=== PATIENT | female | born 1940 ===

== ENCOUNTER 2017-02-10 15:04 | Observation (INO) | payer OTHER ==
[2017-02-10 15:04] VITALS: BMI 32.3
[2017-02-10 17:43] LABS: CHLORIDE 97 mmol/L (98-107)
[2017-02-10 17:44] LABS: SODIUM 137 mmol/L (132-148)
[2017-02-10 17:46] LABS: ALKALINE PHOSPHATASE 107 U/L (38-126); AST/SGOT 45 U/L (14-36); BILIRUBIN,TOTAL 0.5 mg/dL (0.2-1.3); CARBON DIOXIDE 26 mmol/L (22-30); GFR AFRICAN-AMERICAN > 60; TOTAL PROTEIN 7.6 g/dL (6.3-8.3)
[2017-02-10 17:47] LABS: ALT/SGPT 19 U/L (9-52); BLOOD UREA NITROGEN 15 mg/dL (7-17); GLUCOSE,RANDOM 83 mg/dL (65-105); RBC URINE < 1 /hpf (0-3); URINE BACTERIA RARE (<OCC); URINE BILIRUBIN NEGATIVE (NEGATIVE); URINE BLOOD NEGATIVE (NEGATIVE); URINE COLOR Yellow (YELLOW); URINE GLUCOSE (UA) NORMAL (Normal); URINE KETONE NEGATIVE (NEGATIVE); URINE LEUKOCYTE ESTERASE NEG Leu/uL (Negative); URINE PROTEIN 1+ mg/dL (NEGATIVE); URINE UROBILINOGEN NORMAL mg/dL (0.2-1.0); WBC URINE 1 /hpf (0-5)
--- NOTE | 2017-02-10 17:47 | CT ---
PROCEDURE: CT HEAD WITHOUT CONTRAST. HISTORY: r/o ICH COMPARISON: Comparison is made to the previous study dated 10/11/2016 TECHNIQUE: Axial computed tomography images were obtained through the head/brain without intravenous contrast. This CT exam was performed using one or more of the following dose reduction techniques: Automated exposure control, adjustment of the mA and/or kv according to patient size, and/or use of iterative reconstruction technique. Radiation dose: Total exam DLP = 883.96 mGy-cm. FINDINGS: HEMORRHAGE: No intracranial hemorrhage. BRAIN: Again seen is focal low attenuation at the medial aspect of the right temporal lobe measures 8.9 millimeter likely representing dilated perivascular space. The differential diagnosis includes old lacunar infarct. Mild atrophy and moderate chronic microvascular white matter ischemic disease are again seen. VENTRICLES: Unremarkable. No hydrocephalus. CALVARIUM: Unremarkable. PARANASAL SINUSES: Rklh-cp-maovqhsp sinuses mucosal disease is again noted. MASTOID AIR CELLS: Partial opacification of the posterior aspect of the right mastoid is noted. OTHER FINDINGS: None. IMPRESSION: No evidence of acute intracranial hemorrhage mass effect or midline shift. No significant interval change in the brain since the previous exam. Right occipital parietal scalp soft tissue swelling. Soul-ba-tnihtpka sinuses mucosal disease.
--- NOTE | 2017-02-10 17:51 | RAD ---
PROCEDURE: CHEST RADIOGRAPH, 1 VIEW HISTORY: dizziness COMPARISON: None available. FINDINGS: LUNGS: Bibasilar opacities are again seen may represent atelectasis. Mild pulmonary vascular congestion. PLEURA: No pneumothorax or pleural fluid seen. CARDIOVASCULAR: The cardiac silhouette is mildly enlarged. OSSEOUS STRUCTURES: No significant abnormalities. VISUALIZED UPPER ABDOMEN: Normal. OTHER FINDINGS: None. IMPRESSION: No evidence of significant interval change compared to the previous exam.
[2017-02-10 17:52] LABS: POTASSIUM 4.2 mmol/L (3.6-5.2)
--- NOTE | 2017-02-10 17:55 | C.PDOC ---
History Of Present Illness The patient, a 76 y/o female whose PMHx includes Bipolar Disorder and Schizophrenia, presents to the ED via BLS for evaluation after patient reports experiencing multiple falls in her apartment over the past few days. Patient is a poor historian and often changes her story. Patient denies current pain at this time. - HPI Chief Complaint (Nursing): Trauma History Per: EMS History/Exam Limitations: no limitations Onset/Duration Of Symptoms: Hrs Injury Occurred (Timing): Just Before Arrival Additional History Per: Patient Past Medical History Reviewed: Historical Data, Nursing Documentation, Vital Signs Vital Signs: Last Vital Signs Temp Pulse 83 02/10/17 15:45 Resp 22 02/10/17 15:45 BP 162/84 H 02/10/17 15:45 Pulse Ox 98 02/10/17 18:57 - Medical History PMH: Anxiety, Bipolar Disorder, Depression, Gastritis, HTN, Paranoia, Schizophrenia, Seizures Surgical History: Cholecystectomy - [facility] Procedures CLOSURE SKIN & SUBCUTANEOUS NEC (09/15/13) DX ULTRASOUND-HEART (09/11/14) ESOPHAGOGASTRODUODENOSCOPY [EGD] W/CLOSED BIOPSY (10/11/14) OTHER ESOPHAGOSCOPY (09/11/14) TETANUS TOXOID ADMINIST (09/15/13) VACCINATION NEC (10/11/14) VENOUS CATHETERIZATION NEC (09/11/14) Family History: States: Unknown Family Hx - Social History Hx Tobacco Use: No Hx Alcohol Use: No Hx Substance Use: No - Immunization History Hx Tetanus Toxoid Vaccination: No Hx Influenza Vaccination: Yes Hx Pneumococcal Vaccination: No Review Of Systems Except As Marked, All Systems Reviewed And Found Negative. Skin: Positive for: Other (+multiple falls ) Physical Exam - Physical Exam Appears: Non-toxic, No Acute Distress Skin: Normal Color, Warm, Dry, Other (dry blood noted ) Head: Laceration (approx. 1.5cm to right parietal area with signs of granulation ) Eye(s): bilateral: Normal Inspection, PERRL, EOMI Oral Mucosa: Moist Neck: Normal ROM, Supple Chest: Symmetrical, No Deformity, No Tenderness Cardiovascular: Rhythm Regular, No Murmur Respiratory: Normal Breath Sounds, No Rales, No Rhonchi, No Wheezing Gastrointestinal/Abdominal: Soft, No Tenderness, No Guarding, No Rebound Back: Normal Inspection, No Vertebral Tenderness, No Paraspinal Tenderness Extremity: Normal ROM, Capillary Refill (less than 2 seconds), No Swelling Pulses: Left Dorsalis Pedis: Normal, Right Dorsalis Pedis: Normal Neurological/Psych: Oriented x3, Normal Speech, Normal Cognition Gait: Steady ED Course And Treatment - Laboratory Results Result Diagrams: 02/10/17 18:36 02/10/17 17:28 ECG: Interpreted By Me, Viewed By Me ECG Rhythm: Sinus Rhythm Interpretation Of ECG: Sinus Rhythm at rate 74 BPM with LVH. Rate From EC O2 Sat by Pulse Oximetry: 98 (on RA) Pulse Ox Interpretation: Normal - Other Rad CXR X-Ray: Interpreted by Me, Viewed By Me, Read By Radiologist Interpretation: Accession No. : [id number]. Patient Name / ID : KM VANEGAS / [id number]. Exam Date : 02/10/2017 16:34:54 ( Approved ). Study Comment : Sex / Age : F / 76Y. Creator : Leslie Alcantar. Dictator : Leslie Alcantar. Tombstone Erector Helper : Software Packaging Engineer : Leslie Alcantar. Approver2 : Report Date : 02/10/2017 17:49:32. My Comment : . PROCEDURE: CHEST RADIOGRAPH, 1 VIEW. HISTORY: dizziness. COMPARISON: None available. FINDINGS: LUNGS: Bibasilar opacities are again seen may represent atelectasis. Mild pulmonary vascular congestion. PLEURA: No pneumothorax or pleural fluid seen. CARDIOVASCULAR: The cardiac silhouette is mildly enlarged. OSSEOUS STRUCTURES : No significant abnormalities. VISUALIZED UPPER ABDOMEN: Normal. OTHER FINDINGS: None. IMPRESSION: No evidence of significant interval change compared to the previous exam. - CT Scan/US CT Head Other Rad Studies (CT/US): Interpreted By Me, Read By Radiologist, Radiology Report Reviewed CT/US Interpretation: Accession No. : [id number]. Patient Name / ID : KM VANEGAS / [id number]. Exam Date : 02/10/2017 17:09:49 ( Approved ). Study Comment : Sex / Age : F / 76Y. Creator : Leslie Alcantar. Dictator : Leslie Alcantar. Tombstone Erector Helper : Software Packaging Engineer : Leslie Alcantar. Approver2 : Report Date : 02/10/2017 17:46:23. My Comment : . PROCEDURE: CT HEAD WITHOUT CONTRAST. HISTORY: r/o ICH. COMPARISON: Comparison is made to the previous study dated 10/11/2016. TECHNIQUE: Axial computed tomography images were obtained through the head/brain without intravenous contrast. This CT exam was performed using one or more of the following dose reduction techniques : Automated exposure control, adjustment of the mA and/or kv according to patient size, and/or use of iterative reconstruction technique. Radiation dose : Total exam DLP = 883.96 mGy-cm. FINDINGS: HEMORRHAGE: No intracranial hemorrhage. BRAIN: Again seen is focal low attenuation at the medial aspect of the right temporal lobe measures 8.9 millimeter likely representing dilated perivascular space. The differential diagnosis includes old lacunar infarct. Mild atrophy and moderate chronic microvascular white matter ischemic disease are again seen. VENTRICLES: Unremarkable. No hydrocephalus. CALVARIUM: Unremarkable. PARANASAL SINUSES: Mrfg-im-xyufcjue sinuses mucosal disease is again noted. MASTOID AIR CELLS: Partial opacification of the posterior aspect of the right mastoid is noted. OTHER FINDINGS: None. IMPRESSION: No evidence of acute intracranial hemorrhage mass effect or midline shift. No significant interval change in the brain since the previous exam. Right occipital parietal scalp soft tissue swelling. Qlex-fe-rbcvmrel sinuses mucosal disease. Progress Note: labs, CT Head, CXR, and EKG ordered and reviewed. 18:[address] Parra, who recommends TELE OBS. Disposition - Disposition Disposition Time: 19:00 Condition: FAIR - Clinical Impression Clinical Impression: Non-ST elevation (NSTEMI) myocardial infarction - Scribe Statement The provider has reviewed the documentation as recorded by the Scribe (Angie Khan) Provider Attestation: All medical record entries made by the Scribe were at my direction and personally dictated by me. I have reviewed the chart and agree that the record accurately reflects my personal performance of the history, physical exam, medical decision making, and the department course for this patient. I have also personally directed, reviewed, and agree with the discharge instructions and disposition.
[2017-02-10 18:39] LABS: BASO # 0.1 K/uL (0.0-0.2); BASO % 1.1 % (0.0-2.0); EOS # 0.6 K/uL (0.0-0.7); EOS % 11.5 % (0.0-4.0); HEMATOCRIT 34.7 % (34.0-47.0); LYMPH # 1.8 K/uL (1.0-4.3); LYMPH % 35.6 % (20.0-40.0); MEAN CELL VOLUME 97.3 fL (81.0-99.0); MEAN CORPUSCULAR HEMOGLOBIN 32.8 pg (27.0-31.0); MEAN CORPUSCULAR HGB CONC 33.7 g/dL (33.0-37.0); MEAN PLATELET VOLUME 6.9 fL (7.2-11.7); MONO # 0.5 K/uL (0.0-0.8); MONO % 9.6 % (0.0-10.0); NRBC % 0.1 % (0.0-2.0); RED CELL DISTRIBUTION WIDTH 13.6 % (11.5-14.5)
[2017-02-11 06:54] LABS: HEMATOCRIT 34.8 % (34.0-47.0); MEAN CELL VOLUME 97.9 fL (81.0-99.0); MEAN CORPUSCULAR HEMOGLOBIN 32.4 pg (27.0-31.0); MEAN CORPUSCULAR HGB CONC 33.1 g/dL (33.0-37.0); MEAN PLATELET VOLUME 7.5 fL (7.2-11.7); RED CELL DISTRIBUTION WIDTH 13.8 % (11.5-14.5); WHITE BLOOD COUNT 4.6 K/uL (4.8-10.8)
[2017-02-11 07:11] LABS: CHLORIDE 100 mmol/L (98-107); POTASSIUM 3.5 mmol/L (3.6-5.2); SODIUM 137 mmol/L (132-148)
[2017-02-11 07:13] LABS: GFR AFRICAN-AMERICAN > 60
[2017-02-11 07:14] LABS: BLOOD UREA NITROGEN 10 mg/dL (7-17); CALCIUM 8.2 mg/dl (8.6-10.4); CARBON DIOXIDE 27 mmol/L (22-30); GLUCOSE,RANDOM 89 mg/dL (65-105)
[2017-02-11] MEDS: Pantoprazole 40 mg EC Tab PO SCH ×2 (08:49→10:01)
[2017-02-11 16:08] VITALS: RESP 20
--- NOTE | 2017-02-11 17:23 | CON ---
DATE: 02/11/2017 REASON FOR CONSULTATION: Elevated troponin. HISTORY OF PRESENT ILLNESS: The patient is a 76-year-old female who has a history of schizo phrenia and bipolar disorder, was admitted because of multiple falls. The patient sustained a acid operator ior scalp laceration. The patient does complain of pain at the site of the laceration, but denies an y frontal headache. The patient denies any chest pain or history of heart attack in the past. The p atient reports loss of hearing in the left ear as well as inability to lower extremities, althou gh according to the nurse in ICU, the patient was able to stand up from bed and sit on a chair at the bedside. No reported ventricular arrhythmia. MEDICATIONS: Phenobarbital 32.4 mg twice a day, Protonix 40 mg p.o. once a day, Trileptal 150 mg twi ce a day, Tylenol 650 mg q. 6 hours p.r.n. for pain. REVIEW OF SYSTEMS: No abdominal pain, no nausea or vomiting. No chest pain. No abdominal pain. PHYSICAL EXAMINATION: GENERAL: The patient is an elderly female who does not appear to be in acute distress. VITAL SIGNS: Blood pressure /65, heart rate 74, temperature 98.6, respirations 20. HEENT: A bruise in the right posterior aspect of the cortex. No pallor or icterus. NECK: No JVD. CHEST: Clear. HEART: S1, S2 regular. ABDOMEN: Soft. EXTREMITIES: No edema. LABORATORY DATA: SMA-7 is within normal limits except for potassium 3.5 and creatinine 0.5. Troponi ns were 0.184, 0.189 and 0.126. The three are borderline elevated. CBC of , hemoglobin 11.5, h ematocrit 34.3, platelet count 174,000. Dilantin level is 24.2. Initially, on admission Dilantin le brad was 32.5. Head CT scan without contrast: No evidence of acute intracranial hemorrhage, mass eff ect or midline shift. Right occipital parietal scalp soft tissue swelling. Mild to moderate sinus m ucosal disease. Chest x-ray revealed mild cardiomegaly, questionable right lower lobe infiltrate. E KG revealed sinus rhythm at 72 per minute. Minimal voltage criteria for LVH and nonspecific ST segme nt changes which in my opinion are mainly artifact. ASSESSMENT: 1. History of multiple falls with right posterior scalp contusion, most likely related to underlying seizure activity. 2. Borderline troponin elevation. Rule out underlying cerebral contusion. 3. Borderline hypokalemia. 4. Bipolar disorder. RECOMMENDATIONS: Continue current phenobarbital and Trileptal. The patient is not a suitable candid ate for antiplatelet or anticoagulation therapy for now. Consider repeating head CT scan without con trast or obtaining brain MRI. I also will order a cervical spine x-ray and an echocardiogram. Seizu re as well as fall precautions are strongly recommended. Reymundo Chávez MD cc: [id number] TT: 02/11/2017 17:22:51 Confirmation # [id number] Dictation # [id number] mn
[2017-02-11] MEDS: Albuterol 0.042% Inhal Sol (1.25 mg/3 mL) UD INH SCH (21:03)
[2017-02-11] MEDS: Rosuvastatin Calcium 2.5 mg Tab PO SCH (21:11)
[2017-02-11 21:14] LABS: ABG ALLEN TEST POS; ARTERIAL BLOOD HGB O2 SAT 96.2 % (95.0-98.0); DRAW SITE LRA; METHEMOGLOBIN 1.8 % (0.0-3.0)
--- NOTE | 2017-02-11 22:27 | CARD ---
APPROVED REPORT EKG Measurement Heart [id number] <Conclusion> Normal sinus rhythm Minimal voltage criteria for LVH, may be normal variant Nonspecific ST and T wave abnormality Abnormal ECG
--- NOTE | 2017-02-11 23:05 | CP.PCM.HP ---
History of Present Illness - History of Present Illness History of Present Illness: Cheif complain: Fall HPI: The patient,is an elderly 76 y/o female well known to me with PMH of seizure disorder, Bipolar Disorder and Schizophrenia,non complaint with diet, medication and follow up, with h/o recurrent falls, presents to the ED via BLS for evaluation after patient reports experiencing multiple falls in her apartment over the past few days. Patient is a poor historian and often changes her story. Patient denies current pain at this time, found to have elevated tropnins, pt complains of weakness dizziness. [place] toxicity was ruled out. Present on Admission - Present on Admission Any Indicators Present on Admission: No Review of Systems - Review of Systems Systems not reviewed;Unavailable: Acuity of Condition, Uncooperative, Psychotic - Constitutional Constitutional: Fatigue, Lethargy, Weakness - Cardiovascular Cardiovascular: Dyspnea on Exertion - Gastrointestinal Gastrointestinal: Dyspepsia - Genitourinary Genitourinary: absent: As Per HPI, Change in Urinary Stream, Difficulty Urinating, Dysuria, Flank Pain, Hematuria, Pyuria, Nocturia, Urinary Incontinence, Urinary Frequency, Urinary Hesitance, Urinary Urgency, Voiding Freq/Small Amts, Freq UTI, Hx Renal/Bladder Calculi, Hx /Renal Surgery, Bladder Distension, Other - Musculoskeletal Musculoskeletal: Arthralgias, Muscle Weakness, Myalgias - Integumentary Integumentary: absent: As Per HPI, Acne, Alopecia, Bleeding Lesions, Change in Hair, Change in Nails, Change in Pigmentation, Changing Lesions, Dry Skin, Erythema, Furuncle, Hirsutism, Lesions, New Lesions, Non-Healing Lesions, Photosensitivity, Pruritus, Rash, Skin Pain, Skin Ulcer, Sores, Striae, Swelling , Unusual Bruising, Wounds, Jaundice, Other - Neurological Neurological: Confusion, Dizziness, Frequent Falls, Weakness - Psychiatric Psychiatric: Anxiety, Depression - Endocrine Endocrine: absent: As Per HPI, Change in Body Appearance, Change in Libido, Cold Intolorance, Deepening of Voice, Excessive Sweating, Fatigue, Flushing, Heat Intolorance, Increase in Ring/Shoe/Hat Size, Palpitations, Polydipsia, Polyphagia, Polyuria, Other Past Patient History - Infectious Disease Hx of Infectious Diseases: None - Past Medical History & Family History Past Medical History?: Yes - Past Social History Smoking Status: Never Smoked - CARDIAC Hx Hypertension: Yes - PULMONARY Hx Respiratory Disorders: Yes Hx Pneumonia: Yes - NEUROLOGICAL Hx Neurological Disorder: Yes Hx Seizures: Yes - HEENT Hx HEENT Problems: Yes Hx Cataracts: Yes - RENAL Hx Chronic Kidney Disease: No - ENDOCRINE/METABOLIC Hx Endocrine Disorders: No - HEMATOLOGICAL/ONCOLOGICAL Hx Blood Disorders: No - INTEGUMENTARY Hx Dermatological Problems: No - MUSCULOSKELETAL/RHEUMATOLOGICAL Hx Musculoskeletal Disorders: Yes Hx Falls: Yes - GASTROINTESTINAL Hx Gastrointestinal Disorders: Yes Hx Gastritis: Yes - GENITOURINARY/GYNECOLOGICAL Hx Genitourinary Disorders: No - PSYCHIATRIC Hx Psychophysiologic Disorder: Yes Hx Bipolar Disorder: Yes Hx Paranoia: Yes Hx Schizophrenia: Yes Hx Substance Use: No - SURGICAL HISTORY Hx Surgeries: Yes Hx Cholecystectomy: Yes - ANESTHESIA Hx Anesthesia: Yes Hx Anesthesia Reactions: No Hx Malignant Hyperthermia: No Meds Home Medications: Home Medication List Medication Instructions Recorded Confirmed Type OXcarbazepine [Trileptal] 150 mg PO BID #60 tab 02/15/17 Rx Phenytoin [Dilantin] 100 mg PO TID #90 udc 02/15/17 Rx Allergies/Adverse Reactions: Allergies Allergy/AdvReac Type Severity Reaction Status Date / Time Penicillins Allergy Severe ANAPHYLAXIS Verified 02/10/17 22:41 cigarette smoke Allergy Verified 03/22/17 17:53 AMONIA Allergy Mild RASH Uncoded 02/10/17 22:41 Physical Exam - Constitutional Appears: No Acute Distress - Head Exam Head Exam: ATRAUMATIC, NORMAL INSPECTION, NORMOCEPHALIC - Eye Exam Eye Exam: EOMI, Normal appearance, PERRL Pupil Exam: NORMAL ACCOMODATION, PERRL - Respiratory Exam Respiratory Exam: Decreased Breath Sounds - Cardiovascular Exam Cardiovascular Exam: REGULAR RHYTHM - GI/Abdominal Exam GI & Abdominal Exam: Normal Bowel Sounds, Soft. absent: Tenderness - Rectal Exam Rectal Exam: Deferred - Neurological Exam Neurological exam: Abnormal Gait, Alert, CN II-XII Intact - Psychiatric Exam Psychiatric exam: Agitated, Normal Affect Results - Vital Signs Recent Vital Signs: Last Vital Signs Temp 98.6 F 02/11/17 16:06 Pulse 93 H 02/11/17 18:06 Resp 20 02/11/17 16:06 BP 117/65 02/11/17 16:06 Pulse Ox 96 02/11/17 16:06 - Labs Result Diagrams: 02/12/17 06:04 02/12/17 06:04 Labs: Laboratory Results - last 24 hr 02/11/17 21:05 Puncture Site Lra pCO2 42 HCO3 26.2 ABG pH 7.41 ABG Total CO2 27.9 ABG O2 Saturation 100.0 H ABG Base Excess 1.7 ABG Hemoglobin 10.6 L ABG Carboxyhemoglobin 2.0 H POC ABG HHb (Measured) 0.0 ABG Methemoglobin 1.8 Edgar Test Pos Hgb O2 Saturation 96.2 Assessment & Plan (1) Dehydration Status: Acute (2) NSTEMI (non-ST elevated myocardial infarction) Status: Acute (3) Psychosis Status: Acute (4) Dilaudid use disorder, mild, abuse Status: Acute (5) Seizure disorder Status: Acute (6) Recurrent falls Status: Acute
--- NOTE | 2017-02-11 23:13 | CARD ---
APPROVED REPORT EKG Measurement Heart [id number] <Conclusion> Normal sinus rhythm Minimal voltage criteria for LVH, may be normal variant Abnormal QRS-T angle, consider primary T wave abnormality Abnormal ECG
[2017-02-12 06:14] LABS: HEMATOCRIT 33.7 % (34.0-47.0); MEAN CELL VOLUME 96.1 fL (81.0-99.0); MEAN CORPUSCULAR HEMOGLOBIN 32.2 pg (27.0-31.0); MEAN CORPUSCULAR HGB CONC 33.5 g/dL (33.0-37.0); MEAN PLATELET VOLUME 7.3 fL (7.2-11.7); RED CELL DISTRIBUTION WIDTH 13.6 % (11.5-14.5)
[2017-02-12 06:38] LABS: CHLORIDE 97 mmol/L (98-107); POTASSIUM 4.2 mmol/L (3.6-5.2); SODIUM 137 mmol/L (132-148)
[2017-02-12 06:40] LABS: GFR AFRICAN-AMERICAN > 60
[2017-02-12 06:41] LABS: BLOOD UREA NITROGEN 16 mg/dL (7-17); CALCIUM 7.8 mg/dl (8.6-10.4); CARBON DIOXIDE 28 mmol/L (22-30); GLUCOSE,RANDOM 87 mg/dL (65-105)
[2017-02-12] MEDS: Albuterol 0.042% Inhal Sol (1.25 mg/3 mL) UD INH SCH ×3 (08:22→20:00)
[2017-02-12] MEDS: Pantoprazole 40 mg EC Tab PO SCH (10:56)
--- NOTE | 2017-02-12 14:00 | CP.PCM.CON ---
History of Present Illness - History of Present Illness History of Present Illness: Palliative consult requested by Homa RAMIREZ Reason: Goals of care Patient is a 76 yo female admitted from home after self reported multiple falls at home. The head CT was negative for intracranial bleeding and suggested right occipital parietal soft tissue swelling. Patient is currently on 1: 1 safety watch. Frther MRI was suggested. PMH: Bipolar disorder, schizophrenia, anxiety, HTN, paranoa, seizures Soc. Hx: , lives at [facility]. hx: unknown Review of Systems - Constitutional Constitutional: Frequent Falls - EENT Eyes: absent: As Per HPI, Blind Spots, Blurred Vision, Change in Vision, Decreased Night Vision, Diplopia, Discharge, Dry Eye, Exophthalmos, Floaters, Irritation, Itchy Eyes, Loss of Peripheral Vision, Pain, Photophobia, Requires Corrective Lenses, Sees Flashes, Spots in Vision, Tunnel Vision, Other Visual Disturbances, Loss of Vision, Other Ears: Decreased Hearing, Disequilibrium Nose/Mouth/Throat: absent: As Per HPI, Epistaxis, Nasal Congestion, Nasal Discharge, Nasal Obstruction, Nasal Trauma, Nose Pain, Post Nasal Drip, Sinus Pain, Sinus Pressure, Bleeding Gums, Change in Voice, Dental Pain, Dry Mouth, Dysphagia, Halitosis, Hoarsness, Lip Swelling, Mouth Lesions, Mouth Pain, Odynophagia, Sore Throat, Throat Swelling, Tongue Swelling, Facial Pain, Neck Pain, Neck Mass, Other - Breasts Breasts: absent: As Per HPI, Change in Shape, Mass, Pain, Nipple Discharge, Nipple Inversion, Skin Changes, Swelling, Other - Cardiovascular Cardiovascular: absent: As Per HPI, Acrocyanosis, Chest Pain, Chest Pain at Rest , Chest Pain with Activity, Claudication, Diaphoresis, Dyspnea, Dyspnea on Exertion, Edema, Irregular Heart Rhythm, Pain Radiating to Arm/Neck/Jaw, Leg Edema, Leg Ulcers, Lightheadedness, Orthopnea, Palpitations, Paroxysmal Nocturnal Dyspnea, Pedal Edema, Radiating Pain, Rapid Heart Rate, Slow Heart Rate, Syncope, Other - Respiratory Respiratory: absent: As Per HPI, Cough, Dyspnea, Hemoptysis, Dyspnea on Exertion , Wheezing, Snoring, Stridor, Pain on Inspiration, Chest Congestion, Excessive Mucous Production, Change in Mucous Color, Pain with Coughing, Other - Gastrointestinal Gastrointestinal: absent: As Per HPI, Abdominal Pain, Belching, Bloating, Change in Bowel Habits, Change in Stool Character, Coffee Ground Emesis, Constipation, Cramping, Diarrhea, Dyspepsia, Dysphagia, Early Satiety, Excessive Flatus, Fecal Incontinence, Heartburn, Hematemesis, Hematochezia, Loose Stools, Melena, Nausea, Odynophagia, Temesmus, Vomiting, Other - Genitourinary Genitourinary: absent: As Per HPI, Change in Urinary Stream, Difficulty Urinating, Dysuria, Flank Pain, Hematuria, Pyuria, Nocturia, Urinary Incontinence, Urinary Frequency, Urinary Hesitance, Urinary Urgency, Voiding Freq/Small Amts, Freq UTI, Hx Renal/Bladder Calculi, Hx /Renal Surgery, Bladder Distension, Other - Reproductive: Female Reproductive:Female: Post Menopausal - Menstruation Menstruation: Post Menopausal - Musculoskeletal Musculoskeletal: absent: As Per HPI, Abnormal Gait, Arthralgias, Atrophy, Back Pain, Deformity, Joint Swelling, Limited Range of Motion, Loss of Height, Muscle Cramps, Muscle Weakness, Myalgias, Neck Pain, Numbness, Radiating Pain into Limb, Stiffness, Tingling, Other - Integumentary Integumentary: absent: As Per HPI, Acne, Alopecia, Bleeding Lesions, Change in Hair, Change in Nails, Change in Pigmentation, Changing Lesions, Dry Skin, Erythema, Furuncle, Hirsutism, Lesions, New Lesions, Non-Healing Lesions, Photosensitivity, Pruritus, Rash, Skin Pain, Skin Ulcer, Sores, Striae, Swelling , Unusual Bruising, Wounds, Jaundice, Other - Neurological Neurological: Abnormal Hearing, Disequilibrium, Dizziness, Lack of Coordination - Psychiatric Psychiatric: Anxiety, Paranoia - Endocrine Endocrine: absent: As Per HPI, Change in Body Appearance, Change in Libido, Cold Intolorance, Deepening of Voice, Excessive Sweating, Fatigue, Flushing, Heat Intolorance, Increase in Ring/Shoe/Hat Size, Palpitations, Polydipsia, Polyphagia, Polyuria, Other - Hematologic/Lymphatic Hematologic: absent: As Per HPI, Easy Bleeding, Easy Bruising, Lymphadenopathy, Other Past Patient History - Infectious Disease Hx of Infectious Diseases: None - Past Medical History & Family History Past Medical History?: Yes - Past Social History Smoking Status: Never Smoked - CARDIAC Hx Hypertension: Yes - PULMONARY Hx Respiratory Disorders: Yes Hx Pneumonia: Yes - NEUROLOGICAL Hx Neurological Disorder: Yes Hx Seizures: Yes - HEENT Hx HEENT Problems: Yes Hx Cataracts: Yes - RENAL Hx Chronic Kidney Disease: No - ENDOCRINE/METABOLIC Hx Endocrine Disorders: No - HEMATOLOGICAL/ONCOLOGICAL Hx Blood Disorders: No - INTEGUMENTARY Hx Dermatological Problems: No - MUSCULOSKELETAL/RHEUMATOLOGICAL Hx Musculoskeletal Disorders: Yes Hx Falls: Yes - GASTROINTESTINAL Hx Gastrointestinal Disorders: Yes Hx Gastritis: Yes - GENITOURINARY/GYNECOLOGICAL Hx Genitourinary Disorders: No - PSYCHIATRIC Hx Psychophysiologic Disorder: Yes Hx Bipolar Disorder: Yes Hx Paranoia: Yes Hx Schizophrenia: Yes Hx Substance Use: No - SURGICAL HISTORY Hx Surgeries: Yes Hx Cholecystectomy: Yes - ANESTHESIA Hx Anesthesia: Yes Hx Anesthesia Reactions: No Hx Malignant Hyperthermia: No Meds Allergies/Adverse Reactions: Allergies Allergy/AdvReac Type Severity Reaction Status Date / Time Penicillins Allergy Severe ANAPHYLAXIS Verified 02/10/17 22:41 AMONIA Allergy Mild RASH Uncoded 02/10/17 22:41 - Medications Medications: Current Medications Acetaminophen (Tylenol 325mg Tab) 650 mg PO Q6 PRN PRN Reason: Pain, moderate (4-7) Last Admin: 02/12/17 10:59 Dose: 650 mg Albuterol Sulfate (Albuterol 0.042% Inhal Lynn (1.25mg/3ml) Ud) 1.25 mg INH RTID [facility] Last Admin: 02/12/17 13:31 Dose: 1.25 mg Oxcarbazepine (Trileptal) 150 mg PO BID [facility] Last Admin: 02/12/17 10:56 Dose: 150 mg Pantoprazole Sodium (Protonix Ec Tab) 40 mg PO DAILY [facility] Last Admin: 02/12/17 10:56 Dose: 40 mg Phenobarbital (Phenobarbital Tab) 32.4 mg PO BID [facility] Last Admin: 02/12/17 10:56 Dose: 32.4 mg Rosuvastatin Calcium (Crestor) 2.5 mg PO HS [facility] Last Admin: 02/11/17 21:11 Dose: 2.5 mg Physical Exam - Constitutional Appears: No Acute Distress - Head Exam Additional comments: righ occipital soft tissue swelling - Eye Exam Eye Exam: Normal appearance Pupil Exam: NORMAL ACCOMODATION - ENT Exam ENT Exam: Mucous Membranes Moist, Normal Exam - Neck Exam Neck exam: Positive for: Normal Inspection - Respiratory Exam Respiratory Exam: NORMAL BREATHING PATTERN - Cardiovascular Exam Cardiovascular Exam: REGULAR RHYTHM - GI/Abdominal Exam GI & Abdominal Exam: Normal Bowel Sounds - Rectal Exam Rectal Exam: Deferred - Extremities Exam Extremities exam: Positive for: normal inspection - Back Exam Back exam: NORMAL INSPECTION - Neurological Exam Neurological exam: Alert - Psychiatric Exam Psychiatric exam: Agitated - Skin Skin Exam: Normal Color Results - Vital Signs Recent Vital Signs: Last Vital Signs Temp 97.0 F L 02/12/17 08:48 Pulse 93 H 02/12/17 08:48 Resp 20 02/12/17 08:48 BP 118/62 02/12/17 08:48 Pulse Ox 96 02/12/17 08:48 - Labs Result Diagrams: 02/12/17 06:04 02/12/17 06:04 Labs: Laboratory Results - last 24 hr 02/11/17 02/12/17 21:05 06:04 WBC 4.0 L RBC 3.51 L Hgb 11.3 Hct 33.7 L MCV 96.1 MCH 32.2 H MCHC 33.5 RDW 13.6 Plt Count 250 MPV 7.3 Puncture Site Lra pCO2 42 HCO3 26.2 ABG pH 7.41 ABG Total CO2 27.9 ABG O2 Saturation 100.0 H ABG Base Excess 1.7 ABG Hemoglobin 10.6 L ABG Carboxyhemoglobin 2.0 H POC ABG HHb (Measured) 0.0 ABG Methemoglobin 1.8 Edgar Test Pos Hgb O2 Saturation 96.2 Sodium 137 Potassium 4.2 Chloride 97 L Carbon Dioxide 28 Anion Gap 16 BUN 16 Creatinine 0.6 L Est GFR ( Amer) > 60 Est GFR (Non-Af Amer) > 60 Random Glucose 87 Calcium 7.8 L Phenytoin 10.5 Assessment & Plan - Assessment and Plan (Free Text) Assessment: Code stats Full Code. No advance directive on chart. PS 30% I reviewed medical records, all diagnostic studies, examined and interviewed patient in the bed. Patient is poor historian. Goals of care discussed over the phone with patient's son Mr Katy Blackwell. Patient is alert, agitated in bed. Eyes closed. Patient was able to properly answer questions regarding her head bump and other symptoms. 1;1 safety watch. The righ occipital ,lobe soft tissue swelling palpated, with out discharge. Area tender , withdraws from touch. Patient was tring to explain some ear bleeding. Physical exam did not reveal signs of bleeding. Breath sounds are diminished, neb. Tx on board. Abdomen soft, active bowel sounds, skin intact. BP 143/62, HR 93, O2Sat 96 % NC. Troponin level remains elevated at 0.126 but is coming down. Phenytoin level was high at 32.5. Patient takes Phenobarb 32.4 BID at present. In phone conversation with patient's son, I learned, that patient was recently complaining of hearing loss to one year and some bloody discharge. The son was also concerned with patient's [facility] sate. He offers he [employer] driver license being suspended and is not able to visit the patient. I elicited more information about patient base line behaviour prior to admission. Mr. Baldwin offered that patient lives at [facility] and was fully functional except mentioned above. He would want his mother to be checked out for factors causing her frequent falls prior returning home. He suggests that patient would be safe to return home to same place. Impression * Patient is alert but very restless in bed putting her self at risk for fall * Self reported ear pain and lost of balance * Decreased breath sounds * Needs moderate assistance with ADls Suggestion * Safety should be a paramount in this situation * ENT eval * Psych eval * SS and case management for safe discharge plan. I am not sure patient would be safe to return to [facility] alone Thank you for consulting palliative care
--- NOTE | 2017-02-12 15:02 | CON ---
DATE: 02/12/2017 Thank you for asking me to see this patient on consultation. I interviewed the patient and the relat javan of the patient. I examined the patient in detail. I reviewed the chart and the lab data. All the details have been dictated and placed in the patient's chart. Orders have been placed in the com puter. Please see the details on the consult sheet. Irving Beckham MD cc: [id number] TT: 02/12/2017 15:01:53 Confirmation # [id number] Dictation # [id number] mn
--- NOTE | 2017-02-12 15:53 | PN ---
DATE: 02/12/2017 No reports of arrhythmia. The patient is currently is sleepy and does not appear to be in any respir atory distress. PHYSICAL EXAMINATION: VITAL SIGNS: Blood pressure 118/62, heart rate 93, temperature 97, respirations 20. HEENT: Posterior right-sided scalp laceration. NECK: No JVD. CHEST: Clear. HEART: S1, S2 regular. EXTREMITIES: No edema. LABORATORIES: Hemoglobin and hematocrit 11.3 and 33.7, white count 4.0, platelet count 250,000. Dil antin level today is 10.5. Calcium is below normal at 7.8. SMA-7 is within normal limits except for chloride of 97 and creatinine 0.6. Cervical spine x-ray was performed, but the report is still pend ing. ASSESSMENT: 1. Multiple falls with scalp trauma. 2. Seizure disorder. 3. Status post Dilantin overdose. 4. Bipolar disorder. 5. Borderline troponin elevation. RECOMMENDATIONS: Continue current Crestor at 2.5 mg once a day, phenobarbital 32.4 mg twice a day, P rotonix 40 mg once daily, Trileptal 150 mg twice a day. I will follow up x-ray of the C-spine and re view the echocardiograph study performed yesterday. Reymundo Chávez MD cc: [id number] TT: 02/12/2017 15:52:37 Confirmation # [id number] Dictation # [id number] an
--- NOTE | 2017-02-12 16:00 | RAD ---
PROCEDURE: Cervical spine HISTORY: FALL COMPARISON: None. TECHNIQUE: AP, lateral, open-mouth views for assessment of the C1-C2 relationship FINDINGS: Cervical spondylotic changes C4-5 and C5-6. No visualize vertebral body fractures. IMPRESSION: Degenerative changes in is mid cervical spine, lower cervical spine. No acute findings.
[2017-02-12] MEDS ORDERED: Aluminum Hydroxide/Magnesium Hydroxide Susp (30 mL) PO PRN (19:04)
[2017-02-12] MEDS: Rosuvastatin Calcium 2.5 mg Tab PO SCH (21:31)
--- NOTE | 2017-02-13 01:29 | CP.PCM.PN ---
Subjective - Date & Time of Evaluation Date of Evaluation: 02/12/17 Time of Evaluation: 10:12 - Subjective Subjective: Pt seen & examined c/o headcahe, dyspepsia, is for neurology eval Objective - Vital Signs/Intake and Output Vital Signs (last 24 hours): Temp Pulse Resp BP Pulse Ox 98.9 F 86 20 126/70 96 02/12/17 23:05 02/12/17 23:05 02/12/17 23:05 02/12/17 23:05 02/12/17 23:05 Intake and Output: 02/12/17 02/13/17 18:59 06:59 Intake Total 780 780 Output Total 780 Balance 780 0 - Medications Medications: Current Medications Acetaminophen (Tylenol 325mg Tab) 650 mg PO Q6 PRN PRN Reason: Pain, moderate (4-7) Last Admin: 02/12/17 18:25 Dose: 650 mg Al Hydrox/Mg Hydrox/Simethicone (Maalox 30 Ml) 30 ml PO TID PRN PRN Reason: Indigestion / Heartburn Last Admin: 02/12/17 20:35 Dose: 30 ml Albuterol Sulfate (Albuterol 0.042% Inhal Lynn (1.25mg/3ml) Ud) 1.25 mg INH RTID [facility] Last Admin: 02/12/17 20:00 Dose: 1.25 mg Oxcarbazepine (Trileptal) 150 mg PO BID [facility] Last Admin: 02/12/17 17:06 Dose: 150 mg Pantoprazole Sodium (Protonix Ec Tab) 40 mg PO DAILY [facility] Last Admin: 02/12/17 10:56 Dose: 40 mg Phenobarbital (Phenobarbital Tab) 32.4 mg PO BID [facility] Last Admin: 02/12/17 17:06 Dose: 32.4 mg Rosuvastatin Calcium (Crestor) 2.5 mg PO HS [facility] Last Admin: 02/12/17 21:31 Dose: 2.5 mg - Labs Labs: 02/12/17 06:04 02/12/17 06:04 - Constitutional Appears: No Acute Distress - Head Exam Head Exam: ATRAUMATIC, NORMAL INSPECTION, NORMOCEPHALIC - Eye Exam Eye Exam: EOMI, Normal appearance, PERRL Pupil Exam: NORMAL ACCOMODATION, PERRL - Respiratory Exam Respiratory Exam: Clear to Ausculation Bilateral, NORMAL BREATHING PATTERN - Cardiovascular Exam Cardiovascular Exam: REGULAR RHYTHM, +S1, +S2. absent: Murmur - GI/Abdominal Exam GI & Abdominal Exam: Soft, Normal Bowel Sounds. absent: Tenderness Assessment and Plan (1) Dehydration Status: Acute (2) NSTEMI (non-ST elevated myocardial infarction) Status: Acute (3) Psychosis Status: Acute (4) Dilaudid use disorder, mild, abuse Status: Acute (5) Seizure disorder Status: Acute (6) Recurrent falls Status: Acute
--- NOTE | 2017-02-13 02:03 | CP.PCM.CON ---
History of Present Illness - History of Present Illness History of Present Illness: The patient, a 76 y/o female whose PMHx includes Bipolar Disorder and Schizophrenia, presents to the ED via BLS for evaluation after patient reports experiencing multiple falls in her apartment over the past few days. Patient is a poor historian and often changes her story. Patient denies current pain at this time. HPI Chief Complaint: Trauma History Per: EMS History/Exam Limitations: no limitations Onset/Duration Of Symptoms: Hrs Injury Occurred (Timing): Just Before Arrival Additional History Per: Patient Past Medical History Reviewed: Historical Data, Nursing Documentation, Vital Signs Vital Signs: Last Vital Signs Temp Pulse 83 02/10/17 15:45 Resp 22 02/10/17 15:45 BP 162/84 H 02/10/17 15:45 Pulse Ox 98 02/10/17 18:57 - Medical History PMH: Anxiety, Bipolar Disorder, Depression, Gastritis, HTN, Paranoia, Schizophrenia, Seizures Surgical History: Cholecystectomy [facility] Procedures CLOSURE SKIN & SUBCUTANEOUS NEC (09/15/13) DX ULTRASOUND-HEART (09/11/14) ESOPHAGOGASTRODUODENOSCOPY [EGD] W/CLOSED BIOPSY (10/11/14) OTHER ESOPHAGOSCOPY (09/11/14) TETANUS TOXOID ADMINIST (09/15/13) VACCINATION NEC (10/11/14) VENOUS CATHETERIZATION NEC (09/11/14) Family History: States: Unknown Family Hx - Social History Hx Tobacco Use: No Hx Alcohol Use: No Hx Substance Use: No - Immunization History Hx Tetanus Toxoid Vaccination: No Hx Influenza Vaccination: Yes Hx Pneumococcal Vaccination: No Review Of Systems Except As Marked, All Systems Reviewed And Found Negative. Skin: Positive for: Other (+multiple falls ) ECG Rhythm: Sinus Rhythm Interpretation Of ECG: Sinus Rhythm at rate 74 BPM with LVH. Rate From EC O2 Sat by Pulse Oximetry: 98 (on RA) Pulse Ox Interpretation: Normal FINDINGS of CXR: LUNGS: Bibasilar opacities are again seen may represent atelectasis. Mild pulmonary vascular congestion. PLEURA: No pneumothorax or pleural fluid seen. CARDIOVASCULAR: The cardiac silhouette is mildly enlarged. OSSEOUS STRUCTURES: No significant abnormalities. VISUALIZED UPPER ABDOMEN: Normal. OTHER FINDINGS: None. IMPRESSION: No evidence of significant interval change compared to the previous exam. IMPRESSION of CT BRAIN: No evidence of acute intracranial hemorrhage mass effect or midline shift. No significant interval change in the brain since the previous exam. Right occipital parietal scalp soft tissue swelling. Mild-to- moderate sinuses mucosal disease. Progress Note: labs, CT Head, CXR, and EKG ordered and reviewed. 18:[address] Parra, who recommends TELE OBS. IMPRESSION OF X RAY C SPINE: Degenerative changes in is mid cervical spine, lower cervical spine. No acute findings. Past Patient History - Infectious Disease Hx of Infectious Diseases: None - Past Medical History & Family History Past Medical History?: Yes - Past Social History Smoking Status: Never Smoked - CARDIAC Hx Hypertension: Yes - PULMONARY Hx Respiratory Disorders: Yes Hx Pneumonia: Yes - NEUROLOGICAL Hx Neurological Disorder: Yes Hx Seizures: Yes - HEENT Hx HEENT Problems: Yes Hx Cataracts: Yes - RENAL Hx Chronic Kidney Disease: No - ENDOCRINE/METABOLIC Hx Endocrine Disorders: No - HEMATOLOGICAL/ONCOLOGICAL Hx Blood Disorders: No - INTEGUMENTARY Hx Dermatological Problems: No - MUSCULOSKELETAL/RHEUMATOLOGICAL Hx Musculoskeletal Disorders: Yes Hx Falls: Yes - GASTROINTESTINAL Hx Gastrointestinal Disorders: Yes Hx Gastritis: Yes - GENITOURINARY/GYNECOLOGICAL Hx Genitourinary Disorders: No - PSYCHIATRIC Hx Psychophysiologic Disorder: Yes Hx Bipolar Disorder: Yes Hx Paranoia: Yes Hx Schizophrenia: Yes Hx Substance Use: No - SURGICAL HISTORY Hx Surgeries: Yes Hx Cholecystectomy: Yes - ANESTHESIA Hx Anesthesia: Yes Hx Anesthesia Reactions: No Hx Malignant Hyperthermia: No Meds Allergies/Adverse Reactions: Allergies Allergy/AdvReac Type Severity Reaction Status Date / Time Penicillins Allergy Severe ANAPHYLAXIS Verified 02/10/17 22:41 AMONIA Allergy Mild RASH Uncoded 02/10/17 22:41 - Medications Medications: Current Medications Acetaminophen (Tylenol 325mg Tab) 650 mg PO Q6 PRN PRN Reason: Pain, moderate (4-7) Last Admin: 02/12/17 18:25 Dose: 650 mg Al Hydrox/Mg Hydrox/Simethicone (Maalox 30 Ml) 30 ml PO TID PRN PRN Reason: Indigestion / Heartburn Last Admin: 02/12/17 20:35 Dose: 30 ml Albuterol Sulfate (Albuterol 0.042% Inhal Lynn (1.25mg/3ml) Ud) 1.25 mg INH RTID [facility] Last Admin: 02/12/17 20:00 Dose: 1.25 mg Oxcarbazepine (Trileptal) 150 mg PO BID [facility] Last Admin: 02/12/17 17:06 Dose: 150 mg Pantoprazole Sodium (Protonix Ec Tab) 40 mg PO DAILY [facility] Last Admin: 02/12/17 10:56 Dose: 40 mg Phenobarbital (Phenobarbital Tab) 32.4 mg PO BID [facility] Last Admin: 02/12/17 17:06 Dose: 32.4 mg Rosuvastatin Calcium (Crestor) 2.5 mg PO HS [facility] Last Admin: 02/12/17 21:31 Dose: 2.5 mg Results - Vital Signs Recent Vital Signs: Last Vital Signs Temp 98.9 F 02/12/17 23:05 Pulse 86 02/12/17 23:05 Resp 20 02/12/17 23:05 BP 126/70 02/12/17 23:05 Pulse Ox 96 02/12/17 23:05 - Labs Result Diagrams: 02/12/17 06:04 02/12/17 06:04 Labs: Laboratory Results - last 24 hr 02/12/17 06:04 WBC 4.0 L RBC 3.51 L Hgb 11.3 Hct 33.7 L MCV 96.1 MCH 32.2 H MCHC 33.5 RDW 13.6 Plt Count 250 MPV 7.3 Sodium 137 Potassium 4.2 Chloride 97 L Carbon Dioxide 28 Anion Gap 16 BUN 16 Creatinine 0.6 L Est GFR ( Amer) > 60 Est GFR (Non-Af Amer) > 60 Random Glucose 87 Calcium 7.8 L Phenytoin 10.5 Assessment & Plan (1) Dehydration Status: Acute (2) Psychosis Status: Acute (3) Recurrent falls Status: Acute (4) Seizure disorder Assessment and Plan: d/c PHENOBARB, INCREASE TRILEPTAL FROM 150 MG bid TO 300 MG bid, give Ativan IV PRN Seizures, 2mg Q 6 hrs Trileptal might help Psychosis and control her seizures and can be increased next week to 450 mg BID. It is a good treatment in the elderly for Psychosis, Bipolar, Seizures, but we have to keep an eye on the Na and Chloride to avoid SIADH. Status: Acute (5) Myocardial infarct Assessment and Plan: is to be ruled out due to high serum Troponin. Also CVA is to be ruled out for the same reason of high serum Troponin. Status: Acute
[2017-02-13] MEDS: Albuterol 0.042% Inhal Sol (1.25 mg/3 mL) UD INH SCH ×3 (08:06→19:56)
[2017-02-13] MEDS: Pantoprazole 40 mg EC Tab PO SCH (10:13)
[2017-02-13] MEDS: Phenytoin 100 mg/4 ml Oral Susp UD PO SCH ×3 (10:13→17:10)
[2017-02-13 10:27] LABS: ABG ALLEN TEST PO; ARTERIAL BLOOD HGB O2 SAT 93.8 % (95.0-98.0); DRAW SITE RRA; METHEMOGLOBIN 1.1 % (0.0-3.0)
--- NOTE | 2017-02-13 11:59 | MRI ---
PROCEDURE: MRI BRAIN WITHOUT CONTRAST HISTORY: h/O CVA COMPARISON: Comparison is made to the previous MRI dated 09/12/[address] dated 02/10/2017 TECHNIQUE: Multiplanar, multisequence MR images of the brain were obtained without intravenous contrast enhancement. FINDINGS: HEMORRHAGE: None DWI: No evidence of an acute or early subacute infarction. BRAIN PARENCHYMA: Re- demonstration of well defined hyperintense T2 and hypointense T1 lesion at the medial aspect of the right temporal lobe inferior to the basal ganglia may represent dilated perivascular space. The possibility of old infarct is less likely. Mild atrophy and mild chronic microvascular ischemic disease are again seen. VENTRICLES: Unremarkable. No hydrocephalus. CRANIUM: Unremarkable. ORBITS: Grossly unremarkable. PARANASAL SINUSES/MASTOIDS: [id number] sinuses mucosal thickening again noted. VASCULAR SYSTEM: Skull base flow voids intact. OTHER FINDINGS: None. IMPRESSION: No evidence of acute infarct or acute pathology in the brain. Re- demonstration of fluid signal lesion at the medial aspect of the right temporal lobe likely represent dilated perivascular space. Mild atrophy and mild chronic microvascular ischemic disease. [id number] sinuses mucosal thickening.
--- NOTE | 2017-02-13 14:35 | VASCLAB ---
PROCEDURE: HISTORY: H/O CVA COMPARISON: None available. TECHNIQUE: Grayscale and duplex Doppler evaluation of the cervical carotid and vertebral arteries were performed. The common carotid, carotid bifurcations and cervical Internal Carotid Artery (ICA) and proximal External Carotid Artery (ECA) were evaluated. The vertebral arteries were evaluated for gross patency and flow direction. Report prepared by Tomas Atkinson, BS, RVT FINDINGS: RIGHT CAROTID ARTERIES: 1. Common Carotid Artery: No significant focal plaque formation of the right common carotid artery. Maximum Peak Systolic velocity: 94 cm/sec: End-diastolic velocity 17 cm/sec. 2. Carotid Bifurcation: Calcific plaque formation. Maximum Peak Systolic velocity: 86 cm/sec: End-diastolic velocity 15 cm/sec. 3. Internal Carotid Artery: Minimal plaque formation of the right proximal ICA which does not result in hemodynamically significant stenosis. Plaque description: Calcific 3.1. Proximal Segment: Peak systolic velocity 97 cm/sec: End-diastolic velocity 21 cm/sec - % stenosis 0-15% 3.2. Middle Segment: Peak systolic velocity 114 cm/sec: End-diastolic velocity 28 cm/sec - % stenosis 0-15% 3.3. Distal Segment: Peak systolic velocity 75 cm/sec: End-diastolic velocity 16 cm/sec - % stenosis 0-15% 4. External Carotid Artery: No significant focal plaque formation. Peak systolic velocity 107 cm/sec 5. ICA/CCA Ratio: 1.2 LEFT CAROTID ARTERIES: 1. Common Carotid Artery: No significant focal plaque formation of the left common carotid artery. Maximum Peak Systolic velocity: 92 cm/sec: End-diastolic velocity 17 cm/sec. 2. Carotid Bifurcation: plaque formation. Maximum Peak Systolic velocity: 61 cm/sec: End-diastolic velocity 13 cm/sec. 3. Internal Carotid Artery: Plaque description: 3.1. Proximal Segment: Peak systolic velocity 89 cm/sec: End-diastolic velocity 22 cm/sec - % stenosis 0-15% 3.2. Middle Segment: Peak systolic velocity 137 cm/sec: End-diastolic velocity 35 cm/sec - % stenosis 0-15% 3.3. Distal Segment: Peak systolic velocity 79 cm/sec: End-diastolic velocity 18 cm/sec - % stenosis 0-15% 4. External Carotid Artery: No significant focal plaque formation. Peak systolic velocity 98 cm/sec 5. ICA/CCA Ratio: 1.5 VERTEBRAL ARTERIES: 1. Right Vertebral Artery: The right vertebral artery flow direction is antegrade. 2. Left Vertebral Artery: The left vertebral artery flow direction is antegrade. OTHER FINDINGS: 1. Right Brachial Blood pressure: 158 mmHg. 2. Left Brachial Blood pressure: 146 mmHg. IMPRESSION: RIGHT: Duplex scan does not suggest hemodynamically significant stenosis of the right extracranial carotid arteries. LEFT: Duplex scan does not suggest hemodynamically significant stenosis of the left extracranial carotid arteries.
--- NOTE | 2017-02-13 14:48 | PN ---
DATE: 02/13/2017 The patient denies any dizziness. She is experiencing pain at the contusion site on the posterior pa rt of the scalp. PHYSICAL EXAMINATION: VITAL SIGNS: Blood pressure 163/74, heart rate 88, temperature 97.5, respirations 20. HEENT: Posterior scalp edema. NECK: No JVD. CHEST: Clear. HEART: S1, S2 regular. EXTREMITIES: No edema. LABORATORIES: Brain MRI report revealed no evidence of acute infarct or acute pathology. Redemonstr ation of fluid signal lesion at the medial aspect of the right temporal lobe likely represents dilate d periventricular space. Mild atrophy and mild chronic microvascular ischemic changes. Mild to mode rate sinus mucosal thickening. ASSESSMENT: 1. Multiple falls, consider seizure activity. 2. Status post Dilantin overdose. 3. Borderline troponin elevation. 4. Bipolar disorder. RECOMMENDATIONS: Continue current albuterol, Ativan, Crestor, Trileptal and Dilantin. I did review the echocardiograph study, which was consistent with mild concentric LVH with normal ejection fractio n and decreased diastolic compliance. Reymundo Chávez MD cc: [id number] TT: 02/13/2017 14:48:33 Confirmation # [id number] Dictation # [id number]
--- NOTE | 2017-02-13 14:56 | CARD ---
APPROVED REPORT EXAM: Two-dimensional and M-mode echocardiogram with Doppler and color Doppler. INDICATION Dyspnea Chest Pain Syncope NSTEMI, FALLS M-Mode DIMENSIONS RVDd1.25 (2.1-3.2cm)Left Atrium (MM)3.23 (2.5-4.0cm) IVSd1.15 (0.7-1.1cm)Aortic Root2.81 (2.2-3.7cm) LVDd4.65 (4.0-5.6cm)Aortic Cusp Exc.1.49 (1.5-2.0cm) PWd1.09 (0.7-1.1cm)FS (%) 38 % LVDs2.89 (2.0-3.8cm)LVEF (%)68 (>50%) Mitral Valve MV E Iequaeqh85.9cm/sMV A Bmzjwvot63.3cm/sE/A ratio0.6 TDI E/Lateral E'0.0E/Medial E'0.0 Tricuspid Valve TR Peak Kpudzmcm502st/sTR Peak Gr.25syUpYQHH80oqOx LEFT VENTRICLE The left ventricle is normal size. There is normal left ventricular wall thickness. Left ventricle systolic function is normal. The Ejection Fraction is 65-70%. There is normal LV segmental wall motion. Tissue Doppler imaging reveals abnormal left ventricular diastolic dysfunction. RIGHT VENTRICLE The right ventricle is normal size. There is normal right ventricular wall thickness. The right ventricular systolic function is normal. ATRIA The left atrium size is normal. The right atrium size is normal. The interatrial septum is intact with no evidence for an atrial septal defect. AORTIC VALVE The aortic valve is normal in structure. No aortic regurgitation is present. There is no aortic valvular stenosis. There is no aortic valvular vegetation. MITRAL VALVE The mitral valve is normal in structure. There is no evidence of mitral valve prolapse. There is no mitral valve stenosis. There is no mitral valve regurgitation noted. TRICUSPID VALVE The tricuspid valve is normal in structure. There is mild tricuspid regurgitation. Right ventricular systolic pressure is estimated at 40-50 mmHg. There is mild pulmonary hypertension. PULMONIC VALVE The pulmonic valve is not well visualized. There is no pulmonic valvular regurgitation. GREAT VESSELS The aortic root is normal in size. PERICARDIAL EFFUSION There is no significant pericardial effusion. <Conclusion> Left ventricle systolic function is normal. The Ejection Fraction is 65-70%. Diastolic dysfunction. No aortic regurgitation is present. There is no mitral valve regurgitation noted. There is mild tricuspid regurgitation. There is mild pulmonary hypertension. There is no pulmonic valvular regurgitation.
--- NOTE | 2017-02-13 15:33 | CON ---
DATE: 02/13/2017 CHIEF COMPLAINT AND REASON FOR CONSULTATION: The patient referred by Dr. Parra for comanagement evaluation. The patient with bipolar disorder with psychosis and also history of recent falls and change of mental status, on psych meds in the past. HISTORY OF PRESENT ILLNESS: This is the case of a 76-year-old female who lives alone, history of bipolar disorder versus schizophrenia. The patient was brought in after the patient has been having multiple falls at home the last few days and having increasing confusion. The patient had a CAT scan of the head done, MRI in the Emergency Room that showed no acute bleed. The patient has history of bipolar disorder with multiple psych admissions in [facility] and was taking Risperdal before. The patient is also on seizure medication at home. The patient was taking at home Dilantin as well as Trileptal for seizures. Her Dilantin level initially was markedly elevated. Level on admission was 32.5. Now, it is 10.5. The patient seems to be doing much better. She states that she had 1 medication that was given by her doctor , Dr. Parra, that she cannot tolerate. According to the daughter, patient seems to get more weak and has been falling since was given Risperdal for psych medication and was eventually taken off. Today, she is calm. She stated that she wants to go home and she gave me permission to contact her daughter by phone to discuss her medication as the patient was not sure what medication she was taking. According to the daughter, patient has history of taking medications at home other than was prescribed. PAST PSYCHIATRIC HISTORY: History of schizoaffective disorder, bipolar type or versus schizophrenia, multiple psych admissions at [facility] and [facility]. Last dose she was taking was Risperdal. ALLERGIES: ALLERGIC TO PENICILLIN, AMMONIA. DRUG AND ALCOHOL HISTORY: Denies any. PSYCHOSOCIAL HISTORY: The patient lives alone. She has a daughter following her up. VITAL SIGNS: Temperature is 97.5, pulse rate is 88, blood pressure is 163/74, respirations 20, oxygen sat is 96%. LIST OF CURRENT MEDICATIONS: The patient is only taking Ativan 2 mg IV q. 6 hours for seizure, Dilantin 100 mg 3 times a day and Trileptal 150 mg b.i.d. The patient is not taking any Risperdal at this time. The patient also is on 1:1 watch. The patient has been seen by Dr. Dominguez, neurologist, for neuro consult because of patient's history of seizures. Today , she is not agitated. She is calm, cooperative and less confused, but unable to recall the names of her meds. She states that she has been taking her meds faithfully at home. REVIEW OF SYSTEMS: CONSTITUTIONAL: The patient is alert, verbal, seen in her room. SKIN: No diaphoresis. HEENT: No headache, no dizziness. NECK: Supple. RESPIRATORY: No dyspnea. CARDIOVASCULAR: No chest pain. GASTROINTESTINAL: No nausea, no vomiting. EXTREMITIES: The patient moving extremities. NEUROLOGIC: No recurrence of seizure. MUSCULOSKELETAL: Feels weak. PSYCHIATRIC: Alert and oriented x 3. MENTAL STATUS EXAMINATION: Elderly female, looks stated age, about 5 feet and weighs 170 pounds. The patient is calm, oriented x 3. Speech spontaneous. Affect is reactive. Thought process coherent. Thought content: The patient no overt psychosis. No suicidal or homicidal ideation. She seems to be comfortable. Attention and memory seem to be limited at times. Insight and judgment limited. Impulse control is fair at this time. IMPRESSION: History of bipolar disorder with psychosis versus schizoaffective disorder, history of falls, history of seizures. PLAN AND RECOMMENDATION: The patient seen, meds reviewed. For now, we will keep the 1:1 for monitoring. Psych maddox, we will keep patient off any neuroleptic for now. The patient diagnosed to have PR on this admission and patient because of her cardiac status cannot be given any Risperdal at this time. We will also keep the Risperdal as the Risperdal, according to the daughter, is making her mother worse. I reviewed the drug-drug interaction of the patient's medication. The patient is on 1 anticonvulsants at this time. Both medications can cause increased level of neuroleptics when given together , especially Risperdal causing more side effects, especially in the elderly. The patient is manageable at the time despite her long history of bipolar disorder and also the patient is taking Trileptal at this time. This can be used as a mood stabilizer. The patient cannot have neuroleptic at this time, especially the patient had history of recent PR which is part of the black box warning of a typical neuroleptic not to be given because it causes increased mortality in elderly. Thank you for the consult. We will follow the patient accordingly. Yao Sánchez MD cc: [phone] TT: 02/13/2017 15:32:53 Confirmation # [id number] Dictation # [id number] tn MTDD
--- NOTE | 2017-02-13 23:38 | CP.PCM.PN ---
Subjective - Date & Time of Evaluation Date of Evaluation: 02/13/17 Time of Evaluation: 21:00 - Subjective Subjective: No seizures, confused, on 1 to 1 IMPRESSION of MRI Brain: No evidence of acute infarct or acute pathology in the brain. Re- demonstration of fluid signal lesion at the medial aspect of the right temporal lobe likely represent dilated perivascular space. Mild atrophy and mild chronic microvascular ischemic disease. [id number]-[id number] sinuses mucosal thickening. She has NM, seen by Cardiology Dr Gruber negative carotid Doppler Seen by Psychiatry, Dr Gibbons who approves Trileptal for Psychosis Objective - Vital Signs/Intake and Output Vital Signs (last 24 hours): Temp Pulse Resp BP Pulse Ox 98.1 F 90 20 149/93 H 95 02/13/17 15:30 02/13/17 15:30 02/13/17 15:30 02/13/17 15:30 02/13/17 15:30 Intake and Output: 02/13/17 02/14/17 18:59 06:59 Intake Total 400 Balance 400 - Medications Medications: Current Medications Acetaminophen (Tylenol 325mg Tab) 650 mg PO Q6 PRN PRN Reason: Pain, moderate (4-7) Last Admin: 02/13/17 17:11 Dose: 650 mg Al Hydrox/Mg Hydrox/Simethicone (Maalox 30 Ml) 30 ml PO TID PRN PRN Reason: Indigestion / Heartburn Last Admin: 02/12/17 20:35 Dose: 30 ml Albuterol Sulfate (Albuterol 0.042% Inhal Lynn (1.25mg/3ml) Ud) 1.25 mg INH RTID [facility] Last Admin: 02/13/17 19:56 Dose: 1.25 mg Lorazepam (Ativan) 2 mg IV Q6H PRN Oxcarbazepine (Trileptal) 150 mg PO BID [facility] Last Admin: 02/13/17 17:10 Dose: 150 mg Pantoprazole Sodium (Protonix Ec Tab) 40 mg PO DAILY [facility] Last Admin: 02/13/17 10:13 Dose: 40 mg Phenytoin (Dilantin) 100 mg PO TID [facility] Last Admin: 02/13/17 17:10 Dose: 100 mg Rosuvastatin Calcium (Crestor) 2.5 mg PO HS [facility] Last Admin: 02/12/17 21:31 Dose: 2.5 mg - Labs Labs: 02/12/17 06:04 02/12/17 06:04 - Neurological Exam Additional comments: Mental Status: awake, alert, oriented X3 , Confused, memory is hard to be assessed due to confusion. Speech non fluent, slow, coherent Cranial nerves II to XII: No deficits Motor: Normal tone, general weakness 5-to 5/5 DTR 0/4 Toes are down going Sensory: Intact, reduced sensation peripherally in both UEs and LEs Cerebellar: Non cooperative Assessment and Plan (1) Dehydration Status: Acute (2) Psychosis Status: Acute (3) Recurrent falls Status: Acute (4) Seizure disorder Status: Acute (5) Myocardial infarct Status: Acute
--- NOTE | 2017-02-14 00:17 | CP.PCM.PN ---
Subjective - Date & Time of Evaluation Date of Evaluation: 02/13/17 Time of Evaluation: 10:21 - Subjective Subjective: Pt seen and evaluated at bedside, is less agitated and calm. is also seen by neurology, is for MRI of brain Objective - Vital Signs/Intake and Output Vital Signs (last 24 hours): Temp Pulse Resp BP Pulse Ox 98.1 F 90 20 149/93 H 95 02/13/17 15:30 02/13/17 15:30 02/13/17 15:30 02/13/17 15:30 02/13/17 15:30 Intake and Output: 02/13/17 02/14/17 18:59 06:59 Intake Total 400 Balance 400 - Medications Medications: Current Medications Acetaminophen (Tylenol 325mg Tab) 650 mg PO Q6 PRN PRN Reason: Pain, moderate (4-7) Last Admin: 02/13/17 17:11 Dose: 650 mg Al Hydrox/Mg Hydrox/Simethicone (Maalox 30 Ml) 30 ml PO TID PRN PRN Reason: Indigestion / Heartburn Last Admin: 02/12/17 20:35 Dose: 30 ml Albuterol Sulfate (Albuterol 0.042% Inhal Lynn (1.25mg/3ml) Ud) 1.25 mg INH RTID [facility] Last Admin: 02/13/17 19:56 Dose: 1.25 mg Lorazepam (Ativan) 2 mg IV Q6H PRN Oxcarbazepine (Trileptal) 150 mg PO BID [facility] Last Admin: 02/13/17 17:10 Dose: 150 mg Pantoprazole Sodium (Protonix Ec Tab) 40 mg PO DAILY [facility] Last Admin: 02/13/17 10:13 Dose: 40 mg Phenytoin (Dilantin) 100 mg PO TID [facility] Last Admin: 02/13/17 17:10 Dose: 100 mg Rosuvastatin Calcium (Crestor) 2.5 mg PO HS [facility] Last Admin: 02/12/17 21:31 Dose: 2.5 mg - Labs Labs: 02/12/17 06:04 02/12/17 06:04 - Constitutional Appears: No Acute Distress, Chronically Ill - Head Exam Head Exam: ATRAUMATIC, NORMAL INSPECTION, NORMOCEPHALIC - Eye Exam Eye Exam: EOMI, Normal appearance, PERRL Pupil Exam: NORMAL ACCOMODATION, PERRL - Respiratory Exam Respiratory Exam: Clear to Ausculation Bilateral, NORMAL BREATHING PATTERN - Cardiovascular Exam Cardiovascular Exam: REGULAR RHYTHM, +S1, +S2. absent: Murmur - GI/Abdominal Exam GI & Abdominal Exam: Soft, Normal Bowel Sounds. absent: Tenderness Assessment and Plan (1) Dehydration Status: Acute (2) NSTEMI (non-ST elevated myocardial infarction) Status: Acute (3) Psychosis Status: Acute (4) Dilaudid use disorder, mild, abuse Status: Acute (5) Seizure disorder Status: Acute (6) Recurrent falls Status: Acute
--- NOTE | 2017-02-14 07:02 | PN ---
DATE: 02/13/2017 The patient is alert, in bed. PHYSICAL EXAMINATION: VITAL SIGNS: She is afebrile, blood pressure 162/74, pulse 88, respiration 20, hemoglobin oxygen saturation of 96%. Her dyspnea has decreased and she has aching over the scalp area which she hurt during her fall and has aching discomfort on the bruised area on the nose which she hurt during her fall. HEART: Regular. There is no gallop rhythm. LUNGS: Diminished breath sounds over lung bases. Rhonchi decreased. ABDOMEN: Soft. EXTREMITIES: Legs, no edema. IMAGING: Her chest x-ray shows large heart and basal haze and basal atelectasis. LABORATORY DATA: Her white count is 4000, hemoglobin 11.3 and platelet count 250,000. Her arterial blood gas on room air shows pH of 7.39, pCO2 of 44, pO2 of 68 and bicarbonate of 26. IMPRESSION: Seizure disorder, fall with scalp laceration and bruise over the nose. Abdominal discomfort. Sinusitis, bronchitis, respiratory insufficiency. PLAN: To continue with the current regimen and prior epileptics, bronchodilators and oxygen therapy and incentive spirometry. Irving Beckham MD cc: [id number] TT: 02/13/2017 15:25:09 Confirmation # [id number] Dictation # [id number] dn 02/14/2017 06:01:28 TOMI
[2017-02-14] MEDS: Albuterol 0.042% Inhal Sol (1.25 mg/3 mL) UD INH SCH ×3 (08:44→19:10)
[2017-02-14] MEDS: Pantoprazole 40 mg EC Tab PO SCH (11:35)
[2017-02-14] MEDS: Phenytoin 100 mg/4 ml Oral Susp UD PO SCH ×3 (11:36→18:00)
--- NOTE | 2017-02-14 13:48 | CON ---
DATE: 02/14/2017 REASON FOR CONSULTATION: Hearing loss. HISTORY OF PRESENT ILLNESS: This is a 76-year-old female who has had hearing loss since she fell 4 d ays ago. It is constant, moderate in intensity. No pain. The patient describes some bleeding from the ear. The hearing problem is only on the left. PAST MEDICAL HISTORY: As noted in the chart by me. MEDICATIONS: As noted in the chart by me. PHYSICAL EXAMINATION: HEAD: There is bruising on the right parietal area of the head. FACE: Good facial movements bilaterally. CONSTITUTIONAL: Well-developed, well-nourished. COMMUNICATION: Communicates very appropriately. EXTERNAL NOSE AND EARS: No masses, no lesions, no erythema, no edema. Ears: There is some blood no chichi in the left ear canal. INTERNAL NOSE: Deviated septum, no masses, no lesions, no erythema, no edema. ORAL CAVITY, OROPHARYNX: No masses, no lesions, no erythema, no edema. LIPS, GUMS: No masses, no lesions, no erythema, no edema. NECK: Supple. THYROID: No thyromegaly, no goiter. LYMPH NODES: No lymphadenopathy of the neck. ASSESSMENT: 1. Deviated septum. 2. Hearing loss. PLAN: The patient is to follow up in the office. I can do an ear exam under a microscope and remove the blood and see if the patient's hearing improves. If not, the patient needs a hearing test as an outpatient. Abimael Edwards MD cc: [id number] TT: 02/14/2017 13:48:03 Confirmation # [id number] Dictation # [id number] mn
--- NOTE | 2017-02-14 17:26 | PN ---
DATE: 02/14/2017 SUBJECTIVE: The patient is experiencing scalp pain at the site of the scalp laceration. She denies any chest pain or shortness of breath. PHYSICAL EXAMINATION: VITAL SIGNS: Blood pressure 165/77, heart rate 90, temperature 98.5, respirations 20. HEENT: Posterior scalp edema. NECK: No JVD. CHEST: Clear. HEART: S1, S2 regular. ABDOMEN: Soft. EXTREMITIES: No edema. LABORATORIES: Today's ESR is 35. Rheumatoid arthritis panel is negative. NAM is pending. ASSESSMENT: 1. Recurrent falls, most likely related to seizure disorder. 2. Borderline troponin elevation. 3. Status post Dilantin overdose. RECOMMENDATIONS: Continue current Dilantin 100 mg t.i.d., Crestor at 2.5 mg once a day, Ativan 2 mg intravenous q. 6 hours p.r.n., Trileptal 150 mg twice a day. Conservative cardiac approach in view o f normal EKG and absence of symptoms of chest pain. Reymundo Chávez MD cc: [id number] TT: 02/14/2017 17:26:01 Confirmation # [id number] Dictation # [id number] renetta
--- NOTE | 2017-02-14 18:23 | CP.PCM.PN ---
Subjective - Date & Time of Evaluation Date of Evaluation: 02/14/17 Time of Evaluation: 15:20 - Subjective Subjective: No seizures are documented, she is doing better, not agitated. Trileptal is helping her seizures and her behavioral problems. She is on Trileptal 300 mg Q 12 hrs, approved by Psychiatry. Objective - Vital Signs/Intake and Output Vital Signs (last 24 hours): Temp Pulse Resp BP Pulse Ox 98.5 F 90 20 165/77 H 97 02/14/17 09:02 02/14/17 09:02 02/14/17 09:02 02/14/17 09:02 02/14/17 09:02 Intake and Output: 02/14/17 02/14/17 06:59 18:59 Intake Total 100 720 Balance 100 720 - Medications Medications: Current Medications Acetaminophen (Tylenol 325mg Tab) 650 mg PO Q6 PRN PRN Reason: Pain, moderate (4-7) Last Admin: 02/14/17 14:05 Dose: 650 mg Al Hydrox/Mg Hydrox/Simethicone (Maalox 30 Ml) 30 ml PO TID PRN PRN Reason: Indigestion / Heartburn Last Admin: 02/12/17 20:35 Dose: 30 ml Albuterol Sulfate (Albuterol 0.042% Inhal Lynn (1.25mg/3ml) Ud) 1.25 mg INH RTID [facility] Last Admin: 02/14/17 13:34 Dose: 1.25 mg Lorazepam (Ativan) 2 mg IV Q6H PRN Oxcarbazepine (Trileptal) 150 mg PO BID [facility] Last Admin: 02/14/17 18:00 Dose: 150 mg Pantoprazole Sodium (Protonix Ec Tab) 40 mg PO DAILY [facility] Last Admin: 02/14/17 11:35 Dose: 40 mg Phenytoin (Dilantin) 100 mg PO TID [facility] Last Admin: 02/14/17 18:00 Dose: 100 mg Rosuvastatin Calcium (Crestor) 2.5 mg PO HS [facility] Last Admin: 02/12/17 21:31 Dose: 2.5 mg - Labs Labs: 02/12/17 06:04 02/12/17 06:04 Assessment and Plan (1) Dehydration Status: Acute (2) Psychosis Status: Acute (3) Recurrent falls Status: Acute (4) Seizure disorder Status: Acute (5) Myocardial infarct Status: Acute
--- NOTE | 2017-02-14 20:01 | PN ---
DATE: 02/14/2017 SUBJECTIVE: The patient seen. The patient is feeling much better today. No recurrence of dizziness, sedation. The patient has no recurrence of seizure. The patient seems to be feeling much better off Risperdal and wants to go home in the morning. Less confused, no behavioral problems noted. VITAL SIGNS: Temperature is 98.5, pulse rate 90, blood pressure is 165/77, respirations 20, oxygen sat is 97%. REVIEW OF SYSTEMS: The patient is alert, verbal. Seen in her room. The patient states she wants to go home. The patient is feeling much better. SKIN: No diaphoresis. HENT: No headache, no dizziness. NECK: Supple. RESPIRATORY: No dyspnea. CARDIOVASCULAR: No chest pain. GASTROINTESTINAL: No nausea, vomiting. EXTREMITIES: The patient ambulatory. MUSCULOSKELETAL: Weakness improving. NEUROLOGIC: Alert, oriented x 3. GENITOURINARY: No urinary problems. MENTAL STATUS EXAMINATION: Elderly female looks stated age, calm, oriented x 2. Speech spontaneous, conversing in Czech. Affect is reactive. Thought Process: Coherent. Thought Content: No overt psychosis. No suicidal or homicidal ideation. The patient seems to wants to go home in the morning. Attention and memory seems to be limited. Insight and judgment limited. Impulse control is fair at this time. IMPRESSION: History of bipolar disorder with psychosis versus schizoaffective disorder, history of seizure, falls. PLAN AND RECOMMENDATIONS: The patient seen, meds reviewed. The patient is just currently taking Trileptal 150 mg p.o. b.i.d., and Ativan p.r.n., and Dilantin 100 mg p.o. t.i.d. There is no need for the patient to take atypical neuroleptic at this time as the patient has history of seizures and no need for more meds.and to limit unnecessary drug drug interactions. Psych-maddox, the patient is stable for discharge to home once medically cleared. The patient can be maintained only on mood stabilizer at this time, and there is no need for adjunctive therapy for atypical neuroleptics. Yao Sánchez MD cc: [phone] TT: 02/14/2017 20:00:44 Confirmation # [id number] Dictation # [id number] [id number] MTDD
[2017-02-14] MEDS: Rosuvastatin Calcium 2.5 mg Tab PO SCH (21:49)
--- NOTE | 2017-02-14 22:59 | CP.PCM.PN ---
Subjective - Date & Time of Evaluation Date of Evaluation: 02/14/17 Time of Evaluation: 10:27 - Subjective Subjective: Pt seen and evaluated at bedside, is less agitated and calm. is also seen by neurology, MRI negative for any acute cahnges, is started on trilepta by neurologist Objective - Vital Signs/Intake and Output Vital Signs (last 24 hours): Temp Pulse Resp BP Pulse Ox 98.5 F 90 20 165/77 H 97 02/14/17 09:02 02/14/17 09:02 02/14/17 09:02 02/14/17 09:02 02/14/17 09:02 Intake and Output: 02/14/17 02/15/17 18:59 06:59 Intake Total 720 Balance 720 - Medications Medications: Current Medications Acetaminophen (Tylenol 325mg Tab) 650 mg PO Q6 PRN PRN Reason: Pain, moderate (4-7) Last Admin: 02/14/17 14:05 Dose: 650 mg Al Hydrox/Mg Hydrox/Simethicone (Maalox 30 Ml) 30 ml PO TID PRN PRN Reason: Indigestion / Heartburn Last Admin: 02/12/17 20:35 Dose: 30 ml Albuterol Sulfate (Albuterol 0.042% Inhal Lynn (1.25mg/3ml) Ud) 1.25 mg INH RTID [facility] Last Admin: 02/14/17 19:10 Dose: 1.25 mg Lorazepam (Ativan) 2 mg IV Q6H PRN Oxcarbazepine (Trileptal) 150 mg PO BID [facility] Last Admin: 02/14/17 18:00 Dose: 150 mg Pantoprazole Sodium (Protonix Ec Tab) 40 mg PO DAILY [facility] Last Admin: 02/14/17 11:35 Dose: 40 mg Phenytoin (Dilantin) 100 mg PO TID [facility] Last Admin: 02/14/17 18:00 Dose: 100 mg Rosuvastatin Calcium (Crestor) 2.5 mg PO HS [facility] Last Admin: 02/14/17 21:49 Dose: 2.5 mg - Labs Labs: 02/12/17 06:04 02/12/17 06:04 - Constitutional Appears: No Acute Distress, Chronically Ill - Head Exam Head Exam: ATRAUMATIC, NORMAL INSPECTION, NORMOCEPHALIC - Eye Exam Eye Exam: EOMI, Normal appearance, PERRL Pupil Exam: NORMAL ACCOMODATION, PERRL - Respiratory Exam Respiratory Exam: Clear to Ausculation Bilateral, NORMAL BREATHING PATTERN - Cardiovascular Exam Cardiovascular Exam: REGULAR RHYTHM, +S1, +S2. absent: Murmur - Neurological Exam Neurological Exam: Alert, Awake, CN II-XII Intact, Normal Gait, Oriented x3 - Psychiatric Exam Psychiatric exam: Anxious Assessment and Plan (1) Dehydration Status: Acute (2) NSTEMI (non-ST elevated myocardial infarction) Status: Acute (3) Psychosis Status: Acute (4) Dilaudid use disorder, mild, abuse Status: Acute (5) Seizure disorder Status: Acute (6) Recurrent falls Status: Acute
[2017-02-15] MEDS: Albuterol 0.042% Inhal Sol (1.25 mg/3 mL) UD INH SCH (07:38)
[2017-02-15 08:18] VITALS: BP 144/60; PULSE 88; TEMP 98; O2SAT 94
[2017-02-15] MEDS: Pantoprazole 40 mg EC Tab PO SCH (09:38)
[2017-02-15] MEDS: Phenytoin 100 mg/4 ml Oral Susp UD PO SCH (09:38)
--- NOTE | 2017-02-15 11:26 | CP.PCM.PN ---
Subjective - Date & Time of Evaluation Date of Evaluation: 02/15/17 Time of Evaluation: 10:30 - Subjective Subjective: Pt seen an d examined today , alert, oriented , calm, denies any chest pain, sob , dizziness No overnight events reported by Nurse Objective - Vital Signs/Intake and Output Vital Signs (last 24 hours): Temp Pulse Resp BP Pulse Ox 98.0 F 88 20 144/60 94 L 02/15/17 08:17 02/15/17 08:17 02/15/17 08:17 02/15/17 08:17 02/15/17 08:17 Intake and Output: 02/15/17 02/15/17 06:59 18:59 Intake Total 100 Balance 100 - Medications Medications: Current Medications Acetaminophen (Tylenol 325mg Tab) 650 mg PO Q6 PRN PRN Reason: Pain, moderate (4-7) Last Admin: 02/15/17 09:44 Dose: 650 mg Al Hydrox/Mg Hydrox/Simethicone (Maalox 30 Ml) 30 ml PO TID PRN PRN Reason: Indigestion / Heartburn Last Admin: 02/12/17 20:35 Dose: 30 ml Albuterol Sulfate (Albuterol 0.042% Inhal Lynn (1.25mg/3ml) Ud) 1.25 mg INH RTID [facility] Last Admin: 02/15/17 07:38 Dose: 1.25 mg Lorazepam (Ativan) 2 mg IV Q6H PRN Oxcarbazepine (Trileptal) 150 mg PO BID [facility] Last Admin: 02/15/17 09:38 Dose: 150 mg Pantoprazole Sodium (Protonix Ec Tab) 40 mg PO DAILY [facility] Last Admin: 02/15/17 09:38 Dose: 40 mg Phenytoin (Dilantin) 100 mg PO TID [facility] Last Admin: 02/15/17 09:38 Dose: 100 mg Rosuvastatin Calcium (Crestor) 2.5 mg PO HS [facility] Last Admin: 02/14/17 21:49 Dose: 2.5 mg - Labs Labs: 02/12/17 06:04 02/12/17 06:04 Assessment and Plan - Assessment and Plan (Free Text) Assessment: A/P 76 yr old female admitted for s/p multiple fall s at home / NSTEMI, vss- stable Mri _ negative ( seen by Jerry Hamilton yesterday, recommends to f/u out pt seen by Dr. Chávez, no EKG changes , recommends medical therapy d/w Dr. Parra, cleared for discharge home today and f/u with his office in 1 week CM arranged VNA service for Home PT and home care
--- NOTE | 2017-02-15 13:35 | PN ---
DATE: 02/15/2017 The patient is alert, oriented. Her family member is by her side. VITAL SIGNS: The patient is afebrile, blood pressure 144/60, pulse 88, respiration 20, hemoglobin ox ygen saturation of 94%. The patient's dyspnea has subsided. Cough has improved. There is no chest pain. PHYSICAL EXAMINATION: HEART: Regular. LUNGS: Diminished breath sounds over lung bases. Rhonchi improved. ABDOMEN: Soft. EXTREMITIES: Legs no edema. Her symptoms have improved and she has improved in general. IMPRESSION: Respiratory insufficiency, bronchitis, sinusitis, hypertensive cardiovascular disease, s eizure disorder, history of fall when the patient sustained scalp laceration and bruising of the nose . The patient was seen by neurologist and psychiatrist. PLAN: To continue with current measures and treatment and follow with PMD. Irivng Beckham MD cc: [id number] TT: 02/15/2017 13:35:19 Confirmation # [id number] Dictation # [id number] en
--- NOTE | 2017-02-15 14:06 | PN ---
DATE: 02/15/2017 The patient denies any chest pain, shortness of breath or dizziness. PHYSICAL EXAMINATION: VITAL SIGNS: Blood pressure 144/60, heart rate 88, temperature 98, respirations 20. HEENT: Residual posterior scalp edema. CHEST: Clear. HEART: S1, S2 regular. ABDOMEN: Soft. EXTREMITIES: No edema. LABORATORIES: NAM profile is negative. ASSESSMENT: 1. Recurrent falls. 2. History of seizure disorder. 3. Borderline troponin elevation. The patient is chest pain free and there were no ischemic EKG delonte nges. RECOMMENDATIONS: The patient can be discharged on medical management including aspirin, phenobarbita l, phenytoin and Crestor. The case was discussed with the patient's friend at the bedside. The jim ent will be receiving a homemaker. I recommended carpeted floors to avoid future head injuries or tolu ne fractures. Reymundo Chávez MD cc: [id number] TT: 02/15/2017 14:05:36 Confirmation # [id number] Dictation # [id number] en
--- NOTE | 2017-02-15 19:00 | CP.PCM.PN ---
Subjective - Date & Time of Evaluation Date of Evaluation: 02/15/17 Time of Evaluation: 13:25 - Subjective Subjective: No seizures are seen. She is discharged safely. Objective - Vital Signs/Intake and Output Vital Signs (last 24 hours): Temp Pulse Resp BP Pulse Ox 98.0 F 88 20 144/60 94 L 02/15/17 08:17 02/15/17 08:17 02/15/17 08:17 02/15/17 08:17 02/15/17 08:17 Intake and Output: 02/15/17 02/15/17 06:59 18:59 Intake Total 100 Balance 100 - Labs Labs: 02/12/17 06:04 02/12/17 06:04 Assessment and Plan (1) Dehydration Status: Acute (2) Psychosis Status: Acute (3) Recurrent falls Status: Acute (4) Seizure disorder Status: Acute (5) Myocardial infarct Status: Acute
--- NOTE | 2017-02-15 19:30 | CP.PCM.DIS ---
Provider - Provider Date of Admission: 02/11/17 13:02 Attending physician: Mor Parra MD Time Spent in preparation of Discharge (in minutes): 30 Diagnosis - Discharge Diagnosis (1) Dehydration Status: Acute (2) NSTEMI (non-ST elevated myocardial infarction) Status: Acute (3) Psychosis Status: Acute (4) Dilaudid use disorder, mild, abuse Status: Acute (5) Seizure disorder Status: Acute (6) Recurrent falls Status: Acute Hospital Course - Lab Results Lab Results: Micro Results 02/11/17 15:47 Naris MRSA Culture - Final MRSA NOT DETECTED Most Recent Lab Values WBC 4.0 K/uL (4.8-10.8) L 02/12/17 06:04 RBC 3.51 Mil/uL (3.80-5.20) L 02/12/17 06:04 Hgb 11.3 g/dL (11.0-16.0) 02/12/17 06:04 Hct 33.7 % (34.0-47.0) L 02/12/17 06:04 MCV 96.1 fL (81.0-99.0) 02/12/17 06:04 MCH 32.2 pg (27.0-31.0) H 02/12/17 06:04 MCHC 33.5 g/dL (33.0-37.0) 02/12/17 06:04 RDW 13.6 % (11.5-14.5) 02/12/17 06:04 Plt Count 250 K/uL (130-400) 02/12/17 06:04 MPV 7.3 fL (7.2-11.7) 02/12/17 06:04 Neut % (Auto) 42.2 % (50.0-75.0) L 02/10/17 18:36 Lymph % (Auto) 35.6 % (20.0-40.0) 02/10/17 18:36 [place] % (Auto) 9.6 % (0.0-10.0) 02/10/17 18:36 Eos % (Auto) 11.5 % (0.0-4.0) H 02/10/17 18:36 Baso % (Auto) 1.1 % (0.0-2.0) 02/10/17 18:36 Neut # 2.1 K/uL (1.8-7.0) 02/10/17 18:36 Lymph # 1.8 K/uL (1.0-4.3) 02/10/17 18:36 [place] # 0.5 K/uL (0.0-0.8) 02/10/17 18:36 Eos # 0.6 K/uL (0.0-0.7) 02/10/17 18:36 Baso # 0.1 K/uL (0.0-0.2) 02/10/17 18:36 ESR 35 mm/hr (0-20) H 02/14/17 08:06 Puncture Site Rra 02/13/17 10:20 pCO2 44 mm/Hg (35-45) 02/13/17 10:20 pO2 68 mm/Hg (80-100) L 02/13/17 10:20 HCO3 25.9 mmol/L (21-28) 02/13/17 10:20 ABG pH 7.39 (7.35-7.45) 02/13/17 10:20 ABG Total CO2 28.0 mmol/L (22-28) 02/13/17 10:20 ABG O2 Saturation 96.9 % (95-98) 02/13/17 10:20 ABG Base Excess 1.3 mmol/L (-2.0-3.0) 02/13/17 10:20 ABG Hemoglobin 10.7 g/dL (11.7-17.4) L 02/13/17 10:20 ABG Carboxyhemoglobin 2.0 % (0.5-1.5) H 02/13/17 10:20 POC ABG HHb (Measured) 3.0 % (0.0-5.0) 02/13/17 10:20 ABG Methemoglobin 1.1 % (0.0-3.0) 02/13/17 10:20 Edgar Test Po 02/13/17 10:20 A-a O2 Difference 27.0 mm/Hg 02/13/17 10:20 Respiratory Index 0.4 02/13/17 10:20 Hgb O2 Saturation 93.8 % (95.0-98.0) L 02/13/17 10:20 FiO2 21.0 % 02/13/17 10:20 Sodium 137 mmol/L (132-148) 02/12/17 06:04 Potassium 4.2 mmol/L (3.6-5.2) 02/12/17 06:04 Chloride 97 mmol/L (98-107) L 02/12/17 06:04 Carbon Dioxide 28 mmol/L (22-30) 02/12/17 06:04 Anion Gap 16 (10-20) 02/12/17 06:04 BUN 16 mg/dL (7-17) 02/12/17 06:04 Creatinine 0.6 MG/DL (0.7-1.2) L 02/12/17 06:04 Est GFR ( Amer) > 60 02/12/17 06:04 Est GFR (Non-Af Amer) > 60 02/12/17 06:04 POC Glucose (mg/dL) 90 mg/dL (65-110) 02/10/17 16:17 Random Glucose 87 mg/dL (65-105) 02/12/17 06:04 Calcium 7.8 mg/dl (8.6-10.4) L 02/12/17 06:04 Total Bilirubin 0.5 mg/dL (0.2-1.3) 02/10/17 17:28 AST 45 U/L (14-36) H D 02/10/17 17:28 ALT 19 U/L (9-52) 02/10/17 17:28 Alkaline Phosphatase 107 U/L (38-126) 02/10/17 17:28 Total Creatine Kinase 58 U/L (30-135) 02/11/17 06:45 CK-MB (Mass) 1.90 ng/mL (0.0-3.38) 02/11/17 06:45 Troponin I 0.1840 ng/mL (0.00-0.120) H* 02/10/17 17:28 Troponin I, Quant 0.1260 ng/mL (0.00-0.120) H* 02/11/17 06:45 C-React Prot High Sens > 15.00 mg/L (1.00-3.00) H 02/14/17 08:06 Total Protein 7.6 g/dL (6.3-8.3) 02/10/17 17:28 Albumin 3.9 g/dL (3.5-5.0) 02/10/17 17:28 Globulin 3.7 gm/dL (2.2-3.9) 02/10/17 17:28 Albumin/Globulin Ratio 1.0 (1.0-2.1) 02/10/17 17:28 25-OH Vitamin D Total 43.0 NG/ML (30.0-100.0) 02/14/17 08:06 TSH 3rd Generation 1.60 mIU/L (0.46-4.68) 02/14/17 08:06 Urine Color Yellow (YELLOW) 02/10/17 17:28 Urine Clarity Hazy (Clear) 02/10/17 17:28 Urine pH 7.0 (5.0-8.0) 02/10/17 17:28 Ur Specific [place] 1.009 (1.003-1.030) 02/10/17 17:28 Urine Protein 1+ mg/dL (NEGATIVE) H 02/10/17 17:28 Urine Glucose (UA) Normal mg/dL (Normal) 02/10/17 17:28 Urine Ketones Negative mg/dL (NEGATIVE) 02/10/17 17:28 Urine Blood Negative (NEGATIVE) 02/10/17 17:28 Urine Nitrate Negative (NEGATIVE) 02/10/17 17:28 Urine Bilirubin Negative (NEGATIVE) 02/10/17 17:28 Urine Urobilinogen Normal mg/dL (0.2-1.0) 02/10/17 17:28 Ur Leukocyte Esterase Neg Jerod/uL (Negative) 02/10/17 17:28 Urine WBC (Auto) 1 /hpf (0-5) 02/10/17 17:28 Urine RBC (Auto) < 1 /hpf (0-3) 02/10/17 17:28 Ur Squamous Epith Cells 8 /hpf (0-5) H 02/10/17 17:28 Urine Bacteria Rare (<OCC) 02/10/17 17:28 Phenytoin 10.5 ug/mL (10-20) 02/12/17 06:04 Rheum Arthritis Panel Negative (NEGATIVE) 02/14/17 08:06 NAM 6 Profile Negative (NEGATIVE) 02/14/17 08:06 - Hospital Course Hospital Course: Pt seen an d examined today , alert, oriented , calm, denies any chest pain, sob , dizziness No overnight events reported by Nurse no seizure like activity, pt is discharge home Discharge Exam - Head Exam Head Exam: ATRAUMATIC, NORMAL INSPECTION, NORMOCEPHALIC - Eye Exam Eye Exam: EOMI, Normal appearance, PERRL Pupil Exam: NORMAL ACCOMODATION, PERRL - ENT Exam ENT Exam: Mucous Membranes Moist - Respiratory Exam Respiratory Exam: Clear to PA & Lateral, NORMAL BREATHING PATTERN - Cardiovascular Exam Cardiovascular Exam: REGULAR RHYTHM, +S1, +S2 Discharge Plan - Discharge Medications Prescriptions: Phenytoin [Dilantin] 100 mg PO TID #90 udc OXcarbazepine [Trileptal] 150 mg PO BID #60 tab - Follow Up Plan Condition: FAIR Disposition: DISCHARGED TO HOME CARE Instructions: Phenytoin (By mouth), Oxcarbazepine (By mouth), Heart Healthy Diet (DC), Recurrent Seizures in Adults (DC) Additional Instructions: Please f/u with Dr. Parra office in 1 week Continue medication as per Med. REc. VNA service for Home PT AND HOME CARE SERVICES F/U with Jerry Hamilton office on february 13 Referrals: Abimael Edwards MD [Staff Provider] - Mor Parra MD [Staff Provider] -
--- NOTE | 2017-02-18 07:08 | PN ---
DATE: 02/14/2017 PHYSICAL EXAMINATION: GENERAL: The patient is alert, oriented. VITAL SIGNS: Afebrile with blood pressure 164/76, pulse 76, respirations 20 and hemoglobin oxygen saturation of 97%. Her dyspnea has decreased. HEART: Regular. There is no gallop rhythm. LUNGS: Diminished breath sounds over lung bases. Rhonchi improved and have diminished. ABDOMEN: Soft. EXTREMITIES: Edema legs. IMPRESSION: Respiratory insufficiency, bronchitis, sinusitis, seizure disorder and history of falling. . 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 Continue with bronchodilators and antiseizure medications and oxygen therapy. Irving Beckham MD cc: [id number] TT: 02/14/2017 14:51:18 Confirmation # [id number] Dictation # [id number] dn 02/14/2017 19:37:22 TOMI
--- NOTE | 2017-02-23 07:14 | EEG ---
DATE: 02/15/2017 The record is obtained for a history of seizures and NSTEMI. The record was obtained while the patie nt was awake, drowsy, and asleep. The record was symmetrically equal on both sides with velocity of 6-7 cycles per second. The waves a re fairly formed, fairly organized, with a posterior distribution, moderate in amplitude, fairly reac tive to eye opening. There were no abnormal discharges. No spike and polyspike, no sharp waves, no focal slowing, paroxysmal discharge. There are periods of drowsiness during which attenuation and sl owing of the record were seen, and theta waves were seen. There are periods of sleep during which de lta waves were seen. There were eye movement artifact, electrode artifact, and muscle movement artif acts. In sum, this is an abnormal record significant for generalized slowing. This might be consistent wit h encephalopathy or seizures. Clinical correlation is recommended. Olesya Dominguez MD cc: [phone] TT: 02/23/2017 07:13:32 Confirmation # [id number] Dictation # [id number] ralf
== END 2017-02-15 13:04 | disposition home health service (06) ==
LOC: C.ER 15:04 → C.9E 18:59 → C.9I 21:16 → C.6T 02-11 12:17 → OBSVTOIN 02-11 13:02 → INTOOBSV 02-11 13:02
PROVIDERS: ADMIT Internal Medicine; ATTEND Internal Medicine
DX: I21.4 Non-ST elevation (NSTEMI) myocardial infarction (principal); E86.0 Dehydration; G40.909 Epilepsy, unspecified, not intractable, without status epilepticus; W18.30XA Fall on same level, unspecified, initial encounter; F22 Delusional disorders; E87.6 Hypokalemia; R29.6 Repeated falls; Z87.01 Personal history of pneumonia (recurrent); Z91.81 History of falling; J34.2 Deviated nasal septum; S01.01XA Laceration without foreign body of scalp, initial encounter; F25.0 Schizoaffective disorder, bipolar type; H91.90 Unspecified hearing loss, unspecified ear; F11.10 Opioid abuse, uncomplicated
CPT/HCPCS: 36415; 70450; 70551; 71010; 72040; 80048; 80053; 80185; 81001; 82306; 82803; 82948; 84443; 84484; 85025; 85027; 85651; 86038; 86140; 86430; 87070; 87086; 93005; 93306; 93880; 94640; 94760; 95812; 97116; 97162; 99285; G0378; G8978; G8979

== ENCOUNTER 2017-03-22 17:08 | Inpatient (IN) | payer OTHER ==
[2017-03-22 17:08] VITALS: BMI 32.3
[2017-03-22] MEDS ORDERED: Sodium Chloride 0.9% 1,000 ML IV ONE (19:26)
--- NOTE | 2017-03-22 19:26 | C.PDOC ---
History Of Present Illness Patient presents to ER with a complaint of a sharp, stabbing, right flank pain. Patient denies fever, chills, nausea, or vomiting. Time Seen by Provider: 03/22/17 19:26 Chief Complaint (Nursing): Abdominal Pain History Per: Patient History/Exam Limitations: no limitations Onset/Duration Of Symptoms: Hrs Current Symptoms Are (Timing): Still Present Context: Other (Not known) Severity: Moderate Pain Scale Rating Of: 4 Location Of Pain/Discomfort: Other (Right flank) Radiation Of Pain To:: None Quality Of Discomfort: Sharp, Stabbing Associated Symptoms: denies: Fever, Chills, Nausea, Vomiting Exacerbating Factors: None Alleviating Factors: None Recent travel outside of the [place]: No Past Medical History Reviewed: Historical Data, Nursing Documentation, Vital Signs Vital Signs: Last Vital Signs Temp 98 F 03/22/17 21:50 Pulse 87 03/22/17 21:50 Resp 18 03/22/17 21:50 BP 150/86 03/22/17 21:50 Pulse Ox 97 03/23/17 00:15 - Medical History PMH: Anxiety, Bipolar Disorder, Depression, Gastritis, HTN, Paranoia, Pneumonia , Schizophrenia, Seizures Surgical History: Cholecystectomy - [facility] Procedures CLOSURE SKIN & SUBCUTANEOUS NEC (09/15/13) DX ULTRASOUND-HEART (09/11/14) ESOPHAGOGASTRODUODENOSCOPY [EGD] W/CLOSED BIOPSY (10/11/14) OTHER ESOPHAGOSCOPY (09/11/14) TETANUS TOXOID ADMINIST (09/15/13) VACCINATION NEC (10/11/14) VENOUS CATHETERIZATION NEC (09/11/14) Family History: States: No Known Family Hx - Social History Hx Tobacco Use: No Hx Alcohol Use: No Hx Substance Use: No - Immunization History Hx Tetanus Toxoid Vaccination: Yes Hx Influenza Vaccination: Yes Hx Pneumococcal Vaccination: Yes Review Of Systems Constitutional: Negative for: Fever, Chills Gastrointestinal: Positive for: Other (Right flank pain). Negative for: Nausea , Vomiting Physical Exam - Physical Exam Appears: Non-toxic Skin: Warm, Dry Oral Mucosa: Moist Chest: Symmetrical, No Tenderness Cardiovascular: Rhythm Regular, No Murmur Respiratory: No Rales, No Rhonchi, No Wheezing Gastrointestinal/Abdominal: Soft, No Tenderness, Distention, No Guarding, No Rebound, Other (Tympanic to percussion) Neurological/Psych: Oriented x3 ED Course And Treatment - Laboratory Results Result Diagrams: 03/22/17 19:49 03/22/17 19:49 ECG: Interpreted By Me, Viewed By Me ECG Rhythm: Sinus Rhythm (87), Nonspecific Changes O2 Sat by Pulse Oximetry: 97 (Room air) Pulse Ox Interpretation: Normal Progress Note: EKG, blood work and urinalysis ordered. IV fluids. pepcid IVP, and zofran IVP administered. Disposition Discussed With Dr.: Mor Parra Comment: accepted the pt on his service and took over the care at 12:13 AM Doctor Will See Patient In The: Hospital Counseled Patient/Family Regarding: Studies Performed, Diagnosis - Disposition Disposition: HOSPITALIZED Disposition Time: 19:26 Condition: FAIR - Clinical Impression Clinical Impression: Abdominal pain, Common bile duct dilatation - Scribe Statement The provider has reviewed the documentation as recorded by the Scribe Tomas Bullock All medical record entries made by the Scribe were at my direction and personally dictated by me. I have reviewed the chart and agree that the record accurately reflects my personal performance of the history, physical exam, medical decision making, and the department course for this patient. I have also personally directed, reviewed, and agree with the discharge instructions and disposition. Decision To Admit - Pt Status Changed To: Hospital Disposition Of: Inpatient - Admit Certification Admit to Inpatient:: After my assessment, the patient will require hospitalization for at least two midnights. This is because of the severity of symptoms shown, intensity of services needed, and/or the medical risk in this patient being treated as an outpatient. - InPatient: Physician Admission Certification:: After my assessment, the patient will require hospitalization for at least two midnights. This is because of the severity of symptoms shown, intensity of services needed, and/or the medical risk in this patient being treated as an outpatient. - . Bed Request Type: Regular Admitting Physician: Mor Parra Patient Diagnosis: Abdominal pain, Common bile duct dilatation
[2017-03-22 19:54] LABS: BASO # 0.1 K/uL (0.0-0.2); EOS # 0.4 K/uL (0.0-0.7); EOS % 6.8 % (0.0-4.0); HEMATOCRIT 33.8 % (34.0-47.0); LYMPH # 1.2 K/uL (1.0-4.3); LYMPH % 20.8 % (20.0-40.0); MEAN CELL VOLUME 95.8 fL (81.0-99.0); MEAN CORPUSCULAR HEMOGLOBIN 32.2 pg (27.0-31.0); MEAN CORPUSCULAR HGB CONC 33.6 g/dL (33.0-37.0); MEAN PLATELET VOLUME 7.3 fL (7.2-11.7); MONO # 0.6 K/uL (0.0-0.8); MONO % 10.3 % (0.0-10.0); RED CELL DISTRIBUTION WIDTH 12.9 % (11.5-14.5); WHITE BLOOD COUNT 5.8 K/uL (4.8-10.8)
[2017-03-22 20:03] LABS: INR 1.1
[2017-03-22 20:04] LABS: CHLORIDE 96 mmol/L (98-107); SODIUM 135 mmol/L (132-148)
[2017-03-22 20:06] LABS: GFR AFRICAN-AMERICAN > 60
[2017-03-22 20:07] LABS: ALKALINE PHOSPHATASE 111 U/L (38-126); ALT/SGPT 18 U/L (9-52); AST/SGOT 21 U/L (14-36); BILIRUBIN,TOTAL 0.4 mg/dL (0.2-1.3); BLOOD UREA NITROGEN 11 mg/dL (7-17); CALCIUM 8.6 mg/dl (8.6-10.4); CARBON DIOXIDE 28 mmol/L (22-30); GLUCOSE,RANDOM 83 mg/dL (65-105); TOTAL PROTEIN 7.8 g/dL (6.3-8.3)
[2017-03-22] MEDS ORDERED: Sodium Chloride 0.9% 1,000 ML ONE (20:11)
[2017-03-22 20:14] LABS: URINE BILIRUBIN NEGATIVE (NEGATIVE); URINE BLOOD NEGATIVE (NEGATIVE); URINE COLOR Straw (YELLOW); URINE GLUCOSE (UA) NORMAL (Normal); URINE KETONE NEGATIVE (NEGATIVE); URINE LEUKOCYTE ESTERASE NEG Leu/uL (Negative); URINE PROTEIN NEGATIVE (NEGATIVE); URINE UROBILINOGEN NORMAL mg/dL (0.2-1.0)
[2017-03-22] MEDS ORDERED: Iodixanol 320 mg/ml 150 ml Bottle IV ONE (22:43)
--- NOTE | 2017-03-22 23:43 | CT ---
EXAM: CT Abdomen and Pelvis With Intravenous Contrast CLINICAL HISTORY: 76 years old, female; Pain and condition or disease; Cancer; Other: Lung; Abdominal pain; Generalized; Additional info: Ruq, flank pain, neg ua TECHNIQUE: Axial computed tomography images of the abdomen and pelvis with intravenous contrast. This CT exam was performed using one or more of the following dose reduction techniques: automated exposure control, adjustment of the mA and/or kV according to patient size, and/or use of iterative reconstruction technique. Coronal and sagittal reformatted images were created and reviewed. CONTRAST: 100 mL of visipaque 320 administered intravenously. COMPARISON: No relevant prior studies available. FINDINGS: Lower thorax: There is minimal bibasilar atelectasis. The heart as visualized appears mildly enlarged. ABDOMEN: Liver: There are no focal liver lesions present. Gallbladder and bile ducts: There is prominent intrahepatic and especially extrahepatic biliary ductal dilatation. The proximal common bile duct measures up to 2.1 CM in diameter. The common bile duct does taper somewhat distally. This may be normal for this postcholecystectomy patient however it is difficult to exclude underlying abnormality. Please correlate clinically and if indicated this could be further evaluated with MRCP or ERCP. There has been a cholecystectomy. Pancreas: The pancreas is normal. No ductal dilation. Spleen: The spleen is normal. Adrenals: The adrenal glands are normal. Kidneys and ureters: There is no evidence of hydronephrosis. Small areas of high density in the renal calyces bilaterally probably reflects contrast material, less likely small calculi. Stomach and bowel: Stomach is decompressed. Colonic constipation is present. There is no evidence of intestinal obstruction. No mucosal thickening. Appendix: No findings to suggest acute appendicitis. PELVIS: Bladder: The bladder is normal. Reproductive: The uterus is normal. ABDOMEN and PELVIS: Intraperitoneal space: There is no evidence of free intraperitoneal fluid. There is no free intraperitoneal air. Bones/joints: There is mild to moderate compression deformity of L5 and mild compression deformity of L2. These are age-indeterminate. There is evidence for old fracture of the left superior pubic ramus. There are moderate to severe degenerative spine changes. There is marked diffuse osteopenia. Soft tissues: Unremarkable. Vasculature: The aorta demonstrates mild atherosclerotic calcification. No abdominal aortic aneurysm. Lymph nodes: There is no evidence of lymphadenopathy. IMPRESSION: 1. There is prominent intrahepatic and especially extrahepatic biliary ductal dilatation. The proximal common bile duct measures up to 2.1 CM in diameter. The common bile duct does taper somewhat distally. This may be normal for this postcholecystectomy patient however it is difficult to exclude underlying abnormality. Please correlate clinically and if indicated this could be further evaluated with MRCP or ERCP. 2. There is mild to moderate compression deformity of L5 and mild compression deformity of L2. These are age-indeterminate. 3. No convincing evidence for obstructive uropathy.
[2017-03-23] MEDS ORDERED: Enoxaparin 40 mg Syringe SC ONE (00:39)
[2017-03-23 00:57] VITALS: RESP 20
[2017-03-23] MEDS ORDERED: Morphine 4 MG/ML VIAL ONE (01:03)
[2017-03-23] MEDS ORDERED: Morphine 4 MG/ML VIAL IV ONE (01:19)
[2017-03-23] MEDS: Phenytoin 100 mg/4 ml Oral Susp UD PO SCH ×3 (09:57→17:17)
[2017-03-23] MEDS ORDERED: Fluticasone Nasal 50 mcg/Spray NS SCH (10:00)
[2017-03-23] MEDS ORDERED: MOMETASONE FUROATE 17 GM NS SCH (10:00)
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
[2017-03-23] MEDS: Pantoprazole 40 mg EC Tab PO SCH (10:25)
--- NOTE | 2017-03-23 18:14 | CP.PCM.HP ---
History of Present Illness - History of Present Illness History of Present Illness: CC : RUQ abdominal pain HPI: 76 year old female came in with c/o sharp right upper quadrant abdominal pain, she denies any nausea, vomitting, fvere, and chills, no diarrhea, constipation, pt looks lethargic and dehydrated, pt has a h/o CBD dilatation. no pronounced tenderness in RUQ area on exam, pt is for further evaluation of GI Present on Admission - Present on Admission Any Indicators Present on Admission: No Review of Systems - Review of Systems Systems not reviewed;Unavailable: Acuity of Condition - Constitutional Constitutional: Fatigue, Lethargy. absent: As Per HPI, Anorexia, Chills, Daytime Sleepiness, Excessive Sweating, Fever, Frequent Falls, Headache, Increased Appetite, Malaise, Night Sweats, Snoring, Sleep Apnea, Weight Gain, Weight Loss, Weakness, Other - EENT Nose/Mouth/Throat: absent: As Per HPI, Epistaxis, Nasal Congestion, Nasal Discharge, Nasal Obstruction, Nasal Trauma, Nose Pain, Post Nasal Drip, Sinus Pain, Sinus Pressure, Bleeding Gums, Change in Voice, Dental Pain, Dry Mouth, Dysphagia, Halitosis, Hoarsness, Lip Swelling, Mouth Lesions, Mouth Pain, Odynophagia, Sore Throat, Throat Swelling, Tongue Swelling, Facial Pain, Neck Pain, Neck Mass, Other - Cardiovascular Cardiovascular: Dyspnea - Respiratory Respiratory: Dyspnea - Gastrointestinal Gastrointestinal: Abdominal Pain. absent: As Per HPI, Belching, Bloating, Change in Bowel Habits, Change in Stool Character, Coffee Ground Emesis, Constipation, Cramping, Diarrhea, Dyspepsia, Dysphagia, Early Satiety, Excessive Flatus, Fecal Incontinence, Heartburn, Hematemesis, Hematochezia, Loose Stools, Melena, Nausea, Odynophagia, Temesmus, Vomiting, Other - Genitourinary Genitourinary: Urinary Frequency. absent: As Per HPI, Change in Urinary Stream , Difficulty Urinating, Dysuria, Flank Pain, Hematuria, Pyuria, Nocturia, Urinary Incontinence, Urinary Hesitance, Urinary Urgency, Voiding Freq/Small Amts, Freq UTI, Hx Renal/Bladder Calculi, Hx /Renal Surgery, Bladder Distension, Other - Musculoskeletal Musculoskeletal: absent: As Per HPI, Abnormal Gait, Arthralgias, Atrophy, Back Pain, Deformity, Joint Swelling, Limited Range of Motion, Loss of Height, Muscle Cramps, Muscle Weakness, Myalgias, Neck Pain, Numbness, Radiating Pain into Limb, Stiffness, Tingling, Other - Integumentary Integumentary: absent: As Per HPI, Acne, Alopecia, Bleeding Lesions, Change in Hair, Change in Nails, Change in Pigmentation, Changing Lesions, Dry Skin, Erythema, Furuncle, Hirsutism, Lesions, New Lesions, Non-Healing Lesions, Photosensitivity, Pruritus, Rash, Skin Pain, Skin Ulcer, Sores, Striae, Swelling , Unusual Bruising, Wounds, Jaundice, Other - Neurological Neurological: Dizziness Past Patient History - Infectious Disease Hx of Infectious Diseases: None - Past Medical History & Family History Past Medical History?: Yes - Past Social History Smoking Status: Never Smoked - CARDIAC Hx Hypertension: Yes - PULMONARY Hx Pneumonia: Yes - NEUROLOGICAL Hx Seizures: Yes - HEENT Hx HEENT Problems: Yes Hx Cataracts: Yes - RENAL Hx Chronic Kidney Disease: No - ENDOCRINE/METABOLIC Hx Endocrine Disorders: No - HEMATOLOGICAL/ONCOLOGICAL Hx Blood Disorders: No - INTEGUMENTARY Hx Dermatological Problems: No - MUSCULOSKELETAL/RHEUMATOLOGICAL Hx Falls: Yes - GASTROINTESTINAL Hx Gastritis: Yes - GENITOURINARY/GYNECOLOGICAL Hx Genitourinary Disorders: No - PSYCHIATRIC Hx Substance Use: No - SURGICAL HISTORY Hx Cholecystectomy: Yes - ANESTHESIA Hx Anesthesia: Yes Hx Anesthesia Reactions: No Hx Malignant Hyperthermia: No Meds Allergies/Adverse Reactions: Allergies Allergy/AdvReac Type Severity Reaction Status Date / Time Penicillins Allergy Severe ANAPHYLAXIS Verified 02/10/17 22:41 cigarette smoke Allergy Verified 03/22/17 17:53 AMONIA Allergy Mild RASH Uncoded 02/10/17 22:41 Physical Exam - Constitutional Appears: No Acute Distress - Head Exam Head Exam: ATRAUMATIC, NORMAL INSPECTION, NORMOCEPHALIC - Eye Exam Eye Exam: EOMI, Normal appearance, PERRL Pupil Exam: NORMAL ACCOMODATION, PERRL - ENT Exam ENT Exam: Mucous Membranes Moist, Normal Exam - Respiratory Exam Respiratory Exam: Clear to Auscultation Bilateral, NORMAL BREATHING PATTERN - Cardiovascular Exam Cardiovascular Exam: REGULAR RHYTHM - GI/Abdominal Exam GI & Abdominal Exam: Normal Bowel Sounds, Soft. absent: Bruit, Diminished Bowel Sounds, Distended, Firm, Guarding, Hernia, Hyperactive Bowel Sounds, Hypoactive Bowel Sounds, Mass, Organomegaly, Pulsatile Mass, Rebound, Rigid, Tenderness - Neurological Exam Neurological exam: Alert, CN II-XII Intact, Normal Gait, Oriented x3, Reflexes Normal - Psychiatric Exam Psychiatric exam: Anxious Results - Vital Signs Recent Vital Signs: Last Vital Signs Temp 98.7 F 03/23/17 16:00 Pulse 92 H 03/23/17 16:00 Resp 20 03/23/17 16:00 BP 151/76 H 03/23/17 16:00 Pulse Ox 95 03/23/17 16:00 - Labs Result Diagrams: 03/22/17 19:49 03/22/17 19:49 Labs: Laboratory Results - last 24 hr 03/23/17 03/23/17 03/23/17 11:08 12:03 12:03 POC Glucose (mg/dL) 102 Amylase 157 H D Lipase 177 Assessment & Plan (1) Abdominal pain Status: Acute (2) Common bile duct dilatation Status: Acute (3) Dehydration Status: Acute
[2017-03-23] MEDS ORDERED: Aluminum Hydroxide/Magnesium Hydroxide Susp (30 mL) PO PRN (20:21)
[2017-03-24] MEDS: Pantoprazole 40 mg EC Tab PO SCH (09:25)
[2017-03-24] MEDS: Phenytoin 100 mg/4 ml Oral Susp UD PO SCH ×3 (09:26→17:44)
--- NOTE | 2017-03-24 09:30 | CP.PCM.PN ---
Subjective - Date & Time of Evaluation Date of Evaluation: 03/24/17 Time of Evaluation: 10:51 - Subjective Subjective: PT SEEN AND EXAMINED, ABDOMINAL PAIN IMPROVED Objective - Vital Signs/Intake and Output Vital Signs (last 24 hours): Temp Pulse Resp BP Pulse Ox 98.5 F 89 20 163/85 H 97 03/24/17 07:31 03/24/17 07:31 03/24/17 07:31 03/24/17 07:31 03/24/17 07:31 Intake and Output: 03/24/17 03/24/17 06:59 18:59 Intake Total 240 Balance 240 - Medications Medications: Current Medications Al Hydrox/Mg Hydrox/Simethicone (Maalox 30 Ml) 30 ml PO BID PRN PRN Reason: Indigestion / Heartburn Last Admin: 03/23/17 20:33 Dose: 30 ml Aripiprazole (Abilify) 5 mg PO QPM [facility] Last Admin: 03/23/17 17:18 Dose: 5 mg Dicyclomine HCl (Bentyl) 10 mg PO TID PRN PRN Reason: Pain, moderate (4-7) Last Admin: 03/23/17 20:30 Dose: 10 mg Fluticasone Propionate (Flonase) 2 spr NS DAILY [facility] Last Admin: 03/24/17 09:27 Dose: 2 spr Oxcarbazepine (Trileptal) 150 mg PO BID [facility] Last Admin: 03/24/17 09:26 Dose: 150 mg Pantoprazole Sodium (Protonix Ec Tab) 40 mg PO DAILY [facility] Last Admin: 03/24/17 09:25 Dose: 40 mg Phenytoin (Dilantin) 100 mg PO TID [facility] Last Admin: 03/24/17 09:26 Dose: 100 mg - Labs Labs: PT 11.8 SECONDS (9.7-12.2) 03/22/17 19:49 INR 1.1 03/22/17 19:49 APTT 25 SECONDS (21-34) 03/22/17 19:49 - Constitutional Appears: Well - Head Exam Head Exam: ATRAUMATIC, NORMAL INSPECTION, NORMOCEPHALIC - Eye Exam Eye Exam: EOMI, Normal appearance, PERRL Pupil Exam: NORMAL ACCOMODATION, PERRL - Respiratory Exam Respiratory Exam: Clear to Ausculation Bilateral, NORMAL BREATHING PATTERN - Cardiovascular Exam Cardiovascular Exam: REGULAR RHYTHM, +S1, +S2. absent: Murmur - GI/Abdominal Exam GI & Abdominal Exam: Soft, Tenderness - Rectal Exam Rectal Exam: NORMAL INSPECTION Assessment and Plan (1) Abdominal pain Status: Acute (2) Common bile duct dilatation Status: Acute (3) Dehydration Status: Acute
[2017-03-24 16:36] VITALS: BP 135/68; PULSE 91; TEMP 98.7; O2SAT 95
--- NOTE | 2017-03-24 18:27 | CP.PCM.PN ---
Subjective - Date & Time of Evaluation Date of Evaluation: 03/24/17 Time of Evaluation: 18:25 - Subjective Subjective: Pt signed out AMA. Risks and benefits explained. Attending doctor made aware. Pt was competent to sign. Objective - Vital Signs/Intake and Output Vital Signs (last 24 hours): Temp Pulse Resp BP Pulse Ox 98.7 F 91 H 20 135/68 95 03/24/17 16:00 03/24/17 16:00 03/24/17 16:00 03/24/17 16:00 03/24/17 16:00 Intake and Output: 03/24/17 03/24/17 06:59 18:59 Intake Total 240 240 Balance 240 240 - Medications Medications: Current Medications Al Hydrox/Mg Hydrox/Simethicone (Maalox 30 Ml) 30 ml PO BID PRN PRN Reason: Indigestion / Heartburn Last Admin: 03/23/17 20:33 Dose: 30 ml Aripiprazole (Abilify) 5 mg PO QPM [facility] Last Admin: 03/24/17 17:44 Dose: 5 mg Dicyclomine HCl (Bentyl) 10 mg PO TID PRN PRN Reason: Pain, moderate (4-7) Last Admin: 03/23/17 20:30 Dose: 10 mg Fluticasone Propionate (Flonase) 2 spr NS DAILY [facility] Last Admin: 03/24/17 09:27 Dose: 2 spr Oxcarbazepine (Trileptal) 150 mg PO BID [facility] Last Admin: 03/24/17 17:44 Dose: 150 mg Pantoprazole Sodium (Protonix Ec Tab) 40 mg PO DAILY [facility] Last Admin: 03/24/17 09:25 Dose: 40 mg Phenytoin (Dilantin) 100 mg PO TID [facility] Last Admin: 03/24/17 17:44 Dose: 100 mg - Labs Labs: PT 11.8 SECONDS (9.7-12.2) 03/22/17 19:49 INR 1.1 03/22/17 19:49 APTT 25 SECONDS (21-34) 03/22/17 19:49 - Constitutional Appears: Non-toxic, No Acute Distress - Head Exam Head Exam: ATRAUMATIC, NORMAL INSPECTION, NORMOCEPHALIC - Eye Exam Eye Exam: EOMI - ENT Exam ENT Exam: Mucous Membranes Moist - Neck Exam Neck Exam: Full ROM, Normal Inspection - Respiratory Exam Respiratory Exam: NORMAL BREATHING PATTERN. absent: Respiratory Distress - Cardiovascular Exam Cardiovascular Exam: +S1, +S2 - GI/Abdominal Exam GI & Abdominal Exam: Soft, Normal Bowel Sounds. absent: Tenderness - Extremities Exam Extremities Exam: Full ROM, Normal Inspection - Neurological Exam Neurological Exam: Alert, Awake, Oriented x3 - Psychiatric Exam Psychiatric exam: Agitated - Skin Skin Exam: Dry, Intact, Normal Color, Warm Assessment and Plan - Assessment and Plan (Free Text) Assessment: 1. Pt signed out ama 2. 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
--- NOTE | 2017-03-26 18:51 | CARD ---
APPROVED REPORT EKG Measurement Heart [id number] <Conclusion> Normal sinus rhythm Possible Left atrial enlargement Left ventricular hypertrophy Abnormal ECG
== END 2017-03-24 20:25 | disposition left against medical advice (07) | DRG 392 ==
LOC: C.ER 17:08 → C.3T 03-23 00:31
PROVIDERS: ADMIT Internal Medicine; ATTEND Internal Medicine
DX: R10.11 Right upper quadrant pain (principal); E86.0 Dehydration; F20.9 Schizophrenia, unspecified; R06.00 Dyspnea, unspecified; K83.8 Other specified diseases of biliary tract; G40.909 Epilepsy, unspecified, not intractable, without status epilepticus; F22 Delusional disorders; I10 Essential (primary) hypertension; K91.5 Postcholecystectomy syndrome; E66.9 Obesity, unspecified; Z90.49 Acquired absence of other specified parts of digestive tract; Z87.01 Personal history of pneumonia (recurrent)

== ENCOUNTER 2017-05-29 15:54 | Emergency (ER) | payer OTHER ==
[2017-05-29 15:54] VITALS: BMI 32.3
--- NOTE | 2017-05-29 16:45 | C.PDOC ---
History Of Present Illness Patient is a 76 y/o female, whose past medical history includes HTN, and epilepsy, that presents to the emergency department for evaluation of shortness of breath that occurred several times intermittently over the last 2 days. Patient also reports associated cough with white sputum since this morning. she has had nasal congestion and stuffiness and is having trouble breathing through her nose. She used a nasal spray but does not know the name. Also, notes occasional dizziness, and bilateral knee pain. States she had bronchitis 4 months ago. Otherwise, denies any chest pain, palpitations, headache, dizziness , fever, or chills. Time Seen by Provider: 05/29/17 16:25 Chief Complaint (Nursing): Shortness Of Breath History Per: Patient History/Exam Limitations: no limitations Onset/Duration Of Symptoms: Days (2) Current Symptoms Are (Timing): Still Present Associated Symptoms: Dizziness. denies: Fever, Chills, Sweating, Chest Pain, Bloody Cough, Heart Racing, Leg/Calf Pain, Ankle/Leg Swelling, Light-headedness , Anxiety, Tingling In Hands Or Face, Musle Spasms In Hands Or Feet Recent travel outside of the [place]: No Additional History Per: Patient Past Medical History Reviewed: Historical Data, Nursing Documentation, Vital Signs Vital Signs: Last Vital Signs Temp 98.4 F 05/29/17 19:00 Pulse 70 05/29/17 18:13 Resp 20 05/29/17 18:13 BP 159/51 H 05/29/17 18:13 Pulse Ox 98 05/29/17 18:58 - Medical History PMH: Anxiety, Bipolar Disorder, Bronchitis, Depression, Gastritis, HTN, Paranoia , Pneumonia, Schizophrenia, Seizures Denies: Chronic Kidney Disease Surgical History: Cholecystectomy - [facility] Procedures CLOSURE SKIN & SUBCUTANEOUS NEC (09/15/13) DX ULTRASOUND-HEART (09/11/14) ESOPHAGOGASTRODUODENOSCOPY [EGD] W/CLOSED BIOPSY (10/11/14) OTHER ESOPHAGOSCOPY (09/11/14) TETANUS TOXOID ADMINIST (09/15/13) VACCINATION NEC (10/11/14) VENOUS CATHETERIZATION NEC (09/11/14) Family History: States: Unknown Family Hx - Social History Hx Tobacco Use: No Hx Alcohol Use: No Hx Substance Use: No - Immunization History Hx Tetanus Toxoid Vaccination: Yes Hx Influenza Vaccination: Yes Hx Pneumococcal Vaccination: Yes Review Of Systems Except As Marked, All Systems Reviewed And Found Negative. Constitutional: Negative for: Fever, Chills Cardiovascular: Negative for: Chest Pain, Palpitations, Edema, Light Headedness Respiratory: Positive for: Cough, Shortness of Breath, Sputum. Negative for: Hemoptysis Gastrointestinal: Negative for: Nausea, Vomiting, Abdominal Pain Musculoskeletal: Positive for: Leg Pain (BL knee pain) Skin: Negative for: Rash, Bruising Neurological: Positive for: Dizziness. Negative for: Weakness, Numbness, Headache Physical Exam - Physical Exam Appears: Non-toxic, No Acute Distress (No apparent respiratory distress) Skin: Normal Color, Warm, Dry Head: Atraumatic, Normacephalic Eye(s): bilateral: Normal Inspection Neck: Normal ROM, Supple Chest: Symmetrical, No Tenderness Cardiovascular: Rhythm Regular, No Murmur Respiratory: Decreased Breath Sounds (slight), No Rales, No Rhonchi, No Wheezing Gastrointestinal/Abdominal: Soft, No Tenderness Extremity: Normal ROM, No Tenderness, Capillary Refill (< 2 sec.), No Deformity , Swelling (mild swelling to BL ankle) Extremity: Bilateral: Atraumatic, Normal Color And Temperature, Normal ROM Pulses: Left Dorsalis Pedis: Normal, Right Dorsalis Pedis: Normal Neurological/Psych: Oriented x3, Normal Speech, Normal Cognition, Normal Motor, Normal Sensation ED Course And Treatment - Laboratory Results Result Diagrams: 05/29/17 17:04 05/29/17 17:04 Lab Interpretation: No Acute Changes ECG: Interpreted By Me ECG Rhythm: Sinus Rhythm (with LVH) ECG Interpretation: No Acute Changes O2 Sat by Pulse Oximetry: 98 Pulse Ox Interpretation: Normal - Radiology CXR: Viewed By Me, Read By Radiologist CXR Interpretation: Yes: Cardiomegaly Progress Note: Blood work, CXR, EKG ordered and reviewed. Reevaluation Time: 19:30 Reassessment Condition: Improved (Patient remains comfortable in ED. No sign of respiratory distress.) Disposition - Disposition Referrals: Mor Parra MD [Staff Provider] - Disposition: HOME/ ROUTINE Disposition Time: 19:30 Condition: IMPROVED Instructions: Upper Respiratory Infection (ED) Print Language: CZECH - Clinical Impression Clinical Impression: URI (upper respiratory infection) - Scribe Statement The provider has reviewed the documentation as recorded by the [employer] Khan All medical record entries made by the Mariaa were at my direction and personally dictated by me. I have reviewed the chart and agree that the record accurately reflects my personal performance of the history, physical exam, medical decision making, and the department course for this patient. I have also personally directed, reviewed, and agree with the discharge instructions and disposition.
--- NOTE | 2017-05-29 17:03 | RAD ---
HISTORY: SOB COMPARISON: Chest x-ray performed 02/10/17 TECHNIQUE: Chest, one view. FINDINGS: LUNGS: Biapical pleural thickening. No focal consolidation. Please note that chest x-ray has limited sensitivity for the detection of pulmonary masses. PLEURA: No significant pleural effusion identified. No definite pneumothorax . CARDIOVASCULAR: Borderline cardiomegaly. Ectatic aorta containing atherosclerotic calcifications. OSSEOUS STRUCTURES: Diffuse osseous demineralization limits evaluation for acute fracture lines. Extensive degenerative changes. Curvature of the thoracic spine convex to the right. VISUALIZED UPPER ABDOMEN: Unremarkable. OTHER FINDINGS: None. IMPRESSION: Borderline cardiomegaly. Ectatic aorta containing atherosclerotic calcifications. Biapical pleural thickening.
[2017-05-29 17:08] LABS: BASO # 0.1 K/uL (0.0-0.2); BASO % 1.8 % (0.0-2.0); EOS # 0.7 K/uL (0.0-0.7); EOS % 15.3 % (0.0-4.0); HEMOGLOBIN 11.5 g/dL (11.0-16.0); LYMPH # 1.6 K/uL (1.0-4.3); LYMPH % 35.2 % (20.0-40.0); MEAN CELL VOLUME 94.4 fL (81.0-99.0); MEAN CORPUSCULAR HEMOGLOBIN 32.5 pg (27.0-31.0); MEAN CORPUSCULAR HGB CONC 34.4 g/dL (33.0-37.0); MEAN PLATELET VOLUME 7.1 fL (7.2-11.7); MONO # 0.5 K/uL (0.0-0.8); MONO % 10.1 % (0.0-10.0); NEUT # 1.7 K/uL (1.8-7.0); NEUT % 37.6 % (50.0-75.0); NRBC % 0.1 % (0.0-2.0); RBC 3.53 Mil/uL (3.80-5.20); RED CELL DISTRIBUTION WIDTH 13.5 % (11.5-14.5); WHITE BLOOD COUNT 4.5 K/uL (4.8-10.8)
[2017-05-29 17:18] LABS: ALBUMIN 3.8 g/dL (3.5-5.0)
[2017-05-29 17:20] LABS: GFR AFRICAN-AMERICAN > 60; GFR NON-AFRICAN AMERICAN > 60
[2017-05-29 17:21] LABS: ALT/SGPT 17 U/L (9-52); AST/SGOT 52 U/L (14-36); BLOOD UREA NITROGEN 16 mg/dL (7-17); CALCIUM 8.4 mg/dl (8.6-10.4)
[2017-05-29 17:31] LABS: B-TYPE NATRIURETIC PEPTIDE 325 pg/mL (0-900)
[2017-05-29 19:01] VITALS: TEMP 98.4
[2017-05-29 19:56] VITALS: BP 158/86; PULSE 86; RESP 18; O2SAT 96
--- NOTE | 2017-05-30 14:38 | CARD ---
APPROVED REPORT EKG Measurement Heart [id number] <Conclusion> Normal sinus rhythm Possible Left atrial enlargement Left ventricular hypertrophy Prolonged QT Abnormal ECG
== END 2017-05-29 19:45 | disposition home or self-care (01) ==
LOC: C.ER 15:54
DX: J06.9 Acute upper respiratory infection, unspecified (principal)

== ENCOUNTER 2017-06-30 07:23 | Observation (INO) | payer OTHER ==
[2017-06-30 07:27] VITALS: BMI 32.3
--- NOTE | 2017-06-30 09:02 | RAD ---
HISTORY: Pain COMPARISON: Chest x-ray performed 05/29/17 TECHNIQUE: Chest, one view. FINDINGS: Examination limited by habitus. LUNGS: Biapical pleural thickening. Mild bibasilar atelectasis. Please note that chest x-ray has limited sensitivity for the detection of pulmonary masses. PLEURA: No significant pleural effusion identified. No definite pneumothorax . CARDIOVASCULAR: Cardiomegaly. Atherosclerotic calcification of the aortic knob. OSSEOUS STRUCTURES: Degenerative changes of the spine and shoulders. Scoliosis convex to the right. Right 6th rib fracture deformity appears chronic. VISUALIZED UPPER ABDOMEN: Unremarkable. OTHER FINDINGS: None. IMPRESSION: Biapical pleural thickening. Mild bibasilar atelectasis. Cardiomegaly.
[2017-06-30 09:03] LABS: BASO % 0.4 % (0.0-2.0); EOS # 0.3 K/uL (0.0-0.7); EOS % 9.1 % (0.0-4.0); HEMATOCRIT 31.9 % (34.0-47.0); LYMPH # 0.9 K/uL (1.0-4.3); LYMPH % 23.5 % (20.0-40.0); MEAN CELL VOLUME 95.2 fL (81.0-99.0); MEAN CORPUSCULAR HEMOGLOBIN 32.6 pg (27.0-31.0); MEAN CORPUSCULAR HGB CONC 34.3 g/dL (33.0-37.0); MEAN PLATELET VOLUME 7.2 fL (7.2-11.7); MONO # 0.4 K/uL (0.0-0.8); MONO % 11.5 % (0.0-10.0); NRBC % 0.1 % (0.0-2.0); WHITE BLOOD COUNT 3.7 K/uL (4.8-10.8)
[2017-06-30 09:39] LABS: ALKALINE PHOSPHATASE 112 U/L (38-126); ALT/SGPT 14 U/L (9-52); AST/SGOT 75 U/L (14-36); BILIRUBIN,TOTAL 1.2 mg/dL (0.2-1.3); BLOOD UREA NITROGEN 9 mg/dL (7-17); CALCIUM 9.4 mg/dl (8.6-10.4); CARBON DIOXIDE 26 mmol/L (22-30); CHLORIDE 92 mmol/L (98-107); GFR AFRICAN-AMERICAN > 60; GLUCOSE,RANDOM 102 mg/dL (65-105); POTASSIUM 5.2 mmol/L (3.6-5.2); SODIUM 128 mmol/L (132-148); TOTAL PROTEIN 8.1 g/dL (6.3-8.3)
[2017-06-30] MEDS ORDERED: Sodium Chloride 0.9% 1,000 ML IV ONE (09:47)
--- NOTE | 2017-06-30 10:10 | C.PDOC ---
Time Seen by Provider: 06/30/17 07:54 Chief Complaint (Nursing): Chest Pain History Per: Patient Onset/Duration Of Symptoms: Hrs (since last night) Current Symptoms Are (Timing): Gone Severity: Moderate Associated Symptoms: denies: Nausea, Dyspnea, Diaphoresis, Syncope Exacerbating Factors: None Alleviating Factors: None Additional History Per: Prior Records Past Medical History Reviewed: Historical Data, Nursing Documentation, Vital Signs Vital Signs: Last Vital Signs Temp 98.2 F 06/30/17 07:45 Pulse 82 06/30/17 07:45 Resp 19 06/30/17 07:45 BP 148/78 06/30/17 07:45 Pulse Ox 98 06/30/17 07:45 - Medical History PMH: Anxiety, Bipolar Disorder, Bronchitis, Depression, Gastritis, HTN, Paranoia , Pneumonia, Schizophrenia, Seizures Surgical History: Cholecystectomy - [facility] Procedures CLOSURE SKIN & SUBCUTANEOUS NEC (09/15/13) DX ULTRASOUND-HEART (09/11/14) ESOPHAGOGASTRODUODENOSCOPY [EGD] W/CLOSED BIOPSY (10/11/14) OTHER ESOPHAGOSCOPY (09/11/14) TETANUS TOXOID ADMINIST (09/15/13) VACCINATION NEC (10/11/14) VENOUS CATHETERIZATION NEC (09/11/14) Family History: States: Unknown Family Hx - Social History Hx Tobacco Use: No Hx Alcohol Use: No Hx Substance Use: No - Immunization History Hx Tetanus Toxoid Vaccination: Yes Hx Influenza Vaccination: Yes Hx Pneumococcal Vaccination: Yes Review Of Systems Except As Marked, All Systems Reviewed And Found Negative. Constitutional: Negative for: Fever Cardiovascular: Positive for: Chest Pain Respiratory: Negative for: Shortness of Breath, Hemoptysis Gastrointestinal: Negative for: Nausea, Vomiting, Abdominal Pain Musculoskeletal: Negative for: Neck Pain, Back Pain, Leg Pain Skin: Negative for: Rash Neurological: Positive for: Headache. Negative for: Weakness, Numbness, Seizures, Altered Mental Status Physical Exam - Physical Exam Appears: Non-toxic, No Acute Distress Skin: Normal Color, Warm, Dry Head: Atraumatic, Normacephalic Eye(s): bilateral: PERRL, EOMI Neck: Normal ROM, Supple Cardiovascular: Rhythm Regular Respiratory: Normal Breath Sounds, No Accessory Muscle Use Gastrointestinal/Abdominal: Soft, No Tenderness Back: No CVA Tenderness Extremity: Normal ROM, No Calf Tenderness Neurological/Psych: Oriented x3, Normal Motor, Normal Sensation ED Course And Treatment - Laboratory Results Result Diagrams: 06/30/17 08:50 06/30/17 08:50 Lab Interpretation: Abnormal Interpretation Of Abnormal: Supratherapeutic Dilantin level ECG: Interpreted By Me, Viewed By Me ECG Rhythm: Sinus Rhythm, Nonspecific Changes ECG Interpretation: Abnormal Interpretation Of ECG: LVH Rate From EC O2 Sat by Pulse Oximetry: 98 Pulse Ox Interpretation: Normal - Radiology CXR: Viewed By Me, Read By Radiologist CXR Interpretation: Yes: No Acute Disease, Cardiomegaly Progress - Interventions Interventions:: Observation - Medications Administered Oral: Aspirin, H-2 clau - Data Reviewed Data Reviewed: Lab, Diagnostic imaging, EKG, Old records - Patient Status Patient status: Partially improved - Continuity of Care Discussed patient case with:: Patient, ED Nurse, PMD Disposition Discussed With : Mor Parra Comment: He accepted pt on his service. Doctor Will See Patient In The: Hospital Counseled Patient/Family Regarding: Studies Performed, Diagnosis - Disposition Disposition: HOSPITALIZED Disposition Time: 10:10 Condition: FAIR - Clinical Impression Clinical Impression: Chest pain, Elevated Dilantin level
[2017-06-30] MEDS: Multiple Vitamins Tab PO SCH (12:26)
[2017-06-30] MEDS: Pantoprazole 40 mg EC Tab PO SCH (12:27)
[2017-06-30 23:59] VITALS: RESP 20
[2017-07-01] MEDS: Pantoprazole 40 mg EC Tab PO SCH (10:45)
[2017-07-01] MEDS: Multiple Vitamins Tab PO SCH (10:45)
[2017-07-01] MEDS: Enoxaparin 40 mg Syringe SC SCH (10:46)
--- NOTE | 2017-07-02 08:56 | HP ---
CHIEF COMPLAINT: Chest pain. RELIABILITY: Poor. HISTORY OF PRESENT ILLNESS: This is a 76-year-old female well known to me with history of extensive seizure problems, with history of multiple hospitalizations. She is compliant with her diet, medication, and followup. The patient has psychosis and she gets confused at times and she has history of multiple falls. On the day prior to the admission, she started having chest pain, dull, non-radiating, not associated with diaphoresis or dizziness. No cough. No sore throat. No runny nose. The patient denies any polyuria, polydipsia, or polyphagia. She denies any abdominal pain, nausea, vomiting, or diarrhea. She denies any history of rectal bleed. She denies any history of joint pain or leg pain. She has some cough, sneezing, itchy eyes and itchy nose. The patient denied any history of skin rash or bruises. PAST MEDICAL HISTORY: Bipolar disorder, hypertension, seizure disorder, gastritis, and cholecystectomy. CURRENT MEDICATIONS: Oxcarbazepine, Dilantin, omeprazole, and multivitamin. SOCIAL HISTORY: Nonsmoker and non-EtOH user and lives alone. PHYSICAL EXAMINATION: GENERAL: An elderly female, currently not in distress. VITAL SIGNS: Blood pressure 148/78, pulse 82, respiratory rate 19, and temperature 98.2. SKIN: Senile turgor. No bruising. No purpura. No petechiae. No ecchymosis. HEENT: Atraumatic, normocephalic. Negative pallor. Negative jaundice. Extraocular movements are intact. NECK: Supple. No JVD. No lymph node. No thyromegaly. No carotid bruits. CHEST: Chest wall bilateral symmetrical expansion. LUNGS: Bilaterally clear. No rales. No rhonchi. CARDIOVASCULAR: S1 and S2. Regular. No heaves. No thrills. ABDOMEN: Soft and nontender. Bowel sounds positive. RECTAL: No masses. No bleeding. EXTREMITIES: No clubbing, cyanosis, or edema. BIRD CAGE ASSEMBLER: Awake, alert, and oriented x3. Moving all extremities. Power 5/5 x4. Plantar downgoing. ASSESSMENT: 1. Chest pain, rule out, myocardial infarction. 2. Hypertension. 3. Seizure disorder. 4. Anemia. PLAN: Admit, cardiac enzymes x3, EKG, echocardiogram, if cardiac enzymes are negative, we will discharge the patient and if chest pain persists outpatient workup. Mor Parra MD
[2017-07-02] MEDS: Phenytoin 100 mg/4 ml Oral Susp UD PO SCH ×3 (10:15→17:27)
[2017-07-02] MEDS: Pantoprazole 40 mg EC Tab PO SCH (10:15)
[2017-07-02] MEDS: Multiple Vitamins Tab PO SCH (10:15)
[2017-07-02] MEDS: Enoxaparin 40 mg Syringe SC SCH (10:15)
--- NOTE | 2017-07-02 12:56 | CP.PCM.PN ---
Subjective - Date & Time of Evaluation Date of Evaluation: 07/02/17 Time of Evaluation: 12:55 - Subjective Subjective: PT CLEARED FOR D/C HOME TODAY PER Herminio SPANGLER. SLITTER SERVICE AND SETTER DISCUSSED AT LENGTH D/C PLAN WITH PT; SHE ALSO HAS AN APPT TO F/U WITH DR. SPANGLER ON 07/08/17. HOME VISITING RN SERVICES RX GIVEN TO CM TO ARRANGE FOR MANAGEMENT OF SEIZURE/MEDS AND HIGH CHOLESTEROL. PT HAS OWN CANE FOR AMBULATION. NO FURTHER ORDERS. Objective - Vital Signs/Intake and Output Vital Signs (last 24 hours): Temp Pulse Resp BP Pulse Ox 98.1 F 90 20 166/88 H 96 07/02/17 08:00 07/02/17 10:00 07/02/17 08:00 07/02/17 08:00 07/02/17 08:00 Intake and Output: 07/02/17 07/02/17 06:59 18:59 Intake Total 750 Balance 750 - Medications Medications: Current Medications Aspirin (Ecotrin) 81 mg PO DAILY [facility] Last Admin: 07/02/17 10:19 Dose: 81 mg Enoxaparin Sodium (Lovenox) 40 mg SC DAILY [facility] Last Admin: 07/02/17 10:15 Dose: 40 mg Multivitamins (Hexavitamin) 1 tab PO DAILY [facility] Last Admin: 07/02/17 10:15 Dose: 1 tab Oxcarbazepine (Trileptal) 150 mg PO BID [facility] Last Admin: 07/02/17 10:15 Dose: 150 mg Pantoprazole Sodium (Protonix Ec Tab) 40 mg PO DAILY [facility] Last Admin: 07/02/17 10:15 Dose: 40 mg Phenytoin (Dilantin) 100 mg PO TID [facility] Last Admin: 07/02/17 10:15 Dose: 100 mg Risperidone (Risperdal Tab) 0.5 mg PO DAILY [facility] Last Admin: 07/02/17 10:15 Dose: 0.5 mg Rosuvastatin Calcium (Crestor) 20 mg PO HS [facility] Last Admin: 07/01/17 21:33 Dose: 20 mg
[2017-07-02 15:40] VITALS: BP 143/67; PULSE 88; TEMP 97.8; O2SAT 95
--- NOTE | 2017-07-02 18:51 | CARD ---
APPROVED REPORT EKG Measurement Heart [id number] <Conclusion> Normal sinus rhythm Voltage criteria for left ventricular hypertrophy Abnormal ECG
--- NOTE | 2017-07-03 22:40 | CP.PCM.DIS ---
Provider - Provider Date of Admission: 06/30/17 10:11 Attending physician: Mor Parra MD Diagnosis - Discharge Diagnosis (1) Chest pain Status: Acute Priority: High (2) Epilepsy Status: Chronic Priority: Medium (3) Seizure disorder Status: Chronic Priority: Medium Hospital Course - Lab Results Lab Results: Most Recent Lab Values WBC 3.7 K/uL (4.8-10.8) L 06/30/17 08:50 RBC 3.35 Mil/uL (3.80-5.20) L 06/30/17 08:50 Hgb 10.9 g/dL (11.0-16.0) L 06/30/17 08:50 Hct 31.9 % (34.0-47.0) L 06/30/17 08:50 MCV 95.2 fL (81.0-99.0) 06/30/17 08:50 MCH 32.6 pg (27.0-31.0) H 06/30/17 08:50 MCHC 34.3 g/dL (33.0-37.0) 06/30/17 08:50 RDW 13.0 % (11.5-14.5) 06/30/17 08:50 Plt Count 312 K/uL (130-400) 06/30/17 08:50 MPV 7.2 fL (7.2-11.7) 06/30/17 08:50 Neut % (Auto) 55.5 % (50.0-75.0) 06/30/17 08:50 Lymph % (Auto) 23.5 % (20.0-40.0) 06/30/17 08:50 [place] % (Auto) 11.5 % (0.0-10.0) H 06/30/17 08:50 Eos % (Auto) 9.1 % (0.0-4.0) H 06/30/17 08:50 Baso % (Auto) 0.4 % (0.0-2.0) 06/30/17 08:50 Neut # 2.0 K/uL (1.8-7.0) 06/30/17 08:50 Lymph # 0.9 K/uL (1.0-4.3) L 06/30/17 08:50 [place]anner # 0.4 K/uL (0.0-0.8) 06/30/17 08:50 Eos # 0.3 K/uL (0.0-0.7) 06/30/17 08:50 Baso # 0.0 K/uL (0.0-0.2) 06/30/17 08:50 Sodium 128 mmol/L (132-148) L 06/30/17 08:50 Potassium 5.2 mmol/L (3.6-5.2) 06/30/17 08:50 Chloride 92 mmol/L (98-107) L 06/30/17 08:50 Carbon Dioxide 26 mmol/L (22-30) 06/30/17 08:50 Anion Gap 15 (10-20) 06/30/17 08:50 BUN 9 mg/dL (7-17) 06/30/17 08:50 Creatinine 0.5 MG/DL (0.7-1.2) L 06/30/17 08:50 Est GFR ( Amer) > 60 06/30/17 08:50 Est GFR (Non-Af Amer) > 60 06/30/17 08:50 Random Glucose 102 mg/dL (65-105) 06/30/17 08:50 Calcium 9.4 mg/dl (8.6-10.4) 06/30/17 08:50 Total Bilirubin 1.2 mg/dL (0.2-1.3) 06/30/17 08:50 AST 75 U/L (14-36) H D 06/30/17 08:50 ALT 14 U/L (9-52) 06/30/17 08:50 Alkaline Phosphatase 112 U/L (38-126) 06/30/17 08:50 Total Creatine Kinase 54 U/L (30-135) 06/30/17 22:37 CK-MB (Mass) 1.69 ng/mL (0.0-3.38) 06/30/17 22:37 Troponin I 0.0130 ng/mL (0.00-0.120) 06/30/17 08:50 Troponin I, Quant < 0.0120 ng/mL (0.00-0.120) 06/30/17 22:37 Total Protein 8.1 g/dL (6.3-8.3) 06/30/17 08:50 Albumin 4.0 g/dL (3.5-5.0) 06/30/17 08:50 Globulin 4.0 gm/dL (2.2-3.9) H 06/30/17 08:50 Albumin/Globulin Ratio 1.0 (1.0-2.1) 06/30/17 08:50 Phenytoin 15.3 ug/mL (10-20) 07/01/17 07:07 - Hospital Course Hospital Course: 76 Y/O WITH SEIZURE DISORDER AND CHEST PAIN, WEAKNESS, NO FEVER, NO COUGH , NO DIZZINESS, NO TRAUMA Discharge Exam - Head Exam Head Exam: ATRAUMATIC, NORMAL INSPECTION, NORMOCEPHALIC - Eye Exam Eye Exam: EOMI, Normal appearance, PERRL Pupil Exam: NORMAL ACCOMODATION - ENT Exam ENT Exam: Mucous Membranes Moist, Normal Exam, Normal Oropharynx, TM's Normal Bilaterally - Neck Exam Neck exam: Normal Inspection - Respiratory Exam Respiratory Exam: NORMAL BREATHING PATTERN - Cardiovascular Exam Cardiovascular Exam: REGULAR RHYTHM, +S1, +S2 - GI/Abdominal Exam GI & Abdominal Exam: Normal Bowel Sounds, Unremarkable - Rectal Exam Rectal Exam: NORMAL INSPECTION - Neurological Exam Neurological exam: Alert, CN II-XII Intact, Normal Gait, Oriented x3, Reflexes Normal - Psychiatric Exam Psychiatric exam: Anxious, Depressed, Flat Affect - Skin Skin Exam: Intact Discharge Plan - Discharge Medications Prescriptions: Phenytoin [Dilantin Oral Susp] 100 mg PO TID #90 udc Aspirin [Ecotrin] 81 mg PO DAILY #30 tabec Atorvastatin [Lipitor] 40 mg PO HS #30 tab Multivitamin [Multi-Vitamin Daily] 1 each PO DAILY #30 tablet Mometasone Furoate [Nasonex] 1 spr NS DAILY #1 spray.pump Omeprazole 40 mg PO DAILY #30 capsule. risperiDONE [RisperDAL Tab] 0.5 mg PO DAILY #30 tab OXcarbazepine [Trileptal] 150 mg PO BID #60 tab - Follow Up Plan Condition: FAIR Disposition: HOME/ ROUTINE Instructions: Phenytoin (By mouth), Chest Pain (GEN), Dilantin Toxicity (GEN) Additional Instructions: [place] [employer] LOG[employer] CON EL DR. PARRA PARA LA SEMANA QUE VIENE. AP DIALLO MEDICAMENTOS TODOS LOS FAGAN RAULITO RECETADAS. SI USTED TIENES MAS PREGUNTAS PUEDES LLAMAR A DIALLO MEDICO. Referrals: Mor Parra MD [Staff Provider] -
== END 2017-07-02 18:50 | disposition home or self-care (01) ==
LOC: C.ER 07:23 → C.9E 10:11 → C.5T 20:33
PROVIDERS: ADMIT Internal Medicine; ATTEND Internal Medicine
DX: R07.89 Other chest pain (principal); D64.9 Anemia, unspecified; F31.9 Bipolar disorder, unspecified; G40.909 Epilepsy, unspecified, not intractable, without status epilepticus; I10 Essential (primary) hypertension; Z91.81 History of falling
CPT/HCPCS: 36415; 71010; 80053; 80185; 84484; 85025; 93005; 96360; 97116; 97162; 99285; G0378; G8978; G8979; J1650; J7040

== ENCOUNTER 2017-07-03 18:53 | Inpatient (IN) | payer OTHER ==
[2017-07-03 18:54] VITALS: BMI 32.3
--- NOTE | 2017-07-03 19:20 | C.PDOC ---
History Of Present Illness 76 y/o female comes in stating "someone is trying to kill me" for the past few days, but more so tonight. Patient is also c/o chest pain for the past few days. Patient was discharge here yesterday for chest pain at medical services by Dr. Parra with her CXR and work ups being negative. Denies suicidal ideation, nausea, vomiting, abdominal pain, fever, chills, palpitations, diaphoresis, or SOB. Time Seen by Provider: 07/03/17 19:10 Chief Complaint (Nursing): Psychiatric Evaluation History Per: Patient History/Exam Limitations: no limitations Onset/Duration Of Symptoms: Days Current Symptoms Are (Timing): Still Present Suicide/Self Injury Attempted (Context): None Modifying Factor(s): None Severity: Mild Associated Symptoms: denies: Suicidal Thoughts, Suicidal Plan Involuntary Hold By: None Recent travel outside of the [place]: No Additional History Per: Patient Past Medical History Reviewed: Historical Data, Nursing Documentation, Vital Signs Vital Signs: Last Vital Signs Temp 98.3 F 07/07/17 15:17 Pulse 96 H 07/07/17 15:17 Resp 20 07/07/17 15:17 BP 151/76 H 07/07/17 15:17 Pulse Ox 97 07/07/17 15:17 - Medical History PMH: Anxiety, Bipolar Disorder, Bronchitis, Depression, Gastritis, HTN, Paranoia , Pneumonia, Schizophrenia, Seizures Surgical History: Cholecystectomy - [facility] Procedures CLOSURE SKIN & SUBCUTANEOUS NEC (09/15/13) DX ULTRASOUND-HEART (09/11/14) ESOPHAGOGASTRODUODENOSCOPY [EGD] W/CLOSED BIOPSY (10/11/14) OTHER ESOPHAGOSCOPY (09/11/14) TETANUS TOXOID ADMINIST (09/15/13) VACCINATION NEC (10/11/14) VENOUS CATHETERIZATION NEC (09/11/14) Family History: States: Unknown Family Hx - Social History Hx Tobacco Use: No Hx Alcohol Use: No Hx Substance Use: No - Immunization History Hx Tetanus Toxoid Vaccination: Yes Hx Influenza Vaccination: Yes Hx Pneumococcal Vaccination: Yes Review Of Systems Except As Marked, All Systems Reviewed And Found Negative. Constitutional: Negative for: Fever, Chills, Sweats Cardiovascular: Positive for: Chest Pain. Negative for: Palpitations Respiratory: Negative for: Shortness of Breath Gastrointestinal: Negative for: Nausea, Vomiting, Abdominal Pain Psych: Positive for: Psychosis (Paranoia). Negative for: Suicidal ideation Physical Exam - Physical Exam Appears: Non-toxic, No Acute Distress, Other (Paranoid ideation) Skin: Warm, Dry Head: Atraumatic, Normacephalic Oral Mucosa: Moist Neck: Supple Chest: Symmetrical, No Tenderness Cardiovascular: Rhythm Regular Respiratory: Normal Breath Sounds, No Rales, No Rhonchi, No Wheezing Gastrointestinal/Abdominal: Soft, No Tenderness Neurological/Psych: Oriented x3, Normal Speech, Normal Cognition ED Course And Treatment - Laboratory Results Result Diagrams: 07/04/17 11:18 07/05/17 07:10 O2 Sat by Pulse Oximetry: 96 (RA) Pulse Ox Interpretation: Normal Medical Decision Making Medical Decision Making: Impression: 76 y/o female comes in stating "someone is trying to kill me" for the past few days and chest pain for the past few days. Plans: * Blood work up * UA * Crisis eval Patient was discharge yesterday for chest pain at medical services seen by Dr. Parra. CXR and work ups was shown to be negative. 20:[address] Parra and will admit patient with psych consult. Disposition Discussed With : Mor Parra Doctor Will See Patient In The: Hospital Counseled Patient/Family Regarding: Diagnosis - Disposition Disposition: HOSPITALIZED Disposition Time: 20:20 Condition: STABLE - Clinical Impression Clinical Impression: Electrolyte abnormality, Hyponatremia, Diabetes mellitus, Paranoia - Scribe Statement The provider has reviewed the documentation as recorded by the Freddyibsav fontana All medical record entries made by the Freddyibsav were at my direction and personally dictated by me. I have reviewed the chart and agree that the record accurately reflects my personal performance of the history, physical exam, medical decision making, and the department course for this patient. I have also personally directed, reviewed, and agree with the discharge instructions and disposition.
[2017-07-03 19:38] LABS: BASO # 0.1 K/uL (0.0-0.2); BASO % 2.3 % (0.0-2.0); EOS # 0.4 K/uL (0.0-0.7); EOS % 8.8 % (0.0-4.0); LYMPH # 1.4 K/uL (1.0-4.3); LYMPH % 31.9 % (20.0-40.0); MEAN CELL VOLUME 94.6 fL (81.0-99.0); MEAN CORPUSCULAR HEMOGLOBIN 32.7 pg (27.0-31.0); MEAN CORPUSCULAR HGB CONC 34.6 g/dL (33.0-37.0); MEAN PLATELET VOLUME 6.4 fL (7.2-11.7); MONO # 0.5 K/uL (0.0-0.8); MONO % 12.1 % (0.0-10.0); RED CELL DISTRIBUTION WIDTH 12.8 % (11.5-14.5); WHITE BLOOD COUNT 4.4 K/uL (4.8-10.8)
[2017-07-03 19:47] LABS: CHLORIDE 89 mmol/L (98-107); POTASSIUM 3.9 mmol/L (3.6-5.2); SODIUM 125 mmol/L (132-148)
[2017-07-03 19:49] LABS: BILIRUBIN,TOTAL 0.4 mg/dL (0.2-1.3); GFR AFRICAN-AMERICAN > 60
[2017-07-03 19:50] LABS: ALB/GLOB RATIO 0.9 (1.0-2.1); ALCOHOL SERUM < 10 mg/dl (0-10); ALKALINE PHOSPHATASE 96 U/L (38-126); ALT/SGPT 24 U/L (9-52); AST/SGOT 22 U/L (14-36); BLOOD UREA NITROGEN 18 mg/dL (7-17); CALCIUM 8.5 mg/dl (8.6-10.4); CARBON DIOXIDE 25 mmol/L (22-30); GLUCOSE,RANDOM 157 mg/dL (65-105); TOTAL PROTEIN 6.9 g/dL (6.3-8.3)
[2017-07-03] MEDS ORDERED: Sodium Chloride 0.9% 1,000 ML IV ONE (20:07)
[2017-07-03] MEDS ORDERED: Sodium Chloride 0.9% 500 ML IV ONE ×2 (20:12→21:50)
[2017-07-03 20:33] LABS: RBC URINE < 1 /hpf (0-3); URINE BACTERIA RARE (<OCC); URINE BILIRUBIN NEGATIVE (NEGATIVE); URINE BLOOD NEGATIVE (NEGATIVE); URINE COLOR Yellow (YELLOW); URINE GLUCOSE (UA) NORMAL (Normal); URINE KETONE NEGATIVE (NEGATIVE); URINE LEUKOCYTE ESTERASE NEG Leu/uL (Negative); URINE PROTEIN NEGATIVE (NEGATIVE); URINE UROBILINOGEN NORMAL mg/dL (0.2-1.0); WBC URINE < 1 /hpf (0-5)
[2017-07-03] MEDS: Sodium Chloride 0.9% 1,000 ML IV SCH (23:50)
[2017-07-04] MEDS: Sodium Chloride 0.9% 1,000 ML IV SCH (10:15)
[2017-07-04] MEDS: Pantoprazole 40 mg EC Tab PO SCH (10:17)
[2017-07-04] MEDS: Multiple Vitamins Tab PO SCH (10:17)
[2017-07-04] MEDS: Phenytoin 100 mg/4 ml Oral Susp UD PO SCH ×3 (10:17→18:08)
[2017-07-04 11:34] LABS: BASO # 0.1 K/uL (0.0-0.2); BASO % 2.1 % (0.0-2.0); EOS # 0.4 K/uL (0.0-0.7); EOS % 13.7 % (0.0-4.0); HEMATOCRIT 30.4 % (34.0-47.0); LYMPH # 0.8 K/uL (1.0-4.3); LYMPH % 25.2 % (20.0-40.0); MEAN CELL VOLUME 95.3 fL (81.0-99.0); MEAN CORPUSCULAR HEMOGLOBIN 32.3 pg (27.0-31.0); MEAN CORPUSCULAR HGB CONC 33.9 g/dL (33.0-37.0); MEAN PLATELET VOLUME 6.9 fL (7.2-11.7); MONO # 0.5 K/uL (0.0-0.8); MONO % 14.9 % (0.0-10.0); NRBC % 0.1 % (0.0-2.0); RED CELL DISTRIBUTION WIDTH 12.9 % (11.5-14.5); WHITE BLOOD COUNT 3.1 K/uL (4.8-10.8)
[2017-07-04 11:45] LABS: CHLORIDE 96 mmol/L (98-107); POTASSIUM 4.1 mmol/L (3.6-5.2); SODIUM 133 mmol/L (132-148)
[2017-07-04 11:48] LABS: BLOOD UREA NITROGEN 14 mg/dL (7-17); CARBON DIOXIDE 27 mmol/L (22-30); GFR AFRICAN-AMERICAN > 60; GLUCOSE,RANDOM 101 mg/dL (65-105)
[2017-07-04 11:49] LABS: CALCIUM 8.7 mg/dl (8.6-10.4)
--- NOTE | 2017-07-04 21:16 | CP.PCM.HP ---
Past Patient History - Infectious Disease Hx of Infectious Diseases: None - Past Medical History & Family History Past Medical History?: Yes - Past Social History Smoking Status: Former Smoker - CARDIAC Hx Cardiac Disorders: Yes Hx Hypertension: Yes - PULMONARY Hx Respiratory Disorders: Yes Hx Bronchitis: Yes Hx Pneumonia: Yes - NEUROLOGICAL Hx Neurological Disorder: Yes Hx Seizures: Yes - HEENT Hx HEENT Problems: Yes Hx Cataracts: Yes - RENAL Hx Chronic Kidney Disease: No - ENDOCRINE/METABOLIC Hx Endocrine Disorders: No - HEMATOLOGICAL/ONCOLOGICAL Hx Blood Disorders: No - INTEGUMENTARY Hx Dermatological Problems: No - MUSCULOSKELETAL/RHEUMATOLOGICAL Hx Musculoskeletal Disorders: Yes Hx Falls: Yes - GASTROINTESTINAL Hx Gastrointestinal Disorders: Yes Hx Gastritis: Yes - GENITOURINARY/GYNECOLOGICAL Hx Genitourinary Disorders: No - PSYCHIATRIC Hx Psychophysiologic Disorder: Yes Hx Anxiety: Yes Hx Bipolar Disorder: Yes Hx Depression: Yes Hx Paranoia: Yes Hx Schizophrenia: Yes Hx Substance Use: No - SURGICAL HISTORY Hx Surgeries: Yes Hx Cholecystectomy: Yes - ANESTHESIA Hx Anesthesia: Yes Hx Anesthesia Reactions: No Hx Malignant Hyperthermia: No Meds Allergies/Adverse Reactions: Allergies Allergy/AdvReac Type Severity Reaction Status Date / Time Penicillins Allergy Severe ANAPHYLAXIS Verified 06/30/17 07:50 cigarette smoke Allergy Verified 06/30/17 07:50 Results - Vital Signs Recent Vital Signs: Last Vital Signs Temp 97.9 F 07/04/17 16:00 Pulse 74 07/04/17 16:00 Resp 20 07/04/17 16:00 BP 135/77 07/04/17 16:00 Pulse Ox 97 07/04/17 16:00 - Labs Result Diagrams: 07/04/17 11:18 07/04/17 11:18 Labs: Laboratory Results - last 24 hr 07/04/17 07/04/17 11:18 11:18 WBC 3.1 L RBC 3.19 L Hgb 10.3 L Hct 30.4 L MCV 95.3 MCH 32.3 H MCHC 33.9 RDW 12.9 Plt Count 258 MPV 6.9 L Neut % (Auto) 44.1 L Lymph % (Auto) 25.2 [place] % (Auto) 14.9 H Eos % (Auto) 13.7 H Baso % (Auto) 2.1 H Neut # 1.4 L Lymph # 0.8 L [place] # 0.5 Eos # 0.4 Baso # 0.1 Sodium 133 Potassium 4.1 Chloride 96 L Carbon Dioxide 27 Anion Gap 14 BUN 14 Creatinine 0.6 L Est GFR ( Amer) > 60 Est GFR (Non-Af Amer) > 60 Random Glucose 101 Calcium 8.7
--- NOTE | 2017-07-05 04:13 | HP ---
CHIEF COMPLAINT: Agitation and delusion, someone is trying to kill me. HISTORY OF PRESENT ILLNESS: This is a 76-year-old female well known to me, who has history of psychosis, seizure disorder, hypertension. Compliant with her diet, medication, and followup. She was discharged from [facility] where she was treated for chest pain. Workup was negative. NE was ruled out by 3 sets of negative cardiac enzymes. The patient went home, she was doing fine till today. On the day of the admission, she developed this feeling that someone is trying to kill her and it got worse on the night of the admission and the patient came to emergency room and she was hospitalized. The patient gets agitated at time. She gets restless. She denies any cough, sore throat, runny nose. She denies any polyuria, polydipsia, polyphagia. She denies any hematuria or pyuria. There is no history of trauma, fall and no recent seizure. She is compliant on her seizure medications. PAST MEDICAL HISTORY: Seizure disorder, psychosis. SOCIAL HISTORY: Nonsmoker, non-ETOH user. CURRENT MEDICATIONS: Oxcarbazepine and Dilantin. PHYSICAL EXAMINATION GENERAL: An elderly female in no distress. VITAL SIGNS: Blood pressure 110/70, pulse 73, respiratory rate 18 and temperature 98. SKIN: Senile turgor. No bruises. No purpura, no petechiae. HEENT: Atraumatic and normocephalic. Negative pallor. Negative jaundice. Extraocular movements are intact. NECK: Supple. LUNGS: Clear. No rales or rhonchi. CARDIOVASCULAR: S1 and S2 regular. ABDOMEN: Soft and nontender. Bowel sounds positive. RECTAL AND PELVIC: No masses, no bleeding. EXTREMITIES: No clubbing, cyanosis, or edema. CENTRAL NERVOUS SYSTEM: The patient is awake and alert. The patient is talkative and she does answer questions appropriately. ASSESSMENT: 1. Psychosis with acute agitation. 2. Anemia. 3. Seizure disorder. PLAN: Admit, neuro check, psych evaluation, possible psych floor. Mor Parra MD
[2017-07-05] MEDS: Sodium Chloride 0.9% 1,000 ML IV SCH ×2 (05:58→16:15)
[2017-07-05 07:57] LABS: CHLORIDE 102 mmol/L (98-107); SODIUM 138 mmol/L (132-148)
[2017-07-05 07:58] LABS: POTASSIUM 4.1 mmol/L (3.6-5.2)
[2017-07-05 08:00] LABS: CARBON DIOXIDE 26 mmol/L (22-30); GFR AFRICAN-AMERICAN > 60
[2017-07-05 08:01] LABS: BLOOD UREA NITROGEN 15 mg/dL (7-17); GLUCOSE,RANDOM 99 mg/dL (65-105)
[2017-07-05] MEDS: Multiple Vitamins Tab PO SCH (09:35)
[2017-07-05] MEDS: Pantoprazole 40 mg EC Tab PO SCH (09:35)
[2017-07-05] MEDS: Phenytoin 100 mg/4 ml Oral Susp UD PO SCH ×3 (09:35→17:24)
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
--- NOTE | 2017-07-05 12:32 | CARD ---
APPROVED REPORT EKG Measurement Heart [id number] <Conclusion> Normal sinus rhythm Possible Left atrial enlargement Left ventricular hypertrophy Abnormal ECG
[2017-07-05] MEDS: traZODone 25 mg Tab PO SCH (22:12)
--- NOTE | 2017-07-06 00:30 | CP.PCM.PN ---
Subjective - Date & Time of Evaluation Date of Evaluation: 07/05/17 - Subjective Subjective: feels better, less agitated, no cough, no chest pain Objective - Vital Signs/Intake and Output Vital Signs (last 24 hours): Temp Pulse Resp BP Pulse Ox 98.6 F 82 20 150/83 97 07/05/17 22:10 07/05/17 22:10 07/05/17 22:10 07/05/17 22:10 07/05/17 22:10 Intake and Output: 07/05/17 07/06/17 18:59 06:59 Intake Total 1100 1050 Balance 1100 1050 - Medications Medications: Current Medications Aspirin (Ecotrin) 81 mg PO DAILY [facility] Last Admin: 07/05/17 09:35 Dose: 81 mg Heparin Sodium (Porcine) (Heparin) 5,000 units SC Q12 [facility] Last Admin: 07/05/17 22:12 Dose: 5,000 units Hydroxyzine HCl (Atarax) 25 mg PO Q6 PRN PRN Reason: Agitation Sodium Chloride (Sodium Chloride 0.9%) 1,000 mls @ 100 mls/hr IV .Q10H [facility] Last Admin: 07/05/17 16:15 Dose: Not Given Multivitamins (Hexavitamin) 1 tab PO DAILY [facility] Last Admin: 07/05/17 09:35 Dose: 1 tab Oxcarbazepine (Trileptal) 150 mg PO BID [facility] Last Admin: 07/05/17 17:24 Dose: 150 mg Pantoprazole Sodium (Protonix Ec Tab) 40 mg PO DAILY [facility] Last Admin: 07/05/17 09:35 Dose: 40 mg Phenytoin (Dilantin) 100 mg PO TID [facility] Last Admin: 07/05/17 17:24 Dose: 100 mg Risperidone (Risperdal Tab) 0.5 mg PO BID [facility] Last Admin: 07/05/17 17:24 Dose: 0.5 mg Rosuvastatin Calcium (Crestor) 20 mg PO HS [facility] Last Admin: 07/05/17 22:11 Dose: 20 mg Trazodone HCl (Desyrel) 25 mg PO HS [facility] Last Admin: 07/05/17 22:12 Dose: 25 mg - Labs Labs: 07/04/17 11:18 07/05/17 07:10 - Constitutional Appears: Non-toxic, No Acute Distress, Chronically Ill - Head Exam Head Exam: ATRAUMATIC, NORMAL INSPECTION, NORMOCEPHALIC - Eye Exam Eye Exam: EOMI, Normal appearance Pupil Exam: NORMAL ACCOMODATION - ENT Exam ENT Exam: Mucous Membranes Moist, Normal Exam - Neck Exam Neck Exam: Normal Inspection - Respiratory Exam Respiratory Exam: Clear to Ausculation Bilateral, NORMAL BREATHING PATTERN - Cardiovascular Exam Cardiovascular Exam: REGULAR RHYTHM, +S1, +S2 - GI/Abdominal Exam GI & Abdominal Exam: Soft, Normal Bowel Sounds - Rectal Exam Rectal Exam: NORMAL INSPECTION - Extremities Exam Extremities Exam: Full ROM, Normal Capillary Refill, Normal Inspection - Neurological Exam Neurological Exam: Alert, Awake, CN II-XII Intact, Normal Gait, Oriented x3 Neuro motor strength exam: Left Upper Extremity: 5, Right Upper Extremity: 5, Left Lower Extremity: 5, Right Lower Extremity: 5 Assessment and Plan (1) Hyponatremia Status: Acute (2) Dehydration Status: Acute (3) Psychosis Status: Acute (4) Seizure Status: Chronic
[2017-07-06] MEDS: Sodium Chloride 0.9% 1,000 ML IV SCH ×2 (01:15→11:15)
[2017-07-06] MEDS: Pantoprazole 40 mg EC Tab PO SCH (10:30)
[2017-07-06] MEDS: Phenytoin 100 mg/4 ml Oral Susp UD PO SCH ×3 (10:30→17:15)
[2017-07-06] MEDS: Multiple Vitamins Tab PO SCH (10:30)
--- NOTE | 2017-07-06 12:06 | CP.PCM.PN ---
Subjective - Date & Time of Evaluation Date of Evaluation: 07/06/17 Time of Evaluation: 12:00 - Subjective Subjective: PT SEEN AND EXAMINED BY DR SPANGLER. Objective - Vital Signs/Intake and Output Vital Signs (last 24 hours): Temp Pulse Resp BP Pulse Ox 98.7 F 80 20 125/57 L 97 07/06/17 10:28 07/06/17 10:28 07/06/17 10:28 07/06/17 10:28 07/06/17 10:28 Intake and Output: 07/06/17 07/06/17 06:59 18:59 Intake Total 2089 Balance 2089 - Medications Medications: Current Medications Aspirin (Ecotrin) 81 mg PO DAILY [facility] Last Admin: 07/06/17 10:30 Dose: 81 mg Heparin Sodium (Porcine) (Heparin) 5,000 units SC Q12 [facility] Last Admin: 07/06/17 10:29 Dose: 5,000 units Hydroxyzine HCl (Atarax) 25 mg PO Q6 PRN PRN Reason: Agitation Last Admin: 07/06/17 07:54 Dose: 25 mg Sodium Chloride (Sodium Chloride 0.9%) 1,000 mls @ 100 mls/hr IV .Q10H [facility] Last Admin: 07/06/17 01:15 Dose: Not Given Multivitamins (Hexavitamin) 1 tab PO DAILY [facility] Last Admin: 07/06/17 10:30 Dose: 1 tab Oxcarbazepine (Trileptal) 150 mg PO BID [facility] Last Admin: 07/06/17 10:31 Dose: 150 mg Pantoprazole Sodium (Protonix Ec Tab) 40 mg PO DAILY [facility] Last Admin: 07/06/17 10:30 Dose: 40 mg Phenytoin (Dilantin) 100 mg PO TID [facility] Last Admin: 07/06/17 10:30 Dose: 100 mg Risperidone (Risperdal Tab) 0.5 mg PO BID [facility] Last Admin: 07/06/17 10:30 Dose: 0.5 mg Rosuvastatin Calcium (Crestor) 20 mg PO HS [facility] Last Admin: 07/05/17 22:11 Dose: 20 mg Trazodone HCl (Desyrel) 25 mg PO HS [facility] Last Admin: 07/05/17 22:12 Dose: 25 mg - Labs Labs: 07/04/17 11:18 07/05/17 07:10 Assessment and Plan - Assessment and Plan (Free Text) Plan: 76 Y/O FEMALE WITH PMHX SEIZURE DISORDERS, BIPOLAR DISORDER, SCHIZOPHRENIA PT MEDICALLY CLEARED PER DR SPANGLER PT SEEN BY DR BRADLEY, REFER TO GERIATRIC PSYCHAITRIC UNIT, DO NOT ACCEPT PT TO 5E OVER AGE OF 70 PT WILL BE EVALUATED BY CRISIS FOR POSSIBLE TRANSFER [facility] CASE D/W DR SPANGLER, AGREE W/POC
--- NOTE | 2017-07-06 15:06 | CP.PCM.DIS ---
Provider - Provider Date of Admission: 07/03/17 20:21 Attending physician: Mor Parra MD Diagnosis - Discharge Diagnosis (1) Hyponatremia Status: Acute (2) Dehydration Status: Acute (3) Psychosis Status: Acute (4) Seizure Status: Chronic Hospital Course - Lab Results Lab Results: Most Recent Lab Values WBC 3.1 K/uL (4.8-10.8) L 07/04/17 11:18 RBC 3.19 Mil/uL (3.80-5.20) L 07/04/17 11:18 Hgb 10.3 g/dL (11.0-16.0) L 07/04/17 11:18 Hct 30.4 % (34.0-47.0) L 07/04/17 11:18 MCV 95.3 fL (81.0-99.0) 07/04/17 11:18 MCH 32.3 pg (27.0-31.0) H 07/04/17 11:18 MCHC 33.9 g/dL (33.0-37.0) 07/04/17 11:18 RDW 12.9 % (11.5-14.5) 07/04/17 11:18 Plt Count 258 K/uL (130-400) 07/04/17 11:18 MPV 6.9 fL (7.2-11.7) L 07/04/17 11:18 Neut % (Auto) 44.1 % (50.0-75.0) L 07/04/17 11:18 Lymph % (Auto) 25.2 % (20.0-40.0) 07/04/17 11:18 [place] % (Auto) 14.9 % (0.0-10.0) H 07/04/17 11:18 Eos % (Auto) 13.7 % (0.0-4.0) H 07/04/17 11:18 Baso % (Auto) 2.1 % (0.0-2.0) H 07/04/17 11:18 Neut # 1.4 K/uL (1.8-7.0) L 07/04/17 11:18 Lymph # 0.8 K/uL (1.0-4.3) L 07/04/17 11:18 [place] # 0.5 K/uL (0.0-0.8) 07/04/17 11:18 Eos # 0.4 K/uL (0.0-0.7) 07/04/17 11:18 Baso # 0.1 K/uL (0.0-0.2) 07/04/17 11:18 Sodium 138 mmol/L (132-148) 07/05/17 07:10 Potassium 4.1 mmol/L (3.6-5.2) 07/05/17 07:10 Chloride 102 mmol/L (98-107) 07/05/17 07:10 Carbon Dioxide 26 mmol/L (22-30) 07/05/17 07:10 Anion Gap 14 (10-20) 07/05/17 07:10 BUN 15 mg/dL (7-17) 07/05/17 07:10 Creatinine 0.5 MG/DL (0.7-1.2) L 07/05/17 07:10 Est GFR ( Amer) > 60 07/05/17 07:10 Est GFR (Non-Af Amer) > 60 07/05/17 07:10 Random Glucose 99 mg/dL (65-105) 07/05/17 07:10 Calcium 9.0 mg/dl (8.6-10.4) 07/05/17 07:10 Total Bilirubin 0.4 mg/dL (0.2-1.3) 07/03/17 19:34 AST 22 U/L (14-36) 07/03/17 19:34 ALT 24 U/L (9-52) 07/03/17 19:34 Alkaline Phosphatase 96 U/L (38-126) 07/03/17 19:34 Troponin I < 0.0120 ng/mL (0.00-0.120) 07/03/17 19:34 Total Protein 6.9 g/dL (6.3-8.3) 07/03/17 19:34 Albumin 3.2 g/dL (3.5-5.0) L 07/03/17 19:34 Globulin 3.7 gm/dL (2.2-3.9) 07/03/17 19:34 Albumin/Globulin Ratio 0.9 (1.0-2.1) L 07/03/17 19:34 Urine Color Yellow (YELLOW) 07/03/17 20:26 Urine Clarity Clear (Clear) 07/03/17 20:26 Urine pH 5.0 (5.0-8.0) 07/03/17 20:26 Ur Specific [place] 1.015 (1.003-1.030) 07/03/17 20:26 Urine Protein Negative mg/dL (NEGATIVE) 07/03/17 20:26 Urine Glucose (UA) Normal mg/dL (Normal) 07/03/17 20:26 Urine Ketones Negative mg/dL (NEGATIVE) 07/03/17 20:26 Urine Blood Negative (NEGATIVE) 07/03/17 20:26 Urine Nitrate Negative (NEGATIVE) 07/03/17 20:26 Urine Bilirubin Negative (NEGATIVE) 07/03/17 20:26 Urine Urobilinogen Normal mg/dL (0.2-1.0) 07/03/17 20:26 Ur Leukocyte Esterase Neg Jerod/uL (Negative) 07/03/17 20:26 Urine WBC (Auto) < 1 /hpf (0-5) 07/03/17 20:26 Urine RBC (Auto) < 1 /hpf (0-3) 07/03/17 20:26 Ur Squamous Epith Cells 4 /hpf (0-5) 07/03/17 20:26 Urine Bacteria Rare (<OCC) 07/03/17 20:26 Urine Opiates Screen Negative (NEGATIVE) 07/03/17 20:26 Urine Methadone Screen Negative (NEGATIVE) 07/03/17 20:26 Ur Barbiturates Screen Positive (NEGATIVE) 07/03/17 20:26 Phenytoin 12.4 ug/mL (10-20) 07/03/17 19:34 Ur Phencyclidine Scrn Negative (NEGATIVE) 07/03/17 20:26 Ur Amphetamines Screen Negative (NEGATIVE) 07/03/17 20:26 U Benzodiazepines Scrn Negative (NEGATIVE) 07/03/17 20:26 U Oth Cocaine Metabols Negative (NEGATIVE) 07/03/17 20:26 U Cannabinoids Screen Negative (NEGATIVE) 07/03/17 20:26 Alcohol, Quantitative < 10 mg/dl (0-10) 07/03/17 19:34 Discharge Exam - Head Exam Head Exam: ATRAUMATIC, NORMAL INSPECTION, NORMOCEPHALIC Discharge Plan - Follow Up Plan Condition: STABLE Disposition: HOME/ ROUTINE
[2017-07-06] MEDS: traZODone 25 mg Tab PO SCH (22:56)
[2017-07-07] MEDS: Multiple Vitamins Tab PO SCH (10:04)
[2017-07-07] MEDS: Phenytoin 100 mg/4 ml Oral Susp UD PO SCH ×3 (10:04→17:44)
[2017-07-07] MEDS: Pantoprazole 40 mg EC Tab PO SCH (10:04)
--- NOTE | 2017-07-07 13:33 | PCM.PYCHPN ---
Psychiatric Progress Note - Psychiatric Progress Note Patient seen today, length of contact: 15 min Patient Chief Complaint: I am feeling better.' Problems Identified/Issues Discussed: Patient seen and evaluated, chart reviewed and discussed with the nurse. Patient reports improvement in her mood and reports improvement in the irritability and agitation. She denies any feelings of hopelessness and helplessness. She is taking medication and denies any side effects. She needs more tome for stabilization. Supportive therapy and psychoeducation were given. Medication Change: No Medical Record Reviewed: Yes Mental Status Examination - Cognitive Function Orientation: Person, Place, Situation, Time Memory: Intact Attention: WNL Concentration: Poor Association: WNL Fund of Knowledge: Poor - Mood Mood: Anxious - Affect Affect: Constricted - Speech Speech: Soft - Formal Thought Process Formal Thought Process: Paranoia - Suicidal Ideation Suicidal Ideation: No - Homicidal Ideation Homicidal Ideation: No Goal/Treatment Plan - Goal/Treatment Plan Need for Continued Stay: Discharge may exacerbated symptoms, Severe functional impairment Progress Toward Problem(s) and Goals/Treatment Plan: Schizoaffective Disorder Risperidone .5mg PO BID Atarax 25 mg PO PRN Trazodone 25mg PO HS refer to geriatric psychiatric unit Seizure disorder continue Oxcarbazepine 150 mg PO BID continue Phenytoin 100 mg PO TID - Smoking Cessation Smoking Cessation Initiated: No
[2017-07-07] MEDS: traZODone 25 mg Tab PO SCH (22:12)
--- NOTE | 2017-07-07 23:43 | CP.PCM.PN ---
Subjective - Date & Time of Evaluation Date of Evaluation: 07/07/17 - Subjective Subjective: NO AGITATION, NO FEVER, NO SOB Objective - Vital Signs/Intake and Output Vital Signs (last 24 hours): Temp Pulse Resp BP Pulse Ox 98.3 F 96 H 20 151/76 H 97 07/07/17 15:17 07/07/17 15:17 07/07/17 15:17 07/07/17 15:17 07/07/17 15:17 - Medications Medications: Current Medications Acetaminophen (Tylenol 325mg Tab) 650 mg PO Q6 PRN PRN Reason: Pain Last Admin: 07/07/17 13:53 Dose: 650 mg Aspirin (Ecotrin) 81 mg PO DAILY [facility] Last Admin: 07/07/17 10:05 Dose: 81 mg Hydroxyzine HCl (Atarax) 25 mg PO Q6 PRN PRN Reason: Agitation Last Admin: 07/07/17 02:39 Dose: 25 mg Multivitamins (Hexavitamin) 1 tab PO DAILY [facility] Last Admin: 07/07/17 10:04 Dose: 1 tab Oxcarbazepine (Trileptal) 150 mg PO BID [facility] Last Admin: 07/07/17 17:45 Dose: 150 mg Pantoprazole Sodium (Protonix Ec Tab) 40 mg PO DAILY [facility] Last Admin: 07/07/17 10:04 Dose: 40 mg Phenytoin (Dilantin) 100 mg PO TID [facility] Last Admin: 07/07/17 17:44 Dose: 100 mg Risperidone (Risperdal Tab) 0.5 mg PO BID [facility] Last Admin: 07/07/17 17:44 Dose: 0.5 mg Rosuvastatin Calcium (Crestor) 20 mg PO [facility] Last Admin: 07/07/17 22:12 Dose: 20 mg Trazodone HCl (Desyrel) 25 mg PO [facility] Last Admin: 07/07/17 22:12 Dose: 25 mg - Labs Labs: 07/04/17 11:18 07/05/17 07:10 - Constitutional Appears: Non-toxic, No Acute Distress - Head Exam Head Exam: ATRAUMATIC, NORMAL INSPECTION, NORMOCEPHALIC - Eye Exam Eye Exam: EOMI, Normal appearance, PERRL Pupil Exam: NORMAL ACCOMODATION - ENT Exam ENT Exam: Mucous Membranes Moist, Normal Exam, Normal Oropharynx, TM's Normal Bilaterally - Neck Exam Neck Exam: Normal Inspection - Respiratory Exam Respiratory Exam: Clear to Ausculation Bilateral, NORMAL BREATHING PATTERN - Cardiovascular Exam Cardiovascular Exam: REGULAR RHYTHM, +S1, +S2 - GI/Abdominal Exam GI & Abdominal Exam: Soft, Normal Bowel Sounds - Rectal Exam Rectal Exam: NORMAL INSPECTION - Extremities Exam Extremities Exam: Full ROM, Normal Capillary Refill, Normal Inspection - Neurological Exam Neurological Exam: Alert, Awake, CN II-XII Intact Neuro motor strength exam: Left Upper Extremity: 5, Right Upper Extremity: 5, Left Lower Extremity: 5, Right Lower Extremity: 5 - Psychiatric Exam Psychiatric exam: Flat Affect - Skin Skin Exam: Intact Assessment and Plan (1) Hyponatremia Status: Resolved (2) Dehydration Status: Resolved (3) Psychosis Status: Chronic (4) Seizure Status: Chronic
[2017-07-08] MEDS: Phenytoin 100 mg/4 ml Oral Susp UD PO SCH ×3 (09:25→17:12)
[2017-07-08] MEDS: Multiple Vitamins Tab PO SCH (09:25)
[2017-07-08] MEDS: Pantoprazole 40 mg EC Tab PO SCH (09:25)
[2017-07-08 13:26] VITALS: RESP 20; O2SAT 98
[2017-07-08 16:25] VITALS: BP 139/69; PULSE 84; TEMP 98.1
--- NOTE | 2017-07-08 19:32 | CP.PCM.DIS ---
Provider - Provider Date of Admission: 07/03/17 20:21 Attending physician: Mor Parra MD Diagnosis - Discharge Diagnosis (1) Hyponatremia Status: Resolved (2) Dehydration Status: Resolved (3) Psychosis Status: Chronic (4) Seizure Status: Chronic Hospital Course - Lab Results Lab Results: Most Recent Lab Values WBC 3.1 K/uL (4.8-10.8) L 07/04/17 11:18 RBC 3.19 Mil/uL (3.80-5.20) L 07/04/17 11:18 Hgb 10.3 g/dL (11.0-16.0) L 07/04/17 11:18 Hct 30.4 % (34.0-47.0) L 07/04/17 11:18 MCV 95.3 fL (81.0-99.0) 07/04/17 11:18 MCH 32.3 pg (27.0-31.0) H 07/04/17 11:18 MCHC 33.9 g/dL (33.0-37.0) 07/04/17 11:18 RDW 12.9 % (11.5-14.5) 07/04/17 11:18 Plt Count 258 K/uL (130-400) 07/04/17 11:18 MPV 6.9 fL (7.2-11.7) L 07/04/17 11:18 Neut % (Auto) 44.1 % (50.0-75.0) L 07/04/17 11:18 Lymph % (Auto) 25.2 % (20.0-40.0) 07/04/17 11:18 [place] % (Auto) 14.9 % (0.0-10.0) H 07/04/17 11:18 Eos % (Auto) 13.7 % (0.0-4.0) H 07/04/17 11:18 Baso % (Auto) 2.1 % (0.0-2.0) H 07/04/17 11:18 Neut # 1.4 K/uL (1.8-7.0) L 07/04/17 11:18 Lymph # 0.8 K/uL (1.0-4.3) L 07/04/17 11:18 [place] # 0.5 K/uL (0.0-0.8) 07/04/17 11:18 Eos # 0.4 K/uL (0.0-0.7) 07/04/17 11:18 Baso # 0.1 K/uL (0.0-0.2) 07/04/17 11:18 Sodium 138 mmol/L (132-148) 07/05/17 07:10 Potassium 4.1 mmol/L (3.6-5.2) 07/05/17 07:10 Chloride 102 mmol/L (98-107) 07/05/17 07:10 Carbon Dioxide 26 mmol/L (22-30) 07/05/17 07:10 Anion Gap 14 (10-20) 07/05/17 07:10 BUN 15 mg/dL (7-17) 07/05/17 07:10 Creatinine 0.5 MG/DL (0.7-1.2) L 07/05/17 07:10 Est GFR ( Amer) > 60 07/05/17 07:10 Est GFR (Non-Af Amer) > 60 07/05/17 07:10 Random Glucose 99 mg/dL (65-105) 07/05/17 07:10 Calcium 9.0 mg/dl (8.6-10.4) 07/05/17 07:10 Total Bilirubin 0.4 mg/dL (0.2-1.3) 07/03/17 19:34 AST 22 U/L (14-36) 07/03/17 19:34 ALT 24 U/L (9-52) 07/03/17 19:34 Alkaline Phosphatase 96 U/L (38-126) 07/03/17 19:34 Troponin I < 0.0120 ng/mL (0.00-0.120) 07/03/17 19:34 Total Protein 6.9 g/dL (6.3-8.3) 07/03/17 19:34 Albumin 3.2 g/dL (3.5-5.0) L 07/03/17 19:34 Globulin 3.7 gm/dL (2.2-3.9) 07/03/17 19:34 Albumin/Globulin Ratio 0.9 (1.0-2.1) L 07/03/17 19:34 Urine Color Yellow (YELLOW) 07/03/17 20:26 Urine Clarity Clear (Clear) 07/03/17 20:26 Urine pH 5.0 (5.0-8.0) 07/03/17 20:26 Ur Specific [place] 1.015 (1.003-1.030) 07/03/17 20:26 Urine Protein Negative mg/dL (NEGATIVE) 07/03/17 20:26 Urine Glucose (UA) Normal mg/dL (Normal) 07/03/17 20:26 Urine Ketones Negative mg/dL (NEGATIVE) 07/03/17 20:26 Urine Blood Negative (NEGATIVE) 07/03/17 20:26 Urine Nitrate Negative (NEGATIVE) 07/03/17 20:26 Urine Bilirubin Negative (NEGATIVE) 07/03/17 20:26 Urine Urobilinogen Normal mg/dL (0.2-1.0) 07/03/17 20:26 Ur Leukocyte Esterase Neg Jerod/uL (Negative) 07/03/17 20:26 Urine WBC (Auto) < 1 /hpf (0-5) 07/03/17 20:26 Urine RBC (Auto) < 1 /hpf (0-3) 07/03/17 20:26 Ur Squamous Epith Cells 4 /hpf (0-5) 07/03/17 20:26 Urine Bacteria Rare (<OCC) 07/03/17 20:26 Urine Opiates Screen Negative (NEGATIVE) 07/03/17 20:26 Urine Methadone Screen Negative (NEGATIVE) 07/03/17 20:26 Ur Barbiturates Screen Positive (NEGATIVE) 07/03/17 20:26 Phenytoin 12.4 ug/mL (10-20) 07/03/17 19:34 Ur Phencyclidine Scrn Negative (NEGATIVE) 07/03/17 20:26 Ur Amphetamines Screen Negative (NEGATIVE) 07/03/17 20:26 U Benzodiazepines Scrn Negative (NEGATIVE) 07/03/17 20:26 U Oth Cocaine Metabols Negative (NEGATIVE) 07/03/17 20:26 U Cannabinoids Screen Negative (NEGATIVE) 07/03/17 20:26 Alcohol, Quantitative < 10 mg/dl (0-10) 07/03/17 19:34 - Hospital Course Hospital Course: 76 Y/O WITH ACUTE AGITATION AND SHE WAS TREATED WITH RIPSERDAL AND SHE DID WELL WITH INCREASING RISPERDAL A, AND SHE IS FOR DISCHARGE Discharge Exam - Head Exam Head Exam: ATRAUMATIC, NORMAL INSPECTION, NORMOCEPHALIC - Eye Exam Eye Exam: EOMI, Normal appearance, PERRL Pupil Exam: NORMAL ACCOMODATION - ENT Exam ENT Exam: Mucous Membranes Moist, Normal Exam, Normal Oropharynx, TM's Normal Bilaterally - Neck Exam Neck exam: Normal Inspection - Respiratory Exam Respiratory Exam: NORMAL BREATHING PATTERN - Cardiovascular Exam Cardiovascular Exam: REGULAR RHYTHM, +S1, +S2 - GI/Abdominal Exam GI & Abdominal Exam: Normal Bowel Sounds, Unremarkable - Rectal Exam Rectal Exam: NORMAL INSPECTION - Neurological Exam Neurological exam: Alert, CN II-XII Intact, Normal Gait, Oriented x3, Reflexes Normal - Psychiatric Exam Psychiatric exam: Normal Mood - Skin Skin Exam: Intact Discharge Plan - Follow Up Plan Condition: STABLE Disposition: HOME/ ROUTINE Instructions: Heart Healthy Diet (DC), Hyponatremia (DC), Diabetic Foot Care ( DC), Basic Carbohydrate Counting (DC), Meal Planning with the Plate Method (DC) , Meal Planning with Diabetes Exchanges (DC) Additional Instructions: Follow up in the office in one week Referrals: Mor Parra MD [Staff Provider] -
== END 2017-07-08 19:00 | disposition home or self-care (01) | DRG 885 ==
LOC: C.ER 18:53 → C.9E 20:21 → C.6T 22:26
PROVIDERS: ADMIT Internal Medicine; ATTEND Internal Medicine
DX: F22 Delusional disorders (principal); D64.9 Anemia, unspecified; E87.1 Hypo-osmolality and hyponatremia; E86.0 Dehydration; G40.909 Epilepsy, unspecified, not intractable, without status epilepticus; F25.9 Schizoaffective disorder, unspecified

== ENCOUNTER 2017-11-25 19:45 | Emergency (ER) | payer OTHER ==
[2017-11-25 19:46] VITALS: BMI 32.3
[2017-11-25 19:50] VITALS: TEMP 97.9
--- NOTE | 2017-11-25 20:38 | C.PDOC ---
History Of Present Illness Patient presents to the ER with a complaint of cough, congestion, and generalized weakness for the last week. Patient states she feels so weak she cannot walk. Denies chest pain, palpitations, or change in vision. Time Seen by Provider: 11/25/17 20:37 Chief Complaint (Nursing): Cough, Cold, Congestion History Per: Patient History/Exam Limitations: no limitations Onset/Duration Of Symptoms: Days Current Symptoms Are (Timing): Still Present Severity: Moderate Pain Scale Rating Of: 4 Recent travel outside of the [place]: No Past Medical History Reviewed: Historical Data, Nursing Documentation, Vital Signs Vital Signs: Last Vital Signs Temp 97.9 F 11/25/17 19:48 Pulse 52 L 11/25/17 22:00 Resp 18 11/25/17 22:00 BP 152/68 H 11/25/17 22:00 Pulse Ox 96 11/25/17 22:00 - Medical History PMH: Anxiety, Bipolar Disorder, Bronchitis, Depression, Gastritis, HTN, Paranoia , Pneumonia, Schizophrenia, Seizures Surgical History: Cholecystectomy - [facility] Procedures CLOSURE SKIN & SUBCUTANEOUS NEC (09/15/13) DX ULTRASOUND-HEART (09/11/14) ESOPHAGOGASTRODUODENOSCOPY [EGD] W/CLOSED BIOPSY (10/11/14) OTHER ESOPHAGOSCOPY (09/11/14) TETANUS TOXOID ADMINIST (09/15/13) VACCINATION NEC (10/11/14) VENOUS CATHETERIZATION NEC (09/11/14) Family History: States: No Known Family Hx - Social History Hx Tobacco Use: No Hx Alcohol Use: No Hx Substance Use: No - Immunization History Hx Tetanus Toxoid Vaccination: Yes Hx Influenza Vaccination: Yes Hx Pneumococcal Vaccination: Yes Review Of Systems Constitutional: Positive for: Weakness Eyes: Negative for: Vision Change ENT: Positive for: Nose Congestion Cardiovascular: Negative for: Chest Pain, Palpitations Respiratory: Positive for: Cough Physical Exam - Physical Exam Appears: Non-toxic Skin: Warm, Dry Head: Normacephalic Nose: Other (Mild nasal erythema) Oral Mucosa: Moist Tongue: Normal Appearing Throat: No Erythema, No Exudate Neck: Supple Chest: Symmetrical, No Tenderness Cardiovascular: Rhythm Regular Respiratory: No Rales, No Rhonchi, No Wheezing Gastrointestinal/Abdominal: Soft, No Tenderness Back: Normal Inspection Neurological/Psych: Oriented x3 Gait: Steady ED Course And Treatment - Laboratory Results Result Diagrams: 11/25/17 21:11 11/25/17 21:11 O2 Sat by Pulse Oximetry: 94 (Room air) Pulse Ox Interpretation: Normal Progress Note: Blood work, flu swab, and urinalysis ordered. Disposition Counseled Patient/Family Regarding: Studies Performed, Diagnosis, Need For Followup - Disposition Referrals: Mor Parra MD [Staff Provider] - Disposition: HOME/ ROUTINE Disposition Time: 20:37 Condition: FAIR Prescriptions: Azithromycin [Zithromax Tri-Levon] 500 mg PO DAILY #3 tablet Instructions: Upper Respiratory Infection (ED) Forms: [employer] (Tanzanian) Print Language: UKRAINIAN - Clinical Impression Clinical Impression: URI (upper respiratory infection) - Scribe Statement The provider has reviewed the documentation as recorded by the Scribe Tomas Bullock All medical record entries made by the Scribe were at my direction and personally dictated by me. I have reviewed the chart and agree that the record accurately reflects my personal performance of the history, physical exam, medical decision making, and the department course for this patient. I have also personally directed, reviewed, and agree with the discharge instructions and disposition.
[2017-11-25 21:19] LABS: BASO % 0.6 % (0.0-2.0); EOS # 0.5 K/uL (0.0-0.7); EOS % 15.9 % (0.0-4.0); HEMOGLOBIN 11.4 g/dL (11.0-16.0); LYMPH # 1.4 K/uL (1.0-4.3); LYMPH % 42.7 % (20.0-40.0); MEAN CELL VOLUME 95.3 fL (81.0-99.0); MEAN CORPUSCULAR HEMOGLOBIN 32.8 pg (27.0-31.0); MEAN CORPUSCULAR HGB CONC 34.4 g/dL (33.0-37.0); MEAN PLATELET VOLUME 6.7 fL (7.2-11.7); MONO # 0.5 K/uL (0.0-0.8); MONO % 13.9 % (0.0-10.0); NEUT # 0.9 K/uL (1.8-7.0); NEUT % 26.9 % (50.0-75.0); NRBC % 0.2 % (0.0-2.0); RBC 3.47 Mil/uL (3.80-5.20); RED CELL DISTRIBUTION WIDTH 13.1 % (11.5-14.5); WHITE BLOOD COUNT 3.4 K/uL (4.8-10.8)
[2017-11-25 21:24] LABS: VENOUS BLOOD GAS BASE EXCESS 3.7 mmol/L (0.0-2.0); VENOUS BLOOD GAS PCO2 54 mmHg (40-60); VENOUS BLOOD GAS PO2 27 mm/Hg (30-55); VENOUS BLOOD PH 7.36 (7.32-7.43)
[2017-11-25 21:28] LABS: ALB/GLOB RATIO 1.1 (1.0-2.1); ALBUMIN 3.7 g/dL (3.5-5.0); ALT/SGPT 23 U/L (9-52); AST/SGOT 27 U/L (14-36); BLOOD UREA NITROGEN 16 mg/dL (7-17); CALCIUM 7.7 mg/dl (8.6-10.4); GFR AFRICAN-AMERICAN > 60; GFR NON-AFRICAN AMERICAN > 60
[2017-11-25 22:01] VITALS: BP 152/68; PULSE 52; RESP 18
[2017-11-25 23:03] VITALS: O2SAT 94
== END 2017-11-25 23:12 | disposition home or self-care (01) ==
LOC: C.ER 19:45
DX: J06.9 Acute upper respiratory infection, unspecified (principal)

== ENCOUNTER 2017-11-28 22:21 | Inpatient (IN) | payer OTHER ==
[2017-11-28 22:23] VITALS: BMI 32.3
--- NOTE | 2017-11-28 23:20 | C.PDOC ---
History Of Present Illness 77 year old female with history of dementia and multiple fall presents to the ED from her home after a reported fall she sustained. Patient is c.o generalized weakness but denies any pain at this time. Patient denies any other physical complaints at this time. Time Seen by Provider: 11/28/17 22:44 Chief Complaint (Nursing): Medical Clearance History Per: Patient History/Exam Limitations: no limitations Onset/Duration Of Symptoms: Hrs Current Symptoms Are (Timing): Gone Recent travel outside of the [place]: No Additional History Per: Patient Past Medical History Reviewed: Historical Data, Nursing Documentation, Vital Signs Vital Signs: Last Vital Signs Temp 97.9 F 12/01/17 08:21 Pulse 85 12/01/17 08:21 Resp 20 12/01/17 08:21 BP 148/79 12/01/17 08:21 Pulse Ox 94 L 12/01/17 08:21 - Medical History PMH: Anxiety, Bipolar Disorder, Bronchitis, Depression, Gastritis, HTN, Paranoia , Pneumonia, Schizophrenia, Seizures Denies: Chronic Kidney Disease Surgical History: Cholecystectomy - [facility] Procedures CLOSURE SKIN & SUBCUTANEOUS NEC (09/15/13) DX ULTRASOUND-HEART (09/11/14) ESOPHAGOGASTRODUODENOSCOPY [EGD] W/CLOSED BIOPSY (10/11/14) OTHER ESOPHAGOSCOPY (09/11/14) TETANUS TOXOID ADMINIST (09/15/13) VACCINATION NEC (10/11/14) VENOUS CATHETERIZATION NEC (09/11/14) Family History: States: Unknown Family Hx - Social History Hx Tobacco Use: No Hx Alcohol Use: No Hx Substance Use: No - Immunization History Hx Tetanus Toxoid Vaccination: Yes Hx Influenza Vaccination: Yes Hx Pneumococcal Vaccination: Yes Review Of Systems Except As Marked, All Systems Reviewed And Found Negative. Constitutional: Positive for: Weakness Psych: Positive for: Other (dementia) Physical Exam - Physical Exam Appears: Non-toxic, No Acute Distress Skin: Normal Color, Warm, Dry Head: Atraumatic, Normacephalic Eye(s): bilateral: Normal Inspection Nose: No Discharge, No Deformity Oral Mucosa: Moist Neck: Normal ROM, Supple Chest: Symmetrical Cardiovascular: Rhythm Regular, No Murmur Respiratory: Normal Breath Sounds, No Rales, No Rhonchi, No Wheezing Gastrointestinal/Abdominal: Soft, No Tenderness, No Guarding, No Rebound Back: Normal Inspection Extremity: Normal ROM, No Pedal Edema, No Calf Tenderness, No Deformity, No Swelling Neurological/Psych: Oriented x3, Normal Speech, Normal Cognition ED Course And Treatment - Laboratory Results Result Diagrams: 11/30/17 08:26 11/30/17 08:26 ECG: Interpreted By Me, Viewed By Me ECG Rhythm: Sinus Rhythm ECG Interpretation: Normal Interpretation Of ECG: no ST or T wave changes Rate From EC O2 Sat by Pulse Oximetry: 97 (On RA) Pulse Ox Interpretation: Normal Medical Decision Making Medical Decision Making: Impression : generalized weakness SP falling at home Plan: * Head CT * EKG * Labs * CXR Disposition - Disposition Disposition: HOSPITALIZED Disposition Time: 09:00 Condition: STABLE - Clinical Impression Clinical Impression: Hyponatremia, Fall - Scribe Statement The provider has reviewed the documentation as recorded by the Scribe Edward Jain All medical record entries made by the Scribe were at my direction and personally dictated by me. I have reviewed the chart and agree that the record accurately reflects my personal performance of the history, physical exam, medical decision making, and the department course for this patient. I have also personally directed, reviewed, and agree with the discharge instructions and disposition. Decision To Admit - Pt Status Changed To: Hospital Disposition Of: Inpatient - Admit Certification Admit to Inpatient:: After my assessment, the patient will require hospitalization for at least two midnights. This is because of the severity of symptoms shown, intensity of services needed, and/or the medical risk in this patient being treated as an outpatient. - InPatient: Physician Admission Certification: I certify that this patient requires 2 or more midnights of care for the following reason:: need ivf for hyponatremia - . Bed Request Type: Regular Admitting Physician: Mor Parra Patient Diagnosis: Hyponatremia, Fall
[2017-11-28 23:29] LABS: BASO % 0.9 % (0.0-2.0); EOS # 0.6 K/uL (0.0-0.7); EOS % 16.9 % (0.0-4.0); HEMOGLOBIN 10.9 g/dL (11.0-16.0); LYMPH # 1.9 K/uL (1.0-4.3); LYMPH % 51.5 % (20.0-40.0); MEAN CELL VOLUME 95.4 fL (81.0-99.0); MEAN CORPUSCULAR HEMOGLOBIN 33.2 pg (27.0-31.0); MEAN CORPUSCULAR HGB CONC 34.8 g/dL (33.0-37.0); MEAN PLATELET VOLUME 6.7 fL (7.2-11.7); MONO # 0.4 K/uL (0.0-0.8); MONO % 11.9 % (0.0-10.0); NEUT # 0.7 K/uL (1.8-7.0); NEUT % 18.8 % (50.0-75.0); NRBC % 0.1 % (0.0-2.0); RBC 3.28 Mil/uL (3.80-5.20); RED CELL DISTRIBUTION WIDTH 13.4 % (11.5-14.5); WHITE BLOOD COUNT 3.6 K/uL (4.8-10.8)
[2017-11-28 23:36] LABS: PROTHROMBIN TIME 11.7 SECONDS (9.7-12.2)
[2017-11-29 00:09] LABS: ALBUMIN 3.4 g/dL (3.5-5.0); CALCIUM 8.3 mg/dl (8.6-10.4); GFR AFRICAN-AMERICAN > 60; GFR NON-AFRICAN AMERICAN > 60
[2017-11-29 00:25] LABS: ALT/SGPT 20 U/L (9-52); AST/SGOT 31 U/L (14-36); BLOOD UREA NITROGEN 16 mg/dL (7-17)
--- NOTE | 2017-11-29 01:42 | CT ---
EXAM: CT Head Without Intravenous Contrast CLINICAL HISTORY: 77 years old, female; Pain; Headache and other: Fall4-; Patient HX: 03-01-17; Additional info: Fall TECHNIQUE: Axial computed tomography images of the head/brain without intravenous contrast. All CT scans at this facility use one or more dose reduction techniques, viz.: automated exposure control; ma/kV adjustment per patient size (including targeted exams where dose is matched to indication; i.e. head); or iterative reconstruction technique. Coronal and sagittal reformatted images were created and reviewed. COMPARISON: No relevant prior studies available. FINDINGS: Brain: Mild atrophy. No intracranial hemorrhage. No mass. Few scattered foci of decreased attenuation within periventricular/subcortical white matter. Probable chronic lacunar infarct within RIGHT basal ganglia. No edema. Ventricles: No hydrocephalus. Bones/joints: No acute fracture. Soft tissues: Mild scalp swelling. Vasculature: Mild atherosclerotic disease of intracranial arteries. Sinuses: Scattered mild mucosal thickening. Mastoid air cells: Minimal partial opacification of RIGHT mastoid. Orbits: Unremarkable as visualized. IMPRESSION: 1. No intracranial hemorrhage. 2. Nonspecific white matter changes. 3. Incidental/non-acute findings are described above.
[2017-11-29] MEDS ORDERED: Sodium Chloride 0.9% 1,000 ML IV SCH (02:00)
[2017-11-29] MEDS: Sodium Chloride 0.9% 1,000 ML IV SCH ×2 (02:05→17:34)
[2017-11-29] MEDS ORDERED: Sodium Chloride 0.9% 1,000 ML ONE (02:09)
[2017-11-29 07:42] LABS: OSMOLALITY,URINE 363 mosm/kg (300-1000)
[2017-11-29] MEDS: Phenytoin 100 mg/4 ml Oral Susp UD PO SCH ×3 (09:18→17:35)
[2017-11-29] MEDS: Pantoprazole 40 mg EC Tab PO SCH (09:18)
[2017-11-29] MEDS: Enoxaparin 40 mg Syringe SC SCH (09:19)
[2017-11-29] MEDS: Multiple Vitamins Tab PO SCH (09:19)
[2017-11-29 10:09] VITALS: RESP 20
--- NOTE | 2017-11-29 11:06 | CARD ---
APPROVED REPORT EKG Measurement Heart [id number] <Conclusion> Normal sinus rhythm Possible Left atrial enlargement Left ventricular hypertrophy Abnormal ECG
--- NOTE | 2017-11-29 11:32 | RAD ---
PROCEDURE: CHEST RADIOGRAPH, 1 VIEW HISTORY: chest pain COMPARISON: 06/30/2017. FINDINGS: LUNGS: Clear. PLEURA: No pneumothorax or pleural fluid seen. CARDIOVASCULAR: Cardiomegaly. No evidence of acute, significant cardiovascular disease. OSSEOUS STRUCTURES: No significant abnormalities. VISUALIZED UPPER ABDOMEN: Normal. OTHER FINDINGS: None. IMPRESSION: No active disease. No acute/significant interval changes.
--- NOTE | 2017-11-29 22:59 | CP.PCM.HP ---
History of Present Illness - History of Present Illness History of Present Illness: CC: Fall HPI: this is a case of elderly female well known to me with h/o seizure disorder, gastritis, psychosis and multiple falls in past presents to the ED from her home after a reported fall she sustained. Patient is c.o generalized weakness but denies any pain at this time. She has poor oral intake , feels weak brittany any fever, chills, abdominal pain, seizure, ppt is well aware when she gets seizure and she denies any episode she is on anti seizure medication and complaint with it Present on Admission - Present on Admission Any Indicators Present on Admission: Yes Review of Systems - Review of Systems Systems not reviewed;Unavailable: Acuity of Condition - Constitutional Constitutional: Fatigue, Lethargy, Malaise. absent: As Per HPI, Anorexia, Chills, Daytime Sleepiness, Excessive Sweating, Fever, Frequent Falls, Headache , Increased Appetite, Night Sweats, Snoring, Sleep Apnea, Weight Gain, Weight Loss, Weakness, Other - EENT Eyes: absent: As Per HPI, Blind Spots, Blurred Vision, Change in Vision, Decreased Night Vision, Diplopia, Discharge, Dry Eye, Exophthalmos, Floaters, Irritation, Itchy Eyes, Loss of Peripheral Vision, Pain, Photophobia, Requires Corrective Lenses, Sees Flashes, Spots in Vision, Tunnel Vision, Other Visual Disturbances, Loss of Vision, Other - Cardiovascular Cardiovascular: absent: As Per HPI, Acrocyanosis, Chest Pain, Chest Pain at Rest , Chest Pain with Activity, Claudication, Diaphoresis, Dyspnea, Dyspnea on Exertion, Edema, Irregular Heart Rhythm, Pain Radiating to Arm/Neck/Jaw, Leg Edema, Leg Ulcers, Lightheadedness, Orthopnea, Palpitations, Paroxysmal Nocturnal Dyspnea, Pedal Edema, Radiating Pain, Rapid Heart Rate, Slow Heart Rate, Syncope, Other - Respiratory Respiratory: absent: As Per HPI, Cough, Dyspnea, Hemoptysis, Dyspnea on Exertion , Wheezing, Snoring, Stridor, Pain on Inspiration, Chest Congestion, Excessive Mucous Production, Change in Mucous Color, Pain with Coughing, Other - Gastrointestinal Gastrointestinal: absent: As Per HPI, Abdominal Pain, Belching, Bloating, Change in Bowel Habits, Change in Stool Character, Coffee Ground Emesis, Constipation, Cramping, Diarrhea, Dyspepsia, Dysphagia, Early Satiety, Excessive Flatus, Fecal Incontinence, Heartburn, Hematemesis, Hematochezia, Loose Stools, Melena, Nausea, Odynophagia, Temesmus, Vomiting, Other - Genitourinary Genitourinary: absent: As Per HPI, Change in Urinary Stream, Difficulty Urinating, Dysuria, Flank Pain, Hematuria, Pyuria, Nocturia, Urinary Incontinence, Urinary Frequency, Urinary Hesitance, Urinary Urgency, Voiding Freq/Small Amts, Freq UTI, Hx Renal/Bladder Calculi, Hx /Renal Surgery, Bladder Distension, Other - Integumentary Integumentary: absent: As Per HPI, Acne, Alopecia, Bleeding Lesions, Change in Hair, Change in Nails, Change in Pigmentation, Changing Lesions, Dry Skin, Erythema, Furuncle, Hirsutism, Lesions, New Lesions, Non-Healing Lesions, Photosensitivity, Pruritus, Rash, Skin Pain, Skin Ulcer, Sores, Striae, Swelling , Unusual Bruising, Wounds, Jaundice, Other - Neurological Neurological: Frequent Falls. absent: As Per HPI, Abnormal Gait, Abnormal Hearing, Abnormal Movements, Abnormal Speech, Behavioral Changes, Burning Sensations, Confusion, Convulsions, Disequilibrium, Dizziness, Numbness, Focal Weakness, Headaches, Lack of Coordination, Loss of Vision, Memory Loss, Paresthesias, Radicular Pain, Restless Legs, Sensory Deficit, Syncope, Tingling , Tremor, Vertigo, Weakness, Other Visual Disturbances, Other Past Patient History - Infectious Disease Hx of Infectious Diseases: None - Past Medical History & Family History Past Medical History?: Yes - Past Social History Smoking Status: Never Smoked - CARDIAC Hx Hypertension: Yes - PULMONARY Hx Bronchitis: Yes Hx Pneumonia: Yes - NEUROLOGICAL Hx Seizures: Yes - HEENT Hx HEENT Problems: Yes Hx Cataracts: Yes - RENAL Hx Chronic Kidney Disease: No - ENDOCRINE/METABOLIC Hx Endocrine Disorders: No - HEMATOLOGICAL/ONCOLOGICAL Hx Blood Disorders: No - INTEGUMENTARY Hx Dermatological Problems: No - MUSCULOSKELETAL/RHEUMATOLOGICAL Hx Musculoskeletal Disorders: Yes Hx Falls: Yes - GASTROINTESTINAL Hx Gastritis: Yes - GENITOURINARY/GYNECOLOGICAL Hx Genitourinary Disorders: No - PSYCHIATRIC Hx Anxiety: Yes Hx Bipolar Disorder: Yes Hx Depression: Yes Hx Paranoia: Yes Hx Schizophrenia: Yes Hx Substance Use: No - SURGICAL HISTORY Hx Cholecystectomy: Yes - ANESTHESIA Hx Anesthesia: Yes Hx Anesthesia Reactions: No Hx Malignant Hyperthermia: No Meds Allergies/Adverse Reactions: Allergies Allergy/AdvReac Type Severity Reaction Status Date / Time Penicillins Allergy Severe ANAPHYLAXIS Verified 11/28/17 22:38 cigarette smoke Allergy COUGH Verified 11/28/17 22:38 Physical Exam - Constitutional Appears: No Acute Distress - Head Exam Head Exam: ATRAUMATIC, NORMAL INSPECTION, NORMOCEPHALIC - Eye Exam Eye Exam: EOMI, Normal appearance, PERRL Pupil Exam: NORMAL ACCOMODATION, PERRL - ENT Exam ENT Exam: Mucous Membranes Moist, Normal Exam - Neck Exam Neck exam: Positive for: Normal Inspection - Respiratory Exam Respiratory Exam: Clear to Auscultation Bilateral, NORMAL BREATHING PATTERN - Cardiovascular Exam Cardiovascular Exam: REGULAR RHYTHM - GI/Abdominal Exam GI & Abdominal Exam: Normal Bowel Sounds, Soft. absent: Tenderness - Rectal Exam Rectal Exam: Deferred - Extremities Exam Extremities exam: Positive for: normal inspection - Back Exam Back exam: NORMAL INSPECTION Results - Vital Signs Recent Vital Signs: Last Vital Signs Temp 99.0 F 11/29/17 17:03 Pulse 82 11/29/17 17:03 Resp 20 11/29/17 17:03 BP 126/64 11/29/17 17:03 Pulse Ox 95 11/29/17 17:03 - Labs Result Diagrams: 11/28/17 23:26 11/28/17 23:55 Labs: Laboratory Results - last 24 hr 11/28/17 11/28/17 11/28/17 23:26 23:26 23:55 WBC 3.6 L RBC 3.28 L Hgb 10.9 L Hct 31.3 L MCV 95.4 MCH 33.2 H MCHC 34.8 RDW 13.4 Plt Count 254 MPV 6.7 L Neut % (Auto) 18.8 L Lymph % (Auto) 51.5 H Gulf % (Auto) 11.9 H Eos % (Auto) 16.9 H Baso % (Auto) 0.9 Neut # 0.7 L Lymph # 1.9 Gulf # 0.4 Eos # 0.6 Baso # 0.0 PT 11.7 INR 1.0 APTT 30 Sodium 127 L Potassium 4.6 Chloride 94 L Carbon Dioxide 29 Anion Gap 10 BUN 16 Creatinine 0.6 L Est GFR ( Amer) > 60 Est GFR (Non-Af Amer) > 60 Random Glucose 92 Serum Osmolality Calcium 8.3 L Total Bilirubin 0.4 AST 31 ALT 20 Alkaline Phosphatase 79 Total Creatine Kinase 45 Troponin I < 0.0120 Total Protein 7.0 Albumin 3.4 L Globulin 3.5 Albumin/Globulin Ratio 1.0 Urine Osmolality Ur Random Sodium 11/29/17 11/29/17 02:19 06:37 WBC RBC Hgb Hct MCV MCH MCHC RDW Plt Count MPV Neut % (Auto) Lymph % (Auto) Gulf % (Auto) Eos % (Auto) Baso % (Auto) Neut # Lymph # Gulf # Eos # Baso # PT INR APTT Sodium Potassium Chloride Carbon Dioxide Anion Gap BUN Creatinine Est GFR ( Amer) Est GFR (Non-Af Amer) Random Glucose Serum Osmolality 283 Calcium Total Bilirubin AST ALT Alkaline Phosphatase Total Creatine Kinase Troponin I Total Protein Albumin Globulin Albumin/Globulin Ratio Urine Osmolality 363 Ur Random Sodium 54 Assessment & Plan (1) Fall Assessment and Plan: etiology unknown less likely due to seizure medical management Status: Acute (2) Psychosis Status: Chronic (3) Seizure disorder Status: Chronic Priority: Medium (4) Dehydration Status: Resolved
[2017-11-30] MEDS: Sodium Chloride 0.9% 1,000 ML IV SCH (02:29)
[2017-11-30 08:47] LABS: BASO % 0.4 % (0.0-2.0); EOS # 0.6 K/uL (0.0-0.7); EOS % 16.1 % (0.0-4.0); HEMOGLOBIN 10.7 g/dL (11.0-16.0); LYMPH # 1.6 K/uL (1.0-4.3); LYMPH % 42.3 % (20.0-40.0); MEAN CELL VOLUME 95.7 fL (81.0-99.0); MEAN CORPUSCULAR HEMOGLOBIN 33.4 pg (27.0-31.0); MEAN CORPUSCULAR HGB CONC 34.9 g/dL (33.0-37.0); MEAN PLATELET VOLUME 7.3 fL (7.2-11.7); MONO # 0.4 K/uL (0.0-0.8); MONO % 11.5 % (0.0-10.0); NEUT # 1.1 K/uL (1.8-7.0); NEUT % 29.7 % (50.0-75.0); NRBC % 0.1 % (0.0-2.0); RBC 3.22 Mil/uL (3.80-5.20); RED CELL DISTRIBUTION WIDTH 13.3 % (11.5-14.5); WHITE BLOOD COUNT 3.8 K/uL (4.8-10.8)
[2017-11-30 08:54] LABS: CARBAMAZEPINE < 3.0 ug/mL (4.0-12.0); DILANTIN (PHENYTOIN) 21.6 ug/mL (10-20)
[2017-11-30 08:59] LABS: ALBUMIN 3.2 g/dL (3.5-5.0); ALT/SGPT 20 U/L (9-52); AST/SGOT 27 U/L (14-36); BLOOD UREA NITROGEN 17 mg/dL (7-17); CALCIUM 8.2 mg/dl (8.6-10.4); GFR AFRICAN-AMERICAN > 60; GFR NON-AFRICAN AMERICAN > 60; MAGNESIUM 1.7 mg/dL (1.6-2.3)
[2017-11-30] MEDS: Pantoprazole 40 mg EC Tab PO SCH (10:24)
[2017-11-30] MEDS: Multiple Vitamins Tab PO SCH (10:25)
[2017-11-30] MEDS: Enoxaparin 40 mg Syringe SC SCH (10:25)
[2017-11-30] MEDS: Phenytoin 100 mg/4 ml Oral Susp UD PO SCH ×2 (10:25→13:16)
[2017-11-30] MEDS: Aluminum Hydroxide/Magnesium Hydroxide Susp (30 mL) PO PRN (19:05)
--- NOTE | 2017-11-30 23:44 | CP.PCM.PN ---
Subjective - Date & Time of Evaluation Date of Evaluation: 11/30/17 Time of Evaluation: 18:00 - Subjective Subjective: Pt seen and evaluated, dilantin level is high, we will hold dilantin. pt is afebrile, hyponatremia Objective - Vital Signs/Intake and Output Vital Signs (last 24 hours): Temp Pulse Resp BP Pulse Ox 98.0 F 88 20 145/81 95 11/30/17 16:07 11/30/17 16:07 11/30/17 16:07 11/30/17 16:07 11/30/17 16:07 Intake and Output: 11/30/17 12/01/17 18:59 06:59 Intake Total 640 Balance 640 - Medications Medications: Current Medications Acetaminophen (Tylenol 325mg Tab) 650 mg PO Q6 PRN PRN Reason: Headache Last Admin: 11/30/17 16:10 Dose: 650 mg Al Hydrox/Mg Hydrox/Simethicone (Maalox 30 Ml) 30 ml PO Q6 PRN PRN Reason: Indigestion / Heartburn Last Admin: 11/30/17 19:05 Dose: 30 ml Aspirin (Ecotrin) 81 mg PO DAILY [facility] Last Admin: 11/30/17 10:24 Dose: 81 mg Donepezil HCl (Aricept) 5 mg PO HS [facility] Last Admin: 11/30/17 21:38 Dose: 5 mg Enoxaparin Sodium (Lovenox) 40 mg SC DAILY [facility] Last Admin: 11/30/17 10:25 Dose: 40 mg Multivitamins (Hexavitamin) 1 tab PO DAILY [facility] Last Admin: 11/30/17 10:25 Dose: 1 tab Oxcarbazepine (Trileptal) 300 mg PO BID [facility] Last Admin: 11/30/17 17:47 Dose: 300 mg Pantoprazole Sodium (Protonix Ec Tab) 40 mg PO DAILY [facility] Last Admin: 11/30/17 10:24 Dose: 40 mg Phenobarbital (Phenobarbital Tab) 32.4 mg PO TID [facility] Last Admin: 11/30/17 17:47 Dose: 32.4 mg Phenytoin (Dilantin) 100 mg PO TID [facility] Last Admin: 11/30/17 13:16 Dose: 100 mg Risperidone (Risperdal Tab) 0.5 mg PO BID [facility] Last Admin: 11/30/17 17:47 Dose: 0.5 mg - Labs Labs: 11/30/17 08:26 11/30/17 08:26 PT 11.7 SECONDS (9.7-12.2) 11/28/17 23:26 INR 1.0 11/28/17 23:26 APTT 30 SECONDS (21-34) 11/28/17 23:26 - Constitutional Appears: No Acute Distress - Head Exam Head Exam: ATRAUMATIC, NORMAL INSPECTION, NORMOCEPHALIC - Eye Exam Eye Exam: EOMI, Normal appearance, PERRL Pupil Exam: NORMAL ACCOMODATION, PERRL - Respiratory Exam Respiratory Exam: Clear to Ausculation Bilateral, NORMAL BREATHING PATTERN - Cardiovascular Exam Cardiovascular Exam: REGULAR RHYTHM, +S1, +S2. absent: Murmur - GI/Abdominal Exam GI & Abdominal Exam: Soft, Normal Bowel Sounds. absent: Tenderness - Rectal Exam Rectal Exam: Deferred Assessment and Plan (1) Fall Status: Acute (2) Psychosis Status: Chronic (3) Seizure disorder Status: Chronic (4) Dehydration Status: Resolved
[2017-12-01] MEDS: Enoxaparin 40 mg Syringe SC SCH (11:23)
[2017-12-01] MEDS: Pantoprazole 40 mg EC Tab PO SCH (11:23)
[2017-12-01] MEDS: Multiple Vitamins Tab PO SCH (11:23)
--- NOTE | 2017-12-01 22:17 | CP.PCM.PN ---
Subjective - Date & Time of Evaluation Date of Evaluation: 12/01/17 Time of Evaluation: 19:40 - Subjective Subjective: Pt seen and examined Objective - Vital Signs/Intake and Output Vital Signs (last 24 hours): Temp Pulse Resp BP Pulse Ox 97.9 F 87 20 134/65 95 12/01/17 15:00 12/01/17 15:00 12/01/17 15:00 12/01/17 15:00 12/01/17 15:00 Intake and Output: 12/01/17 12/02/17 18:59 06:59 Intake Total 710 Balance 710 - Medications Medications: Current Medications Acetaminophen (Tylenol 325mg Tab) 650 mg PO Q6 PRN PRN Reason: Headache Last Admin: 11/30/17 16:10 Dose: 650 mg Al Hydrox/Mg Hydrox/Simethicone (Maalox 30 Ml) 30 ml PO Q6 PRN PRN Reason: Indigestion / Heartburn Last Admin: 11/30/17 19:05 Dose: 30 ml Aspirin (Ecotrin) 81 mg PO DAILY [facility] Last Admin: 12/01/17 11:23 Dose: 81 mg Donepezil HCl (Aricept) 5 mg PO HS [facility] Last Admin: 11/30/17 21:38 Dose: 5 mg Enoxaparin Sodium (Lovenox) 40 mg SC DAILY [facility] Last Admin: 12/01/17 11:23 Dose: 40 mg Multivitamins (Hexavitamin) 1 tab PO DAILY [facility] Last Admin: 12/01/17 11:23 Dose: 1 tab Oxcarbazepine (Trileptal) 300 mg PO BID [facility] Last Admin: 12/01/17 17:24 Dose: 300 mg Pantoprazole Sodium (Protonix Ec Tab) 40 mg PO DAILY [facility] Last Admin: 12/01/17 11:23 Dose: 40 mg Phenobarbital (Phenobarbital Tab) 32.4 mg PO TID [facility] Last Admin: 12/01/17 17:24 Dose: 32.4 mg Phenytoin (Dilantin) 100 mg PO TID [facility] Last Admin: 11/30/17 13:16 Dose: 100 mg Risperidone (Risperdal Tab) 0.5 mg PO BID [facility] Last Admin: 12/01/17 17:24 Dose: 0.5 mg - Labs Labs: 11/30/17 08:26 11/30/17 08:26 PT 11.7 SECONDS (9.7-12.2) 11/28/17 23:26 INR 1.0 11/28/17 23:26 APTT 30 SECONDS (21-34) 11/28/17 23:26 Assessment and Plan (1) Fall Status: Acute (2) Psychosis Status: Chronic (3) Seizure disorder Status: Chronic (4) Dehydration Status: Resolved
[2017-12-02] MEDS ORDERED: guaiFENesin 200 mg/10 ml Syrup UD PO ONE (05:38)
[2017-12-02] MEDS: Pantoprazole 40 mg EC Tab PO SCH (10:53)
[2017-12-02] MEDS: Multiple Vitamins Tab PO SCH (10:53)
[2017-12-02] MEDS: Phenytoin 100 mg/4 ml Oral Susp UD PO SCH ×3 (10:53→18:26)
[2017-12-02] MEDS: Enoxaparin 40 mg Syringe SC SCH (10:54)
[2017-12-02] MEDS: guaiFENesin 100 mg/5 ml Syrup UD PO PRN (13:34)
[2017-12-02 14:29] LABS: BASO # 0.1 K/uL (0.0-0.2); BASO % 1.8 % (0.0-2.0); EOS # 0.5 K/uL (0.0-0.7); EOS % 14.6 % (0.0-4.0); HEMOGLOBIN 10.8 g/dL (11.0-16.0); LYMPH # 1.2 K/uL (1.0-4.3); LYMPH % 33.9 % (20.0-40.0); MEAN CELL VOLUME 95.9 fL (81.0-99.0); MEAN CORPUSCULAR HEMOGLOBIN 32.8 pg (27.0-31.0); MEAN CORPUSCULAR HGB CONC 34.2 g/dL (33.0-37.0); MEAN PLATELET VOLUME 7.3 fL (7.2-11.7); MONO # 0.4 K/uL (0.0-0.8); MONO % 11.1 % (0.0-10.0); NEUT # 1.4 K/uL (1.8-7.0); NEUT % 38.6 % (50.0-75.0); NRBC % 0.2 % (0.0-2.0); RBC 3.29 Mil/uL (3.80-5.20); RED CELL DISTRIBUTION WIDTH 13.3 % (11.5-14.5); WHITE BLOOD COUNT 3.5 K/uL (4.8-10.8)
[2017-12-02 14:56] LABS: ALB/GLOB RATIO 1.1 (1.0-2.1); ALBUMIN 3.4 g/dL (3.5-5.0); ALT/SGPT 20 U/L (9-52); AST/SGOT 27 U/L (14-36); BLOOD UREA NITROGEN 22 mg/dL (7-17); GFR AFRICAN-AMERICAN > 60; GFR NON-AFRICAN AMERICAN > 60
[2017-12-02] MEDS: Sodium Chloride 0.9% 1,000 ML IV SCH (19:50)
--- NOTE | 2017-12-02 23:12 | CP.PCM.PN ---
Subjective - Date & Time of Evaluation Date of Evaluation: 12/02/17 Time of Evaluation: 19:00 - Subjective Subjective: Pt is seen and examined Objective - Vital Signs/Intake and Output Vital Signs (last 24 hours): Temp Pulse Resp BP Pulse Ox 98.1 F 81 20 143/82 95 12/02/17 15:53 12/02/17 15:53 12/02/17 15:53 12/02/17 15:53 12/02/17 15:53 Intake and Output: 12/02/17 12/03/17 18:59 06:59 Intake Total 650 Balance 650 - Medications Medications: Current Medications Acetaminophen (Tylenol 325mg Tab) 650 mg PO Q6 PRN PRN Reason: Headache Last Admin: 12/02/17 22:05 Dose: 650 mg Al Hydrox/Mg Hydrox/Simethicone (Maalox 30 Ml) 30 ml PO Q6 PRN PRN Reason: Indigestion / Heartburn Last Admin: 11/30/17 19:05 Dose: 30 ml Aspirin (Ecotrin) 81 mg PO DAILY [facility] Last Admin: 12/02/17 10:59 Dose: 81 mg Donepezil HCl (Aricept) 5 mg PO HS [facility] Last Admin: 12/02/17 22:05 Dose: 5 mg Enoxaparin Sodium (Lovenox) 40 mg SC DAILY [facility] Last Admin: 12/02/17 10:54 Dose: 40 mg Guaifenesin (Robitussin) 100 mg PO Q6H PRN PRN Reason: Cough Last Admin: 12/02/17 13:34 Dose: 100 mg Sodium Chloride (Sodium Chloride 0.9%) 1,000 mls @ 100 mls/hr IV .Q10H [facility] Last Admin: 12/02/17 19:50 Dose: 100 mls/hr Multivitamins (Hexavitamin) 1 tab PO DAILY [facility] Last Admin: 12/02/17 10:53 Dose: 1 tab Oxcarbazepine (Trileptal) 300 mg PO BID [facility] Last Admin: 12/02/17 18:26 Dose: 300 mg Pantoprazole Sodium (Protonix Ec Tab) 40 mg PO DAILY [facility] Last Admin: 12/02/17 10:53 Dose: 40 mg Phenobarbital (Phenobarbital Tab) 32.4 mg PO TID [facility] Last Admin: 12/02/17 18:26 Dose: 32.4 mg Phenytoin (Dilantin) 100 mg PO TID [facility] Last Admin: 12/02/17 18:26 Dose: 100 mg Risperidone (Risperdal Tab) 0.5 mg PO BID [facility] Last Admin: 12/02/17 18:26 Dose: 0.5 mg - Labs Labs: 12/02/17 14:22 12/02/17 14:22 PT 11.7 SECONDS (9.7-12.2) 11/28/17 23:26 INR 1.0 11/28/17 23:26 APTT 30 SECONDS (21-34) 11/28/17 23:26 Assessment and Plan (1) Fall Status: Acute (2) Psychosis Status: Chronic (3) Seizure disorder Status: Chronic (4) Dehydration Status: Resolved
[2017-12-03] MEDS: Sodium Chloride 0.9% 1,000 ML IV SCH (03:20)
[2017-12-03 08:20] LABS: BLOOD UREA NITROGEN 20 mg/dL (7-17); CALCIUM 8.3 mg/dl (8.6-10.4); GFR AFRICAN-AMERICAN > 60; GFR NON-AFRICAN AMERICAN > 60
[2017-12-03 08:39] LABS: CARBAMAZEPINE < 3.0 ug/mL (4.0-12.0); DILANTIN (PHENYTOIN) 15.2 ug/mL (10-20)
[2017-12-03] MEDS: Phenytoin 100 mg/4 ml Oral Susp UD PO SCH ×3 (09:14→17:57)
[2017-12-03] MEDS: Multiple Vitamins Tab PO SCH (09:15)
[2017-12-03] MEDS: Enoxaparin 40 mg Syringe SC SCH (09:15)
[2017-12-03] MEDS: Pantoprazole 40 mg EC Tab PO SCH (09:15)
[2017-12-03 10:11] LABS: BASO # 0.1 K/uL (0.0-0.2); BASO % 2.3 % (0.0-2.0); EOS # 0.6 K/uL (0.0-0.7); HEMOGLOBIN 11.1 g/dL (11.0-16.0); LYMPH # 1.4 K/uL (1.0-4.3); LYMPH % 39.5 % (20.0-40.0); MEAN CELL VOLUME 95.8 fL (81.0-99.0); MEAN CORPUSCULAR HEMOGLOBIN 33.7 pg (27.0-31.0); MEAN CORPUSCULAR HGB CONC 35.2 g/dL (33.0-37.0); MEAN PLATELET VOLUME 7.4 fL (7.2-11.7); MONO # 0.5 K/uL (0.0-0.8); MONO % 15.5 % (0.0-10.0); NEUT # 0.9 K/uL (1.8-7.0); NEUT % 24.7 % (50.0-75.0); NRBC % 0.2 % (0.0-2.0); RBC 3.28 Mil/uL (3.80-5.20); RED CELL DISTRIBUTION WIDTH 13.1 % (11.5-14.5); WHITE BLOOD COUNT 3.5 K/uL (4.8-10.8)
[2017-12-03 10:37] LABS: ALBUMIN 3.4 g/dL (3.5-5.0); ALT/SGPT 33 U/L (9-52); AST/SGOT 44 U/L (14-36); BILIRUBIN,DIRECT 0.3 mg/dL (0.0-0.4)
[2017-12-03 15:55] LABS: URIC ACID 3.3 mg/dL (2.2-7.5)
--- NOTE | 2017-12-03 23:29 | CP.PCM.PN ---
Subjective - Date & Time of Evaluation Date of Evaluation: 12/03/17 Time of Evaluation: 18:00 - Subjective Subjective: Pt seen and evaluated today Objective - Vital Signs/Intake and Output Vital Signs (last 24 hours): Temp Pulse Resp BP Pulse Ox 97.8 F 84 20 154/71 H 95 12/03/17 16:22 12/03/17 16:22 12/03/17 16:22 12/03/17 16:22 12/03/17 16:22 Intake and Output: 12/03/17 12/04/17 18:59 06:59 Intake Total 880 Balance 880 - Medications Medications: Current Medications Acetaminophen (Tylenol 325mg Tab) 650 mg PO Q6 PRN PRN Reason: Headache Last Admin: 12/02/17 22:05 Dose: 650 mg Al Hydrox/Mg Hydrox/Simethicone (Maalox 30 Ml) 30 ml PO Q6 PRN PRN Reason: Indigestion / Heartburn Last Admin: 11/30/17 19:05 Dose: 30 ml Aspirin (Ecotrin) 81 mg PO DAILY [facility] Last Admin: 12/03/17 09:15 Dose: 81 mg Donepezil HCl (Aricept) 5 mg PO HS [facility] Last Admin: 12/03/17 21:52 Dose: 5 mg Enoxaparin Sodium (Lovenox) 40 mg SC DAILY [facility] Last Admin: 12/03/17 09:15 Dose: 40 mg Guaifenesin (Robitussin) 100 mg PO Q6H PRN PRN Reason: Cough Last Admin: 12/02/17 13:34 Dose: 100 mg Sodium Chloride (Sodium Chloride 0.9%) 1,000 mls @ 100 mls/hr IV .Q10H [facility] Last Admin: 12/03/17 03:20 Dose: 100 mls/hr Multivitamins (Hexavitamin) 1 tab PO DAILY [facility] Last Admin: 12/03/17 09:15 Dose: 1 tab Oxcarbazepine (Trileptal) 300 mg PO BID [facility] Last Admin: 12/03/17 17:57 Dose: 300 mg Pantoprazole Sodium (Protonix Ec Tab) 40 mg PO DAILY [facility] Last Admin: 12/03/17 09:15 Dose: 40 mg Phenobarbital (Phenobarbital Tab) 32.4 mg PO TID [facility] Last Admin: 12/03/17 17:57 Dose: 32.4 mg Phenytoin (Dilantin) 100 mg PO TID [facility] Last Admin: 12/03/17 17:57 Dose: 100 mg Risperidone (Risperdal Tab) 0.5 mg PO BID [facility] Last Admin: 12/03/17 17:57 Dose: 0.5 mg Sodium Chloride (Sodium Chloride Tab) 1 gm PO Q8 [facility] - Labs Labs: 12/03/17 08:00 12/03/17 07:54 PT 11.7 SECONDS (9.7-12.2) 11/28/17 23:26 INR 1.0 11/28/17 23:26 APTT 30 SECONDS (21-34) 11/28/17 23:26 Assessment and Plan (1) Fall Status: Acute (2) Psychosis Status: Chronic (3) Seizure disorder Status: Chronic (4) Dehydration Status: Resolved
[2017-12-04] MEDS: guaiFENesin 100 mg/5 ml Syrup UD PO PRN (08:59)
[2017-12-04 09:01] LABS: BASO % 0.3 % (0.0-2.0); EOS # 0.7 K/uL (0.0-0.7); EOS % 16.7 % (0.0-4.0); HEMOGLOBIN 11.9 g/dL (11.0-16.0); LYMPH # 1.5 K/uL (1.0-4.3); LYMPH % 37.4 % (20.0-40.0); MEAN CELL VOLUME 95.4 fL (81.0-99.0); MEAN CORPUSCULAR HEMOGLOBIN 33.6 pg (27.0-31.0); MEAN CORPUSCULAR HGB CONC 35.2 g/dL (33.0-37.0); MEAN PLATELET VOLUME 7.1 fL (7.2-11.7); MONO # 0.5 K/uL (0.0-0.8); MONO % 11.8 % (0.0-10.0); NEUT # 1.4 K/uL (1.8-7.0); NEUT % 33.8 % (50.0-75.0); NRBC % 0.1 % (0.0-2.0); RBC 3.54 Mil/uL (3.80-5.20); RED CELL DISTRIBUTION WIDTH 13.6 % (11.5-14.5); WHITE BLOOD COUNT 4.1 K/uL (4.8-10.8)
[2017-12-04 09:12] LABS: ALBUMIN 3.6 g/dL (3.5-5.0); ALT/SGPT 26 U/L (9-52); AST/SGOT 44 U/L (14-36); BLOOD UREA NITROGEN 20 mg/dL (7-17); CALCIUM 8.8 mg/dl (8.6-10.4); GFR AFRICAN-AMERICAN > 60; GFR NON-AFRICAN AMERICAN > 60
[2017-12-04] MEDS: Aluminum Hydroxide/Magnesium Hydroxide Susp (30 mL) PO PRN (09:34)
[2017-12-04] MEDS: Pantoprazole 40 mg EC Tab PO SCH (09:34)
[2017-12-04] MEDS: Enoxaparin 40 mg Syringe SC SCH (09:34)
[2017-12-04] MEDS: Multiple Vitamins Tab PO SCH (09:34)
[2017-12-04] MEDS: Phenytoin 100 mg/4 ml Oral Susp UD PO SCH ×3 (09:34→18:32)
--- NOTE | 2017-12-04 13:23 | CP.PCM.CON ---
History of Present Illness - History of Present Illness History of Present Illness: pt is seen and examined, full consult is dictated #[id number] 1. Hyponatremia r/o Siadh sec to meds 2. Seizer disorder 3.htn 4. dementia check urine lytes, osm, serum uric acid, tsh, cortisol- done c/w nacl 1 gm tab po tid restrict fluids to 1 lit/day high protein diet Past Patient History - Infectious Disease Hx of Infectious Diseases: None - Past Medical History & Family History Past Medical History?: Yes - Past Social History Smoking Status: Never Smoked - CARDIAC Hx Hypertension: Yes - PULMONARY Hx Bronchitis: Yes Hx Pneumonia: Yes - NEUROLOGICAL Hx Seizures: Yes - HEENT Hx HEENT Problems: Yes Hx Cataracts: Yes - RENAL Hx Chronic Kidney Disease: No - ENDOCRINE/METABOLIC Hx Endocrine Disorders: No - INTEGUMENTARY Hx Dermatological Problems: No - MUSCULOSKELETAL/RHEUMATOLOGICAL Hx Musculoskeletal Disorders: Yes Hx Falls: Yes - GASTROINTESTINAL Hx Gastritis: Yes - PSYCHIATRIC Hx Anxiety: Yes Hx Bipolar Disorder: Yes Hx Depression: Yes Hx Paranoia: Yes Hx Schizophrenia: Yes Hx Substance Use: No - SURGICAL HISTORY Hx Cholecystectomy: Yes - ANESTHESIA Hx Anesthesia: Yes Hx Anesthesia Reactions: No Hx Malignant Hyperthermia: No Meds Allergies/Adverse Reactions: Allergies Allergy/AdvReac Type Severity Reaction Status Date / Time Penicillins Allergy Severe ANAPHYLAXIS Verified 11/28/17 22:38 cigarette smoke Allergy COUGH Verified 11/28/17 22:38 - Medications Medications: Current Medications Acetaminophen (Tylenol 325mg Tab) 650 mg PO Q6 PRN PRN Reason: Headache Last Admin: 12/04/17 04:10 Dose: 650 mg Al Hydrox/Mg Hydrox/Simethicone (Maalox 30 Ml) 30 ml PO Q6 PRN PRN Reason: Indigestion / Heartburn Last Admin: 12/04/17 09:34 Dose: 30 ml Aspirin (Ecotrin) 81 mg PO DAILY [facility] Last Admin: 12/04/17 09:34 Dose: 81 mg Donepezil HCl (Aricept) 5 mg PO HS [facility] Last Admin: 12/03/17 21:52 Dose: 5 mg Enoxaparin Sodium (Lovenox) 40 mg SC DAILY [facility] Last Admin: 12/04/17 09:34 Dose: 40 mg Guaifenesin (Robitussin) 100 mg PO Q6H PRN PRN Reason: Cough Last Admin: 12/04/17 08:59 Dose: 100 mg Sodium Chloride (Sodium Chloride 0.9%) 1,000 mls @ 100 mls/hr IV .Q10H [facility] Last Admin: 12/03/17 03:20 Dose: 100 mls/hr Multivitamins (Hexavitamin) 1 tab PO DAILY [facility] Last Admin: 12/04/17 09:34 Dose: 1 tab Oxcarbazepine (Trileptal) 300 mg PO BID [facility] Last Admin: 12/04/17 09:35 Dose: 300 mg Pantoprazole Sodium (Protonix Ec Tab) 40 mg PO DAILY [facility] Last Admin: 12/04/17 09:34 Dose: 40 mg Phenobarbital (Phenobarbital Tab) 32.4 mg PO TID [facility] Last Admin: 12/04/17 09:34 Dose: 32.4 mg Phenytoin (Dilantin) 100 mg PO TID [facility] Last Admin: 12/04/17 09:34 Dose: 100 mg Risperidone (Risperdal Tab) 0.5 mg PO BID [facility] Last Admin: 12/04/17 09:34 Dose: 0.5 mg Sodium Chloride (Sodium Chloride Tab) 1 gm PO Q8 [facility] Last Admin: 12/04/17 07:37 Dose: 1 gm Results - Vital Signs Recent Vital Signs: Last Vital Signs Temp 98.2 F 12/04/17 08:00 Pulse 74 12/04/17 08:00 Resp 20 12/04/17 08:00 BP 161/82 H 12/04/17 08:00 Pulse Ox 94 L 12/04/17 08:00 - Labs Result Diagrams: 12/04/17 08:52 12/04/17 08:52 Labs: Laboratory Results - last 24 hr 12/03/17 12/03/17 12/03/17 13:56 13:56 14:19 WBC RBC Hgb Hct MCV MCH MCHC RDW Plt Count MPV Neut % (Auto) Lymph % (Auto) [place] % (Auto) Eos % (Auto) Baso % (Auto) Neut # Lymph # [place] # Eos # Baso # Sodium Potassium Chloride Carbon Dioxide Anion Gap BUN Creatinine Est GFR ( Amer) Est GFR (Non-Af Amer) Random Glucose Serum Osmolality 272 Uric Acid 3.3 Calcium Total Bilirubin AST ALT Alkaline Phosphatase Total Protein Albumin Globulin Albumin/Globulin Ratio TSH 3rd Generation 1.57 Cortisol AM Sample Urine Osmolality 305 Ur Random Sodium Ur Random Potassium Ur Random Calcium 12/03/17 12/04/17 12/04/17 14:19 08:52 08:52 WBC 4.1 L RBC 3.54 L Hgb 11.9 Hct 33.8 L MCV 95.4 MCH 33.6 H MCHC 35.2 RDW 13.6 Plt Count 283 MPV 7.1 L Neut % (Auto) 33.8 L Lymph % (Auto) 37.4 [place] % (Auto) 11.8 H Eos % (Auto) 16.7 H Baso % (Auto) 0.3 Neut # 1.4 L Lymph # 1.5 [place] # 0.5 Eos # 0.7 Baso # 0.0 Sodium Potassium Chloride Carbon Dioxide Anion Gap BUN Creatinine Est GFR ( Amer) Est GFR (Non-Af Amer) Random Glucose Serum Osmolality Uric Acid Calcium Total Bilirubin AST ALT Alkaline Phosphatase Total Protein Albumin Globulin Albumin/Globulin Ratio TSH 3rd Generation Cortisol AM Sample 13.6 Urine Osmolality Ur Random Sodium 33 Ur Random Potassium 24.6 Ur Random Calcium 2.8 12/04/17 08:52 WBC RBC Hgb Hct MCV MCH MCHC RDW Plt Count MPV Neut % (Auto) Lymph % (Auto) [place] % (Auto) Eos % (Auto) Baso % (Auto) Neut # Lymph # [place] # Eos # Baso # Sodium 130 L Potassium 4.2 Chloride 97 L Carbon Dioxide 27 Anion Gap 10 BUN 20 H Creatinine 0.6 L Est GFR ( Amer) > 60 Est GFR (Non-Af Amer) > 60 Random Glucose 90 Serum Osmolality Uric Acid Calcium 8.8 Total Bilirubin 0.4 AST 44 H ALT 26 Alkaline Phosphatase 80 Total Protein 7.2 Albumin 3.6 Globulin 3.5 Albumin/Globulin Ratio 1.0 TSH 3rd Generation Cortisol AM Sample Urine Osmolality Ur Random Sodium Ur Random Potassium Ur Random Calcium
--- NOTE | 2017-12-04 16:14 | CP.PCM.PN ---
Subjective - Date & Time of Evaluation Date of Evaluation: 12/04/17 Time of Evaluation: 16:12 - Subjective Subjective: PT'S SON CALLED THIS AFTERNOON DEMANDING THE NURSE TO D/C THE PT. HE STATED THAT HE WAS NOT SURE WHY WE ARE "HOLDING HER HOSTAGE." I CALLED SON KARLI YUAN AT [phone] BACK, HOWEVER, HE DID NOT [employer] SERVICES COORDINATOR. LEFT MY NAME AND NUMBER SO THAT HE COULD CALL ME BACK WITH QUESTIONS AND TO DISCUSS HIS MOTHER'S SITUATION. PER DR. SPANGLER THE SON CAN SIGN PT AMA IF HE WANTS HER TO LEAVE TODAY. FOR NOW, CONTINUE TO MONITOR; AM LABS ORDERED. NO FURTHER ORDERS. Objective - Vital Signs/Intake and Output Vital Signs (last 24 hours): Temp Pulse Resp BP Pulse Ox 98.2 F 74 20 161/82 H 94 L 12/04/17 08:00 12/04/17 08:00 12/04/17 08:00 12/04/17 08:00 12/04/17 08:00 - Medications Medications: Current Medications Acetaminophen (Tylenol 325mg Tab) 650 mg PO Q6 PRN PRN Reason: Headache Last Admin: 12/04/17 04:10 Dose: 650 mg Al Hydrox/Mg Hydrox/Simethicone (Maalox 30 Ml) 30 ml PO Q6 PRN PRN Reason: Indigestion / Heartburn Last Admin: 12/04/17 09:34 Dose: 30 ml Aspirin (Ecotrin) 81 mg PO DAILY [facility] Last Admin: 12/04/17 09:34 Dose: 81 mg Donepezil HCl (Aricept) 5 mg PO HS [facility] Last Admin: 12/03/17 21:52 Dose: 5 mg Enoxaparin Sodium (Lovenox) 40 mg SC DAILY [facility] Last Admin: 12/04/17 09:34 Dose: 40 mg Guaifenesin (Robitussin) 100 mg PO Q6H PRN PRN Reason: Cough Last Admin: 12/04/17 08:59 Dose: 100 mg Sodium Chloride (Sodium Chloride 0.9%) 1,000 mls @ 100 mls/hr IV .Q10H [facility] Last Admin: 12/03/17 03:20 Dose: 100 mls/hr Multivitamins (Hexavitamin) 1 tab PO DAILY [facility] Last Admin: 12/04/17 09:34 Dose: 1 tab Oxcarbazepine (Trileptal) 300 mg PO BID [facility] Last Admin: 12/04/17 09:35 Dose: 300 mg Pantoprazole Sodium (Protonix Ec Tab) 40 mg PO DAILY [facility] Last Admin: 12/04/17 09:34 Dose: 40 mg Phenobarbital (Phenobarbital Tab) 32.4 mg PO TID [facility] Last Admin: 12/04/17 14:03 Dose: 32.4 mg Phenytoin (Dilantin) 100 mg PO TID [facility] Last Admin: 12/04/17 14:03 Dose: 100 mg Risperidone (Risperdal Tab) 0.5 mg PO BID [facility] Last Admin: 12/04/17 09:34 Dose: 0.5 mg Sodium Chloride (Sodium Chloride Tab) 1 gm PO Q8 [facility] Last Admin: 12/04/17 14:03 Dose: 1 gm - Labs Labs: 12/04/17 08:52 12/04/17 08:52 PT 11.7 SECONDS (9.7-12.2) 11/28/17 23:26 INR 1.0 11/28/17 23:26 APTT 30 SECONDS (21-34) 11/28/17 23:26
--- NOTE | 2017-12-04 23:10 | CP.PCM.PN ---
Subjective - Date & Time of Evaluation Date of Evaluation: 12/04/17 Time of Evaluation: 18:00 - Subjective Subjective: Pt is seen and evaluated today, pt is less agitated,less headache, less dizziness, on NaCl Iv and oral Objective - Vital Signs/Intake and Output Vital Signs (last 24 hours): Temp Pulse Resp BP Pulse Ox 97.2 F L 87 20 150/81 95 12/04/17 16:20 12/04/17 16:20 12/04/17 16:20 12/04/17 16:20 12/04/17 16:20 - Medications Medications: Current Medications Acetaminophen (Tylenol 325mg Tab) 650 mg PO Q6 PRN PRN Reason: Headache Last Admin: 12/04/17 04:10 Dose: 650 mg Al Hydrox/Mg Hydrox/Simethicone (Maalox 30 Ml) 30 ml PO Q6 PRN PRN Reason: Indigestion / Heartburn Last Admin: 12/04/17 09:34 Dose: 30 ml Aspirin (Ecotrin) 81 mg PO DAILY [facility] Last Admin: 12/04/17 09:34 Dose: 81 mg Donepezil HCl (Aricept) 5 mg PO HS [facility] Last Admin: 12/04/17 22:30 Dose: 5 mg Enoxaparin Sodium (Lovenox) 40 mg SC DAILY [facility] Last Admin: 12/04/17 09:34 Dose: 40 mg Guaifenesin (Robitussin) 100 mg PO Q6H PRN PRN Reason: Cough Last Admin: 12/04/17 08:59 Dose: 100 mg Sodium Chloride (Sodium Chloride 0.9%) 1,000 mls @ 100 mls/hr IV .Q10H [facility] Last Admin: 12/03/17 03:20 Dose: 100 mls/hr Multivitamins (Hexavitamin) 1 tab PO DAILY [facility] Last Admin: 12/04/17 09:34 Dose: 1 tab Oxcarbazepine (Trileptal) 300 mg PO BID [facility] Last Admin: 12/04/17 18:32 Dose: 300 mg Pantoprazole Sodium (Protonix Ec Tab) 40 mg PO DAILY [facility] Last Admin: 12/04/17 09:34 Dose: 40 mg Phenobarbital (Phenobarbital Tab) 32.4 mg PO TID [facility] Last Admin: 12/04/17 18:32 Dose: 32.4 mg Phenytoin (Dilantin) 100 mg PO TID [facility] Last Admin: 12/04/17 18:32 Dose: 100 mg Risperidone (Risperdal Tab) 0.5 mg PO BID [facility] Last Admin: 12/04/17 18:32 Dose: 0.5 mg Sodium Chloride (Sodium Chloride Tab) 1 gm PO Q8 [facility] Last Admin: 12/04/17 22:30 Dose: 1 gm - Labs Labs: 12/04/17 08:52 12/04/17 08:52 PT 11.7 SECONDS (9.7-12.2) 11/28/17 23:26 INR 1.0 11/28/17 23:26 APTT 30 SECONDS (21-34) 11/28/17 23:26 - Constitutional Appears: No Acute Distress - Head Exam Head Exam: ATRAUMATIC, NORMAL INSPECTION, NORMOCEPHALIC - Eye Exam Eye Exam: EOMI, Normal appearance, PERRL Pupil Exam: NORMAL ACCOMODATION, PERRL - Respiratory Exam Respiratory Exam: Clear to Ausculation Bilateral, NORMAL BREATHING PATTERN - Cardiovascular Exam Cardiovascular Exam: REGULAR RHYTHM, +S1, +S2. absent: Murmur - GI/Abdominal Exam GI & Abdominal Exam: Soft, Normal Bowel Sounds. absent: Tenderness - Neurological Exam Neurological Exam: Alert, Awake, CN II-XII Intact, Normal Gait, Oriented x3 Assessment and Plan (1) Fall Status: Acute (2) Psychosis Status: Chronic (3) Seizure disorder Status: Chronic (4) Dehydration Status: Resolved
--- NOTE | 2017-12-05 04:34 | CON ---
DATE: RENAL CONSULTATION LOCATION: Patient is located in room 562, bed A. REQUESTED BY: Mor Parra MD REASON FOR CONSULTATION: Hyponatremia, rule out SIADH. HISTORY OF PRESENT ILLNESS: Mrs. Mayes is a 77-year-old elderly female with a past medical history significant for anxiety, bipolar disorder, bronchitis, depression, gastritis, hypertension and seizure disorder, was admitted with chief complaints of multiple falls at home and also complains of generalized weakness. Patient was found to have hyponatremia on admission, initially responded to IV fluids, subsequently, her serum sodium continued to drop and Renal consult for further evaluation and for management of hyponatremia. Patient is not in acute distress. Denies any chest pain or palpitation. Denies any fever or cough. No abdominal pain. No nausea, no vomiting. No diarrhea. No fever. No cough. PAST MEDICAL HISTORY: Significant for anxiety, bipolar disorder, bronchitis, depression, gastritis, hypertension, seizure disorder. PAST SURGICAL HISTORY: Status post cholecystectomy long time ago. ALLERGIES: ALLERGY TO PENICILLIN. SOCIAL HISTORY: No smoking. No alcohol. No drugs. FAMILY HISTORY: Unknown. CURRENT MEDICATIONS: Include as follows: Aricept 5 mg p.o. at bedtime, Dilantin 100 mg p.o. t.i.d., aspirin 81 mg p.o. daily, multivitamin 1 tablet daily, Lovenox 40 mg subcu daily, phenobarbital 32.4 mg p.o. t.i.d., Risperdal 0.5 mg p.o. b.i.d., Robitussin 100 mg p.o. q. 6 hours, sodium chloride tablet 1 g p.o. q. 8 hours, started yesterday evening and Trileptal 300 mg p.o. b.i.d. and Tylenol 650 mg p.o. q. 6 hours. REVIEW OF SYSTEMS: Significant for multiple falls, hyponatremia and generalized weakness. All other review of systems are reviewed and are negative. PHYSICAL EXAMINATION: GENERAL: As follows: Mrs. Mayes is a 77 years elderly female, moderately-built, moderately-nourished, not in acute distress. HEENT: Pupils are normal and reactive to light and accommodation. Conjunctivae pink. Sclerae are anicteric. Patient has a scar on the right parietal area. LUNGS: Symmetric on both sides. Bilateral breath sounds present. Clear on auscultation. CARDIOVASCULAR SYSTEM: [place] at the fifth intercostal space of intermediate midclavicular line. S1 and S2 audible. No murmur, no gallop. ABDOMEN: Normal in appearance, soft, tympanic. No guarding. No rigidity. No hepatosplenomegaly. CENTRAL NERVOUS SYSTEM: Patient is alert, awake and oriented times two to three. Cranial nerves II through grossly intact. Sensory and motor system is within normal limits. EXTREMITIES: No cyanosis, no clubbing, no edema. LABORATORY DATA: Include as follows: As of 12/02/2017, WBC 3.5, hemoglobin 10.8, hematocrit 31.5 and platelets 258. Sodium 122, potassium 4.2, chloride 91, CO2 25, BUN 22, creatinine 0.6, glucose 150, calcium 8. Total bili 0.3, AST 27, ALT 20, alkaline phosphatase 76, total protein 6.5, albumin is 3.4. As of 12/03/2017, sodium is 124, potassium 4.1, chloride 92, CO2 27, BUN 20, creatinine 0.6, glucose 89, calcium 8.3. Total bili 0.3, AST 44, ALT 33, alkaline phosphatase 77, total protein 6.7, albumin is 3.4. The other laboratory data, serum osmolality is 273, serum uric acid is 3.3 and TSH is 1.57 and urine osmolality 305. Urine sodium is 33, urine potassium is 24.6 and urine calcium is 2.6 and serum cortisol level as of 12/04/2017, is 13.6 and Dilantin level as of 12/03/2017, is 15.0, and carbamazepine level is less than 3. Other laboratory data as of 12/04/2017, WBC 4.1, hemoglobin 11.9, hematocrit is 33.8, platelets 283. Sodium 130, potassium 4.2 today and chloride 97, CO2 27 and BUN is 20 and creatinine 0.6, glucose is 90, calcium 8.8. Chest x-ray as of 11/28/2017, no active disease. No acute or significant interval change. CT of the head as of 11/28/2017, no intracranial hemorrhage, nonspecific white matter changes. ASSESSMENT: In summary, Mrs. Gerber Randhawa is a 77-year-old elderly female with a history of hypertension, dementia, seizure disorder and multiple falls, anxiety, bipolar disorder, depression. who was admitted with multiple falls, weakness, history of head injury and scarring on the right parietal area long time ago and hyponatremia with an initial serum sodium of 133 and on 11/28, serum sodium was 127 and on 12/02/2017, serum sodium increased to 133 and on 12/02, serum sodium dropped to 122. 1. Hyponatremia. Picture consistent with syndrome of inappropriate antidiuretic hormone secretion cannot be ruled out. 2. Seizure disorder. 3. Hypertension. 4. Dementia. PLAN: Recommended to discontinue IV fluids yesterday afternoon and also we have started on sodium chloride tablet 1 g p.o. t.i.d. 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 We will follow up with you. Thank you for allowing me to participate in your patient's care. Case discussed with the nurse practitioner, Andrew, on 12/03/2017. Anderson Baron MD
--- NOTE | 2017-12-05 08:41 | CP.PCM.PN ---
Subjective - Date & Time of Evaluation Date of Evaluation: 12/05/17 Time of Evaluation: 09:00 Objective - Vital Signs/Intake and Output Vital Signs (last 24 hours): Temp Pulse Resp BP Pulse Ox 98.0 F 81 20 153/78 H 96 12/05/17 07:35 12/05/17 07:35 12/05/17 07:35 12/05/17 07:35 12/05/17 07:35 - Medications Medications: Current Medications Acetaminophen (Tylenol 325mg Tab) 650 mg PO Q6 PRN PRN Reason: Headache Last Admin: 12/04/17 04:10 Dose: 650 mg Al Hydrox/Mg Hydrox/Simethicone (Maalox 30 Ml) 30 ml PO Q6 PRN PRN Reason: Indigestion / Heartburn Last Admin: 12/04/17 09:34 Dose: 30 ml Aspirin (Ecotrin) 81 mg PO DAILY [facility] Last Admin: 12/04/17 09:34 Dose: 81 mg Donepezil HCl (Aricept) 5 mg PO HS [facility] Last Admin: 12/04/17 22:30 Dose: 5 mg Enoxaparin Sodium (Lovenox) 40 mg SC DAILY [facility] Last Admin: 12/04/17 09:34 Dose: 40 mg Guaifenesin (Robitussin) 100 mg PO Q6H PRN PRN Reason: Cough Last Admin: 12/04/17 08:59 Dose: 100 mg Sodium Chloride (Sodium Chloride 0.9%) 1,000 mls @ 100 mls/hr IV .Q10H [facility] Last Admin: 12/03/17 03:20 Dose: 100 mls/hr Multivitamins (Hexavitamin) 1 tab PO DAILY [facility] Last Admin: 12/04/17 09:34 Dose: 1 tab Oxcarbazepine (Trileptal) 300 mg PO BID [facility] Last Admin: 12/04/17 18:32 Dose: 300 mg Pantoprazole Sodium (Protonix Ec Tab) 40 mg PO DAILY [facility] Last Admin: 12/04/17 09:34 Dose: 40 mg Phenobarbital (Phenobarbital Tab) 32.4 mg PO TID [facility] Last Admin: 12/04/17 18:32 Dose: 32.4 mg Phenytoin (Dilantin) 100 mg PO TID [facility] Last Admin: 12/04/17 18:32 Dose: 100 mg Risperidone (Risperdal Tab) 0.5 mg PO BID [facility] Last Admin: 12/04/17 18:32 Dose: 0.5 mg Sodium Chloride (Sodium Chloride Tab) 1 gm PO Q8 [facility] Last Admin: 12/05/17 06:40 Dose: 1 gm - Labs Labs: 12/04/17 08:52 12/04/17 08:52 PT 11.7 SECONDS (9.7-12.2) 11/28/17 23:26 INR 1.0 11/28/17 23:26 APTT 30 SECONDS (21-34) 11/28/17 23:26 Assessment and Plan (1) Fall Status: Acute (2) Psychosis Status: Chronic (3) Seizure disorder Status: Chronic
[2017-12-05 08:44] LABS: HEMOGLOBIN 10.9 g/dL (11.0-16.0); MEAN CELL VOLUME 95.7 fL (81.0-99.0); MEAN CORPUSCULAR HEMOGLOBIN 34.1 pg (27.0-31.0); MEAN CORPUSCULAR HGB CONC 35.6 g/dL (33.0-37.0); MEAN PLATELET VOLUME 7.3 fL (7.2-11.7); RBC 3.19 Mil/uL (3.80-5.20); RED CELL DISTRIBUTION WIDTH 13.5 % (11.5-14.5); WHITE BLOOD COUNT 4.2 K/uL (4.8-10.8)
[2017-12-05 08:55] LABS: BLOOD UREA NITROGEN 23 mg/dL (7-17); CALCIUM 8.6 mg/dl (8.6-10.4); GFR AFRICAN-AMERICAN > 60; GFR NON-AFRICAN AMERICAN > 60
[2017-12-05] MEDS: Phenytoin 100 mg/4 ml Oral Susp UD PO SCH ×2 (10:20→13:34)
[2017-12-05] MEDS: Multiple Vitamins Tab PO SCH (10:20)
[2017-12-05] MEDS: Pantoprazole 40 mg EC Tab PO SCH (10:20)
[2017-12-05 10:21] VITALS: BP 136/89; PULSE 72; TEMP 98; O2SAT 94
[2017-12-05] MEDS: Enoxaparin 40 mg Syringe SC SCH (10:21)
--- NOTE | 2017-12-05 10:39 | CP.PCM.PN ---
Subjective - Date & Time of Evaluation Date of Evaluation: 12/05/17 Time of Evaluation: 10:38 - Subjective Subjective: t is seen and examined, follow up consult is dictated #[id number] serm na 129, c/w nacl tab 1gm tid high protein diet restrict fluid to 1lit/day Objective - Vital Signs/Intake and Output Vital Signs (last 24 hours): Temp Pulse Resp BP Pulse Ox 98 F 72 20 136/89 94 L 12/05/17 08:00 12/05/17 08:00 12/05/17 08:00 12/05/17 08:00 12/05/17 08:00 - Medications Medications: Current Medications Acetaminophen (Tylenol 325mg Tab) 650 mg PO Q6 PRN PRN Reason: Headache Last Admin: 12/04/17 04:10 Dose: 650 mg Al Hydrox/Mg Hydrox/Simethicone (Maalox 30 Ml) 30 ml PO Q6 PRN PRN Reason: Indigestion / Heartburn Last Admin: 12/04/17 09:34 Dose: 30 ml Aspirin (Ecotrin) 81 mg PO DAILY [facility] Last Admin: 12/05/17 10:20 Dose: 81 mg Donepezil HCl (Aricept) 5 mg PO HS [facility] Last Admin: 12/04/17 22:30 Dose: 5 mg Enoxaparin Sodium (Lovenox) 40 mg SC DAILY [facility] Last Admin: 12/05/17 10:21 Dose: 40 mg Guaifenesin (Robitussin) 100 mg PO Q6H PRN PRN Reason: Cough Last Admin: 12/04/17 08:59 Dose: 100 mg Sodium Chloride (Sodium Chloride 0.9%) 1,000 mls @ 100 mls/hr IV .Q10H [facility] Last Admin: 12/03/17 03:20 Dose: 100 mls/hr Multivitamins (Hexavitamin) 1 tab PO DAILY [facility] Last Admin: 12/05/17 10:20 Dose: 1 tab Oxcarbazepine (Trileptal) 300 mg PO BID [facility] Last Admin: 12/05/17 10:21 Dose: 300 mg Pantoprazole Sodium (Protonix Ec Tab) 40 mg PO DAILY [facility] Last Admin: 12/05/17 10:20 Dose: 40 mg Phenobarbital (Phenobarbital Tab) 32.4 mg PO TID [facility] Last Admin: 12/05/17 10:20 Dose: 32.4 mg Phenytoin (Dilantin) 100 mg PO TID [facility] Last Admin: 12/05/17 10:20 Dose: 100 mg Risperidone (Risperdal Tab) 0.5 mg PO BID [facility] Last Admin: 12/05/17 10:20 Dose: 0.5 mg Sodium Chloride (Sodium Chloride Tab) 1 gm PO Q8 [facility] Last Admin: 12/05/17 06:40 Dose: 1 gm - Labs Labs: 12/05/17 08:30 12/05/17 08:30 PT 11.7 SECONDS (9.7-12.2) 11/28/17 23:26 INR 1.0 11/28/17 23:26 APTT 30 SECONDS (21-34) 11/28/17 23:26
[2017-12-05] MEDS ORDERED: Influenza Vaccine 60 mcg/0.5 mL SYR (4YR UP) IM ONE (14:56)
--- NOTE | 2017-12-05 15:45 | CP.PCM.PN ---
Subjective - Date & Time of Evaluation Date of Evaluation: 12/05/17 Time of Evaluation: 15:44 - Subjective Subjective: PT SEEN AND CLEARED FOR D/C BY DR. ZIMMERMAN. PT TO CONTINUE NA TAB TID PER HIM AND FLUID RESTRICTION 800ML- 1 LITER MAX PER DAY. OK PER DR. SPANGLER TO D/ C HOME. SON AT BEDSIDE; ALL D/C AND F/U INFORMATION DISCUSSED WITH THEM. RX FOR NA TABS SENT TO PT'S PHARMACY AND SON WILL PICK THEM UP TONIGHT. NO FURTHER ORDERS. Objective - Vital Signs/Intake and Output Vital Signs (last 24 hours): Temp Pulse Resp BP Pulse Ox 98 F 72 20 136/89 94 L 12/05/17 08:00 12/05/17 08:00 12/05/17 08:00 12/05/17 08:00 12/05/17 08:00 Intake and Output: 12/05/17 12/05/17 06:59 18:59 Intake Total 590 Balance 590 - Labs Labs: 12/05/17 08:30 12/05/17 08:30 PT 11.7 SECONDS (9.7-12.2) 11/28/17 23:26 INR 1.0 11/28/17 23:26 APTT 30 SECONDS (21-34) 11/28/17 23:26
--- NOTE | 2017-12-06 09:21 | PN ---
DATE: 12/05/2017 LOCATION: Room 562, bed A. REQUESTING PHYSICIAN: Mor Parra MD. REASON FOR FOLLOWUP: Hyponatremia and possible SIADH. SUBJECTIVE: Mrs. Mayes is a 77-year-old elderly female with a history of hypertension, dementia, psych disorder, seizures, was admitted with multiple falls and weakness. The patient was found to have hyponatremia on admission. Initially, started IV fluids, responded to normal saline. Subsequently, her serum sodium starts decreasing and renal consult was requested for evaluation of hyponatremia. The patient is feeling much better, not in acute distress. Denies any headache, dizziness. Denies any chest pain, palpitation. Denies any fever or cough. No abdominal pain. No nausea, vomiting, diarrhea. The patient is eager to go home. PHYSICAL EXAMINATION: VITAL SIGNS: This morning as follows. Blood pressure 136/89, pulse 72, respiration 20, temperature 98, saturation 94%. Height 5 feet 2 inches and weight is 165 pounds. GENERAL: Mrs. Mayes is a 77-year-old elderly female, moderately built, moderately nourished, not in acute distress. HEENT: Pupils normal and reactive to light and accommodation. Conjunctivae pink. Sclerae anicteric. Tongue is moist and midline. The patient has a scar on the right parietal area. LUNGS: Symmetry on both sides. Bilateral breath sounds present. Clear on auscultation. CARDIOVASCULAR: [place] at the fifth intercostal space half inch medial to the midclavicular line. S1, S2 audible. No murmur or gallop. ABDOMEN: Normal in Appearance. Soft, tympanitic, no guarding. No hepatosplenomegaly. CENTRAL NERVOUS SYSTEM: The patient is alert, awake and oriented x3. Nonfocal neuro examination. Cranial nerves II-XII grossly intact. Sensory and motor system is within normal limits. EXTREMITIES: No cyanosis, no clubbing, no edema. CURRENT MEDICATIONS: Include as follows, phenobarbital 1 tablet p.o. t.i.d., Protonix 40 mg p.o. daily, aspirin 81 mg daily, Dilantin 100 mg p.o. t.i.d., multivitamin 1 tablet daily, Aricept 5 mg p.o. at bedtime, Risperdal 0.5 mg p.o. b.i.d., Lipitor 40 mg p.o. at bedtime, sodium chloride tablet 1 g p.o. q. 8 hours. LABORATORY DATA: Include as follows, as of 12/05/2017, WBC 4.3, hemoglobin 10.9, hematocrit is 30.5, platelets 265. Sodium 129, potassium 4.1, chloride 96, CO2 of 29, BUN 23, creatinine 0.6, glucose 90, calcium 8.6. ASSESSMENT: In summary, Mrs. Mayes is 77-year-old elderly female with a history of hypertension, dementia, seizure disorder, depression, multiple falls and history of surgery to the right parietal area for the injury in the past long time ago, now was admitted with multiple falls, weakness and hyponatremia. 1. Hyponatremia, most likely secondary to mild hypotonic euvolemic hyponatremia, cannot rule out syndrome of inappropriate antidiuretic hormone secondary to drugs. 2. Hypertension. 3. Seizure disorder. PLAN: Advised patient to restrict fluids to 1 liter per day and also continue sodium chloride tablet 1 g p.o. t.i.d. and the patient may be discharged and follow up as an outpatient. Discussed with nurse practitioner in rounds this morning. Thank you for allowing me to participate in your patient's care. Anderson Baron MD
== END 2017-12-05 15:20 | disposition home or self-care (01) | DRG 645 ==
LOC: C.ER 22:21 → C.9E 11-29 01:55 → C.5S 11-29 06:51
PROVIDERS: ADMIT Internal Medicine; ATTEND Internal Medicine
DX: E22.2 Syndrome of inappropriate secretion of antidiuretic hormone (principal); E86.0 Dehydration; T50.905A Adverse effect of unspecified drugs, medicaments and biological substances, initial encounter; F03.90 Unspecified dementia, unspecified severity, without behavioral disturbance, psychotic disturbance, mood disturbance, and anxiety; F20.9 Schizophrenia, unspecified; G40.909 Epilepsy, unspecified, not intractable, without status epilepticus; I10 Essential (primary) hypertension; F31.9 Bipolar disorder, unspecified; R29.6 Repeated falls; W19.XXXA Unspecified fall, initial encounter; Y92.009 Unspecified place in unspecified non-institutional (private) residence as the place of occurrence of the external cause; Z87.01 Personal history of pneumonia (recurrent); Z90.49 Acquired absence of other specified parts of digestive tract; Z88.0 Allergy status to penicillin

== ENCOUNTER 2018-01-01 01:17 | Emergency (ER) | payer OTHER ==
[2018-01-01 01:18] VITALS: BMI 32.3
[2018-01-01 01:32] VITALS: RESP 18
[2018-01-01 03:16] LABS: BASO # 0.1 K/uL (0.0-0.2); BASO % 2.9 % (0.0-2.0); EOS # 0.7 K/uL (0.0-0.7); EOS % 15.3 % (0.0-4.0); HEMOGLOBIN 11.4 g/dL (11.0-16.0); LYMPH # 1.3 K/uL (1.0-4.3); LYMPH % 29.4 % (20.0-40.0); MEAN CELL VOLUME 95.7 fL (81.0-99.0); MEAN CORPUSCULAR HEMOGLOBIN 33.6 pg (27.0-31.0); MEAN CORPUSCULAR HGB CONC 35.1 g/dL (33.0-37.0); MEAN PLATELET VOLUME 7.6 fL (7.2-11.7); MONO # 0.5 K/uL (0.0-0.8); MONO % 10.8 % (0.0-10.0); NEUT # 1.9 K/uL (1.8-7.0); NEUT % 41.6 % (50.0-75.0); NRBC % 0.1 % (0.0-2.0); RBC 3.39 Mil/uL (3.80-5.20); RED CELL DISTRIBUTION WIDTH 13.2 % (11.5-14.5); WHITE BLOOD COUNT 4.6 K/uL (4.8-10.8)
[2018-01-01] MEDS ORDERED: Bacitracin 500 Units/gm Oint Foilpak UD ONE (04:03)
[2018-01-01] MEDS ORDERED: Bacitracin 500 Units/gm Oint Foilpak UD TOP ONE (04:30)
[2018-01-01 04:48] LABS: ALBUMIN 3.5 g/dL (3.5-5.0); ALT/SGPT 16 U/L (9-52); AST/SGOT 22 U/L (14-36); BLOOD UREA NITROGEN 16 mg/dL (7-17); CALCIUM 8.7 mg/dl (8.6-10.4); GFR AFRICAN-AMERICAN > 60; GFR NON-AFRICAN AMERICAN > 60
--- NOTE | 2018-01-01 06:24 | C.PDOC ---
History Of Present Illness 77 y/o female presents to the ED for evaluation after she found herself lying on the floor earlier today. Patient reports history of seizures and suspects that she had one prior to the fall. Patient states she has been compliant with her medication, Dilantin, but states " I don't like Dilantin." Patient notes she sustained a laceration to her right scalp. She denies headache, dizziness, vision change, nausea, vomiting, urinary/bowel incontinence, extremity numbness/ weakness. - HPI Time Seen by Provider: 01/01/18 02:05 Chief Complaint (Nursing): Trauma History Per: Patient History/Exam Limitations: no limitations Onset/Duration Of Symptoms: Hrs Injury Occurred (Timing): Just Before Arrival Additional History Per: Patient Past Medical History Reviewed: Historical Data, Nursing Documentation, Vital Signs Vital Signs: Last Vital Signs Temp 98.4 F 01/01/18 04:12 Pulse 72 01/01/18 04:12 Resp 18 01/01/18 04:12 BP 158/70 H 01/01/18 04:12 Pulse Ox 97 01/01/18 06:28 - Medical History PMH: Anxiety, Bipolar Disorder, Bronchitis, Depression, Gastritis, HTN, Hypercholesterolemia, Paranoia, Pneumonia, Schizophrenia, Seizures Denies: Chronic Kidney Disease Surgical History: Cholecystectomy - [facility] Procedures CLOSURE SKIN & SUBCUTANEOUS NEC (09/15/13) DX ULTRASOUND-HEART (09/11/14) ESOPHAGOGASTRODUODENOSCOPY [EGD] W/CLOSED BIOPSY (10/11/14) OTHER ESOPHAGOSCOPY (09/11/14) TETANUS TOXOID ADMINIST (09/15/13) VACCINATION NEC (10/11/14) VENOUS CATHETERIZATION NEC (09/11/14) Family History: States: Unknown Family Hx - Social History Hx Tobacco Use: No Hx Alcohol Use: No Hx Substance Use: No - Immunization History Hx Tetanus Toxoid Vaccination: Yes Hx Influenza Vaccination: Yes Hx Pneumococcal Vaccination: Yes Review Of Systems Eyes: Negative for: Vision Change Gastrointestinal: Negative for: Nausea, Vomiting Genitourinary: Negative for: Incontinence Skin: Positive for: Other (laceration to right scalp ) Neurological: Positive for: Seizures. Negative for: Weakness, Dizziness Physical Exam - Physical Exam Appears: Well, Non-toxic, No Acute Distress Skin: Normal Color, Warm, Dry Head: No Tenderness, Laceration (2.5cm, to right parietal scalp area ) Eye(s): bilateral: Normal Inspection, PERRL, EOMI Oral Mucosa: Moist Neck: Supple Chest: Symmetrical, No Deformity, No Tenderness Cardiovascular: Rhythm Regular, No Murmur Respiratory: Normal Breath Sounds, No Rales, No Rhonchi, No Wheezing Extremity: Normal ROM, Capillary Refill (less than 2 seconds ) Neurological/Psych: Oriented x3, Normal Speech, Normal Cognition Gait: Steady ED Course And Treatment - Laboratory Results Result Diagrams: 01/01/18 03:10 01/01/18 04:16 O2 Sat by Pulse Oximetry: 97 (on RA) Pulse Ox Interpretation: Normal Progress Note: Bloodwork and CT Head ordered and reviewed. Dilantin level was low so loading dose of PO dilantin ordered. Bacitracin TOP applied. Laceration was repaired (see note). Patient tolerated well with no complications. On reassessment, patient is resting comfortably, showing no signs of distress and is stable for discharge. Patient is advised to f/u with her PMD within 1-2 days for further evaluation and/or return to the ED if symptoms persist or worsen. Pt is ambulatory well in ED with cane Laceration - Laceration Repair right parietal scalp Wound Length (In cm): 2.5 Description Of Wound: Linear Wound Examination: Irrigated With Saline, No FB With Wound Exploration, No Tendon Injury With Wound Exploration Wound Closure: Chantel (4) Wound Complexity: Intermediate Disposition - Disposition Referrals: Mor Parra MD [Primary Care Provider] - Disposition: HOME/ ROUTINE Disposition Time: 06:45 Condition: STABLE Additional Instructions: Staple removal in 1 week Continue dilantin tomorrow as prescribed Follow up with PMD Tylenol for pain Return to ER if worse Forms: [employer] (Malay) - Clinical Impression Clinical Impression: Headache due to trauma, Injury of head, Epilepsy, Scalp laceration - PA / PRINTED [employer]AR[employer] STRIPPER ETCHER / Resident Statement MD/DO has reviewed & agrees with the documentation as recorded. - Scribe Statement The provider has reviewed the documentation as recorded by the Scribe (Angie Khan) All medical record entries made by the Scribe were at my direction and personally dictated by me. I have reviewed the chart and agree that the record accurately reflects my personal performance of the history, physical exam, medical decision making, and the department course for this patient. I have also personally directed, reviewed, and agree with the discharge instructions and disposition.
[2018-01-01 07:07] VITALS: BP 154/72; PULSE 20; TEMP 98.8; O2SAT 98
--- NOTE | 2018-01-01 07:55 | CT ---
PROCEDURE: CT HEAD WITHOUT CONTRAST. HISTORY: seizure, head trauma COMPARISON: None available. TECHNIQUE: Axial computed tomography images were obtained through the head/brain without intravenous contrast. Radiation dose: Total exam DLP = 849 mGy-cm. This CT exam was performed using one or more of the following dose reduction techniques: Automated exposure control, adjustment of the mA and/or kV according to patient size, and/or use of iterative reconstruction technique. FINDINGS: HEMORRHAGE: No intracranial hemorrhage. BRAIN: No mass effect or edema. Scattered focal lucencies in the subcortical and periventricular white matter suggestive for chronic microvascular ischemic change. Lacunar infarct versus prominent perivascular space below the right basal ganglia. Lacunar infarcts in the bilateral caudate heads. VENTRICLES: Unremarkable. No hydrocephalus. CALVARIUM: Stable medial orbital wall fracture on the right. PARANASAL SINUSES: Unremarkable as visualized. No significant inflammatory changes. MASTOID AIR CELLS: Unremarkable as visualized. No inflammatory changes. OTHER FINDINGS: Intracranial arterial calcifications. IMPRESSION: Chronic microvascular ischemic changes. Additional findings as above. If focal neurologic deficit persists, consider MRI. These findings were preliminarily reported at 4:35 a.m. on 01/01/[address] Leonel Oakes from [facility].
== END 2018-01-01 09:22 | disposition home or self-care (01) ==
LOC: C.ER 01:17 → SUPCPDRO 01:17 → C.ER 09:22
DX: S01.01XA Laceration without foreign body of scalp, initial encounter (principal); W18.30XA Fall on same level, unspecified, initial encounter; R51 Headache; G40.909 Epilepsy, unspecified, not intractable, without status epilepticus

== ENCOUNTER 2018-02-12 23:32 | Emergency (ER) | payer OTHER ==
[2018-02-12 23:33] VITALS: BMI 32.3
[2018-02-13 00:05] LABS: SQUAMOUS EPITHIAL < 1 /hpf (0-5); URINE BILIRUBIN NEGATIVE (NEGATIVE); URINE BLOOD NEGATIVE (NEGATIVE); URINE CLARITY Clear (Clear); URINE COLOR Straw (YELLOW); URINE GLUCOSE (UA) NORMAL (Normal); URINE LEUKOCYTE ESTERASE NEG Leu/uL (Negative); URINE PROTEIN NEGATIVE (NEGATIVE); URINE UROBILINOGEN NORMAL mg/dL (0.2-1.0)
[2018-02-13] MEDS ORDERED: Sodium Chloride 0.9% 1,000 ML IV ONE (00:15)
[2018-02-13 00:18] LABS: BASO # 0.1 K/uL (0.0-0.2); BASO % 2.3 % (0.0-2.0); EOS # 0.7 K/uL (0.0-0.7); EOS % 12.9 % (0.0-4.0); HEMOGLOBIN 11.4 g/dL (11.0-16.0); LYMPH # 2.2 K/uL (1.0-4.3); LYMPH % 40.6 % (20.0-40.0); MEAN CELL VOLUME 94.9 fL (81.0-99.0); MEAN CORPUSCULAR HEMOGLOBIN 33.1 pg (27.0-31.0); MEAN CORPUSCULAR HGB CONC 34.8 g/dL (33.0-37.0); MEAN PLATELET VOLUME 7.1 fL (7.2-11.7); MONO # 0.6 K/uL (0.0-0.8); MONO % 10.5 % (0.0-10.0); NEUT # 1.8 K/uL (1.8-7.0); NEUT % 33.7 % (50.0-75.0); NRBC % 0.1 % (0.0-2.0); RBC 3.45 Mil/uL (3.80-5.20); RED CELL DISTRIBUTION WIDTH 12.6 % (11.5-14.5); WHITE BLOOD COUNT 5.4 K/uL (4.8-10.8)
[2018-02-13 00:25] LABS: ALB/GLOB RATIO 0.9 (1.0-2.1); ALBUMIN 3.6 g/dL (3.5-5.0); ALT/SGPT 20 U/L (9-52); AST/SGOT 25 U/L (14-36); BLOOD UREA NITROGEN 16 mg/dL (7-17); CALCIUM 8.5 mg/dl (8.6-10.4); GFR AFRICAN-AMERICAN > 60; GFR NON-AFRICAN AMERICAN > 60
--- NOTE | 2018-02-13 01:26 | C.PDOC ---
History Of Present Illness 77 year old female with a past medical history of seizures, bipolar disorder, depression, presents to the emergency room complaining of a headache for the last 3 days. She describes it as pounding, front to back, associated with pain to the left ear. Also states the ear feels clogged, and she has been trying to clean the ears and today noticed some blood. Patient reports being compliant with her medications. Denies any fever, dizziness, visual changes, extremity numbness or weakness. Time Seen by Provider: 02/13/18 00:05 Chief Complaint (Nursing): Headache History Per: Patient History/Exam Limitations: no limitations Onset/Duration Of Symptoms: Days (x3) Current Symptoms Are (Timing): Still Present Past Medical History Reviewed: Historical Data, Nursing Documentation, Vital Signs Vital Signs: Last Vital Signs Temp 98.1 F 02/13/18 01:29 Pulse 84 02/13/18 01:29 Resp 20 02/13/18 01:29 BP 148/61 02/13/18 01:29 Pulse Ox 98 02/13/18 02:24 - Medical History PMH: Anxiety, Bipolar Disorder, Bronchitis, Depression, Gastritis, HTN, Hypercholesterolemia, Paranoia, Pneumonia, Schizophrenia, Seizures Denies: Chronic Kidney Disease Surgical History: Cholecystectomy - [facility] Procedures CLOSURE SKIN & SUBCUTANEOUS NEC (09/15/13) DX ULTRASOUND-HEART (09/11/14) ESOPHAGOGASTRODUODENOSCOPY [EGD] W/CLOSED BIOPSY (10/11/14) OTHER ESOPHAGOSCOPY (09/11/14) TETANUS TOXOID ADMINIST (09/15/13) VACCINATION NEC (10/11/14) VENOUS CATHETERIZATION NEC (09/11/14) Family History: States: Unknown Family Hx - Social History Hx Tobacco Use: No Hx Alcohol Use: No Hx Substance Use: No - Immunization History Hx Tetanus Toxoid Vaccination: Yes Hx Influenza Vaccination: Yes Hx Pneumococcal Vaccination: Yes Review Of Systems Constitutional: Negative for: Fever, Chills Eyes: Negative for: Vision Change ENT: Positive for: Ear Pain (with clogged sensation, left ear). Negative for: Nose Congestion Respiratory: Negative for: Cough, Shortness of Breath Neurological: Positive for: Headache. Negative for: Weakness, Numbness, Dizziness Physical Exam - Physical Exam Appears: Non-toxic, No Acute Distress Skin: Warm, Dry, No Rash Head: Atraumatic, Normacephalic, No Swelling Eye(s): bilateral: Normal Inspection, PERRL, EOMI Ear(s): Left: Loss Of TM Landmarks, Other (left ear canal appears edematous, with dried blood but no exudates), Right: Normal Nose: Normal Oral Mucosa: Moist Throat: Normal, No Erythema, No Exudate Neck: Normal ROM, Supple Chest: Symmetrical Cardiovascular: Rhythm Regular, No Murmur Respiratory: Normal Breath Sounds, No Accessory Muscle Use, No Rales, No Rhonchi , No Wheezing Gastrointestinal/Abdominal: Soft, No Tenderness, No Guarding Extremity: Bilateral: Atraumatic, Normal Color And Temperature, Normal ROM Neurological/Psych: Oriented x3, Normal Speech Gait: Steady ED Course And Treatment - Laboratory Results Result Diagrams: 02/13/18 00:09 02/13/18 00:09 O2 Sat by Pulse Oximetry: 98 (RA) Pulse Ox Interpretation: Normal - CT Scan/US CT Head Other Rad Studies (CT/US): Read By Radiologist, Radiology Report Reviewed CT/US Interpretation: FINDINGS: Brain: Small vessel ischemic/degenerative changes. Bilateral lacunar infarcts which are unchanged. No hemorrhage. Ventricles: Unremarkable. No ventriculomegaly. Bones/joints: Right medial orbital wall fracture which is chronic. Soft tissues: Unremarkable. Vasculature: Intracranial arterial calcifications. Sinuses: Mucosal thickening paranasal sinuses. Mastoid air cells: Unremarkable as visualized. No mastoid effusion. IMPRESSION: Small vessel ischemic/degenerative changes. No acute findings. Thank you for allowing us to participate in the care of your patient. Dictated and Authenticated by: Leonel Oakes MD. 02/13/2018 2:08 AM Eastern Time ([place] & [place]) Medical Decision Making Medical Decision Making: Impression: 77 year old with headache and ear pain Time: 00:05 Initial Plan: * CMP * CBC * Dilantin * Urinalysis * NSS IVF * Reglan 10 mg IV * CT Head Discussed all diagnostic results with patient in detail. Patient will be discharged home with Cipro ear drops. Counseled regarding diagnosis and discharge plan. Advised to follow up with primary doctor for further evaluation. Disposition Counseled Patient/Family Regarding: Studies Performed, Diagnosis, Need For Followup, Rx Given - Disposition Referrals: Mor Parra MD [Staff Provider] - Disposition: HOME/ ROUTINE Disposition Time: 01:24 Condition: GOOD Additional Instructions: Aplicar 4 gotas en la oreja dos veces al da taya 7 gandhi Cornish Tylenol o Motrin para cualquier dolor de maranda Irineo un seguimiento con dye mdico Prescriptions: Ciprofloxacin/Hydrocortisone [Cipro Hc Otic Suspension] 10 ml BID #1 drops.susp Instructions: Outer Ear Infection, Headache, Adult (DC) Forms: [facility] (Slovenian) Print Language: YI - POA Present On Arrival: None - Clinical Impression Clinical Impression: Headache, Otalgia of left ear - PA / 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 - Scribe Statement The provider has reviewed the documentation as recorded by the Scribe (Lucy Zaragoza) All medical record entries made by the Scribe were at my direction and personally dictated by me. I have reviewed the chart and agree that the record accurately reflects my personal performance of the history, physical exam, medical decision making, and the department course for this patient. I have also personally directed, reviewed, and agree with the discharge instructions and disposition.
[2018-02-13 01:49] VITALS: TEMP 98.1
[2018-02-13 03:31] VITALS: BP 140/70; PULSE 80; RESP 14
[2018-02-13 04:15] VITALS: O2SAT 98
--- NOTE | 2018-02-13 08:25 | CT ---
PROCEDURE: CT HEAD WITHOUT CONTRAST. HISTORY: headache COMPARISON: CT head dated 01/01/2018 TECHNIQUE: Axial computed tomography images were obtained through the head/brain without intravenous contrast. Radiation dose: Total exam DLP = 803 mGy-cm. This CT exam was performed using one or more of the following dose reduction techniques: Automated exposure control, adjustment of the mA and/or kV according to patient size, and/or use of iterative reconstruction technique. FINDINGS: HEMORRHAGE: No intracranial hemorrhage. BRAIN: Scattered focal lucencies in the subcortical and periventricular white matter suggestive for chronic microvascular ischemic change. Bilateral lacunar infarcts, not significantly changed. Few small stable areas of probable encephalomalacia in the right frontal periventricular white matter, right basal ganglia, and inferior left frontal lobe. Stable punctate parenchymal calcification in the posterior left temporal lobe. VENTRICLES: Unremarkable. No hydrocephalus. CALVARIUM: Chronic right medial orbital wall fracture. PARANASAL SINUSES: Mucosal thickening of the paranasal sinuses. MASTOID AIR CELLS: Unremarkable as visualized. No inflammatory changes. OTHER FINDINGS: Intracranial arterial calcifications. IMPRESSION: Chronic microvascular ischemic changes. Sinus mucosal disease. Right medial orbital wall chronic fracture. Bilateral lacunar infarcts. If focal neurologic deficit persists, consider MRI. These findings were preliminarily reported at 2:08 a.m. on 02/13/[address] Leonel Oakes from [facility].
== END 2018-02-13 03:32 | disposition home or self-care (01) ==
LOC: C.ER 23:32
DX: R51 Headache (principal); H92.02 Otalgia, left ear; I10 Essential (primary) hypertension; E78.00 Pure hypercholesterolemia, unspecified
CPT/HCPCS: 70450; 80053; 80185; 81001; 82948; 85025; 96361; 96374; 99285; J2765; J7040

== ENCOUNTER 2018-02-23 00:41 | Emergency (ER) | payer OTHER ==
[2018-02-23 00:42] VITALS: BMI 32.3
[2018-02-23 00:57] VITALS: TEMP 97.5
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
[2018-02-23 01:24] LABS: BASO % 0.1 % (0.0-2.0); EOS # 0.8 K/uL (0.0-0.7); EOS % 18.6 % (0.0-4.0); HEMOGLOBIN 12.8 g/dL (11.0-16.0); LYMPH % 46.1 % (20.0-40.0); MEAN CELL VOLUME 95.3 fL (81.0-99.0); MEAN CORPUSCULAR HGB CONC 34.6 g/dL (33.0-37.0); MEAN PLATELET VOLUME 7.2 fL (7.2-11.7); MONO # 0.4 K/uL (0.0-0.8); MONO % 9.7 % (0.0-10.0); NEUT # 1.1 K/uL (1.8-7.0); NEUT % 25.5 % (50.0-75.0); NRBC % 0.2 % (0.0-2.0); RBC 3.87 Mil/uL (3.80-5.20); RED CELL DISTRIBUTION WIDTH 12.9 % (11.5-14.5); WHITE BLOOD COUNT 4.4 K/uL (4.8-10.8)
[2018-02-23 01:40] LABS: ALB/GLOB RATIO 0.9 (1.0-2.1); ALT/SGPT 18 U/L (9-52); AST/SGOT 28 U/L (14-36); BLOOD UREA NITROGEN 15 mg/dL (7-17); CALCIUM 9.3 mg/dl (8.6-10.4); GFR AFRICAN-AMERICAN > 60; GFR NON-AFRICAN AMERICAN > 60
[2018-02-23 02:44] LABS: SQUAMOUS EPITHIAL < 1 /hpf (0-5); URINE BILIRUBIN NEGATIVE (NEGATIVE); URINE BLOOD NEGATIVE (NEGATIVE); URINE CLARITY Clear (Clear); URINE COLOR Yellow (YELLOW); URINE GLUCOSE (UA) NORMAL (Normal); URINE LEUKOCYTE ESTERASE NEG Leu/uL (Negative); URINE PROTEIN NEGATIVE (NEGATIVE); URINE UROBILINOGEN NORMAL mg/dL (0.2-1.0)
[2018-02-23 02:57] LABS: BENZODIAZEPINES, UR NEGATIVE (NEGATIVE); OPIATES, UR NEGATIVE (NEGATIVE); PHENCYCLIDINE, UR NEGATIVE (NEGATIVE)
[2018-02-23 03:00] LABS: BARBITURATES, UR POSITIVE (NEGATIVE)
[2018-02-23 06:37] VITALS: BP 165/83; PULSE 79; RESP 20; O2SAT 100
--- NOTE | 2018-02-23 08:37 | RAD ---
PROCEDURE: CHEST RADIOGRAPH, 1 VIEW HISTORY: Detox/Psy COMPARISON: Comparison is made to 11/28/2017 FINDINGS: LUNGS: Mild pulmonary vascular congestion is noted. PLEURA: There is a small right pleural effusion. CARDIOVASCULAR: The cardiac silhouette is enlarged. OSSEOUS STRUCTURES: No significant abnormalities. VISUALIZED UPPER ABDOMEN: Normal. OTHER FINDINGS: None. IMPRESSION: Findings suggestive of CHF. Pulmonary congestion associated with cardiomegaly and right pleural effusion.
--- NOTE | 2018-02-25 02:05 | CARD ---
APPROVED REPORT EKG Measurement Heart [id number] <Conclusion> Normal sinus rhythm Possible Left atrial enlargement Left ventricular hypertrophy Prolonged QT Abnormal ECG
== END 2018-02-23 06:55 | disposition home or self-care (01) ==
LOC: C.ER 00:41
DX: F31.9 Bipolar disorder, unspecified (principal); M25.512 Pain in left shoulder; I10 Essential (primary) hypertension; E78.00 Pure hypercholesterolemia, unspecified
CPT/HCPCS: 71045; 80053; 81001; 85025; 93005; 99285; G0480

== ENCOUNTER 2018-02-26 09:11 | Emergency (ER) | payer OTHER ==
[2018-02-26 09:12] VITALS: BMI 32.3
--- NOTE | 2018-02-26 09:48 | C.PDOC ---
History Of Present Illness 77YO FEMALE BROUGHT TO ER BY EMS: POOR HISTORIAN "THEY STOLE MY MEDICINE". h/o seizure disorder, gastritis, psychosis and multiple falls [place] [facility] [place]P CVA. DENIES ANY FOCAL SX ROS LIMITED EXAM NAD NONTOXIC HEENT ATRAUM NEURO NO FOCAL DEF PSYCH CALM COOPERATIVE ACTIVE PSYCHOSIS, CHRONIC REMAINDER NEG Time Seen by Provider: 02/26/18 09:23 Chief Complaint (Nursing): Medical Clearance History Per: EMS History/Exam Limitations: clinical condition Past Medical History Reviewed: Historical Data, Nursing Documentation, Vital Signs Vital Signs: Last Vital Signs Temp 97.8 F 02/26/18 13:03 Pulse 88 02/26/18 13:03 Resp 16 02/26/18 13:03 BP 130/70 02/26/18 13:03 Pulse Ox 100 02/26/18 13:03 - Medical History PMH: Anxiety, Bipolar Disorder, Bronchitis, Depression, Gastritis, HTN, Hypercholesterolemia, Paranoia, Pneumonia, Schizophrenia, Seizures Denies: Chronic Kidney Disease Surgical History: Cholecystectomy ( PER PREVIOUS CHART) - [facility] Procedures CLOSURE SKIN & SUBCUTANEOUS NEC (09/15/13) DX ULTRASOUND-HEART (09/11/14) ESOPHAGOGASTRODUODENOSCOPY [EGD] W/CLOSED BIOPSY (10/11/14) OTHER ESOPHAGOSCOPY (09/11/14) TETANUS TOXOID ADMINIST (09/15/13) VACCINATION NEC (10/11/14) VENOUS CATHETERIZATION NEC (09/11/14) Family History: States: Unknown Family Hx - Social History Hx Tobacco Use: No Hx Alcohol Use: No Hx Substance Use: No - Immunization History Hx Tetanus Toxoid Vaccination: Yes Hx Influenza Vaccination: Yes Hx Pneumococcal Vaccination: Yes Review Of Systems Review Of Systems: ROS cannot be obtained secondary to pt's inabilty to answer questions. (patient is a poor historian) Physical Exam - Physical Exam Appears: Non-toxic, No Acute Distress Skin: Normal Color, Warm, Dry Head: Atraumatic, Normacephalic Eye(s): bilateral: Normal Inspection, PERRL, EOMI Neck: Normal ROM, Supple Chest: Symmetrical Cardiovascular: Rhythm Regular Respiratory: Normal Breath Sounds, No Wheezing Gastrointestinal/Abdominal: Normal Exam Back: Normal Inspection Extremity: Normal ROM, No Deformity, No Swelling Neurological/Psych: Normal Motor, Normal Sensation, Other (active psychosis, calm and cooperative.) ED Course And Treatment O2 Sat by Pulse Oximetry: 96 (RA) Pulse Ox Interpretation: Normal Progress - Re-Evaluation Re-evaluation Note: 02/26/18 09:38 D/W DR SPANGLER: STATES PT DC [place] [facility] [place] SP CVA. PT HAD REFUSED REHAB PLACEMENT. WILL CALL IN NECESSARY PRESCRIPTIONS, FU OUTPT. - Data Reviewed Data Reviewed: Old records - Continuity of Care Discussed patient case with:: PMD Disposition Counseled Patient/Family Regarding: Diagnosis, Need For Followup - Disposition Referrals: Mor Spangler MD [Staff Provider] - Disposition: HOME/ ROUTINE Disposition Time: 10:28 Condition: GOOD Instructions: Bipolar Disorder (DC) Forms: [employer] (Sami) - Clinical Impression Clinical Impression: Psychosis, Medical assessment - Scribe Statement The provider has reviewed the documentation as recorded by the Scribe (Kassandra Hall) Provider Attestation: All medical record entries made by the Scribe were at my direction and personally dictated by me. I have reviewed the chart and agree that the record accurately reflects my personal performance of the history, physical exam, medical decision making, and the department course for this patient. I have also personally directed, reviewed, and agree with the discharge instructions and disposition.
[2018-02-26 13:14] VITALS: BP 130/70; PULSE 88; RESP 16; TEMP 97.8
[2018-02-26 16:57] VITALS: O2SAT 96
== END 2018-02-26 13:17 | disposition home or self-care (01) ==
LOC: C.ER 09:11
DX: F29 Unspecified psychosis not due to a substance or known physiological condition (principal)

== ENCOUNTER 2018-02-27 13:22 | Emergency (ER) | payer OTHER ==
[2018-02-27 13:24] VITALS: BMI 32.3
[2018-02-27 13:55] VITALS: RESP 18
--- NOTE | 2018-02-27 15:15 | CT ---
PROCEDURE: CT scan brain dated 02/28/20. HISTORY: Status post head injury. Rule out bleed. COMPARISON: Comparison made with prior CT scan brain dated 02/13/2018. TECHNIQUE: Contiguous helical/transaxial computed tomography images were obtained through the head/brain without intravenous contrast. Radiation dose: Total exam DLP = 814.88 mGy-cm. This CT exam was performed using one or more of the following dose reduction techniques: Automated exposure control, adjustment of the mA and/or kV according to patient size, and/or use of iterative reconstruction technique. FINDINGS: HEMORRHAGE: No acute parenchymal, subarachnoid or extra-axial hemorrhage. BRAIN: Mild -moderate diffuse/ confluent chronic periventricular white matter ischemic changes again seen. Also again noted are scattered deep and subcortical white matter and bilateral basal nuclei chronic infarcts. Additionally, dilated perivascular space right inferior basal ganglia unchanged. Moderate generalized volume loss. Minor vascular calcifications both carotid siphons. VENTRICLES: No obstructive hydrocephalus. CALVARIUM: There are no acute calvarial fractures. Right posterior superior parietal scalp contusion/soft tissue swelling Also re- demonstrated are localized scarring within the posterior superior parietal scalp. The PARANASAL SINUSES: Mild to moderate mucosal thickening within the ethmoid air complex extending superiorly into the frontal sinus. There is also minor mucosal thickening right maxillary antrum. Minimal mucosal thickening right chamber sphenoid sinus and left maxillary antrum. MASTOID AIR CELLS: Unremarkable as visualized. No inflammatory changes. OTHER FINDINGS: Re- demonstrated is an old fracture deformity right lamina papyracea. Changes of bilateral cataract surgery. IMPRESSION: No acute intracranial hemorrhage. Re- demonstrated are moderate chronic white matter ischemic changes with scattered more discrete deep and subcortical white matter as well as bilateral basal nuclei chronic infarcts. Dilated perivascular space right inferior basal ganglia unchanged. Moderate generalized volume loss. Right posterior superior parietal scalp contusion/soft tissue swelling.
[2018-02-27 15:45] LABS: BASO % 0.8 % (0.0-2.0); EOS # 0.1 K/uL (0.0-0.7); EOS % 2.3 % (0.0-4.0); LYMPH # 1.3 K/uL (1.0-4.3); LYMPH % 23.6 % (20.0-40.0); MEAN CELL VOLUME 95.3 fL (81.0-99.0); MEAN CORPUSCULAR HEMOGLOBIN 32.5 pg (27.0-31.0); MEAN CORPUSCULAR HGB CONC 34.1 g/dL (33.0-37.0); MEAN PLATELET VOLUME 7.3 fL (7.2-11.7); MONO # 0.7 K/uL (0.0-0.8); MONO % 12.3 % (0.0-10.0); NEUT # 3.4 K/uL (1.8-7.0); NRBC % 0.1 % (0.0-2.0); RBC 3.7 Mil/uL (3.80-5.20); RED CELL DISTRIBUTION WIDTH 12.9 % (11.5-14.5); WHITE BLOOD COUNT 5.5 K/uL (4.8-10.8)
[2018-02-27 16:05] LABS: ALB/GLOB RATIO 0.9 (1.0-2.1); ALBUMIN 3.6 g/dL (3.5-5.0); ALT/SGPT 12 U/L (9-52); AST/SGOT 28 U/L (14-36); BLOOD UREA NITROGEN 16 mg/dL (7-17); CALCIUM 9.1 mg/dl (8.6-10.4); GFR AFRICAN-AMERICAN > 60; GFR NON-AFRICAN AMERICAN > 60
[2018-02-27] MEDS ORDERED: Tetanus/Diphtheria Toxoids 0.5 ml Syringe IM ONE ×2 (16:23→16:37)
--- NOTE | 2018-02-27 17:16 | C.PDOC ---
History Of Present Illness 77 y/o female presents to ED s/p trip and fall backward while walking with walker on street with c/o headache and bump to back of head. Patient denies sob , dizziness, palpitations, slurred speech, extremity weakness, sensory changes or any other complaints at this time. - HPI Time Seen by Provider: 02/27/18 14:14 Chief Complaint (Nursing): Trauma History Per: Patient History/Exam Limitations: no limitations Onset/Duration Of Symptoms: Hrs Past Medical History Reviewed: Historical Data, Nursing Documentation, Vital Signs Vital Signs: Last Vital Signs Temp 97.8 F 02/27/18 17:25 Pulse 75 02/27/18 17:25 Resp 18 02/27/18 17:25 BP 157/85 H 02/27/18 17:25 Pulse Ox 97 02/27/18 17:25 - Medical History PMH: Anxiety, Bipolar Disorder, Bronchitis, Depression, Gastritis, HTN, Hypercholesterolemia, Paranoia, Pneumonia, Schizophrenia, Seizures Surgical History: Cholecystectomy ( PER PREVIOUS CHART) - [facility] Procedures CLOSURE SKIN & SUBCUTANEOUS NEC (09/15/13) DX ULTRASOUND-HEART (09/11/14) ESOPHAGOGASTRODUODENOSCOPY [EGD] W/CLOSED BIOPSY (10/11/14) OTHER ESOPHAGOSCOPY (09/11/14) TETANUS TOXOID ADMINIST (09/15/13) VACCINATION NEC (10/11/14) VENOUS CATHETERIZATION NEC (09/11/14) Family History: States: No Known Family Hx - Social History Hx Tobacco Use: No Hx Alcohol Use: No Hx Substance Use: No - Immunization History Hx Tetanus Toxoid Vaccination: Yes Hx Influenza Vaccination: Yes Hx Pneumococcal Vaccination: Yes Review Of Systems Except As Marked, All Systems Reviewed And Found Negative. Cardiovascular: Negative for: Chest Pain Neurological: Positive for: Headache. Negative for: Weakness, Numbness, Dizziness Physical Exam - Physical Exam Appears: Non-toxic, Other (Comfortable) Skin: Warm, Dry, No Rash Head: Abrasion (Right occipital area), Other (2cm Hematoma right occipital region) Eye(s): bilateral: PERRL, EOMI Oral Mucosa: Moist Neck: Normal ROM, Supple Cardiovascular: Rhythm Regular Respiratory: Normal Breath Sounds, No Rales, No Rhonchi, No Wheezing Gastrointestinal/Abdominal: Soft, No Tenderness, No Guarding, No Rebound Extremity: Normal ROM, Capillary Refill (<2 seconds) Neurological/Psych: Oriented x3, Normal Speech, Normal Cognition, Normal Cranial Nerves, Normal Motor, Normal Sensation Gait: With Assistance (walker) ED Course And Treatment - Laboratory Results Result Diagrams: 02/27/18 15:41 02/27/18 15:41 O2 Sat by Pulse Oximetry: 96 (RA) Progress Note: Blood work, UA, CT Head ordered. Tetanus Vaccine and Tylenol administered Disposition Counseled Patient/Family Regarding: Studies Performed, Diagnosis, Need For Followup, Rx Given - Disposition Referrals: Mor Parra MD [Staff Provider] - Disposition: HOME/ ROUTINE Disposition Time: 18:35 Condition: STABLE Additional Instructions: FOLLOW UP WITH YOUR DOCTOR IN 1-2 DAYS USE MEDICATION NEEDED RETURN TO EMERGENCY ROOM IF YOU HAVE CONCERNING SYMPTOMS SEGUIMIENTO CON DIALLO MDICO EN 1-2 HANCOCK USE MEDICAMENTOS SEGN SEA NECESARIO REGRESE AL LIZA DE EMERGENCIA SI TIENE ALGUNOS SNTOMAS Prescriptions: Acetaminophen [Tylenol 325mg tab] 650 mg PO Q6 PRN #30 tab PRN Reason: pain/fever Instructions: Head Injury (ED) Forms: [employer] (Armenian) Print Language: SETSWANA - POA Present On Arrival: Falls Or Trauma - Clinical Impression Clinical Impression: Head injury, closed - Scribe Statement The provider has reviewed the documentation as recorded by the Scribsav Crum All medical record entries made by the Scribe were at my direction and personally dictated by me. I have reviewed the chart and agree that the record accurately reflects my personal performance of the history, physical exam, medical decision making, and the department course for this patient. I have also personally directed, reviewed, and agree with the discharge instructions and disposition.
[2018-02-27 18:25] LABS: SQUAMOUS EPITHIAL 5 /hpf (0-5); URINE BILIRUBIN NEGATIVE (NEGATIVE); URINE BLOOD NEGATIVE (NEGATIVE); URINE CLARITY Clear (Clear); URINE COLOR Yellow (YELLOW); URINE GLUCOSE (UA) NORMAL (Normal); URINE LEUKOCYTE ESTERASE NEG Leu/uL (Negative); URINE PROTEIN NEGATIVE (NEGATIVE); URINE UROBILINOGEN NORMAL mg/dL (0.2-1.0)
[2018-02-27 18:55] VITALS: BP 155/83; PULSE 72; TEMP 97.7; O2SAT 97
== END 2018-02-27 19:15 | disposition home or self-care (01) ==
LOC: C.ER 13:22
DX: S09.90XA Unspecified injury of head, initial encounter (principal); W01.0XXA Fall on same level from slipping, tripping and stumbling without subsequent striking against object, initial encounter; Y92.410 Unspecified street and highway as the place of occurrence of the external cause; Z23 Encounter for immunization; I10 Essential (primary) hypertension; E78.00 Pure hypercholesterolemia, unspecified; F20.9 Schizophrenia, unspecified

== ENCOUNTER 2018-02-28 07:51 | Observation (INO) | payer OTHER ==
[2018-02-28 07:51] VITALS: BMI 32.3
--- NOTE | 2018-02-28 08:46 | C.PDOC ---
History Of Present Illness 77 y/o female with psychiatric hx and seizures brought to ED by EMS for evaluation of hearing voices and with c/o right sided headache, itching and feeling like something crawling on head. Pt seen yesterday for fall with right isde head injury. Patient has been seen multiple times at ED for psych evaluations and pain s/p multiple falls. At ED patient states someone wants to kill her, but does not know who it is. Patient denies cp, sob, nausea, vomiting , abdominal pain or any other complaints at this time. Time Seen by Provider: 02/28/18 08:06 Chief Complaint (Nursing): Psychiatric Evaluation History Per: Patient History/Exam Limitations: no limitations Onset/Duration Of Symptoms: Days Current Symptoms Are (Timing): Still Present Suicide/Self Injury Attempted (Context): None Modifying Factor(s): None Past Medical History Reviewed: Historical Data, Nursing Documentation, Vital Signs Vital Signs: Last Vital Signs Temp 98 F 03/01/18 07:00 Pulse 89 03/01/18 12:00 Resp 20 03/01/18 07:00 BP 162/87 H 03/01/18 07:00 Pulse Ox 98 03/01/18 14:17 - Medical History PMH: Anxiety, Bipolar Disorder, Bronchitis, Depression, Gastritis, HTN, Hypercholesterolemia, Paranoia, Pneumonia, Schizophrenia, Seizures Surgical History: Cholecystectomy ( PER PREVIOUS CHART) - [facility] Procedures CLOSURE SKIN & SUBCUTANEOUS NEC (09/15/13) DX ULTRASOUND-HEART (09/11/14) ESOPHAGOGASTRODUODENOSCOPY [EGD] W/CLOSED BIOPSY (10/11/14) OTHER ESOPHAGOSCOPY (09/11/14) TETANUS TOXOID ADMINIST (09/15/13) VACCINATION NEC (10/11/14) VENOUS CATHETERIZATION NEC (09/11/14) Family History: States: No Known Family Hx - Social History Hx Tobacco Use: No Hx Alcohol Use: No Hx Substance Use: No - Immunization History Hx Tetanus Toxoid Vaccination: Yes Hx Influenza Vaccination: Yes Hx Pneumococcal Vaccination: Yes Review Of Systems Constitutional: Negative for: Fever, Chills Cardiovascular: Negative for: Chest Pain Gastrointestinal: Negative for: Nausea, Vomiting Skin: Negative for: Rash Neurological: Positive for: Headache Psych: Positive for: Other (hearing voices) Physical Exam - Physical Exam Appears: Non-toxic, No Acute Distress Skin: Warm, Dry, No Rash Head: Abrasion, Other (Right parietal region hematoma w/ abrasion noted) Eye(s): bilateral: Normal Inspection, PERRL, EOMI Oral Mucosa: Moist Neck: Normal ROM, Supple Cardiovascular: Rhythm Regular Respiratory: Normal Breath Sounds, No Rales, No Rhonchi, No Wheezing Gastrointestinal/Abdominal: Soft, No Tenderness, No Guarding, No Rebound Extremity: Normal ROM, Capillary Refill (<2 seconds) Neurological/Psych: Oriented x3, Normal Speech, Normal Cognition ED Course And Treatment - Laboratory Results Result Diagrams: 02/28/18 08:52 03/01/18 06:30 ECG: Interpreted By Me, Viewed By Me ECG Rhythm: Sinus Rhythm Rate From EC (BPM) O2 Sat by Pulse Oximetry: 98 (RA) Pulse Ox Interpretation: Normal Medical Decision Making Medical Decision Making: Plan: Blood work, UA, Crisis eval ordered pt seen by crisis team. pt found to have elevated dliantin level, will be admitted for dilantin toxicity, discussed with Dr Parra. Disposition Discussed With .: Mor Parra Doctor Will See Patient In The: Hospital - Disposition Disposition: HOSPITALIZED Disposition Time: 10:07 Condition: GOOD - Clinical Impression Clinical Impression: Dilantin toxicity - PA / CERTIFIED PROFESSIONAL CODER / Resident Statement MD/DO has reviewed & agrees with the documentation as recorded. - Scribe Statement The provider has reviewed the documentation as recorded by the Scribsav Crum All medical record entries made by the Scribsav were at my direction and personally dictated by me. I have reviewed the chart and agree that the record accurately reflects my personal performance of the history, physical exam, medical decision making, and the department course for this patient. I have also personally directed, reviewed, and agree with the discharge instructions and disposition.
[2018-02-28 09:00] LABS: BASO # 0.1 K/uL (0.0-0.2); BASO % 1.8 % (0.0-2.0); EOS # 0.6 K/uL (0.0-0.7); EOS % 11.8 % (0.0-4.0); HEMOGLOBIN 11.5 g/dL (11.0-16.0); LYMPH # 1.5 K/uL (1.0-4.3); LYMPH % 30.9 % (20.0-40.0); MEAN CELL VOLUME 94.9 fL (81.0-99.0); MEAN CORPUSCULAR HEMOGLOBIN 33.1 pg (27.0-31.0); MEAN CORPUSCULAR HGB CONC 34.9 g/dL (33.0-37.0); MEAN PLATELET VOLUME 7.8 fL (7.2-11.7); MONO # 0.7 K/uL (0.0-0.8); MONO % 14.3 % (0.0-10.0); NEUT % 41.2 % (50.0-75.0); RBC 3.46 Mil/uL (3.80-5.20); RED CELL DISTRIBUTION WIDTH 12.4 % (11.5-14.5); WHITE BLOOD COUNT 4.7 K/uL (4.8-10.8)
[2018-02-28 09:18] LABS: ALB/GLOB RATIO 0.8 (1.0-2.1); ALBUMIN 3.6 g/dL (3.5-5.0); ALT/SGPT 17 U/L (9-52); AST/SGOT 41 U/L (14-36); BLOOD UREA NITROGEN 15 mg/dL (7-17); CALCIUM 8.9 mg/dl (8.6-10.4); GFR AFRICAN-AMERICAN > 60; GFR NON-AFRICAN AMERICAN > 60
[2018-02-28 09:58] LABS: SQUAMOUS EPITHIAL < 1 /hpf (0-5); URINE BILIRUBIN NEGATIVE (NEGATIVE); URINE BLOOD NEGATIVE (NEGATIVE); URINE CLARITY Clear (Clear); URINE COLOR Yellow (YELLOW); URINE GLUCOSE (UA) NORMAL (Normal); URINE LEUKOCYTE ESTERASE NEG Leu/uL (Negative); URINE PROTEIN NEGATIVE (NEGATIVE); URINE UROBILINOGEN NORMAL mg/dL (0.2-1.0)
[2018-02-28] MEDS: Sodium Chloride 0.9% 1,000 ML IV SCH (16:58)
--- NOTE | 2018-02-28 23:31 | CP.PCM.HP ---
History of Present Illness - History of Present Illness History of Present Illness: 77 y/o female with psych history brought to ED by EMS for evaluation of hearing voices and with c/o right sided headache. Patient has been seen multiple times at ED for psych evaluations and pain s/p multiple falls. At ED patient states someone wants to kill her but does not know who it is. Patient denies cp, sob, nausea, vomiting, abdominal pain or any other complaints at this time. Past Patient History - Infectious Disease Hx of Infectious Diseases: None - Past Medical History & Family History Past Medical History?: Yes - Past Social History Smoking Status: Never Smoked - CARDIAC Hx Hypercholesterolemia: Yes Hx Hypertension: Yes - PULMONARY Hx Bronchitis: Yes Hx Pneumonia: Yes - NEUROLOGICAL Hx Seizures: Yes - HEENT Hx HEENT Problems: Yes Hx Cataracts: Yes - RENAL Hx Chronic Kidney Disease: No - ENDOCRINE/METABOLIC Hx Endocrine Disorders: No - INTEGUMENTARY Hx Dermatological Problems: No - MUSCULOSKELETAL/RHEUMATOLOGICAL Hx Musculoskeletal Disorders: Yes Hx Falls: Yes - GASTROINTESTINAL Hx Gastritis: Yes - PSYCHIATRIC Hx Anxiety: Yes Hx Bipolar Disorder: Yes Hx Depression: Yes Hx Paranoia: Yes Hx Schizophrenia: Yes Hx Substance Use: No - SURGICAL HISTORY Hx Cholecystectomy: Yes ( PER PREVIOUS CHART) - ANESTHESIA Hx Anesthesia: Yes Hx Anesthesia Reactions: No Hx Malignant Hyperthermia: No Meds Allergies/Adverse Reactions: Allergies Allergy/AdvReac Type Severity Reaction Status Date / Time Penicillins Allergy Severe ANAPHYLAXIS Verified 02/27/18 13:55 cigarette smoke Allergy COUGH Verified 02/27/18 13:55 Results - Vital Signs Recent Vital Signs: Last Vital Signs Temp 97.9 F 02/28/18 08:06 Pulse 72 02/28/18 14:31 Resp 18 02/28/18 14:31 BP 146/86 02/28/18 14:31 Pulse Ox 98 02/28/18 14:31 - Labs Result Diagrams: 02/28/18 08:52 02/28/18 08:52 Labs: Laboratory Results - last 24 hr 02/28/18 02/28/18 02/28/18 08:52 08:52 08:52 WBC 4.7 L RBC 3.46 L Hgb 11.5 Hct 32.9 L MCV 94.9 MCH 33.1 H MCHC 34.9 RDW 12.4 Plt Count 269 MPV 7.8 Neut % (Auto) 41.2 L Lymph % (Auto) 30.9 Pitkin % (Auto) 14.3 H Eos % (Auto) 11.8 H Baso % (Auto) 1.8 Neut # (Auto) 2.0 Lymph # (Auto) 1.5 Pitkin # (Auto) 0.7 Eos # (Auto) 0.6 Baso # (Auto) 0.1 Sodium 140 Potassium 3.5 L Chloride 101 Carbon Dioxide 24 Anion Gap 18 BUN 15 Creatinine 0.6 L Est GFR ( Amer) > 60 Est GFR (Non-Af Amer) > 60 Random Glucose 111 H Calcium 8.9 Total Bilirubin 0.6 AST 41 H D ALT 17 Alkaline Phosphatase 100 Total Protein 7.9 Albumin 3.6 Globulin 4.3 H Albumin/Globulin Ratio 0.8 L Urine Color Urine Clarity Urine pH Ur Specific Curlew Urine Protein Urine Glucose (UA) Urine Ketones Urine Blood Urine Nitrate Urine Bilirubin Urine Urobilinogen Ur Leukocyte Esterase Urine WBC (Auto) Urine RBC (Auto) Ur Squamous Epith Cells Acetaminophen Phenytoin 25.3 H 02/28/18 02/28/18 09:48 10:29 WBC RBC Hgb Hct MCV MCH MCHC RDW Plt Count MPV Neut % (Auto) Lymph % (Auto) Pitkin % (Auto) Eos % (Auto) Baso % (Auto) Neut # (Auto) Lymph # (Auto) Pitkin # (Auto) Eos # (Auto) Baso # (Auto) Sodium Potassium Chloride Carbon Dioxide Anion Gap BUN Creatinine Est GFR ( Amer) Est GFR (Non-Af Amer) Random Glucose Calcium Total Bilirubin AST ALT Alkaline Phosphatase Total Protein Albumin Globulin Albumin/Globulin Ratio Urine Color Yellow Urine Clarity Clear Urine pH 5.0 Ur Specific Curlew 1.012 Urine Protein Negative Urine Glucose (UA) Normal Urine Ketones Trace Urine Blood Negative Urine Nitrate Negative Urine Bilirubin Negative Urine Urobilinogen Normal Ur Leukocyte Esterase Neg Urine WBC (Auto) 1 Urine RBC (Auto) 1 Ur Squamous Epith Cells < 1 Acetaminophen < 10.0 L Phenytoin
[2018-03-01 00:52] VITALS: RESP 20
--- NOTE | 2018-03-01 02:09 | CON ---
DATE: CHIEF COMPLAINT/REASON FOR CONSULTATION: Patient referred by Dr. Parra for evaluation and co-management for patient with history of dementia, psychosis, bipolar, and patient has been complaining of hearing voices and also history of multiple falls. HISTORY OF PRESENT ILLNESS: This is a case of a 77-year-old female with long history of psychiatric illness, with history of depression, bipolar, anxiety. The patient was admitted here for Dilantin toxicity. She came to the emergency room complaining of headaches and hearing voices and telling that somebody is trying to kill her. The patient was also having paranoid ideation. the patient had been seen here for multiple psych evaluations. The patient has extensive psych history, she has been taking Risperdal 0.5 mg twice a day. She also states that she has seizure and has been taking Dilantin as well as phenobarbital. According to the patient, she was not feeling well. At home, she took some medicines. The patient notes that she is taking Dilantin and phenobarbital, but she states that she took some extra doses of Dilantin because she was not feeling well. Dilantin level was noted to be elevated at 25.2 and the patient is admitted for Dilantin toxicity. Today, when seen, she is very anxious. She denies hearing voices, but states that she was having problems breathing and was asking for oxygen. PAST MEDICAL HISTORY: She has a long history of psych illness consistent with depression, bipolar, anxiety. The patient has history of admissions in the past, currently taking Risperdal for her psychosis. History of seizures, pneumonia, hypertension, hypercholesterolemia, bronchitis. The patient also has history of dementia. DRUG/ALCOHOL HISTORY: The patient denies any. ALLERGIES: THE PATIENT IS ALLERGIC TO CIGARETTE SMOKE AND PENICILLIN. MEDICATIONS: List of current medications that the patient is taking, is the patient is on Aricept as well as Crestor, Ecotrin, phenobarbital 32.4 mg t.i.d., Risperdal 0.5 mg b.i.d., Tylenol. LABORATORY DATA: Dilantin level was noted to be 25.3. UA is negative. Creatinine is 0.6. Sodium is 140, potassium is 3.5. PHYSICAL EXAMINATION: VITAL SIGNS: Temperature is 97.9, pulse is 72, blood pressure is 146/86, respirations 18, oxygen saturation is 98% on room air. REVIEW OF SYSTEMS: GENERAL: The patient is alert, verbal, but anxious and periods of confusion. She states she wears some oxygen. SKIN: No diaphoresis. HEENT: No headache or dizziness. NECK: Supple. RESPIRATORY: Complaining of shortness of breath. CARDIOVASCULAR: No chest pain. GASTROINTESTINAL: No nausea, no vomiting. EXTREMITIES: The patient is currently moving extremities. She has a steady gait. MUSCULOSKELETAL: Feels weak. NEURO: Alert with periods of confusion. GENITOURINARY: No dysuria. MENTAL STATUS EXAMINATION: An elderly female who looks stated age, oriented x2. The patient is 4 feet 10 inches, weighs 150 pounds. The patient lives alone but her son is helping her. The patient wanted to go to the longterm. Speech, patient is conversing in [place]. Mood is anxious, somatic. Affect is reactive. Thought process, forgetful. Thought content, the patient reports no paranoia, no hallucinations, but is asking for some oxygen. Attention and memory seem to be limited. Insight and judgement limited. Impulse control is guarded at this time. IMPRESSION: History of delirium, metabolic encephalopathy secondary to Dilantin toxicity as well as history of dementia, bipolar, depression and psychosis. PLAN AND RECOMMENDATIONS: Patient seen, meds reviewed. We will monitor her Dilantin level. For now psych maddox, we will keep her in her previous meds. Aricept 5 mg at bedtime, Risperdal 0.5 mg p.o. b.i.d. We will monitor the Dilantin level. The patient needs somebody to monitor her meds at home. From what I understand from patient, patient took an extra med, but the patient needs somebody to monitor her medications, especially history of dementia and also her extensive psych history. She said her son helps her at home, but the patient did benefit from visiting nurse once she is discharged to help her monitor her meds. Yao Sánchez MD MTDD
[2018-03-01 07:08] LABS: BLOOD UREA NITROGEN 19 mg/dL (7-17); CALCIUM 8.6 mg/dl (8.6-10.4); GFR AFRICAN-AMERICAN > 60; GFR NON-AFRICAN AMERICAN > 60
[2018-03-01] MEDS: Enoxaparin 40 mg Syringe SC SCH (10:11)
[2018-03-01] MEDS: Pantoprazole 40 mg EC Tab PO SCH (10:11)
[2018-03-01] MEDS: Multiple Vitamins Tab PO SCH (10:11)
[2018-03-01] MEDS: Sodium Chloride 0.9% 1,000 ML IV SCH ×2 (12:49→22:16)
[2018-03-01 17:33] VITALS: O2SAT 96
--- NOTE | 2018-03-01 18:07 | CP.PCM.PN ---
Subjective - Date & Time of Evaluation Date of Evaluation: 03/01/18 Time of Evaluation: 18:00 - Subjective Subjective: Pt seen and examined, afebrile, is feeling better Objective - Vital Signs/Intake and Output Vital Signs (last 24 hours): Temp Pulse Resp BP Pulse Ox 98.5 F 90 20 131/79 96 03/01/18 15:00 03/01/18 15:00 03/01/18 15:00 03/01/18 15:00 03/01/18 15:00 Intake and Output: 03/01/18 03/01/18 06:59 18:59 Intake Total 500 400 Balance 500 400 - Medications Medications: Current Medications Acetaminophen (Tylenol 325mg Tab) 650 mg PO Q6 PRN PRN Reason: pain/fever Last Admin: 03/01/18 14:18 Dose: 650 mg Aspirin (Ecotrin) 81 mg PO DAILY [facility] Last Admin: 03/01/18 10:11 Dose: 81 mg Donepezil HCl (Aricept) 5 mg PO HS [facility] Last Admin: 02/28/18 21:31 Dose: 5 mg Enoxaparin Sodium (Lovenox) 40 mg SC DAILY [facility] Last Admin: 03/01/18 10:11 Dose: 40 mg Sodium Chloride (Sodium Chloride 0.9%) 1,000 mls @ 50 mls/hr IV .Q20H [facility] Last Admin: 03/01/18 12:49 Dose: Not Given Multivitamins (Hexavitamin) 1 tab PO DAILY [facility] Last Admin: 03/01/18 10:11 Dose: 1 tab Pantoprazole Sodium (Protonix Ec Tab) 40 mg PO DAILY [facility] Last Admin: 03/01/18 10:11 Dose: 40 mg Phenobarbital (Phenobarbital Tab) 32.4 mg PO TID [facility] Last Admin: 03/01/18 17:50 Dose: 32.4 mg Risperidone (Risperdal Tab) 0.5 mg PO BID [facility] Last Admin: 03/01/18 17:50 Dose: 0.5 mg Rosuvastatin Calcium (Crestor) 20 mg PO HS [facility] Last Admin: 02/28/18 21:30 Dose: 20 mg - Labs Labs: 02/28/18 08:52 03/01/18 06:30
--- NOTE | 2018-03-01 21:07 | PN ---
DATE: SUBJECTIVE: The patient is seen. The patient is doing much better, almost close to his baseline, but still feeling drowsy. The patient's Dilantin level now is within normal limits at 19.2. She reports no hallucinations. No paranoia. The patient wants to go home because she is still feeling weak. PHYSICAL EXAMINATION: VITAL SIGNS: Temperature is 98, pulse rate is 89, blood pressure 162/87, respirations 20, oxygen saturation is 94%. REVIEW OF SYSTEMS: GENERAL: The patient is more alert, verbal, but still feeling sleepy in her room, not in acute respiratory distress. She states she wants to go home in the morning. SKIN: No diaphoresis. HEENT: No headache. No dizziness. No nystagmus. NECK: Supple. RESPIRATORY: No dyspnea. CARDIOVASCULAR: No chest pain. GASTROINTESTINAL: The patient is eating well. EXTREMITIES: Moving extremities. No tremors. MUSCULOSKELETAL: Feels weak. NEUROLOGIC: Alert with periods of forgetfulness. GENITOURINARY: No dysuria. MENTAL STATUS EXAMINATION: An elderly female, who looks stated age, more alert and verbal, but still feeling weak. Speech is spontaneous. Conversing in Faroese. Affect is reactive. Mood is dysphoric. Thought process, forgetful. Thought content, the patient wants to go home in the morning. She reports no hallucinations. No suicidal or homicidal ideation. Attention and memory seem to be limited. Insight and judgement limited. Impulse control is fair at this time. IMPRESSION: Delirium, metabolic encephalopathy secondary to Dilantin toxicity as well as history of dementia, bipolar, depression with psychosis much improved. PLAN AND RECOMMENDATIONS: The patient is seen, meds reviewed. Continue present psych meds. The patient is almost back to baseline. The patient can be discharged to home under the care of her family, but needs somebody to monitor her meds once medically discharged. The patient wants to go home in the morning. She can continue her Aricept and Risperdal as ordered. Follow up with Dr. Parra once medically discharged from the hospital. Yao Sánchez MD
[2018-03-02 07:54] VITALS: BP 159/94; PULSE 93; TEMP 98.5
[2018-03-02] MEDS: Pantoprazole 40 mg EC Tab PO SCH (09:30)
[2018-03-02] MEDS: Multiple Vitamins Tab PO SCH (09:30)
[2018-03-02] MEDS: Enoxaparin 40 mg Syringe SC SCH (09:31)
--- NOTE | 2018-03-02 16:02 | PN ---
DATE: SUBJECTIVE: The patient is for discharge today. The patient is back to baseline. Her last Dilantin level is now within normal limits, is 19.2. The patient is not having hallucinations, no paranoia. She said she wants to go home, is waiting for her son to pick her up. OBJECTIVE: VITAL SIGNS: Temperature 98.5, pulse 93, blood pressure 159/94, respirations 20, oxygen saturation 96%. REVIEW OF SYSTEMS: GENERAL: The patient is alert, verbal, forgetful, seen in her room. She said she wants to go home, cooperative, compliant with meds. SKIN: No diaphoresis. HEENT: No headache, no dizziness. NECK: Supple. RESPIRATORY: No dyspnea. CARDIOVASCULAR: No chest pain. GASTROINTESTINAL: No nausea, no vomiting. EXTREMITIES: The patient moves extremities. NEUROLOGIC: Alert with periods of forgetfulness. GENITOURINARY: No dysuria. MENTAL STATUS EXAMINATION: Elderly female, who looks stated age, seen in the room in casual dress. The patient wants to go home. Speech, the patient is conversing in French. Affect is reactive. Mood is calm. Thought process forgetful. Thought content, the patient wants to go home. No psychosis. No suicidal or homicidal ideation. Attention and memory seem to be fair. Insight and judgement are fair. Impulse control is fair. IMPRESSION: History of delirium, metabolic encephalopathy secondary to Dilantin toxicity, last improved. History of dementia, bipolar disorder, depression, and psychosis. PLAN/RECOMMENDATIONS: The patient is seen, meds reviewed. The patient is back to baseline. She can be discharged to continue Aricept and Risperdal as ordered. Follow up with Dr. Parra. The patient is advised to be careful when she is taking her meds, not to take extra. Yao Sánchez MD MTDD
--- NOTE | 2018-03-02 23:12 | CP.PCM.DIS ---
Provider - Provider Date of Admission: 02/28/18 10:05 Attending physician: Mor Parra MD Hospital Course - Lab Results Lab Results: Most Recent Lab Values WBC 4.7 K/uL (4.8-10.8) L 02/28/18 08:52 RBC 3.46 Mil/uL (3.80-5.20) L 02/28/18 08:52 Hgb 11.5 g/dL (11.0-16.0) 02/28/18 08:52 Hct 32.9 % (34.0-47.0) L 02/28/18 08:52 MCV 94.9 fL (81.0-99.0) 02/28/18 08:52 MCH 33.1 pg (27.0-31.0) H 02/28/18 08:52 MCHC 34.9 g/dL (33.0-37.0) 02/28/18 08:52 RDW 12.4 % (11.5-14.5) 02/28/18 08:52 Plt Count 269 K/uL (130-400) 02/28/18 08:52 MPV 7.8 fL (7.2-11.7) 02/28/18 08:52 Neut % (Auto) 41.2 % (50.0-75.0) L 02/28/18 08:52 Lymph % (Auto) 30.9 % (20.0-40.0) 02/28/18 08:52 Powell % (Auto) 14.3 % (0.0-10.0) H 02/28/18 08:52 Eos % (Auto) 11.8 % (0.0-4.0) H 02/28/18 08:52 Baso % (Auto) 1.8 % (0.0-2.0) 02/28/18 08:52 Neut # (Auto) 2.0 K/uL (1.8-7.0) 02/28/18 08:52 Lymph # (Auto) 1.5 K/uL (1.0-4.3) 02/28/18 08:52 Powell # (Auto) 0.7 K/uL (0.0-0.8) 02/28/18 08:52 Eos # (Auto) 0.6 K/uL (0.0-0.7) 02/28/18 08:52 Baso # (Auto) 0.1 K/uL (0.0-0.2) 02/28/18 08:52 Sodium 138 mmol/L (132-148) 03/01/18 06:30 Potassium 3.9 mmol/L (3.6-5.2) 03/01/18 06:30 Chloride 101 mmol/L (98-107) 03/01/18 06:30 Carbon Dioxide 25 mmol/L (22-30) 03/01/18 06:30 Anion Gap 16 (10-20) 03/01/18 06:30 BUN 19 mg/dL (7-17) H 03/01/18 06:30 Creatinine 0.6 mg/dL (0.7-1.2) L 03/01/18 06:30 Est GFR ( Amer) > 60 03/01/18 06:30 Est GFR (Non-Af Amer) > 60 03/01/18 06:30 Random Glucose 101 mg/dL (65-105) 03/01/18 06:30 Calcium 8.6 mg/dl (8.6-10.4) 03/01/18 06:30 Total Bilirubin 0.6 mg/dL (0.2-1.3) 02/28/18 08:52 AST 41 U/L (14-36) H D 02/28/18 08:52 ALT 17 U/L (9-52) 02/28/18 08:52 Alkaline Phosphatase 100 U/L (38-126) 02/28/18 08:52 Total Protein 7.9 g/dL (6.3-8.3) 02/28/18 08:52 Albumin 3.6 g/dL (3.5-5.0) 02/28/18 08:52 Globulin 4.3 gm/dL (2.2-3.9) H 02/28/18 08:52 Albumin/Globulin Ratio 0.8 (1.0-2.1) L 02/28/18 08:52 Urine Color Yellow (YELLOW) 02/28/18 09:48 Urine Clarity Clear (Clear) 02/28/18 09:48 Urine pH 5.0 (5.0-8.0) 02/28/18 09:48 Ur Specific [place] 1.012 (1.003-1.030) 02/28/18 09:48 Urine Protein Negative mg/dL (NEGATIVE) 02/28/18 09:48 Urine Glucose (UA) Normal mg/dL (Normal) 02/28/18 09:48 Urine Ketones Trace mg/dL (NEGATIVE) 02/28/18 09:48 Urine Blood Negative (NEGATIVE) 02/28/18 09:48 Urine Nitrate Negative (NEGATIVE) 02/28/18 09:48 Urine Bilirubin Negative (NEGATIVE) 02/28/18 09:48 Urine Urobilinogen Normal mg/dL (0.2-1.0) 02/28/18 09:48 Ur Leukocyte Esterase Neg Jerod/uL (Negative) 02/28/18 09:48 Urine WBC (Auto) 1 /hpf (0-5) 02/28/18 09:48 Urine RBC (Auto) 1 /hpf (0-3) 02/28/18 09:48 Ur Squamous Epith Cells < 1 /hpf (0-5) 02/28/18 09:48 Acetaminophen < 10.0 ug/mL (10.0-30.0) L 02/28/18 10:29 Phenytoin 19.2 ug/mL (10-20) 03/01/18 06:30 - Hospital Course Hospital Course: Pt is for discharge today Discharge Plan - Follow Up Plan Condition: GOOD Disposition: HOME/ ROUTINE Instructions: Heart Healthy Diet, Seizures, Adult (DC), Phenytoin Additional Instructions: PLEASE CALL FOR APPOINTMENT TO SEE DR. PARRA IN HIS CLINIC OFFICE IN A WEEK AFTER LEAVING THE HOSPITAL. TAKE YOUR MEDICATIONS INSTRUCTED BY YOUR DOCTOR. RESUME DILANTIN TOMORROW. Referrals: Mor Parra MD [Staff Provider] -
--- NOTE | 2018-03-04 22:57 | CARD ---
APPROVED REPORT EKG Measurement Heart [id number] <Conclusion> Normal sinus rhythm Moderate voltage criteria for LVH, may be normal variant Borderline ECG
== END 2018-03-02 13:08 | disposition home or self-care (01) ==
LOC: C.ER 07:51 → C.9E 10:05 → C.6T 14:23
PROVIDERS: ADMIT Internal Medicine; ATTEND Internal Medicine
DX: G92 Toxic encephalopathy (principal); T42.0X5A Adverse effect of hydantoin derivatives, initial encounter; F03.90 Unspecified dementia, unspecified severity, without behavioral disturbance, psychotic disturbance, mood disturbance, and anxiety; F32.3 Major depressive disorder, single episode, severe with psychotic features; F41.9 Anxiety disorder, unspecified; R56.9 Unspecified convulsions; I10 Essential (primary) hypertension; E78.00 Pure hypercholesterolemia, unspecified; H26.9 Unspecified cataract; K29.70 Gastritis, unspecified, without bleeding; S09.90XA Unspecified injury of head, initial encounter; W19.XXXA Unspecified fall, initial encounter; Z87.01 Personal history of pneumonia (recurrent); Z88.0 Allergy status to penicillin
CPT/HCPCS: 36415; 80048; 80053; 80185; 81001; 85025; 97116; 97162; 99284; G0378; G0480; G8978; G8979; J1650; J7040

== ENCOUNTER 2018-10-22 12:03 | Inpatient (IN) | payer OTHER ==
[2018-10-22 12:35] VITALS: BMI 107.6
[2018-10-22] MEDS ORDERED: Sodium Chloride 0.9% 1,000 ML IV STA ×2 (12:35→18:24)
[2018-10-22] MEDS ORDERED: Sodium Chloride 0.9% 1,000 ML ONE (12:47)
--- NOTE | 2018-10-22 14:05 | CT ---
Date of service: 10/22/2018 PROCEDURE: CT HEAD WITHOUT CONTRAST. HISTORY: headache, dizziness COMPARISON: Noncontrast head CT performed 02/27/18 TECHNIQUE: Axial computed tomography images were obtained through the head/brain without intravenous contrast. Radiation dose: Total exam DLP = 1103.6 mGy-cm. This CT exam was performed using one or more of the following dose reduction techniques: Automated exposure control, adjustment of the mA and/or kV according to patient size, and/or use of iterative reconstruction technique. FINDINGS: HEMORRHAGE: No intracranial hemorrhage. BRAIN: Diffuse atrophy with prominence of the ventricles and sulci noted. No mass effect or edema. Dense intracranial atherosclerosis. Scattered periventricular and subcortical white matter hypodensities, which are nonspecific, but often seen with chronic microvascular ischemic disease. Bilateral basal ganglia lacunar type infarcts. Please note that MRI with diffusion imaging is more sensitive in the detection of acute ischemic event. VENTRICLES: No hydrocephalus. CALVARIUM: Unremarkable. PARANASAL SINUSES: Marked mucosal thickening of the ethmoid air cells and frontal sinuses. MASTOID AIR CELLS: Unremarkable as visualized. No inflammatory changes. OTHER FINDINGS: Chronic fracture deformity of the right lamina papyracea. IMPRESSION: Generalized atrophy. Nonspecific white matter changes. Chronic appearing bilateral basal ganglia lacunar type infarcts. Marked mucosal thickening of the ethmoid air cells and frontal sinuses. Correlate clinically for sinusitis.
--- NOTE | 2018-10-22 14:09 | C.PDOC ---
History Of Present Illness 77 y/o female, w/PMhx of HTN and hypercholesterolemia, brought to ER by ambulance, complaining of dizziness which has been present for the past few days. Patient states that she fell because of the dizziness. Patient reports that she had a headache which has resolved now. Currently, patient denies having dizziness, nausea, vomiting, weakness, and numbness. Time Seen by Provider: 10/22/18 12:07 Chief Complaint (Nursing): Dizziness/Lightheaded History Per: Patient History/Exam Limitations: no limitations Onset/Duration Of Symptoms: Days Current Symptoms Are (Timing): Gone Severity: Moderate Past Medical History Reviewed: Historical Data, Nursing Documentation, Vital Signs Vital Signs: Last Vital Signs Temp 97.8 F 10/22/18 12:35 Pulse 79 10/22/18 12:35 Resp 18 10/22/18 12:35 BP 153/80 H 10/22/18 12:35 Pulse Ox 95 10/22/18 12:35 - Medical History PMH: Anxiety, Bipolar Disorder, Bronchitis, Depression, Gastritis, HTN, Hypercholesterolemia, Paranoia, Pneumonia, Schizophrenia, Seizures Denies: Chronic Kidney Disease Surgical History: Cholecystectomy ( PER PREVIOUS CHART) - [facility] Procedures CLOSURE SKIN & SUBCUTANEOUS NEC (09/15/13) DX ULTRASOUND-HEART (09/11/14) ESOPHAGOGASTRODUODENOSCOPY [EGD] W/CLOSED BIOPSY (10/11/14) OTHER ESOPHAGOSCOPY (09/11/14) TETANUS TOXOID ADMINIST (09/15/13) VACCINATION NEC (10/11/14) VENOUS CATHETERIZATION NEC (09/11/14) Family History: States: No Known Family Hx - Social History Hx Tobacco Use: No Hx Alcohol Use: No Hx Substance Use: No - Immunization History Hx Tetanus Toxoid Vaccination: No Hx Influenza Vaccination: No Hx Pneumococcal Vaccination: No Review Of Systems Except As Marked, All Systems Reviewed And Found Negative. Constitutional: Negative for: Fever, Chills Cardiovascular: Negative for: Chest Pain Respiratory: Negative for: Shortness of Breath Gastrointestinal: Negative for: Nausea, Vomiting Neurological: Positive for: Headache, Dizziness. Negative for: Weakness, Numbness Physical Exam - Physical Exam Additional Physical Exam Comments: Constitutional: No acute distress. Head: Normocephalic. Atraumatic. Eyes: PERRL. ENT: Moist mucous membranes. Neck: Supple. Cardiovascular: Regular rate. Radial pulse 2+ bilaterally. Chest: No tenderness. Respiratory: Clear to auscultation bilaterally. GI: Soft. Nontender. Nondistended. Back: No CVA tenderness. Musculoskeletal: No tenderness or swelling of extremities. Skin: No rash. Neurologic: Alert, no focal deficit.Finger to nose, heel to rouse negative. ED Course And Treatment - Laboratory Results Result Diagrams: 10/22/18 15:56 10/22/18 14:59 O2 Sat by Pulse Oximetry: 95 (RA) Pulse Ox Interpretation: Normal Central Line Placement - Central Line Placement Indication: Unable To Obtain Adequate Peripheral Access Central Line Placement: Left: Femoral (under US guidance) The Area Was Thoroughly Prepared With: Betadine, Draped Using Sterile Technique Area Was Locally Anesthetized With: Lidocaine 1% Procedure: Triple Lumen, Placed Using Standard Seldinger Technique, Catheter Was Sewn Into Place, Sterile Dressing Placed Over Line, Procedure Tolerated Well Medical Decision Making Medical Decision Making: Plan: --Labs --CT-Head --CXR --UA --Meclizine PO --IV Fluids CXR Results IMPRESSION: Marked cardiomegaly. Patchy right lower lobe infiltrate suspicious for pneumonia. Mild pulmonary venous congestion. CT-Head Results IMPRESSION: Generalized atrophy. Nonspecific white matter changes. Chronic appearing bilateral basal ganglia lacunar type infarcts. Marked mucosal thickening of the ethmoid air cells and frontal sinuses. Correlate clinically for sinusitis. Patient elderly, asks repetitive questions, PORT Score category III, will need admission for pneumonia. Dr. Parra accepts to his service. Disposition - Disposition Disposition: HOSPITALIZED Disposition Time: 15:30 Condition: GUARDED - POA Core Measure Indicators: Pneumonia - Clinical Impression Clinical Impression: Pneumonia - Scribe Statement The provider has reviewed the documentation as recorded by the Scribe Sima Ayad Provider Attestation: All medical record entries made by the Scribe were at my direction and personally dictated by me. I have reviewed the chart and agree that the record accurately reflects my personal performance of the history, physical exam, medical decision making, and the department course for this patient. I have also personally directed, reviewed, and agree with the discharge instructions and disposition.
--- NOTE | 2018-10-22 15:20 | RAD ---
HISTORY: dizziness COMPARISON: Chest x-ray performed 02/23/18 TECHNIQUE: Chest, one view. FINDINGS: Examination limited by habitus and hypoinflation. LUNGS: Patchy right lower lobe infiltrate suspicious for pneumonia. Mild pulmonary venous congestion. Please note that chest x-ray has limited sensitivity for the detection of pulmonary masses. PLEURA: No significant pleural effusion identified. No definite pneumothorax . CARDIOVASCULAR: Marked cardiomegaly. Dense atherosclerotic calcification present. OSSEOUS STRUCTURES: Degenerative changes. VISUALIZED UPPER ABDOMEN: Unremarkable. OTHER FINDINGS: None. IMPRESSION: Marked cardiomegaly. Patchy right lower lobe infiltrate suspicious for pneumonia. Mild pulmonary venous congestion.
[2018-10-22 15:22] LABS: BLOOD UREA NITROGEN 11 mg/dL (7-17); CALCIUM 8.8 mg/dl (8.6-10.4); GFR NON-AFRICAN AMERICAN > 60
[2018-10-22 15:27] LABS: ALBUMIN 3.9 g/dL (3.5-5.0); ALT/SGPT 9 U/L (9-52); AST/SGOT 59 U/L (14-36)
[2018-10-22 16:18] LABS: BASO # 0.1 K/uL (0.0-0.2); EOS # 0.8 K/uL (0.0-0.7); EOS % 18.1 % (0.0-4.0); HEMOGLOBIN 11.5 g/dL (11.0-16.0); LYMPH # 1.6 K/uL (1.0-4.3); LYMPH % 35.8 % (20.0-40.0); MEAN CELL VOLUME 95.7 fL (81.0-99.0); MEAN CORPUSCULAR HGB CONC 34.5 g/dL (33.0-37.0); MEAN PLATELET VOLUME 7.3 fL (7.2-11.7); MONO # 0.4 K/uL (0.0-0.8); NEUT # 1.5 K/uL (1.8-7.0); NEUT % 34.1 % (50.0-75.0); NRBC % 0.2 % (0.0-2.0); RBC 3.47 Mil/uL (3.80-5.20); RED CELL DISTRIBUTION WIDTH 12.9 % (11.5-14.5); WHITE BLOOD COUNT 4.3 K/uL (4.8-10.8)
[2018-10-22] MEDS ORDERED: Moxifloxacin IV 400mg/250ml NS 400 MG/250 ML BAG IVPB ONE ×2 (18:24→18:33)
[2018-10-22 19:56] VITALS: RESP 20
[2018-10-22] MEDS: Phenytoin 100 mg/4 ml Oral Susp UD PO SCH (22:32)
[2018-10-23] MEDS: Azithromycin 500 MG in Sodium Chloride 0.9% 250 ML IVPB SCH (09:14)
[2018-10-23] MEDS: Multiple Vitamins Tab PO SCH (09:14)
[2018-10-23] MEDS: Enoxaparin 40 mg Syringe SC SCH (09:14)
--- NOTE | 2018-10-23 10:54 | CARD ---
APPROVED REPORT Date of service: 10/22/2018 EKG Measurement Heart [id number] <Conclusion> Normal sinus rhythm Moderate voltage criteria for LVH, may be normal variant Borderline ECG
--- NOTE | 2018-10-23 21:55 | CP.PCM.HP ---
Past Patient History - Infectious Disease Hx of Infectious Diseases: None - Past Medical History & Family History Past Medical History?: Yes - Past Social History Smoking Status: Never Smoked - CARDIAC Hx Hypercholesterolemia: Yes Hx Hypertension: Yes - PULMONARY Hx Bronchitis: Yes Hx Pneumonia: Yes - NEUROLOGICAL Hx Seizures: Yes - HEENT Hx HEENT Problems: Yes Hx Cataracts: Yes - RENAL Hx Chronic Kidney Disease: No - ENDOCRINE/METABOLIC Hx Endocrine Disorders: No - INTEGUMENTARY Hx Dermatological Problems: No - MUSCULOSKELETAL/RHEUMATOLOGICAL Hx Falls: No - GASTROINTESTINAL Hx Gastritis: Yes - PSYCHIATRIC Hx Substance Use: No - SURGICAL HISTORY Hx Cholecystectomy: Yes ( PER PREVIOUS CHART) - ANESTHESIA Hx Anesthesia: Yes Hx Anesthesia Reactions: No Hx Malignant Hyperthermia: No Has any member of the family had a problem w/ anesthesia?: No Meds Allergies/Adverse Reactions: Allergies Allergy/AdvReac Type Severity Reaction Status Date / Time Penicillins Allergy Severe ANAPHYLAXIS Verified 10/22/18 12:37 cigarette smoke Allergy COUGH Verified 10/22/18 12:37 Results - Vital Signs Recent Vital Signs: Last Vital Signs Temp 98.3 F 10/23/18 15:45 Pulse 76 10/23/18 15:45 Resp 20 10/23/18 15:45 BP 129/66 10/23/18 15:45 Pulse Ox 95 10/23/18 15:45 - Labs Result Diagrams: 10/22/18 15:56 10/22/18 14:59
[2018-10-24 09:02] LABS: BLOOD UREA NITROGEN 15 mg/dL (7-17); CALCIUM 8.1 mg/dl (8.6-10.4); GFR NON-AFRICAN AMERICAN > 60
[2018-10-24] MEDS ORDERED: Influenza Vaccine 60 MCG/0.5 ML SYR (3 yr & up) IM ONE (10:00)
[2018-10-24] MEDS: Enoxaparin 40 mg Syringe SC SCH (10:41)
[2018-10-24] MEDS: Multiple Vitamins Tab PO SCH (10:45)
[2018-10-24] MEDS: Azithromycin 500 MG in Sodium Chloride 0.9% 250 ML IVPB SCH (10:47)
[2018-10-24] MEDS: Phenytoin 100 mg/4 ml Oral Susp UD PO SCH (18:20)
--- NOTE | 2018-10-24 23:48 | CP.PCM.PN ---
Subjective - Subjective Subjective: dictated Objective - Vital Signs/Intake and Output Vital Signs (last 24 hours): Temp Pulse Resp BP Pulse Ox 98.6 F 79 20 141/64 95 10/24/18 15:00 10/24/18 15:00 10/24/18 15:00 10/24/18 15:00 10/24/18 15:00 Intake and Output: 10/24/18 10/25/18 18:59 06:59 Intake Total 320 Balance 320 - Medications Medications: Current Medications Acetaminophen (Tylenol 325mg Tab) 650 mg PO Q6 PRN PRN Reason: pain/fever Last Admin: 10/23/18 04:41 Dose: 650 mg Aspirin (Ecotrin) 81 mg PO DAILY [facility] Last Admin: 10/24/18 10:45 Dose: 81 mg Donepezil HCl (Aricept) 5 mg PO HS [facility] Last Admin: 10/24/18 21:46 Dose: 5 mg Enoxaparin Sodium (Lovenox) 40 mg SC DAILY [facility] Last Admin: 10/24/18 10:41 Dose: 40 mg Azithromycin 500 mg/ Sodium (Chloride) 250 mls @ 250 mls/hr IVPB DAILY [facility]; Protocol Last Admin: 10/24/18 10:47 Dose: 250 mls/hr Multivitamins (Hexavitamin) 1 tab PO DAILY [facility] Last Admin: 10/24/18 10:45 Dose: 1 tab Phenobarbital (Phenobarbital Tab) 32.4 mg PO TID [facility] Last Admin: 10/24/18 17:38 Dose: 32.4 mg Phenytoin (Dilantin) 100 mg PO BID [facility] Last Admin: 10/24/18 18:20 Dose: 100 mg Phenytoin (Dilantin) 50 mg PO DAILY [facility] Last Admin: 10/23/18 09:13 Dose: 50 mg Risperidone (Risperdal Tab) 0.5 mg PO BID [facility] Last Admin: 10/24/18 17:38 Dose: 0.5 mg Rosuvastatin Calcium (Crestor) 20 mg PO HS [facility] Last Admin: 10/24/18 21:46 Dose: 20 mg Sodium Chloride (Sodium Chloride Tab) 1 gm PO Q8 [facility] Last Admin: 10/24/18 21:46 Dose: 1 gm - Labs Labs: 10/22/18 15:56 10/24/18 07:51
--- NOTE | 2018-10-25 02:44 | PN ---
DATE: 10/24/2018 SUBJECTIVE: The patient feels better. Her Dilantin was on hold because of elevated level. Dilantin level is down, so we will resume Dilantin. PHYSICAL EXAMINATION: VITAL SIGNS: Blood pressure 141/64, pulse 79, respiratory rate 20, and temperature 98.6. LUNGS: Clear. CARDIOVASCULAR SYSTEM: S1 and S2, regular. ABDOMEN: Soft. ASSESSMENT: 1. Dizziness, syncope. 2. Seizure. 3. Hypertension. 4. Hyponatremia. PLAN: Continue current medications. Monitor the patient. Mor Parra MD
--- NOTE | 2018-10-25 03:02 | HP ---
CHIEF COMPLIANT: Dizziness and syncope. HISTORY OF PRESENT ILLNESS: This is a 77-year-old female, well known to me with history of seizure disorder, on multiple medications, hypertension, hyponatremia, and she has history of multiple ER visits and hospitalizations because of falls. The patient falls, and she gets frequent seizures attacks and in her usual status of health. She is ambulatory and independent in activities of daily living, compliant with her diet medication, and followup. The patient was brought into emergency room because she was having dizziness which lasted for few days. She had a fall as a result of dizziness. She had headache which was in the occipital area, non-radiating, associated with nausea, no vomiting. She denies any history of complete loss of consciousness. She denies any history of tongue bite, loss of consciousness, or incontinence of urine. She denies any abdominal pain, nausea, vomiting, or diarrhea. She denies any history of polyuria, polydipsia, polyphagia. She denies any skin rashes or bruises. There is no history of tingling, numbness, or paresthesias. PAST MEDICAL HISTORY: Seizure disorder, hypertension, hyponatremia, and bipolar disorder. SOCIAL HISTORY: Nonsmoker, non-ETOH user. CURRENT MEDICATIONS: The patient is on Dilantin, Risperdal, sodium chloride tablet, phenobarbital, Protonix, multivitamin, Aricept, Lipitor, aspirin, and Tylenol. PHYSICAL EXAMINATION: GENERAL: An elderly female, not in distress. VITAL SIGNS: Blood pressure 139/72, pulse 93, respiratory rate 20, and temperature 98.4. SKIN: No rashes. No bruises. No purpura. HEENT: Atraumatic. Normocephalic. Negative pallor. Negative jaundice. Extraocular movements are intact. NECK: Supple. No JVD. CHEST: Bilateral symmetrical expansion. LUNGS: Clear. No rales. No rhonchi. CARDIOVASCULAR: S1 and S2 regular. ABDOMEN: Soft, nontender. Bowel sounds are positive. RECTAL: No masses. No bleeding. EXTREMITIES: No clubbing, cyanosis, or edema. CENTRAL NERVOUS SYSTEM: Awake, alert and oriented x3. Cranial nerves II through XII are normal. Power 5/5 x4. ASSESSMENT: 1. Dizziness, fall, rule out cardiac arrhythmia, rule out seizure; rule out hyponatremia, electrolyte imbalance. 2. Hypertension. 3. Bipolar disorder. PLAN: Continue current medication. Neuro check. Fall, seizure precaution. Mor Parra MD
[2018-10-25] MEDS: Azithromycin 500 MG in Sodium Chloride 0.9% 250 ML IVPB SCH (10:16)
[2018-10-25] MEDS: Multiple Vitamins Tab PO SCH (10:17)
[2018-10-25] MEDS: Enoxaparin 40 mg Syringe SC SCH (10:17)
[2018-10-25] MEDS: Phenytoin 100 mg/4 ml Oral Susp UD PO SCH ×2 (10:18→18:22)
--- NOTE | 2018-10-25 16:38 | CP.PCM.PN ---
Subjective - Date & Time of Evaluation Date of Evaluation: 10/25/18 Time of Evaluation: 16:38 - Subjective Subjective: PATIENT SEEN AND EXAMINED AT THE BEDSIDE Objective - Vital Signs/Intake and Output Vital Signs (last 24 hours): Temp Pulse Resp BP Pulse Ox 98.1 F 81 20 166/85 H 96 10/25/18 08:59 10/25/18 13:52 10/25/18 08:59 10/25/18 08:59 10/25/18 13:52 Intake and Output: 10/25/18 10/25/18 06:59 18:59 Intake Total 320 Balance 320 - Medications Medications: Current Medications Acetaminophen (Tylenol 325mg Tab) 650 mg PO Q6 PRN PRN Reason: pain/fever Last Admin: 10/25/18 02:17 Dose: 650 mg Aspirin (Ecotrin) 81 mg PO DAILY [facility] Last Admin: 10/25/18 10:17 Dose: 81 mg Donepezil HCl (Aricept) 5 mg PO HS [facility] Last Admin: 10/24/18 21:46 Dose: 5 mg Enoxaparin Sodium (Lovenox) 40 mg SC DAILY [facility] Last Admin: 10/25/18 10:17 Dose: 40 mg Azithromycin 500 mg/ Sodium (Chloride) 250 mls @ 250 mls/hr IVPB DAILY [facility]; Protocol Last Admin: 10/25/18 10:16 Dose: 250 mls/hr Multivitamins (Hexavitamin) 1 tab PO DAILY [facility] Last Admin: 10/25/18 10:17 Dose: 1 tab Phenobarbital (Phenobarbital Tab) 32.4 mg PO TID [facility] Last Admin: 10/25/18 13:52 Dose: 32.4 mg Phenytoin (Dilantin) 100 mg PO BID [facility] Last Admin: 10/25/18 10:18 Dose: 100 mg Phenytoin (Dilantin) 50 mg PO DAILY [facility] Last Admin: 10/25/18 10:18 Dose: 50 mg Risperidone (Risperdal Tab) 0.5 mg PO BID [facility] Last Admin: 10/25/18 10:17 Dose: 0.5 mg Rosuvastatin Calcium (Crestor) 20 mg PO HS [facility] Last Admin: 10/24/18 21:46 Dose: 20 mg Sodium Chloride (Sodium Chloride Tab) 1 gm PO Q8 [facility] Last Admin: 10/25/18 13:52 Dose: 1 gm - Labs Labs: 10/22/18 15:56 10/24/18 07:51 Assessment and Plan - Assessment and Plan (Free Text) Assessment: FOLLOW UP WITH DR SPANGLER IN HIS OFFICE -----CALL FOR APPOINTMENT CONTINUE HOME MEDICATION NEW PRESCRIPTION GIVEN BACTRIM DS PO ONE TAB BID FOR 5 DAYS DILANTIN 100 MG Q12H PO AND DILANTIN 50 MG PO DAILY [facility] CALL DR SPANGLER OR GO TO THE EMERGENCY ROOM IF SYMPTOM RETURN OR WORSENING
[2018-10-25 17:47] VITALS: BP 150/84; PULSE 77; TEMP 97.9; O2SAT 95
--- NOTE | 2018-10-25 19:12 | CP.PCM.PN ---
Subjective - Subjective Subjective: dictated Objective - Vital Signs/Intake and Output Vital Signs (last 24 hours): Temp Pulse Resp BP Pulse Ox 97.9 F 77 20 150/84 95 10/25/18 15:46 10/25/18 15:46 10/25/18 15:46 10/25/18 15:46 10/25/18 15:46 - Medications Medications: Current Medications Acetaminophen (Tylenol 325mg Tab) 650 mg PO Q6 PRN PRN Reason: pain/fever Last Admin: 10/25/18 02:17 Dose: 650 mg Aspirin (Ecotrin) 81 mg PO DAILY [facility] Last Admin: 10/25/18 10:17 Dose: 81 mg Donepezil HCl (Aricept) 5 mg PO HS [facility] Last Admin: 10/24/18 21:46 Dose: 5 mg Enoxaparin Sodium (Lovenox) 40 mg SC DAILY [facility] Last Admin: 10/25/18 10:17 Dose: 40 mg Azithromycin 500 mg/ Sodium (Chloride) 250 mls @ 250 mls/hr IVPB DAILY [facility]; Protocol Last Admin: 10/25/18 10:16 Dose: 250 mls/hr Multivitamins (Hexavitamin) 1 tab PO DAILY [facility] Last Admin: 10/25/18 10:17 Dose: 1 tab Phenobarbital (Phenobarbital Tab) 32.4 mg PO TID [facility] Last Admin: 10/25/18 18:09 Dose: 32.4 mg Phenytoin (Dilantin) 100 mg PO BID [facility] Last Admin: 10/25/18 18:22 Dose: 100 mg Phenytoin (Dilantin) 50 mg PO DAILY [facility] Last Admin: 10/25/18 10:18 Dose: 50 mg Risperidone (Risperdal Tab) 0.5 mg PO BID [facility] Last Admin: 10/25/18 18:09 Dose: 0.5 mg Rosuvastatin Calcium (Crestor) 20 mg PO HS [facility] Last Admin: 10/24/18 21:46 Dose: 20 mg Sodium Chloride (Sodium Chloride Tab) 1 gm PO Q8 [facility] Last Admin: 10/25/18 13:52 Dose: 1 gm - Labs Labs: 10/22/18 15:56 10/24/18 07:51
--- NOTE | 2018-10-26 00:10 | PN ---
DATE: 10/25/2018 SUBJECTIVE: The patient, Sydnee Mayes, is delusional. She is calm. She is quiet. She has dizziness. No fever. No chills. PHYSICAL EXAMINATION VITAL SIGNS: Blood pressure 150/84, pulse 77, respiratory rate 20, temperature 97.9. LUNGS: Clear. CARDIOVASCULAR SYSTEM: S1 and S2 regular. ABDOMEN: Soft. ASSESSMENT: 1. Dizziness, near-syncope, rule out seizure versus vasovagal. 2. Hypertension. 3. Seizure disorder with Dilantin level fluctuating. PLAN: Monitor the patient. Neuro check. Fall and seizure precaution. Mor Parra MD
--- NOTE | 2018-10-31 12:34 | CP.PCM.DIS ---
Provider - Provider Date of Admission: 10/22/18 17:02 Attending physician: Mor Parra MD Hospital Course - Lab Results Lab Results: Micro Results 10/22/18 18:57 Blood-Venous Blood Culture - Final NO GROWTH AFTER 5 DAYS 10/22/18 18:57 Blood-Venous Gram Stain - Final TEST NOT PERFORMED 10/22/18 18:57 Blood-Venous Blood Culture - Final NO GROWTH AFTER 5 DAYS 10/22/18 18:57 Blood-Venous Gram Stain - Final TEST NOT PERFORMED 10/23/18 08:09 Sputum Gram Stain - Final 10/23/18 08:09 Sputum Sputum Culture - Final NORMAL ORAL STELLA Most Recent Lab Values WBC 4.3 K/uL (4.8-10.8) L 10/22/18 15:56 RBC 3.47 Mil/uL (3.80-5.20) L 10/22/18 15:56 Hgb 11.5 g/dL (11.0-16.0) 10/22/18 15:56 Hct 33.2 % (34.0-47.0) L 10/22/18 15:56 MCV 95.7 fL (81.0-99.0) 10/22/18 15:56 MCH 33.0 pg (27.0-31.0) H 10/22/18 15:56 MCHC 34.5 g/dL (33.0-37.0) 10/22/18 15:56 RDW 12.9 % (11.5-14.5) 10/22/18 15:56 Plt Count 249 K/uL (130-400) 10/22/18 15:56 MPV 7.3 fL (7.2-11.7) 10/22/18 15:56 Neut % (Auto) 34.1 % (50.0-75.0) L 10/22/18 15:56 Lymph % (Auto) 35.8 % (20.0-40.0) 10/22/18 15:56 [place] % (Auto) 9.0 % (0.0-10.0) 10/22/18 15:56 Eos % (Auto) 18.1 % (0.0-4.0) H 10/22/18 15:56 Baso % (Auto) 3.0 % (0.0-2.0) H 10/22/18 15:56 Neut # (Auto) 1.5 K/uL (1.8-7.0) L 10/22/18 15:56 Lymph # (Auto) 1.6 K/uL (1.0-4.3) 10/22/18 15:56 [place] # (Auto) 0.4 K/uL (0.0-0.8) 10/22/18 15:56 Eos # (Auto) 0.8 K/uL (0.0-0.7) H 10/22/18 15:56 Baso # (Auto) 0.1 K/uL (0.0-0.2) 10/22/18 15:56 Sodium 137 mmol/L (132-148) 10/24/18 07:51 Potassium 4.2 mmol/L (3.6-5.2) 10/24/18 07:51 Chloride 103 mmol/L (98-107) 10/24/18 07:51 Carbon Dioxide 26 mmol/L (22-30) 10/24/18 07:51 Anion Gap 12 (10-20) 10/24/18 07:51 BUN 15 mg/dL (7-17) 10/24/18 07:51 Creatinine 0.6 mg/dL (0.7-1.2) L 10/24/18 07:51 Est GFR ( Amer) > 60 10/24/18 07:51 Est GFR (Non-Af Amer) > 60 10/24/18 07:51 POC Glucose (mg/dL) 95 mg/dL (65-110) 10/22/18 12:28 Random Glucose 101 mg/dL (65-105) 10/24/18 07:51 Calcium 8.1 mg/dl (8.6-10.4) L 10/24/18 07:51 Total Bilirubin 0.9 mg/dL (0.2-1.3) 10/22/18 14:59 AST 59 U/L (14-36) H D 10/22/18 14:59 ALT 9 U/L (9-52) D 10/22/18 14:59 Alkaline Phosphatase 126 U/L (38-126) D 10/22/18 14:59 Total Protein 7.8 g/dL (6.3-8.3) 10/22/18 14:59 Albumin 3.9 g/dL (3.5-5.0) 10/22/18 14:59 Globulin 4.0 gm/dL (2.2-3.9) H 10/22/18 14:59 Albumin/Globulin Ratio 1.0 (1.0-2.1) 10/22/18 14:59 Phenytoin 7.7 ug/mL (10-20) L 10/24/18 07:51 Discharge Plan - Discharge Medications Prescriptions: Sulfamethoxazole/Trimethoprim [Bactrim DS 800 mg-160 mg] 1 tab PO BID 5 Days tab Phenytoin [Dilantin] 100 mg PO Q12H 30 Days udc Phenytoin [Dilantin] 50 mg PO DAILY 30 Days ctb - Follow Up Plan Condition: GUARDED Disposition: HOME/ ROUTINE Instructions: Pneumonia, Adult (DC), Sulfamethoxazole and Trimethoprim, Phenytoin Additional Instructions: FOLLOW UP WITH DR PARRA IN HIS OFFICE -----CALL FOR APPOINTMENT CONTINUE HOME MEDICATION NEW PRESCRIPTION GIVEN BACTRIM DS PO ONE TAB BID FOR 5 DAYS DILANTIN 100 MG Q12H PO AND DILANTIN 50 MG PO DAILY [facility] CALL DR PARRA OR GO TO THE EMERGENCY ROOM IF SYMPTOM RETURN OR WORSENING Referrals: Mor Parra MD [Staff Provider] -
--- NOTE | 2018-11-03 07:45 | DS ---
DISCHARGE DIAGNOSES: Pneumonia, seizure disorder, syncope, hypertension, hyponatremia. HISTORY OF PRESENT ILLNESS: This is a 77-year-old female with a history of seizure disorder, on multiple medications who came in because of seizure. The patient was admitted to the floor. The patient was started on neuro watch and seizure precaution. She was found to have an infiltration in the right lower lobe which was treated. The patient felt better. She was treated, stabilized and discharged with outpatient followup. Condition upon discharge is stable. LABORATORY DATA: WBC 4.3, hemoglobin 11.5, hematocrit 33.2, platelets are normal 249. Sodium 137, potassium 4.2, chloride 103, bicarb 26, BUN 12, creatinine 0.6. CONDITION UPON DISCHARGE: Stable. Mor Parra MD
== END 2018-10-25 19:57 | disposition home or self-care (01) | DRG 194 ==
LOC: C.ER 12:03 → C.9E 17:02 → C.6T 18:02
PROVIDERS: ADMIT Internal Medicine; ATTEND Internal Medicine
DX: J18.9 Pneumonia, unspecified organism (principal); E87.1 Hypo-osmolality and hyponatremia; F20.9 Schizophrenia, unspecified; F31.9 Bipolar disorder, unspecified; F41.9 Anxiety disorder, unspecified; E78.00 Pure hypercholesterolemia, unspecified; I10 Essential (primary) hypertension; G40.909 Epilepsy, unspecified, not intractable, without status epilepticus; E87.8 Other disorders of electrolyte and fluid balance, not elsewhere classified; R55 Syncope and collapse; Z88.0 Allergy status to penicillin

== ENCOUNTER 2018-12-08 06:22 | Emergency (ER) | payer OTHER ==
[2018-12-08 06:22] VITALS: BMI 107.6
[2018-12-08 06:37] VITALS: TEMP 97.8
[2018-12-08] MEDS ORDERED: Sodium Chloride 0.9% 500 ML IV ONE ×2 (07:35→08:06)
[2018-12-08] MEDS ORDERED: Albuterol 0.083% Inhal Sol (2.5 mg/3 mL) UD IH STA (07:35)
--- NOTE | 2018-12-08 08:07 | C.PDOC ---
History Of Present Illness 78 y/o female presents to the ER for evaluation after she began feeling that her tongue was heavy when she woke up around 3 am. Patient states that she she has choking sensation which is worse with swallowing. Patient reports that she has mild sore throat. Denies having fever, runny nose, cough, CP, SOB, and palpitations. Time Seen by Provider: 12/08/18 07:03 Chief Complaint (Nursing): ENT Problem History Per: Patient History/Exam Limitations: no limitations Onset/Duration Of Symptoms: Hrs Current Symptoms Are (Timing): Still Present Severity: Moderate Past Medical History Reviewed: Historical Data, Nursing Documentation, Vital Signs Vital Signs: Last Vital Signs Temp 97.8 F 12/08/18 06:30 Pulse 85 12/08/18 06:30 Resp 22 12/08/18 06:30 BP 158/78 H 12/08/18 06:30 Pulse Ox 95 12/08/18 06:30 - Medical History PMH: Anxiety, Bipolar Disorder, Bronchitis, Depression, Gastritis, HTN, Hyperch olesterolemia, Paranoia, Pneumonia, Schizophrenia, Seizures Denies: Chronic Kidney Disease Surgical History: Cholecystectomy ( PER PREVIOUS CHART) - [facility] Procedures CLOSURE SKIN & SUBCUTANEOUS NEC (09/15/13) DX ULTRASOUND-HEART (09/11/14) ESOPHAGOGASTRODUODENOSCOPY [EGD] W/CLOSED BIOPSY (10/11/14) OTHER ESOPHAGOSCOPY (09/11/14) TETANUS TOXOID ADMINIST (09/15/13) VACCINATION NEC (10/11/14) VENOUS CATHETERIZATION NEC (09/11/14) Family History: States: No Known Family Hx - Social History Hx Tobacco Use: No Hx Alcohol Use: No Hx Substance Use: No - Immunization History Hx Tetanus Toxoid Vaccination: No Hx Influenza Vaccination: No Hx Pneumococcal Vaccination: No Review Of Systems Except As Marked, All Systems Reviewed And Found Negative. Constitutional: Negative for: Fever, Chills ENT: Positive for: Throat Pain. Negative for: Nose Discharge Cardiovascular: Negative for: Chest Pain, Palpitations Respiratory: Negative for: Cough, Shortness of Breath Physical Exam - Physical Exam Appears: Non-toxic, No Acute Distress, Other (speaking in full sentences) Skin: Normal Color, Warm, Dry Head: Atraumatic, Normacephalic Eye(s): bilateral: Normal Inspection Nose: Normal Oral Mucosa: Moist, No Drooling Tongue: Normal Appearing, No Swelling, No Lesions Lips: Normal Appearing, No Swelling, No Lesions Throat: Erythema (mildly erythematous tonsils), No Exudate, No Drooling, Other (uvula midline) Neck: Supple Lymphatic: No Adenopathy (lymphadenopathy) Chest: Symmetrical Cardiovascular: Rhythm Regular Respiratory: Normal Breath Sounds, No Rales, No Rhonchi, No Wheezing Neurological/Psych: Oriented x3, Normal Speech ED Course And Treatment - Laboratory Results Result Diagrams: 12/08/18 08:01 12/08/18 08:01 O2 Sat by Pulse Oximetry: 95 (RA) Pulse Ox Interpretation: Normal Progress Note: Labs ordered. Patient treated with Solu-Medrol IV, IV Fluids, and Albuterol. Disposition Counseled Patient/Family Regarding: Studies Performed, Diagnosis, Need For Followup, Rx Given - Disposition Referrals: Mor Parra MD [Staff Provider] - Disposition: HOME/ ROUTINE Disposition Time: 09:20 Condition: STABLE Additional Instructions: FOLLOW UP WITH YOUR DOCTOR IN 1-2 DAYS USE MEDICATIONS DIRECTED RETURN TO EMERGENCY ROOM IF YOUR SYMPTOMS BECOME WORSE SEGUIR CON DIALLO MDICO EN 1-2 [facility] RAULITO SE DIRIGE VUELVA A LA LIZA DE EMER[facility] SI DINESH SNTOMAS SE HACEN PEOR Prescriptions: Benzonatate [Tessalon Perles] 100 mg PO BID PRN #15 sgl PRN Reason: Cough predniSONE [predniSONE Tab] 40 mg PO DAILY #6 tab Instructions: Viral Upper Respiratory Infection, Adult (DC) Forms: [facility] (Welsh) Print Language: HUNGARIAN - Clinical Impression Clinical Impression: Viral upper respiratory illness - Scribe Statement The provider has reviewed the documentation as recorded by the Scribe Sima Lion Provider Attestation: All medical record entries made by the Scribe were at my direction and personally dictated by me. I have reviewed the chart and agree that the record accurately reflects my personal performance of the history, physical exam, medical decision making, and the department course for this patient. I have also personally directed, reviewed, and agree with the discharge instructions and disposition.
[2018-12-08 08:13] LABS: BASO # 0.1 K/uL (0.0-0.2); BASO % 2.5 % (0.0-2.0); EOS # 0.8 K/uL (0.0-0.7); EOS % 21.6 % (0.0-4.0); HEMOGLOBIN 11.7 g/dL (11.0-16.0); LYMPH # 1.3 K/uL (1.0-4.3); LYMPH % 34.9 % (20.0-40.0); MEAN CORPUSCULAR HEMOGLOBIN 33.3 pg (27.0-31.0); MEAN CORPUSCULAR HGB CONC 33.8 g/dL (33.0-37.0); MONO # 0.6 K/uL (0.0-0.8); MONO % 14.5 % (0.0-10.0); NEUT % 26.5 % (50.0-75.0); PLATELET COUNT 277 K/uL (130-400); RED CELL DISTRIBUTION WIDTH 12.8 % (11.5-14.5); WHITE BLOOD COUNT 3.8 K/uL (4.8-10.8)
[2018-12-08 08:14] LABS: MEAN CELL VOLUME 98.6 fL (81.0-99.0)
[2018-12-08] MEDS ORDERED: Albuterol 0.083% Inhal Sol (2.5 mg/3 mL) UD ONE (08:17)
[2018-12-08 08:36] LABS: ALB/GLOB RATIO 1.2 (1.0-2.1); ALT/SGPT 25 U/L (9-52); AST/SGOT 33 U/L (14-36); BLOOD UREA NITROGEN 16 mg/dL (7-17); CALCIUM 8.7 mg/dl (8.6-10.4); GFR NON-AFRICAN AMERICAN > 60
[2018-12-08 09:03] LABS: BASOPHIL 2 % (0-2); EOSINOPHIL 26 % (0-4); LYMPHOCYTE 38 % (20-40); MONOCYTE 14 % (0-10); NEUTROPHIL 20 % (50-75); PLATELET ESTIMATE NORMAL (NORMAL); TOTAL CELLS COUNTED 100
[2018-12-08 09:04] LABS: ANISOCYTOSIS SLIGHT; HYPOCHROMIC SLIGHT; POIKILOCYTOSIS SLIGHT
[2018-12-08 09:40] VITALS: BP 156/73; PULSE 83; RESP 18; O2SAT 96
--- NOTE | 2018-12-08 11:55 | RAD ---
Date of service: 12/08/2018 HISTORY: cough COMPARISON: 10/21/2018. TECHNIQUE: Chest PA and lateral FINDINGS: LUNGS: No active pulmonary disease. PLEURA: No significant pleural effusion identified. No pneumothorax apparent. CARDIOVASCULAR: Atherosclerotic calcifications identified primarily aortic arch. No radiographic findings to suggest acute or significant cardiovascular disease. No pulmonary vascular congestion. OSSEOUS STRUCTURES: No significant abnormalities. VISUALIZED UPPER ABDOMEN: Normal. OTHER FINDINGS: None. IMPRESSION: No active disease. No significant interval change compared to the prior examination(s).
== END 2018-12-08 09:40 | disposition home or self-care (01) ==
LOC: C.ER 06:22
DX: J06.9 Acute upper respiratory infection, unspecified (principal)
CPT/HCPCS: 71046; 80053; 85025; 94640; 96361; 96374; 99284; J2930; J7040

== ENCOUNTER 2019-02-09 22:09 | Observation (INO) | payer OTHER ==
[2019-02-09 22:09] VITALS: BMI 107.6
[2019-02-09] MEDS ORDERED: Aspirin 325 mg EC Tablets PO STA (22:20)
--- NOTE | 2019-02-09 22:20 | C.PDOC ---
History Of Present Illness Patient presents with 3 days of chest discomfort worsening today. No f/c/n/v. Speaking in complete sentences. Dull , aching discomfort. Time Seen by Provider: 02/09/19 22:20 Chief Complaint (Nursing): Chest Pain History Per: Patient History/Exam Limitations: no limitations Onset/Duration Of Symptoms: Days (3) Current Symptoms Are (Timing): Still Present Context: Other Severity: Moderate Pain Scale Rating Of: 4 Quality: Dull, Tightness Associated Symptoms: denies: Nausea, Dyspnea Modifying Factors: None Exacerbating Factors: None Alleviating Factors: None Recent travel outside of the [place]: No Additional History Per: Patient Past Medical History Reviewed: Historical Data, Nursing Documentation, Vital Signs Vital Signs: Last Vital Signs Temp 97.9 F 02/09/19 22:16 Pulse 71 02/09/19 22:16 Resp 22 02/09/19 22:16 BP 165/76 H 02/09/19 22:16 Pulse Ox 99 02/09/19 22:16 - Medical History PMH: Anxiety, Bipolar Disorder, Bronchitis, Depression, Gastritis, HTN, H ypercholesterolemia, Paranoia, Pneumonia, Schizophrenia, Seizures Denies: Chronic Kidney Disease Surgical History: Cholecystectomy ( PER PREVIOUS CHART) - [facility] Procedures CLOSURE SKIN & SUBCUTANEOUS NEC (09/15/13) DX ULTRASOUND-HEART (09/11/14) ESOPHAGOGASTRODUODENOSCOPY [EGD] W/CLOSED BIOPSY (10/11/14) OTHER ESOPHAGOSCOPY (09/11/14) TETANUS TOXOID ADMINIST (09/15/13) VACCINATION NEC (10/11/14) VENOUS CATHETERIZATION NEC (09/11/14) Family History: States: Unknown Family Hx - Social History Hx Tobacco Use: No Hx Alcohol Use: No Hx Substance Use: No - Immunization History Hx Tetanus Toxoid Vaccination: No Hx Influenza Vaccination: No Hx Pneumococcal Vaccination: No Review Of Systems Constitutional: Negative for: Fever, Chills ENT: Negative for: Throat Pain Cardiovascular: Positive for: Chest Pain Respiratory: Negative for: Shortness of Breath Gastrointestinal: Negative for: Abdominal Pain Genitourinary: Negative for: Dysuria Musculoskeletal: Negative for: Back Pain Skin: Negative for: Rash Neurological: Negative for: Weakness Psych: Negative for: Anxiety Physical Exam - Physical Exam Appears: Non-toxic, No Acute Distress Skin: Warm, Dry Head: Normacephalic Eye(s): bilateral: Normal Inspection Oral Mucosa: Moist Neck: Supple Chest: Symmetrical Cardiovascular: Rhythm Regular Respiratory: No Rales, No Rhonchi, No Wheezing Gastrointestinal/Abdominal: Bowel Sounds (tympanic to percussion), Soft, No Tenderness, Distention Back: No CVA Tenderness Extremity: No Tenderness Extremity: Bilateral: Atraumatic Pulses: Left Dorsalis Pedis: Normal, Right Dorsalis Pedis: Normal Neurological/Psych: Oriented x3 Gait: Steady ED Course And Treatment - Laboratory Results Result Diagrams: 02/09/19 22:47 02/09/19 22:47 ECG: Interpreted By Me, Viewed By Me ECG Rhythm: Sinus Rhythm (74), Nonspecific Changes O2 Sat by Pulse Oximetry: 99 Pulse Ox Interpretation: Normal - Radiology CXR: Interpreted by Me, Viewed By Me CXR Interpretation: Yes: Other (unchanged from 12/08/18). No: Infiltrates, Fracture, Pnemothorax Disposition Discussed With Dr.: Mor Parra Comment: accepted the pt on his service and took over the care at 1:08 AM Counseled Patient/Family Regarding: Studies Performed, Diagnosis - Disposition Disposition: HOSPITALIZED Disposition Time: 22:20 Condition: FAIR Forms: [facility] (Vietnamese) - POA Present On Arrival: None - Clinical Impression Clinical Impression: Chest pain Decision To Admit - Pt Status Changed To: Hospital Disposition Of: Observation - . Bed Request Type: Telemetry Admitting Physician: Mor Parra Patient Diagnosis: Chest pain
[2019-02-09 22:50] LABS: BASO # 0.1 K/uL (0.0-0.2); EOS # 0.7 K/uL (0.0-0.7); EOS % 17.7 % (0.0-4.0); HEMOGLOBIN 11.5 g/dL (11.0-16.0); LYMPH # 1.2 K/uL (1.0-4.3); MEAN CORPUSCULAR HEMOGLOBIN 32.7 pg (27.0-31.0); MEAN CORPUSCULAR HGB CONC 33.7 g/dL (33.0-37.0); MEAN PLATELET VOLUME 7.1 fL (7.2-11.7); MONO # 0.4 K/uL (0.0-0.8); MONO % 9.9 % (0.0-10.0); NEUT # 1.4 K/uL (1.8-7.0); NEUT % 37.4 % (50.0-75.0); NRBC % 0.1 % (0.0-2.0); RBC 3.51 Mil/uL (3.80-5.20); RED CELL DISTRIBUTION WIDTH 12.5 % (11.5-14.5); WHITE BLOOD COUNT 3.7 K/uL (4.8-10.8)
[2019-02-09 22:57] LABS: INR 1.1; PROTHROMBIN TIME 11.8 SECONDS (9.7-12.2)
[2019-02-09 23:01] LABS: ALB/GLOB RATIO 1.2 (1.0-2.1); ALBUMIN 3.9 g/dL (3.5-5.0); ALT/SGPT 18 U/L (9-52); AST/SGOT 26 U/L (14-36); BLOOD UREA NITROGEN 12 mg/dL (7-17); CALCIUM 8.9 mg/dl (8.6-10.4); GFR NON-AFRICAN AMERICAN > 60
[2019-02-09 23:13] LABS: B-TYPE NATRIURETIC PEPTIDE 228 pg/mL (0-900)
[2019-02-10 01:04] LABS: SQUAMOUS EPITHIAL < 1 /hpf (0-5); URINE BILIRUBIN NEGATIVE (NEGATIVE); URINE BLOOD NEGATIVE (NEGATIVE); URINE CLARITY Clear (Clear); URINE COLOR Straw (YELLOW); URINE GLUCOSE (UA) NORMAL (Normal); URINE LEUKOCYTE ESTERASE NEG Leu/uL (Negative); URINE PROTEIN NEGATIVE (NEGATIVE); URINE UROBILINOGEN NORMAL mg/dL (0.2-1.0)
[2019-02-10] MEDS ORDERED: Sodium Chloride 0.9% 1,000 ML IV ONE (08:41)
[2019-02-10] MEDS: Pantoprazole 40 mg EC Tab PO SCH (09:01)
[2019-02-10] MEDS: Enoxaparin 40 mg Syringe SC SCH (09:01)
--- NOTE | 2019-02-10 09:48 | RAD ---
Date of service: 02/09/2019 HISTORY: chest pain COMPARISON: None available. TECHNIQUE: 1 view obtained. FINDINGS: LUNGS: No focal infiltrate or effusion. Chronic interstitial lung markings. PLEURA: Blunted bilateral costophrenic angles which may represent chronic pleural thickening. CARDIOVASCULAR: Aortic atherosclerotic calcification present. Tortuous ectatic aorta. Normal cardiac size. No pulmonary vascular congestion. OSSEOUS STRUCTURES: Degenerative changes in the spine and shoulders. Chronic deformities of several right lateral ribs. VISUALIZED UPPER ABDOMEN: Normal. OTHER FINDINGS: None. IMPRESSION: No active disease.
[2019-02-10 12:14] LABS: CK-MB 1.46 ng/mL (0.0-3.38)
[2019-02-10 17:41] LABS: BLOOD UREA NITROGEN 12 mg/dL (7-17); CALCIUM 8.8 mg/dl (8.6-10.4); GFR NON-AFRICAN AMERICAN > 60
[2019-02-10 17:53] LABS: CK-MB 1.17 ng/mL (0.0-3.38)
--- NOTE | 2019-02-10 21:24 | CP.PCM.HP ---
Present on Admission - Present on Admission Any Indicators Present on Admission: No Past Patient History - Infectious Disease Hx of Infectious Diseases: None - Past Medical History & Family History Past Medical History?: Yes - Past Social History Smoking Status: Never Smoked - CARDIAC Hx Hypercholesterolemia: Yes Hx Hypertension: Yes - PULMONARY Hx Bronchitis: Yes Hx Pneumonia: Yes - NEUROLOGICAL Hx Seizures: Yes - HEENT Hx HEENT Problems: Yes Hx Cataracts: Yes - RENAL Hx Chronic Kidney Disease: No - ENDOCRINE/METABOLIC Hx Endocrine Disorders: No - INTEGUMENTARY Hx Dermatological Problems: No - MUSCULOSKELETAL/RHEUMATOLOGICAL Hx Falls: No - GASTROINTESTINAL Hx Gastritis: Yes - PSYCHIATRIC Hx Anxiety: Yes Hx Bipolar Disorder: Yes Hx Depression: Yes Hx Paranoia: Yes Hx Schizophrenia: Yes Hx Substance Use: No - SURGICAL HISTORY Hx Cholecystectomy: Yes ( PER PREVIOUS CHART) - ANESTHESIA Hx Anesthesia: Yes Hx Anesthesia Reactions: No Hx Malignant Hyperthermia: No Meds Allergies/Adverse Reactions: Allergies Allergy/AdvReac Type Severity Reaction Status Date / Time Penicillins Allergy Severe ANAPHYLAXIS Verified 02/09/19 22:18 cigarette smoke Allergy COUGH Verified 02/09/19 22:18 Results - Vital Signs Recent Vital Signs: Last Vital Signs Temp 98.3 F 02/10/19 15:00 Pulse 66 02/10/19 19:22 Resp 20 02/10/19 15:00 BP 130/72 02/10/19 15:00 Pulse Ox 96 02/10/19 15:00 - Labs Result Diagrams: 02/09/19 22:47 02/10/19 15:28 Labs: Laboratory Results - last 24 hr 02/09/19 02/09/19 02/09/19 22:47 22:47 22:47 WBC 3.7 L RBC 3.51 L Hgb 11.5 Hct 34.0 MCV 97.0 MCH 32.7 H MCHC 33.7 RDW 12.5 Plt Count 243 MPV 7.1 L Neut % (Auto) 37.4 L Lymph % (Auto) 32.0 [place] % (Auto) 9.9 Eos % (Auto) 17.7 H Baso % (Auto) 3.0 H Neut # (Auto) 1.4 L Lymph # (Auto) 1.2 [place] # (Auto) 0.4 Eos # (Auto) 0.7 Baso # (Auto) 0.1 PT 11.8 INR 1.1 APTT 26 Sodium 128 L Potassium 4.4 Chloride 94 L Carbon Dioxide 27 Anion Gap 11 BUN 12 Creatinine 0.6 L Est GFR ( Amer) > 60 Est GFR (Non-Af Amer) > 60 Random Glucose 122 H D Calcium 8.9 Total Bilirubin 0.3 AST 26 ALT 18 Alkaline Phosphatase 108 Total Creatine Kinase CK-MB (Mass) Troponin I < 0.0120 NT-Pro-B Natriuret Pep 228 Total Protein 7.2 Albumin 3.9 Globulin 3.3 Albumin/Globulin Ratio 1.2 Urine Color Urine Clarity Urine pH Ur Specific [place] Urine Protein Urine Glucose (UA) Urine Ketones Urine Blood Urine Nitrate Urine Bilirubin Urine Urobilinogen Ur Leukocyte Esterase Ur Squamous Epith Cells 02/10/19 02/10/19 02/10/19 00:57 11:27 15:28 WBC RBC Hgb Hct MCV MCH MCHC RDW Plt Count MPV Neut % (Auto) Lymph % (Auto) [place] % (Auto) Eos % (Auto) Baso % (Auto) Neut # (Auto) Lymph # (Auto) [place] # (Auto) Eos # (Auto) Baso # (Auto) PT INR APTT Sodium 134 Potassium 4.8 Chloride 104 Carbon Dioxide 23 Anion Gap 12 BUN 12 Creatinine 0.7 Est GFR ( Amer) > 60 Est GFR (Non-Af Amer) > 60 Random Glucose 140 H Calcium 8.8 Total Bilirubin AST ALT Alkaline Phosphatase Total Creatine Kinase 49 60 CK-MB (Mass) 1.46 1.17 Troponin I < 0.0120 < 0.0120 NT-Pro-B Natriuret Pep Total Protein Albumin Globulin Albumin/Globulin Ratio Urine Color Straw Urine Clarity Clear Urine pH 6.0 Ur Specific [place] 1.004 Urine Protein Negative Urine Glucose (UA) Normal Urine Ketones Negative Urine Blood Negative Urine Nitrate Negative Urine Bilirubin Negative Urine Urobilinogen Normal Ur Leukocyte Esterase Neg Ur Squamous Epith Cells < 1
--- NOTE | 2019-02-10 23:17 | CP.PCM.CON ---
History of Present Illness - History of Present Illness History of Present Illness: Patient seen and evaluated Admitted for chest pain Multiple cardiac risk factors For stress test in am Past Patient History - Infectious Disease Hx of Infectious Diseases: None - Past Medical History & Family History Past Medical History?: Yes - Past Social History Smoking Status: Never Smoked - CARDIAC Hx Hypercholesterolemia: Yes Hx Hypertension: Yes - PULMONARY Hx Bronchitis: Yes Hx Pneumonia: Yes - NEUROLOGICAL Hx Seizures: Yes - HEENT Hx HEENT Problems: Yes Hx Cataracts: Yes - RENAL Hx Chronic Kidney Disease: No - ENDOCRINE/METABOLIC Hx Endocrine Disorders: No - INTEGUMENTARY Hx Dermatological Problems: No - MUSCULOSKELETAL/RHEUMATOLOGICAL Hx Falls: No - GASTROINTESTINAL Hx Gastritis: Yes - PSYCHIATRIC Hx Anxiety: Yes Hx Bipolar Disorder: Yes Hx Depression: Yes Hx Paranoia: Yes Hx Schizophrenia: Yes Hx Substance Use: No - SURGICAL HISTORY Hx Cholecystectomy: Yes ( PER PREVIOUS CHART) - ANESTHESIA Hx Anesthesia: Yes Hx Anesthesia Reactions: No Hx Malignant Hyperthermia: No Meds Allergies/Adverse Reactions: Allergies Allergy/AdvReac Type Severity Reaction Status Date / Time Penicillins Allergy Severe ANAPHYLAXIS Verified 02/09/19 22:18 cigarette smoke Allergy COUGH Verified 02/09/19 22:18 - Medications Medications: Current Medications Aspirin (Ecotrin) 81 mg PO DAILY [facility] Last Admin: 02/10/19 09:03 Dose: 81 mg Enoxaparin Sodium (Lovenox) 40 mg SC DAILY [facility] Last Admin: 02/10/19 09:01 Dose: 40 mg Losartan Potassium (Cozaar) 50 mg PO DAILY [facility] Last Admin: 02/10/19 09:01 Dose: 50 mg Oxcarbazepine (Trileptal) 300 mg PO TID [facility] Last Admin: 02/10/19 17:53 Dose: 300 mg Pantoprazole Sodium (Protonix Ec Tab) 40 mg PO DAILY [facility] Last Admin: 02/10/19 09:01 Dose: 40 mg Phenytoin (Dilantin) 50 mg PO HS [facility] Last Admin: 02/10/19 21:58 Dose: 50 mg Phenytoin Sodium (Dilantin) 100 mg PO BID [facility] Last Admin: 02/10/19 17:53 Dose: 100 mg Rosuvastatin Calcium (Crestor) 10 mg PO HS [facility] Last Admin: 02/10/19 21:57 Dose: 10 mg Results - Vital Signs Recent Vital Signs: Last Vital Signs Temp 98.3 F 02/10/19 15:00 Pulse 66 02/10/19 19:22 Resp 20 02/10/19 15:00 BP 130/72 02/10/19 15:00 Pulse Ox 96 02/10/19 15:00 - Labs Result Diagrams: 02/09/19 22:47 02/10/19 15:28 Labs: Laboratory Results - last 24 hr 02/09/19 02/10/19 02/10/19 22:47 00:57 11:27 WBC 3.7 L RBC 3.51 L Hgb 11.5 Hct 34.0 MCV 97.0 MCH 32.7 H MCHC 33.7 RDW 12.5 Plt Count 243 MPV 7.1 L Neut % (Auto) 37.4 L Lymph % (Auto) 32.0 [place] % (Auto) 9.9 Eos % (Auto) 17.7 H Baso % (Auto) 3.0 H Neut # (Auto) 1.4 L Lymph # (Auto) 1.2 [place] # (Auto) 0.4 Eos # (Auto) 0.7 Baso # (Auto) 0.1 Sodium Potassium Chloride Carbon Dioxide Anion Gap BUN Creatinine Est GFR ( Amer) Est GFR (Non-Af Amer) Random Glucose Calcium Total Creatine Kinase 49 CK-MB (Mass) 1.46 Troponin I < 0.0120 Urine Color Straw Urine Clarity Clear Urine pH 6.0 Ur Specific [place] 1.004 Urine Protein Negative Urine Glucose (UA) Normal Urine Ketones Negative Urine Blood Negative Urine Nitrate Negative Urine Bilirubin Negative Urine Urobilinogen Normal Ur Leukocyte Esterase Neg Ur Squamous Epith Cells < 1 02/10/19 15:28 WBC RBC Hgb Hct MCV MCH MCHC RDW Plt Count MPV Neut % (Auto) Lymph % (Auto) [place] % (Auto) Eos % (Auto) Baso % (Auto) Neut # (Auto) Lymph # (Auto) [place] # (Auto) Eos # (Auto) Baso # (Auto) Sodium 134 Potassium 4.8 Chloride 104 Carbon Dioxide 23 Anion Gap 12 BUN 12 Creatinine 0.7 Est GFR ( Amer) > 60 Est GFR (Non-Af Amer) > 60 Random Glucose 140 H Calcium 8.8 Total Creatine Kinase 60 CK-MB (Mass) 1.17 Troponin I < 0.0120 Urine Color Urine Clarity Urine pH Ur Specific [place] Urine Protein Urine Glucose (UA) Urine Ketones Urine Blood Urine Nitrate Urine Bilirubin Urine Urobilinogen Ur Leukocyte Esterase Ur Squamous Epith Cells
[2019-02-11 07:36] VITALS: RESP 20
--- NOTE | 2019-02-11 08:03 | HP ---
CHIEF COMPLAINT: Chest pain x1 day. HISTORY OF PRESENT ILLNESS: This is a 78-year-old female, well known to me with history of bipolar schizophrenia, hypertension, seizure disorder; compliant with diet, medication, and followup. The patient has a history of multiple recurrent falls, recurrent hospitalizations, and she has history of recent seizures, in her usual status of health. She is ambulatory and independent in activities of daily living. She came to emergency room because of substernal chest pain, dull, non-radiating, not associated with diaphoresis or dizziness. Chest pain is dull. There is no history of dyspepsia, nausea, or vomiting. She denies any cough, sore throat, or runny nose. She denies any history of polyuria, polydipsia, polyphagia. She denies any history of hematuria or pyuria. She denies any history of sneezing, itchy eyes, or itchy nose. ALLERGIES: UNKNOWN. CURRENT MEDICATIONS: She is on Dilantin, phenobarbital, Protonix, Trileptal, Cozaar, Benadryl. SOCIAL HISTORY: Nonsmoker, non-EtOH user. FAMILY HISTORY: Noncontributory. PHYSICAL EXAMINATION: GENERAL: An elderly female, in no acute distress, ____. VITAL SIGNS: Blood pressure 130/72, pulse 84, respiratory rate 20, and temperature 97.3. SKIN: Senile turgor. No bruises. No purpura. No petechiae. HEENT: Atraumatic and normocephalic. Negative pallor. Negative jaundice. Extraocular movements are intact. NECK: Supple. Flat neck veins. No JVD. No lymph node. No thyromegaly. CHEST WALL: Bilateral symmetrical expansion. No tenderness. LUNGS: Clear. No rales. No rhonchi. CARDIOVASCULAR SYSTEM: PMI not localized. S1 and S2, regular. ABDOMEN: Soft and nontender. Bowel sounds are positive. EXTREMITIES: No clubbing, cyanosis, or edema. CENTRAL NERVOUS SYSTEM: Awake, alert, and oriented x3. Cranial nerves II through XII are normal. Power 5/5 x4. Plantars are downgoing. ASSESSMENT: 1. Chest pain, atypical, rule out myocardial infarction. 2. Hypertension. 3. Seizure disorder. 4. Bipolar psychosis. PLAN: Admit. Detailed orders are written. Seen and examined. Mor Parra MD [facility] # [id number]
[2019-02-11] MEDS ORDERED: Caffeine Citrated **INJ** 20 MG/ML IV ONE (08:13)
[2019-02-11] MEDS: Pantoprazole 40 mg EC Tab PO SCH (10:16)
[2019-02-11] MEDS: Enoxaparin 40 mg Syringe SC SCH (10:16)
--- NOTE | 2019-02-11 22:29 | CP.PCM.PN ---
Subjective - Date & Time of Evaluation Date of Evaluation: 02/11/19 Time of Evaluation: 07:40 - Subjective Subjective: dictated Objective - Vital Signs/Intake and Output Vital Signs (last 24 hours): Temp Pulse Resp BP Pulse Ox 97.9 F 72 20 152/75 H 96 02/11/19 15:35 02/11/19 21:31 02/11/19 15:35 02/11/19 15:35 02/11/19 15:35 Intake and Output: 02/11/19 02/12/19 18:59 06:59 Intake Total 400 Balance 400 - Medications Medications: Current Medications Acetaminophen (Tylenol 325mg Tab) 650 mg PO Q6 PRN PRN Reason: Headache Last Admin: 02/11/19 15:23 Dose: 650 mg Aspirin (Ecotrin) 81 mg PO DAILY [facility] Last Admin: 02/10/19 09:03 Dose: 81 mg Enoxaparin Sodium (Lovenox) 40 mg SC DAILY [facility] Last Admin: 02/11/19 10:16 Dose: 40 mg Losartan Potassium (Cozaar) 50 mg PO DAILY [facility] Last Admin: 02/11/19 10:16 Dose: 50 mg Oxcarbazepine (Trileptal) 300 mg PO TID [facility] Last Admin: 02/11/19 18:37 Dose: 300 mg Pantoprazole Sodium (Protonix Ec Tab) 40 mg PO DAILY [facility] Last Admin: 02/11/19 10:16 Dose: 40 mg Phenytoin (Dilantin) 50 mg PO HS [facility] Last Admin: 02/11/19 21:16 Dose: 50 mg Phenytoin Sodium (Dilantin) 100 mg PO BID [facility] Last Admin: 02/11/19 18:38 Dose: 100 mg Rosuvastatin Calcium (Crestor) 10 mg PO HS [facility] Last Admin: 02/11/19 21:16 Dose: 10 mg - Labs Labs: 02/09/19 22:47 02/10/19 15:28 PT 11.8 SECONDS (9.7-12.2) 02/09/19 22:47 INR 1.1 02/09/19 22:47 APTT 26 SECONDS (21-34) 02/09/19 22:47
[2019-02-12 01:02] VITALS: TEMP 98
--- NOTE | 2019-02-12 06:25 | CARD ---
APPROVED REPORT Date of service: 02/11/2019 Protocol: LEXISCAN Test Type: LEXISCAN STRESS Test Indications: CP Medical History: CP Target HR: 141 bpm Resting ECG: NSR Resting Heart Rate: 81 bpm Resting Blood Pressure: 136/80mmHg submaximum (85%): 120 bpm TEST SUMMARY EOYYJSAACCNREP88:02..1.074/.3. PREINFSNHYPERV.13:[id number]/80.2. INFUSIONDOSE 100:300.00.01.084/.1. ONGRAJGAY14:[id number]/80.2. PROCEDURE Pharmacologic stress testing was performed using 0.4mg per 5ml of regadenoson given intravenously over 7-10 seconds. POST EXERCISE Reason for Termination: Protocol Completed Target HR: No Max HR: 84 bpm 83% of Maximum Predicted HR: 141 bpm Exercise duration: 00:30 min:sec, 0 Stage Exercise capacity: 1.0METs Max Blood Pressure: 136/80mmHg Blood Pressure response to exercise: normal resting BP - appropriate response Heart Rate response to exercise: appropriate Chest Pain: No, none Angina index: 0 Arrhythmia: Yes, OCC VPB'S ST Change: No, none Deviation: 0 mm INTERPRETATION Stress EKG Conclusion: NEGATIVE LEXISCAN STRESS TEST OCC VPB'S NORMAL BP RESPONSE TO LEXISCAN NUCLEAR STUDIES TO BE READ SEPARATELY EXAM: Myocardial Perfusion STRESS/REST Imaging Protocol The imaging protocol used to acquire images was Stress Tc-99m/rest Tc-99m 1 day Stress Spect myocardial perfusion imaging was performed in supine position 44 minutes following the injection of 13 mCi of Tc-99 Myoview. Gated Rest Spect was performed 45 minutes after intravenous 32.6 mCi Tc-99 Myoview injection. The images were gated to evaluate regional wall motion and calculate ventricular ejection fraction.Images were reconstructed using backfilter projection method in short horizontal and verticle long axis. Spect slices were generated. RESTING DATA EDV68.08mmDT6.40L/min ESV22.00mlMyocardial Bolu236.00g Av. Heart Rate74.00bpm EF68.00% STRESS DATA EDV77.30ibRF0.90L/min ESV19.00mlMyocardial Udqp012.00g EF75.00% Regional WT score at stress:0.00 Regional WM score at stress:0.00 Summed WT score at stress:9.00 Av. Heart Rate84.00bpmSummed WM score at stress:0.00 LV Perf. Quant 17 Seg. SSS0.00 17 Seg. SRS1.00 17 Seg. SDS0.00 Stress Defect Extent (% LAD)0.00Rest Defect Extent (% LAD)0.00Rev. Defect Extent (% LAD)0.00 Stress Defect Extent (% LCX)0.00Rest Defect Extent (% LCX)15.00Rev. Defect Extent (% LCX)0.00 Stress Defect Extent (% RCA)0.00Rest Defect Extent (% RCA)0.00Rev. Defect Extent (% RCA)0.00 Stress Defect Extent (% NIKO)0.00Rest Defect Extent (% NIKO)2.60Rev. Defect Extent (% NIKO)0.00 IMPRESSION Normal Myocardial Perfusion exercise stress study Left Ventricle LV Function:Left ventricle systolic function is normal. The Ejection Fraction is >70%. Metabolism/Perfusion Defects: There is no scan evidence of stress-induced ischemia noted. There are no perfusion/metabolism defects. Conclusion 1. There is no scan evidence of stress-induced ischemia noted. 2. Left ventricle systolic function is normal. 3. The Ejection Fraction is >70%.
[2019-02-12 07:33] VITALS: BP 138/71; PULSE 83; O2SAT 95
[2019-02-12] MEDS: Enoxaparin 40 mg Syringe SC SCH (09:15)
[2019-02-12] MEDS: Pantoprazole 40 mg EC Tab PO SCH (09:15)
--- NOTE | 2019-02-12 21:32 | CP.PCM.DIS ---
Provider - Provider Date of Admission: 02/10/19 01:07 Attending physician: Mor Parra MD Consults: 02/10/19 01:13 Physician Consult Routine Comment: Consulting Provider: Bud Hinojosa Consulting Physician: Bud Hinojosa Reason for Consult: Chest Pain Time Spent in preparation of Discharge (in minutes): 30 Hospital Course - Lab Results Lab Results: Most Recent Lab Values WBC 3.7 K/uL (4.8-10.8) L 02/09/19 22:47 RBC 3.51 Mil/uL (3.80-5.20) L 02/09/19 22:47 Hgb 11.5 g/dL (11.0-16.0) 02/09/19 22:47 Hct 34.0 % (34.0-47.0) 02/09/19 22:47 MCV 97.0 fL (81.0-99.0) 02/09/19 22:47 MCH 32.7 pg (27.0-31.0) H 02/09/19 22:47 MCHC 33.7 g/dL (33.0-37.0) 02/09/19 22:47 RDW 12.5 % (11.5-14.5) 02/09/19 22:47 Plt Count 243 K/uL (130-400) 02/09/19 22:47 MPV 7.1 fL (7.2-11.7) L 02/09/19 22:47 Neut % (Auto) 37.4 % (50.0-75.0) L 02/09/19 22:47 Lymph % (Auto) 32.0 % (20.0-40.0) 02/09/19 22:47 [place] % (Auto) 9.9 % (0.0-10.0) 02/09/19 22:47 Eos % (Auto) 17.7 % (0.0-4.0) H 02/09/19 22:47 Baso % (Auto) 3.0 % (0.0-2.0) H 02/09/19 22:47 Neut # (Auto) 1.4 K/uL (1.8-7.0) L 02/09/19 22:47 Lymph # (Auto) 1.2 K/uL (1.0-4.3) 02/09/19 22:47 [place] # (Auto) 0.4 K/uL (0.0-0.8) 02/09/19 22:47 Eos # (Auto) 0.7 K/uL (0.0-0.7) 02/09/19 22:47 Baso # (Auto) 0.1 K/uL (0.0-0.2) 02/09/19 22:47 PT 11.8 SECONDS (9.7-12.2) 02/09/19 22:47 INR 1.1 02/09/19 22:47 APTT 26 SECONDS (21-34) 02/09/19 22:47 Sodium 134 mmol/L (132-148) 02/10/19 15:28 Potassium 4.8 mmol/L (3.6-5.2) 02/10/19 15:28 Chloride 104 mmol/L (98-107) 02/10/19 15:28 Carbon Dioxide 23 mmol/L (22-30) 02/10/19 15:28 Anion Gap 12 (10-20) 02/10/19 15:28 BUN 12 mg/dL (7-17) 02/10/19 15:28 Creatinine 0.7 mg/dL (0.7-1.2) 02/10/19 15:28 Est GFR ( Amer) > 60 02/10/19 15:28 Est GFR (Non-Af Amer) > 60 02/10/19 15:28 Random Glucose 140 mg/dL (65-105) H 02/10/19 15:28 Calcium 8.8 mg/dl (8.6-10.4) 02/10/19 15:28 Total Bilirubin 0.3 mg/dL (0.2-1.3) 02/09/19 22:47 AST 26 U/L (14-36) 02/09/19 22:47 ALT 18 U/L (9-52) 02/09/19 22:47 Alkaline Phosphatase 108 U/L (38-126) 02/09/19 22:47 Total Creatine Kinase 60 U/L (30-135) 02/10/19 15:28 CK-MB (Mass) 1.17 ng/mL (0.0-3.38) 02/10/19 15:28 Troponin I < 0.0120 ng/mL (0.00-0.120) 02/10/19 15:28 NT-Pro-B Natriuret Pep 228 pg/mL (0-900) 02/09/19 22:47 Total Protein 7.2 g/dL (6.3-8.3) 02/09/19 22:47 Albumin 3.9 g/dL (3.5-5.0) 02/09/19 22:47 Globulin 3.3 gm/dL (2.2-3.9) 02/09/19 22:47 Albumin/Globulin Ratio 1.2 (1.0-2.1) 02/09/19 22:47 Urine Color Straw (YELLOW) 02/10/19 00:57 Urine Clarity Clear (Clear) 02/10/19 00:57 Urine pH 6.0 (5.0-8.0) 02/10/19 00:57 Ur Specific [place] 1.004 (1.003-1.030) 02/10/19 00:57 Urine Protein Negative mg/dL (NEGATIVE) 02/10/19 00:57 Urine Glucose (UA) Normal mg/dL (Normal) 02/10/19 00:57 Urine Ketones Negative mg/dL (NEGATIVE) 02/10/19 00:57 Urine Blood Negative (NEGATIVE) 02/10/19 00:57 Urine Nitrate Negative (NEGATIVE) 02/10/19 00:57 Urine Bilirubin Negative (NEGATIVE) 02/10/19 00:57 Urine Urobilinogen Normal mg/dL (0.2-1.0) 02/10/19 00:57 Ur Leukocyte Esterase Neg Jerod/uL (Negative) 02/10/19 00:57 Ur Squamous Epith Cells < 1 /hpf (0-5) 02/10/19 00:57 Phenytoin 9.6 ug/mL (10-20) L 02/11/19 07:59 Phenobarbital 19.2 mg/L (15.0-40.0) 02/11/19 07:59 Discharge Plan - Follow Up Plan Condition: FAIR Disposition: HOME/ ROUTINE Instructions: Chest Pain (DC), Oxcarbazepine, Phenytoin Additional Instructions: Follow up in Dr. Rowell office in 1 week. Resume all home medications. Referrals: Mor Parra MD [Staff Provider] -
--- NOTE | 2019-02-13 00:15 | CP.PCM.PN ---
Subjective - Date & Time of Evaluation Date of Evaluation: 02/11/19 Time of Evaluation: 17:25 - Subjective Subjective: Patient seen and evaluated Admitted for chest pain Stress test and ECHO are WNL Objective - Vital Signs/Intake and Output Vital Signs (last 24 hours): Temp Pulse Resp BP Pulse Ox 98.0 F 83 20 138/71 95 02/12/19 07:05 02/12/19 07:05 02/12/19 07:05 02/12/19 07:05 02/12/19 07:05 Intake and Output: 02/12/19 02/13/19 18:59 06:59 Intake Total 400 Balance 400 - Labs Labs: 02/09/19 22:47 02/10/19 15:28 PT 11.8 SECONDS (9.7-12.2) 02/09/19 22:47 INR 1.1 02/09/19 22:47 APTT 26 SECONDS (21-34) 02/09/19 22:47
--- NOTE | 2019-02-13 03:14 | DS ---
DISCHARGE DIAGNOSES: 1. Noncoronary chest pain. 2. Seizure disorder. 3. Hypertension. 4. Psychosis. HISTORY OF PRESENT ILLNESS: This is a 78-year-old female with history of hypertension, depression, bipolar, psychosis, seizure disorder who came in because of chest pain. TX was ruled out by three sets of negative cardiac enzymes, seen by Cardiology. A nuclear stress test was done which is negative. Chest x-ray is negative. The patient is feeling better. She is here for discharge. Condition upon discharge is stable. PHYSICAL EXAMINATION: VITAL SIGNS: Blood pressure 138/71, pulse 80, respiratory rate 20, temperature 98. LUNGS: Clear. ABDOMEN: Soft. Nontender. Bowel sounds are positive. PLAN: Discharged the patient. Mor Parra MD
--- NOTE | 2019-02-13 06:35 | PN ---
DATE: 02/11/2019 SUBJECTIVE: The patient is feeling better. No chest pain. No nausea or vomiting. No cough. PHYSICAL EXAMINATION: VITAL SIGNS: Blood pressure is 193/79, pulse 73, respiratory rate 20, temperature 98. LUNGS: Clear. No rales. No rhonchi. CARDIOVASCULAR SYSTEM: S1, S2, regular. ABDOMEN: Soft. ASSESSMENT: 1. Noncoronary chest pain. 2. Hypertension. 3. Seizure. PLAN: I tried to discharge the patient but her son was not available to pick her up and we will attempt to discharge the patient on 02/12/2019 . Mor Parra MD
== END 2019-02-12 13:54 | disposition home or self-care (01) ==
LOC: C.ER 22:09 → C.6T 02-10 01:07
PROVIDERS: ADMIT Internal Medicine; ATTEND Internal Medicine
DX: R07.89 Other chest pain (principal); E78.00 Pure hypercholesterolemia, unspecified; G40.909 Epilepsy, unspecified, not intractable, without status epilepticus; I10 Essential (primary) hypertension; F31.9 Bipolar disorder, unspecified
CPT/HCPCS: 36415; 71045; 78452; 80048; 80053; 80184; 80185; 81001; 83880; 84484; 85025; 85610; 85730; 93017; 97110; 97116; 97162; 99284; A9502; G0378; G8978; G8979; J0706; J1650; J2785; J7030

== ENCOUNTER 2019-03-25 01:04 | Observation (INO) | payer MEDICARE, MEDICAID ==
[2019-03-25 01:05] VITALS: BMI 107.6
[2019-03-25] MEDS ORDERED: Sodium Chloride 0.9% 1,000 ML IV ONE (01:24)
[2019-03-25] MEDS ORDERED: Nitroglycerin 2% Ointment Foilpak UD TOP STA (01:24)
--- NOTE | 2019-03-25 01:26 | C.PDOC ---
History Of Present Illness 78 year old female is brought to the ED by [facility] for evaluation of chest pain. Patient was give Nitro and Aspirin en route by EMS with relief to the pain. Patient denies fever, chills, headache, visual changes, nausea, vomit, dizzines s, SOB, palpitations, pain on deep breathing. Time Seen by Provider: 03/25/19 01:23 Chief Complaint (Nursing): Chest Pain History Per: Patient, EMS History/Exam Limitations: no limitations Onset/Duration Of Symptoms: Hrs Current Symptoms Are (Timing): Still Present Quality: "Pain" Nitro Therapy Administered: 1, Per EMS, Partial Relief Recent travel outside of the [place]: No Additional History Per: Patient Past Medical History Reviewed: Historical Data, Nursing Documentation, Vital Signs Vital Signs: Last Vital Signs Temp 98.5 F 03/25/19 01:24 Pulse 92 H 03/25/19 01:12 Resp 23 03/25/19 01:12 BP 134/72 03/25/19 01:12 Pulse Ox 95 03/25/19 01:12 Primary Care Provider: Mor Parra - Medical History PMH: Anxiety, Bipolar Disorder, Bronchitis, Depression, Gastritis, HTN, Hypercholesterolemia, Paranoia, Pneumonia, Schizophrenia, Seizures Denies: Chronic Kidney Disease Surgical History: Cholecystectomy ( PER PREVIOUS CHART) - [facility] Procedures CLOSURE SKIN & SUBCUTANEOUS NEC (09/15/13) DX ULTRASOUND-HEART (09/11/14) ESOPHAGOGASTRODUODENOSCOPY [EGD] W/CLOSED BIOPSY (10/11/14) OTHER ESOPHAGOSCOPY (09/11/14) TETANUS TOXOID ADMINIST (09/15/13) VACCINATION NEC (10/11/14) VENOUS CATHETERIZATION NEC (09/11/14) Family History: States: Unknown Family Hx - Social History Hx Tobacco Use: No Hx Alcohol Use: No Hx Substance Use: No - Immunization History Hx Tetanus Toxoid Vaccination: No Hx Influenza Vaccination: No Hx Pneumococcal Vaccination: No Review Of Systems Constitutional: Negative for: Fever, Chills Cardiovascular: Positive for: Chest Pain. Negative for: Palpitations Respiratory: Negative for: Cough, Shortness of Breath Gastrointestinal: Negative for: Nausea, Vomiting, Abdominal Pain Musculoskeletal: Negative for: Neck Pain Skin: Negative for: Rash Neurological: Negative for: Weakness, Numbness, Headache, Dizziness Physical Exam - Physical Exam Appears: Non-toxic, No Acute Distress Skin: Normal Color, Warm, Dry Head: Atraumatic, Normacephalic Eye(s): bilateral: Normal Inspection, PERRL, EOMI Neck: Normal ROM, No Midline Cervical Tenderness, Supple Chest: Symmetrical, No Tenderness Cardiovascular: Rhythm Regular Respiratory: Normal Breath Sounds, No Rales, No Rhonchi, No Wheezing Gastrointestinal/Abdominal: Soft, No Tenderness, No Distention Extremity: Normal ROM, No Tenderness, No Pedal Edema Neurological/Psych: Oriented x3, Normal Speech, Normal Cognition Gait: Steady ED Course And Treatment - Laboratory Results Result Diagrams: 03/25/19 01:43 03/25/19 01:30 ECG: Interpreted By Me, Viewed By Me ECG Rhythm: Sinus Rhythm ECG Interpretation: Normal, No Acute Changes Interpretation Of ECG: NSR, normal tracings. Rate From EC O2 Sat by Pulse Oximetry: 95 (ON RA) Pulse Ox Interpretation: Normal - Radiology CXR: Interpreted by Me, Viewed By Me CXR Interpretation: Yes: Cardiomegaly. No: Infiltrates Medical Decision Making Medical Decision Making: Plan: * EKG * Labs * CXR * Nitro 1 SL * IV fluids Disposition Discussed With : Mor Parra Doctor Will See Patient In The: Hospital Counseled Patient/Family Regarding: Diagnosis - Disposition Disposition: HOSPITALIZED Disposition Time: 02:57 Condition: STABLE Forms: [facility] (Tristanian) - POA Present On Arrival: None - Clinical Impression Clinical Impression: Chest pain - Scribe Statement The provider has reviewed the documentation as recorded by the Scribe Edward Jain All medical record entries made by the Scribe were at my direction and personally dictated by me. I have reviewed the chart and agree that the record accurately reflects my personal performance of the history, physical exam, medical decision making, and the department course for this patient. I have also personally directed, reviewed, and agree with the discharge instructions and disposition.
[2019-03-25 01:52] LABS: BASO % 0.4 % (0.0-2.0); EOS # 0.9 K/uL (0.0-0.7); EOS % 19.6 % (0.0-4.0); HEMOGLOBIN 11.2 g/dL (11.0-16.0); LYMPH # 1.8 K/uL (1.0-4.3); LYMPH % 41.7 % (20.0-40.0); MEAN CELL VOLUME 98.3 fL (81.0-99.0); MEAN CORPUSCULAR HEMOGLOBIN 33.2 pg (27.0-31.0); MEAN CORPUSCULAR HGB CONC 33.8 g/dL (33.0-37.0); MEAN PLATELET VOLUME 8.8 fL (7.2-11.7); MONO # 0.5 K/uL (0.0-0.8); MONO % 12.4 % (0.0-10.0); NEUT # 1.1 K/uL (1.8-7.0); NEUT % 25.9 % (50.0-75.0); NRBC % 0.2 % (0.0-2.0); RBC 3.36 Mil/uL (3.80-5.20); WHITE BLOOD COUNT 4.4 K/uL (4.8-10.8)
[2019-03-25] MEDS ORDERED: Nitroglycerin 2% Ointment Foilpak UD TOP ONE (02:02)
[2019-03-25 02:09] LABS: ALB/GLOB RATIO 1.1 (1.0-2.1); ALBUMIN 3.5 g/dL (3.5-5.0); ALT/SGPT 18 U/L (9-52); AST/SGOT 30 U/L (14-36); BLOOD UREA NITROGEN 17 mg/dL (7-17); CALCIUM 8.3 mg/dl (8.6-10.4); GFR NON-AFRICAN AMERICAN > 60
[2019-03-25 03:58] LABS: INR 1.1; PROTHROMBIN TIME 11.5 SECONDS (9.7-12.2)
--- NOTE | 2019-03-25 07:31 | RAD ---
Date of service: 03/25/2019 HISTORY: chest pain COMPARISON: None available. TECHNIQUE: 1 view obtained. FINDINGS: LUNGS: Diminished inspiratory volume. Limited penetration due to obese body habitus. No definitive infiltrate bilaterally. PLEURA: No significant pleural effusion identified, no pneumothorax apparent. CARDIOVASCULAR: Calcific atherosclerotic changes are seen related to the thoracic aorta. Stable cardiomegaly. No pulmonary vascular congestion. OSSEOUS STRUCTURES: No significant abnormalities. VISUALIZED UPPER ABDOMEN: Normal. OTHER FINDINGS: None. IMPRESSION: Stable cardiomegaly. Diminished history volume. No definite acute pulmonary disease appreciable.
[2019-03-25 07:57] VITALS: RESP 20
[2019-03-25 07:58] VITALS: O2SAT 96
[2019-03-25 08:17] LABS: CK-MB 1.09 ng/mL (0.0-3.38)
--- NOTE | 2019-03-25 08:21 | CP.PCM.CON ---
History of Present Illness - History of Present Illness History of Present Illness: PGY2 Cardiology Note for Dr. Hinojosa Reason for Consult: Chest Pain Patient is a 78 year old female with a past medical history of Anxiety, Bipolar Disorder, Bronchitis, Depression, Gastritis, HTN, Hypercholesterolemia, Paranoia, Pneumonia, Schizophrenia and Seizures presented to the emergency room overnight with a complaint of chest pain. She was given nitro and aspirin by [facility] en route to hospital which relieved the pain. She has had multiple admissions in the past for chest pain, most recently on 02/11/19. She had a normal stress test at that time. Patient has not had chest pain since arrival to hospital. She is currently feeling well, denies fevers, chills, nausea, vomiting, shortness of breath, lightheadedness, dizziness, numbness or tingling. PMD: Dr. Parra PMH: Anxiety, Bipolar Disorder, Bronchitis, Depression, Gastritis, HTN, Hypercholesterolemia, Paranoia, Pneumonia, Schizophrenia, Seizures Review of Systems - Review of Systems All systems: reviewed and no additional remarkable complaints except (as per HPI) Past Patient History - Infectious Disease Hx of Infectious Diseases: None - Past Medical History & Family History Past Medical History?: Yes - Past Social History Smoking Status: Never Smoked - CARDIAC Hx Hypercholesterolemia: Yes Hx Hypertension: Yes - PULMONARY Hx Bronchitis: Yes Hx Pneumonia: Yes - NEUROLOGICAL Hx Seizures: Yes - HEENT Hx HEENT Problems: Yes Hx Cataracts: Yes - RENAL Hx Chronic Kidney Disease: No - ENDOCRINE/METABOLIC Hx Endocrine Disorders: No - INTEGUMENTARY Hx Dermatological Problems: No - MUSCULOSKELETAL/RHEUMATOLOGICAL Hx Falls: No - GASTROINTESTINAL Hx Gastritis: Yes - PSYCHIATRIC Hx Anxiety: Yes Hx Bipolar Disorder: Yes Hx Depression: Yes Hx Paranoia: Yes Hx Schizophrenia: Yes Hx Substance Use: No - SURGICAL HISTORY Hx Cholecystectomy: Yes ( PER PREVIOUS CHART) - ANESTHESIA Hx Anesthesia: Yes Hx Anesthesia Reactions: No Hx Malignant Hyperthermia: No Meds Home Medications: Home Medication List Medication Instructions Recorded Confirmed Type Phenytoin [Dilantin] 50 mg PO HS ctb 03/25/19 Rx Phenytoin, Extended [Dilantin] 100 mg PO BID cer 03/25/19 Rx Allergies/Adverse Reactions: Allergies Allergy/AdvReac Type Severity Reaction Status Date / Time Penicillins Allergy Severe ANAPHYLAXIS Verified 03/25/19 01:16 cigarette smoke Allergy COUGH Verified 03/25/19 01:16 - Medications Medications: Current Medications Aspirin (Aspirin Chewable) 81 mg PO DAILY [facility] Enoxaparin Sodium (Lovenox) 40 mg SC DAILY [facility] Sodium Chloride (Sodium Chloride 0.9%) 1,000 mls @ 100 mls/hr IV .Q10H ONE Stop: 03/25/19 11:23 Last Admin: 03/25/19 02:36 Dose: 100 mls/hr Phenobarbital (Phenobarbital Tab) 32.4 mg PO BID [facility] Phenytoin (Dilantin) 250 mg PO DAILY [facility] Rosuvastatin Calcium (Crestor) 5 mg PO HS [facility] Physical Exam - Constitutional Appears: Non-toxic, No Acute Distress, Chronically Ill, Other (obese) - Head Exam Head Exam: ATRAUMATIC, NORMOCEPHALIC - Eye Exam Eye Exam: Normal appearance - ENT Exam ENT Exam: Mucous Membranes Moist - Neck Exam Neck exam: Negative for: Lymphadenopathy - Respiratory Exam Respiratory Exam: Clear to Auscultation Bilateral, NORMAL BREATHING PATTERN. absent: Accessory Muscle Use, Rales, Rhonchi, Wheezes, Respiratory Distress - Cardiovascular Exam Cardiovascular Exam: REGULAR RHYTHM, +S1, +S2 - GI/Abdominal Exam GI & Abdominal Exam: Soft. absent: Distended, Firm, Guarding, Rigid, Tenderness Additional comments: obese - Extremities Exam Extremities exam: Positive for: normal inspection, pedal pulses present. Negative for: calf tenderness, pedal edema - Neurological Exam Neurological exam: Oriented x3 - Skin Skin Exam: Dry, Warm Results - Vital Signs Recent Vital Signs: Last Vital Signs Temp 98.1 F 03/25/19 07:00 Pulse 72 03/25/19 07:00 Resp 20 03/25/19 07:00 BP 118/65 03/25/19 07:00 Pulse Ox 96 03/25/19 07:00 - Labs Result Diagrams: 03/25/19 01:43 03/25/19 01:30 Labs: Laboratory Results - last 24 hr 03/25/19 03/25/19 03/25/19 01:30 01:43 03:23 WBC 4.4 L RBC 3.36 L Hgb 11.2 Hct 33.0 L MCV 98.3 MCH 33.2 H MCHC 33.8 RDW 13.0 Plt Count 278 MPV 8.8 Neut % (Auto) 25.9 L Lymph % (Auto) 41.7 H [place] % (Auto) 12.4 H Eos % (Auto) 19.6 H Baso % (Auto) 0.4 Neut # (Auto) 1.1 L Lymph # (Auto) 1.8 [place] # (Auto) 0.5 Eos # (Auto) 0.9 H Baso # (Auto) 0.0 PT 11.5 INR 1.1 APTT 20.0 L Sodium 129 L Potassium 4.3 Chloride 96 L Carbon Dioxide 25 Anion Gap 12 BUN 17 Creatinine 0.6 L Est GFR ( Amer) > 60 Est GFR (Non-Af Amer) > 60 Random Glucose 120 H Calcium 8.3 L Total Bilirubin 0.3 AST 30 ALT 18 Alkaline Phosphatase 94 Total Creatine Kinase CK-MB (Mass) Troponin I < 0.0120 Total Protein 6.7 Albumin 3.5 Globulin 3.2 Albumin/Globulin Ratio 1.1 03/25/19 07:43 WBC RBC Hgb Hct MCV MCH MCHC RDW Plt Count MPV Neut % (Auto) Lymph % (Auto) [place] % (Auto) Eos % (Auto) Baso % (Auto) Neut # (Auto) Lymph # (Auto) [place] # (Auto) Eos # (Auto) Baso # (Auto) PT INR APTT Sodium Potassium Chloride Carbon Dioxide Anion Gap BUN Creatinine Est GFR ( Amer) Est GFR (Non-Af Amer) Random Glucose Calcium Total Bilirubin AST ALT Alkaline Phosphatase Total Creatine Kinase 45 CK-MB (Mass) 1.09 Troponin I < 0.0120 Total Protein Albumin Globulin Albumin/Globulin Ratio Assessment & Plan - Assessment and Plan (Free Text) Plan: Non-Cardiac Chest Pain Denies any chest pain at this time Recent normal stress test on 02/10/19 ECHO 02/11/17: EF 65-70%, diastolic dysfunction, mild TR, mild pulm HTN CXR: stable cardiomegaly EKG: NSR @77bpm, normal axis, no acute ST wave changes Troponin neg x2, f/u 3rd trop continue current medical management due to recent normal stress test, normal EKG and negative troponins, chest pain is not suspected to be cardiac in nature. Case discussed with Dr. Ashish Jackson PGY2
[2019-03-25] MEDS ORDERED: Phenytoin 100 mg/4 ml Oral Susp UD PO SCH (10:00)
[2019-03-25] MEDS ORDERED: Enoxaparin 40 mg Syringe SC SCH (10:00)
[2019-03-25 16:45] VITALS: PULSE 104
[2019-03-25 16:54] VITALS: BP 169/83; TEMP 98.6
--- NOTE | 2019-03-25 16:59 | CP.PCM.PN ---
Subjective - Date & Time of Evaluation Date of Evaluation: 03/25/19 Time of Evaluation: 11:20 - Subjective Subjective: Patient seen today, denies any chest pain , sob, dizziness , palpitations vss and labs reviewed - stable troponin x 3 - negative no EKG changes Objective - Vital Signs/Intake and Output Vital Signs (last 24 hours): Temp Pulse Resp BP Pulse Ox 98.6 F 104 H 20 169/83 H 96 03/25/19 15:53 03/25/19 16:00 03/25/19 15:53 03/25/19 15:53 03/25/19 16:00 - Medications Medications: Current Medications Aspirin (Aspirin Chewable) 81 mg PO DAILY [facility] Last Admin: 03/25/19 10:04 Dose: 81 mg Enoxaparin Sodium (Lovenox) 40 mg SC DAILY [facility] Last Admin: 03/25/19 10:04 Dose: 40 mg Phenobarbital (Phenobarbital Tab) 32.4 mg PO BID [facility] Last Admin: 03/25/19 13:23 Dose: Not Given Phenytoin (Dilantin) 50 mg PO HS [facility] Phenytoin Sodium (Dilantin) 100 mg PO BID [facility] Rosuvastatin Calcium (Crestor) 5 mg PO HS [facility] - Labs Labs: 03/25/19 01:43 03/25/19 01:30 PT 11.5 SECONDS (9.7-12.2) 03/25/19 03:23 INR 1.1 03/25/19 03:23 APTT 20.0 SECONDS (21-34) L 03/25/19 03:23 Assessment and Plan - Assessment and Plan (Free Text) Assessment: A/P 78 yr old female with pmhx of Bipolar Disorder, Bronchitis, Depression, Gastritis, HTN, Hypercholesterolemia, Paranoia,admitted with chest pain troponin x 3 - negative ekg- no acute changes seen by Dr. Hinojosa today, karen had recent test in february and negative D/w Dr. Parra cleared for discharge home today and f/u ambika his offic e in 1 week discharge plan discussed with patient
--- NOTE | 2019-03-25 23:17 | CP.PCM.HP ---
Present on Admission - Present on Admission Any Indicators Present on Admission: No Past Patient History - Infectious Disease Hx of Infectious Diseases: None - Past Medical History & Family History Past Medical History?: Yes - Past Social History Smoking Status: Never Smoked - CARDIAC Hx Hypercholesterolemia: Yes Hx Hypertension: Yes - PULMONARY Hx Bronchitis: Yes Hx Pneumonia: Yes - NEUROLOGICAL Hx Seizures: Yes - HEENT Hx HEENT Problems: Yes Hx Cataracts: Yes - RENAL Hx Chronic Kidney Disease: No - ENDOCRINE/METABOLIC Hx Endocrine Disorders: No - INTEGUMENTARY Hx Dermatological Problems: No - MUSCULOSKELETAL/RHEUMATOLOGICAL Hx Falls: No - GASTROINTESTINAL Hx Gastritis: Yes - PSYCHIATRIC Hx Anxiety: Yes Hx Bipolar Disorder: Yes Hx Depression: Yes Hx Paranoia: Yes Hx Schizophrenia: Yes Hx Substance Use: No - SURGICAL HISTORY Hx Cholecystectomy: Yes ( PER PREVIOUS CHART) - ANESTHESIA Hx Anesthesia: Yes Hx Anesthesia Reactions: No Hx Malignant Hyperthermia: No Meds Home Medications: Home Medication List Medication Instructions Recorded Confirmed Type Phenytoin [Dilantin] 50 mg PO HS ctb 03/25/19 Rx Phenytoin, Extended [Dilantin] 100 mg PO BID cer 03/25/19 Rx Allergies/Adverse Reactions: Allergies Allergy/AdvReac Type Severity Reaction Status Date / Time Penicillins Allergy Severe ANAPHYLAXIS Verified 03/25/19 01:16 cigarette smoke Allergy COUGH Verified 03/25/19 01:16 Results - Vital Signs Recent Vital Signs: Last Vital Signs Temp 98.6 F 03/25/19 15:53 Pulse 104 H 03/25/19 16:00 Resp 20 03/25/19 15:53 BP 169/83 H 03/25/19 15:53 Pulse Ox 96 03/25/19 16:00 - Labs Result Diagrams: 03/25/19 01:43 03/25/19 01:30 Labs: Laboratory Results - last 24 hr 03/25/19 03/25/19 03/25/19 01:30 01:43 03:23 WBC 4.4 L RBC 3.36 L Hgb 11.2 Hct 33.0 L MCV 98.3 MCH 33.2 H MCHC 33.8 RDW 13.0 Plt Count 278 MPV 8.8 Neut % (Auto) 25.9 L Lymph % (Auto) 41.7 H Kaufman % (Auto) 12.4 H Eos % (Auto) 19.6 H Baso % (Auto) 0.4 Neut # (Auto) 1.1 L Lymph # (Auto) 1.8 Kaufman # (Auto) 0.5 Eos # (Auto) 0.9 H Baso # (Auto) 0.0 PT 11.5 INR 1.1 APTT 20.0 L Sodium 129 L Potassium 4.3 Chloride 96 L Carbon Dioxide 25 Anion Gap 12 BUN 17 Creatinine 0.6 L Est GFR ( Amer) > 60 Est GFR (Non-Af Amer) > 60 Random Glucose 120 H Calcium 8.3 L Total Bilirubin 0.3 AST 30 ALT 18 Alkaline Phosphatase 94 Total Creatine Kinase CK-MB (Mass) Troponin I < 0.0120 Total Protein 6.7 Albumin 3.5 Globulin 3.2 Albumin/Globulin Ratio 1.1 03/25/19 07:43 WBC RBC Hgb Hct MCV MCH MCHC RDW Plt Count MPV Neut % (Auto) Lymph % (Auto) Kaufman % (Auto) Eos % (Auto) Baso % (Auto) Neut # (Auto) Lymph # (Auto) Kaufman # (Auto) Eos # (Auto) Baso # (Auto) PT INR APTT Sodium Potassium Chloride Carbon Dioxide Anion Gap BUN Creatinine Est GFR ( Amer) Est GFR (Non-Af Amer) Random Glucose Calcium Total Bilirubin AST ALT Alkaline Phosphatase Total Creatine Kinase 45 CK-MB (Mass) 1.09 Troponin I < 0.0120 Total Protein Albumin Globulin Albumin/Globulin Ratio
--- NOTE | 2019-03-26 08:30 | HP ---
CHIEF COMPLAINT: Chest pain x1 hour. HISTORY OF PRESENT ILLNESS: This is a 78-year-old female well-known to me with history of hypertension, hyperlipidemia, seizure disorder, psychiatric condition including bipolar depression with compliance with her diet, medication, and followup. She came in with dull substernal chest pain, acute onset, nonradiating, not associated with diaphoresis, dizziness. No dyspepsia. No nausea or vomiting. No pleurisy. No history of positional component. She denies any history of dizziness. She denies any history of dyspnea on exertion, orthopnea, or PND. She denies any cough, sore throat, or running nose. She denies any history of sneezing, itchy eyes, or itchy nose. She denies any history of polyuria, polydipsia, or polyphagia. She denies any history of tingling, numbness, or paresthesia. She denies any seizure-like activity or tongue bite. ALLERGIES: UNKNOWN ALLERGIES. CURRENT MEDICATIONS: Phenobarbitone and Dilantin. SOCIAL HISTORY: Nonsmoker, non-ETOH user. PHYSICAL EXAMINATION: GENERAL: An elderly female in mild respiratory distress. VITAL SIGNS: Blood pressure 118/65, pulse 84, respiratory rate 20, temperature 98.6. SKIN: Dry. No bruises. No purpura. No petechia. No ecchymosis. HEENT: Atraumatic and normocephalic. Negative pallor. Negative jaundice. Extraocular movements are intact. NECK: Supple. No JVD. No lymph node. No thyromegaly. No carotid bruits. CHEST WALL: Bilateral symmetrical expansion. LUNGS: Clear. No rales. No rhonchi. CARDIOVASCULAR SYSTEM: S1, S2 regular. ABDOMEN: Soft and nontender. Bowel sounds are positive. RECTAL: No masses. No bleed. EXTREMITIES: No clubbing, cyanosis, or edema. CENTRAL NERVOUS SYSTEM: Awake, alert, and oriented x3. Cranial nerves II through XII are normal. Power 5/5 x4. Plantars are downgoing. ASSESSMENT: 1. Chest pain, rule out myocardial infarction. 2. Hypertension. 3. Seizure disorder. 4. Depression. PLAN: Admit. Detailed orders are written. Cardiac enzymes x3 are negative. Given negative stress test in recent past, the patient is for discharge. Mor Parra MD [facility] # [id number]
--- NOTE | 2019-03-26 12:18 | CARD ---
APPROVED REPORT Date of service: 03/25/2019 EKG Measurement Heart [id number] <Conclusion> Normal sinus rhythm Normal ECG
== END 2019-03-25 20:13 | disposition home or self-care (01) ==
LOC: C.ER 01:04 → C.6T 02:58
PROVIDERS: ADMIT Internal Medicine; ATTEND Internal Medicine
DX: R07.2 Precordial pain (principal); E78.00 Pure hypercholesterolemia, unspecified; E78.5 Hyperlipidemia, unspecified; F31.30 Bipolar disorder, current episode depressed, mild or moderate severity, unspecified; F20.9 Schizophrenia, unspecified; G40.909 Epilepsy, unspecified, not intractable, without status epilepticus; F41.9 Anxiety disorder, unspecified; I10 Essential (primary) hypertension; Z87.01 Personal history of pneumonia (recurrent)
CPT/HCPCS: 36415; 71045; 80053; 80186; 84484; 85025; 85610; 85730; 97162; 97530; G0378; G8978; G8979; J1650; J7030

== ENCOUNTER 2019-04-03 15:27 | Emergency (ER) | payer MEDICARE, MEDICAID | END 2019-04-03 21:28 | disposition home or self-care (01) | LOC: C.ER 15:27 ==